=== PATIENT | male | born 1945 | race Caucasian/White ===

== ENCOUNTER 2020-11-28 10:06 | Inpatient (IN) | payer MEDICARE, SELFPAY ==
[2020-11-28] VITALS (10 sets, daily range): BP systolic 115–156; BP diastolic 43–73; PULSE 60–74; RESP 18–27; TEMP 37.1; O2SAT 92–97; BMI 46.5
--- NOTE | ~2020-11-28 | US_ITS ---
EXAMINATION: US ABDOMEN LIMITED CLINICAL INFORMATION: CT scan of the abdomen and pelvis dated 03/20/2016, abdominal ultrasound dated 09/27/2019. COMPARISON: None TECHNIQUE: Real-time imaging of the right upper quadrant abdominal viscera. FINDINGS: PANCREAS: Visualized portions unremarkable. The majority of the pancreas is obscured by bowel gas shadowing. LIVER: Diffuse heterogeneous echotexture and mild surface nodularity without overt focal abnormality in the visualized portions. GALLBLADDER: Several small gallstones without significant mural thickening or pericholecystic fluid. COMMON BILE DUCT: Normal in caliber measuring 0.4 cm in diameter. RIGHT KIDNEY: 10.8 cm. Unremarkable. FREE FLUID: None. US/US abdomen limited IMPRESSION: 1. Hepatic findings suggest cirrhosis. No focal abnormality in the visualized portions. 2. Cholelithiasis without evidence for acute cholecystitis.
--- NOTE | ~2020-11-28 | US_ITS ---
EXAMINATION: US VENOUS ULTRASOUND WITH DOPPLER LOWER EXTREMITY, BILATERAL CLINICAL INFORMATION: Pain and swelling COMPARISON: None TECHNIQUE: Ultrasound of the deep veins is performed from the hip to the calf with compression sonography and color and pulse Doppler assessment. Spectral analysis with color-flow imaging is performed. FINDINGS: RIGHT: There is normal venous compression and respiratory variation and augmented flow. The visualized common femoral vein, superficial femoral vein, profunda femoral vein, popliteal vein, and the trifurcation region shows no evidence of deep venous thrombosis. There is no significant popliteal fossa cyst. LEFT: There is normal venous compression and respiratory variation and augmented flow. The visualized common femoral vein, superficial femoral vein, profunda femoral vein, popliteal vein, and the trifurcation region shows no evidence of deep venous thrombosis. There is no significant popliteal fossa cyst. US/US venous duplex LE BI IMPRESSION: No DVT demonstrated in the bilateral lower extremity.
--- NOTE | ~2020-11-28 | XR_ITS ---
EXAMINATION: XR CHEST CLINICAL INFORMATION: Dyspnea COMPARISON: Previous chest x-ray March 2019 TECHNIQUE: Frontal view of the chest was obtained. FINDINGS: The cardiac and mediastinal contours are stable. The lung volumes are low. There is slight elevation of the right hemidiaphragm. There is atelectasis or small infiltrate at the right lung base. There is no pleural effusion or pneumothorax. There are degenerative changes of the spine. XR/XR chest 1V IMPRESSION: Low lung volumes and elevated right hemidiaphragm. Atelectasis or small infiltrate at the right lung base.
--- NOTE | ~2020-11-28 | NM_ITS ---
EXAMINATION: NM LUNG IMAGE PERFUSION CLINICAL INFORMATION: Hypoxia. Changes on ECHO consistent with right-sided failure. COMPARISON: Chest x-ray 11/28/2020 TECHNIQUE: 2 mCi technetium 99m MAA was given intravenously for evaluation of perfusion. Multiple images obtained. No ventilation images performed. Comparison made with chest x-ray. FINDINGS: There is homogeneous perfusion of the right and left lungs. No evidence of pulmonary embolism. NM/IL pul perfusion IMPRESSION: Normal perfusion study. No evidence of pulmonary embolism.
--- NOTE | 2020-11-28 10:16 | ED_ITS ---
HPI - SOB/Dyspnea General Chief Complaint: Dyspnea Stated Complaint: diff breathing Time Seen by Provider: 11/28/20 10:16 Source: patient, EMS and old records reviewed Mode of arrival: EMS Limitations: other (poor historian) History of Present Illness HPI Narrative: 75 yo male with cirrhosis, COPD, HTN, DM, hepatic encephalopathy comes in with 1 week of dyspnea, LE edema - sleeping in a recliner, poor historian EMS found him to be mid 80s on RA MD elicited complaint: shortness of breath Pertinent past history: COPD Onset (ago): week(s) (1) Timing: constant Severity: moderate Exacerbating factors: lying flat and exertion Relieving factors: upright position Known history of: COPD Associated symptoms: orthopnea and lower extremity pain Treatment prior to arrival: oxygen Related Data Home Medications Medication Instructions Recorded Confirmed omeprazole 20 mg capsule,delayed 20 mg PO DAILY@0630 05/23/20 11/28/20 release rifaximin 550 mg tablet 550 mg PO TID 05/23/20 11/28/20 aspirin 81 mg PO DAILY 11/28/20 11/28/20 atorvastatin 40 mg PO DAILY 11/28/20 11/28/20 furosemide 40 mg PO DAILY 11/28/20 11/28/20 insulin aspart U-100 [Novolog 22 unit SUBCUT DAILY@0730 11/28/20 11/28/20 Flexpen U-100 Insulin] insulin aspart U-100 [Novolog 24 unit SUBCUT QPM 11/28/20 11/28/20 Flexpen U-100 Insulin] insulin glargine [Lantus Solostar 62 unit SUBCUT BEDTIME 11/28/20 11/28/20 U-100 Insulin] propranolol 10 mg PO BID 11/28/20 11/28/20 spironolactone 50 mg PO DAILY 11/28/20 11/28/20 umeclidinium [Incruse Ellipta] 1 inh INHALATION DAILY 11/28/20 11/28/20 Previous Rx's Medication Instructions Recorded gabapentin 300 mg capsule 300 mg PO BEDTIME 30 Days #30 cap 09/29/20 Allergies Allergy/AdvReac Type Severity Reaction Status Date / Time No Known Allergies Allergy Verified 11/28/20 10:42 Review of Systems Review of Systems: Constitutional : No Fever, No Chills ENT/Mouth : No sore throat, No Rhinorrhea, No Swallowing Difficulty Eyes: No Eye Pain, No Swelling, No Redness Cardiovascular : No Chest Pain, positive SOB, pos Orthopnea, positive Edema Respiratory : No Cough, No Sputum, pos Wheezing, positive dyspnea Gastrointestinal : No Nausea, No Vomiting, No Diarrhea, No abdominal Pain, No Hematochezia, No Melena Genitourinary : No Dysuria, No Urinary Frequency, No Hematuria Musculoskeletal : No joint pain, No Myalgias Skin : No Skin Lesions, No rash Neuro : No Weakness, No Numbness, No Dizziness, No Headache Psych : No Anxiety/Panic, No Depression Heme/Lymph: No Bruising, No Lymphadenopathy Endocrine : No Polyuria, No Polydipsia All other systems reviewed and are negative PMFSH Past Medical History Attestation statement: The following information was validated with the patient. Source: old records reviewed Medical History Alcoholic cirrhosis COPD (chronic obstructive pulmonary disease) Diabetes Encephalopathy HTN (hypertension) Hyperlipidemia Social History Social History (Updated 11/28/20 @ 10:25 by Eleanor De Los Santos DO) Alcohol intake: former Smoking Status: Current every day smoker Smoked in Last 30 Days: No Use of substances other than those prescribed or required for medical reasons: No Advance Directives: No Advance Directives Information Provided: No Physical Exam Vital Signs: Vital Signs: Last Vital Signs Pulse 62 11/28/20 12:31 Resp 22 H 11/28/20 12:31 BP 115/43 L 11/28/20 12:31 Pulse Ox 97 11/28/20 12:31 Oxygen Flow Rate 4 11/28/20 10:30 Body Mass Index 46.5 Appearance: Alert. Oriented X3. Mild acute distress. Eyes: Pupils equal, round and reactive to light. ENT: Pharynx normal. Neck: Normal inspection. Neck supple. CVS: Normal heart rate and rhythm. Pulses normal. Respiratory: Mild respiratory distress tachypnea and retractions. Breath sounds decreased throughout, end exp wheezes throughout Abdomen: Soft and nontender. Skin: Skin warm and dry. Normal skin color. Normal skin turgor. Extremities: 2 to 3+ pitting edema bilateral legs up to abdomen. No calf ttp Neuro: Oriented X 3. No motor deficit. No sensory deficit. Course Course Course Narrative: will admit for further workup and IV diuretics MDM - SOB/Dyspnea MDM Narrative Medical decision making narrative: 75 yo male with cirrhosis, COPD, HTN, DM, hepatic encephalopathy comes in with 1 week of dyspnea, LE edema - sleeping in a recliner, poor historian EMS found him to be mid 80s on RA patient does not know his medications at this time will obtain labs, CXR, COVID swab - IV lasix given his degree of edema, neb treatment, dispo per results and findings, likely admit Lab Data Result diagrams: 11/28/20 11:30 11/28/20 11:30 Labs: Lab Results 11/28/20 11/28/20 11/28/20 Range/Units 11:24 11:30 11:30 WBC 12.8 H (4.8-10.8) X10*3/uL RBC 4.00 L (4.60-5.80) X10*6/uL Hgb 13.3 L (14.0-18.0) g/dl Hct 40.2 L (42-52) % MCV 100.5 H (80-98) fL MCH 33.3 H (27.0-33.0) pg MCHC 33.1 (31.0-36.0) g/dl RDW 19.6 H (11.0-16.0) % Plt Count 121 L (160-400) X10*3/uL MPV 13.0 H (9.4-12.4) fL Immature Gran % (Auto) 0.5 H (0.0-0.4) % Neut % (Auto) 70.9 (45-73) % Lymph % (Auto) 9.2 L (20-40) % Boundary % (Auto) 18.2 H (2-11) % Eos % (Auto) 0.7 (0-4) % Baso % (Auto) 0.5 (0-2) % Lymph # (Auto) 1.2 (1.2-4.9) X10*3/uL Bound[place] # (Auto) 2.3 H (0.1-1.2) X10*3/uL Eos # (Auto) 0.1 (0.0-0.4) X10*3/uL Baso # (Auto) 0.1 (0.0-0.2) X10*3/uL Abs Immat Gran (auto) 0.06 H (0.00-0.03) X10*3/uL Absolute Neuts (auto) 9.1 H (2.0-8.3) X10*3/uL Absolute Nucleated RBC 0.000 (0.0-0.012) X10*3/uL Nucleated RBC % (auto) 0.0 (0.0-0.2) /100WBC Smear Tech's Comments VERIFIED PT (10.8-13.0) SEC INR (0.9-1.1) APTT (24.1-38.0) SEC Sodium 140 (135-145) mmol/L Potassium 4.3 (3.3-5.1) mmol/L Chloride 105 (96-108) mmol/L Carbon Dioxide 27 (22-29) mmol/L Anion Gap 12 (12-20) BUN 23 H (9-16) mg/dL Creatinine 1.94 H (0.5-1.4) mg/dL Estim Creat Clear Calc 45.6 Estimated GFR 34 Random Glucose 127 H (60-115) mg/dL Calcium 7.9 L (8.4-10.2) mg/dL Magnesium 2.3 (1.6-2.6) mg/dL Total Bilirubin 6.3 H (0.0-1.0) mg/dL Direct Bilirubin 2.1 H (0.0-0.5) mg/dL AST 41 H (5-37) U/L ALT 16 (0-40) U/L Alkaline Phosphatase 201 H (39-117) U/L Ammonia (13-55) umol/L Troponin I High Sens (<3.5-35.0) ng/L B-Natriuretic Peptide (<100) pg/mL Total Protein 7.3 (6.5-8.0) g/dL Albumin 2.5 L (3.5-5.0) g/dL Lipase 40 (8-78) U/L TSH (0.32-4.0) uIU/mL COVID-19 ([facility]ION) Negative (Negative) COVID-19 Clin Com See Note 11/28/20 11/28/20 11/28/20 Range/Units 11:30 11:30 11:30 WBC (4.8-10.8) X10*3/uL RBC (4.60-5.80) X10*6/uL Hgb (14.0-18.0) g/dl Hct (42-52) % MCV (80-98) fL MCH (27.0-33.0) pg MCHC (31.0-36.0) g/dl RDW (11.0-16.0) % Plt Count (160-400) X10*3/uL MPV (9.4-12.4) fL Immature Gran % (Auto) (0.0-0.4) % Neut % (Auto) (45-73) % Lymph % (Auto) (20-40) % Boundary % (Auto) (2-11) % Eos % (Auto) (0-4) % Baso % (Auto) (0-2) % Lymph # (Auto) (1.2-4.9) X10*3/uL Boundary # (Auto) (0.1-1.2) X10*3/uL Eos # (Auto) (0.0-0.4) X10*3/uL Baso # (Auto) (0.0-0.2) X10*3/uL Abs Immat Gran (auto) (0.00-0.03) X10*3/uL Absolute Neuts (auto) (2.0-8.3) X10*3/uL Absolute Nucleated RBC (0.0-0.012) X10*3/uL Nucleated RBC % (auto) (0.0-0.2) /100WBC Smear Tech's Comments PT 18.2 H (10.8-13.0) SEC INR 1.5 H (0.9-1.1) APTT 41.5 H (24.1-38.0) SEC Sodium (135-145) mmol/L Potassium (3.3-5.1) mmol/L Chloride (96-108) mmol/L Carbon Dioxide (22-29) mmol/L Anion Gap (12-20) BUN (9-16) mg/dL Creatinine (0.5-1.4) mg/dL Estim Creat Clear Calc Estimated GFR Random Glucose (60-115) mg/dL Calcium (8.4-10.2) mg/dL Magnesium (1.6-2.6) mg/dL Total Bilirubin (0.0-1.0) mg/dL Direct Bilirubin (0.0-0.5) mg/dL AST (5-37) U/L ALT (0-40) U/L Alkaline Phosphatase (39-117) U/L Ammonia 60 H (13-55) umol/L Troponin I High Sens (<3.5-35.0) ng/L B-Natriuretic Peptide 736 H (<100) pg/mL Total Protein (6.5-8.0) g/dL Albumin (3.5-5.0) g/dL Lipase (8-78) U/L TSH (0.32-4.0) uIU/mL COVID-19 ([facility]) (Negative) COVID-19 Clin Com 11/28/20 11/28/20 Range/Units 11:30 11:30 WBC (4.8-10.8) X10*3/uL RBC (4.60-5.80) X10*6/uL Hgb (14.0-18.0) g/dl Hct (42-52) % MCV (80-98) fL MCH (27.0-33.0) pg MCHC (31.0-36.0) g/dl RDW (11.0-16.0) % Plt Count (160-400) X10*3/uL MPV (9.4-12.4) fL Immature Gran % (Auto) (0.0-0.4) % Neut % (Auto) (45-73) % Lymph % (Auto) (20-40) % Boundary % (Auto) (2-11) % Eos % (Auto) (0-4) % Baso % (Auto) (0-2) % Lymph # (Auto) (1.2-4.9) X10*3/uL Boundary # (Auto) (0.1-1.2) X10*3/uL Eos # (Auto) (0.0-0.4) X10*3/uL Baso # (Auto) (0.0-0.2) X10*3/uL Abs Immat Gran (auto) (0.00-0.03) X10*3/uL Absolute Neuts (auto) (2.0-8.3) X10*3/uL Absolute Nucleated RBC (0.0-0.012) X10*3/uL Nucleated RBC % (auto) (0.0-0.2) /100WBC Smear Tech's Comments PT (10.8-13.0) SEC INR (0.9-1.1) APTT (24.1-38.0) SEC Sodium (135-145) mmol/L Potassium (3.3-5.1) mmol/L Chloride (96-108) mmol/L Carbon Dioxide (22-29) mmol/L Anion Gap (12-20) BUN (9-16) mg/dL Creatinine (0.5-1.4) mg/dL Estim Creat Clear Calc Estimated GFR Random Glucose (60-115) mg/dL Calcium (8.4-10.2) mg/dL Magnesium (1.6-2.6) mg/dL Total Bilirubin (0.0-1.0) mg/dL Direct Bilirubin (0.0-0.5) mg/dL AST (5-37) U/L ALT (0-40) U/L Alkaline Phosphatase (39-117) U/L Ammonia (13-55) umol/L Troponin I High Sens 72.5 H (<3.5-35.0) ng/L B-Natriuretic Peptide (<100) pg/mL Total Protein (6.5-8.0) g/dL Albumin (3.5-5.0) g/dL Lipase (8-78) U/L TSH 0.80 (0.32-4.0) uIU/mL COVID-19 ([facility]) (Negative) COVID-19 Clin Com ECG Data Attestation: I personally reviewed and interpreted this ECG as follows: ECG interpretation date: 11/28/20 ECG interpretation time: 10:56 Interpretation: Rate: 61 Rhythm: NSR [place]: normal Normal P waves. Normal VELMA. Normal QRS complex. ST T wave : normal, no LEODAN qTC: normal prior studies: no acute ischemia The study has been interpreted contemporaneously by me. . Discharge Plan Discharge Clinical Impression: Shortness of breath, Anasarca, Cirrhosis Patient Disposition: Admitted As Inpatient Prescriptions: No Action gabapentin 300 mg capsule 300 mg PO BEDTIME 30 Days Qty: 30 RF: 2 Lantus Solostar U-100 Insulin 100 unit/mL (3 mL) Insulin Pen 62 unit SUBCUT BEDTIME RF: 0 furosemide 40 mg Tablet 40 mg PO DAILY RF: 0 Incruse Ellipta 62.5 mcg/actuation Blister With Device 1 inh INHALATION DAILY RF: 0 atorvastatin 40 mg Tablet 40 mg PO DAILY RF: 0 propranolol 10 mg Tablet 10 mg PO BID RF: 0 spironolactone 50 mg Tablet 50 mg PO DAILY RF: 0 aspirin 81 mg Tablet,Delayed Release (Dr/Ec) 81 mg PO DAILY RF: 0 insulin aspart U-100 [Novolog Flexpen U-100 Insulin] 100 unit/mL (3 mL) Insulin Pen 22 unit SUBCUT DAILY@0730 RF: 0 insulin aspart U-100 [Novolog Flexpen U-100 Insulin] 100 unit/mL (3 mL) Insulin Pen 24 unit SUBCUT QPM RF: 0 omeprazole 20 mg capsule,delayed release(DR/EC) 20 mg PO DAILY@0630 RF: 0 Xifaxan 550 mg tablet 550 mg PO TID RF: 0
--- NOTE | 2020-11-28 10:22 | ECG_ITS ---
Test Reason : DYSPNEA Blood Pressure : / mmHG Vent. Rate : 061 BPM Atrial Rate : 061 BPM P-R Int : 160 ms QRS Dur : 092 ms QT Int : 450 ms P-R-T Axes : 032 009 052 degrees QTc Int : 453 ms Normal sinus rhythm Normal ECG When compared with ECG of 12-MAR-2019 10:06, No significant change was found Referred By: Eleanor De Los Santos Electronically Signed By:LUBNA FARRIS MD
[2020-11-28] MEDS: Furosemide 40 MG/4 ML VIAL IVPUSH ×2 (10:50→19:05)
--- NOTE | 2020-11-28 11:01 | PC.NURSE ---
Pt alert and oriented, skin pink, warm, dry. LS wheezing Right Upper Lobe. SOB with exertion. C/O LLL pain on inspiration. O2 sat on arrival 94% on 4L NC. Pt currently satting 95-96% on 4L NC. +3 pitting edema noted to BLE. Edema noted up to groin. 40mg Lasix given. Pt in bed awaiting chest x-ray. Daughter at bed.
[2020-11-28 11:48] LABS: Basophils Absolute Auto 0.1 X10*3/uL (0.0-0.2); Basophils Percent Auto 0.5 % (0-2); Eosinophils Absolute Auto 0.1 X10*3/uL (0.0-0.4); Eosinophils Percent Auto 0.7 % (0-4); Hematocrit 40.2 % (42-52); Hemoglobin 13.3 g/dl (14.0-18.0); INTERNATIONAL NORM RATIO 1.5 (0.9-1.1); Imm Gran Abs Auto 0.06 X10*3/uL (0.00-0.03); Imm Gran Pct Auto 0.5 % (0.0-0.4); Lymphocytes Absolute Auto 1.2 X10*3/uL (1.2-4.9); Lymphocytes Percent Auto 9.2 % (20-40); MANUAL DIFF FLAG SCAN; Mean Corpuscular HGB Conc 33.1 g/dl (31.0-36.0); Mean Corpuscular Hemoglobin 33.3 pg (27.0-33.0); Mean Corpuscular Volume 100.5 fL (80-98); Monocytes Absolute Auto 2.3 X10*3/uL (0.1-1.2); Monocytes Percent Auto 18.2 % (2-11); Neutrophils Absolute Auto 9.1 X10*3/uL (2.0-8.3); Neutrophils Percent Auto 70.9 % (45-73); Platelet Count 121 X10*3/uL (160-400); Prothrombin Time 18.2 SEC (10.8-13.0); Red Cell Distribution Width 19.6 % (11.0-16.0); SCAN SMEAR FLAG 1; White Blood Count 12.8 X10*3/uL (4.8-10.8)
--- NOTE | 2020-11-28 11:50 | PC.NURSE ---
called resp for neb tx
[2020-11-28 11:52] LABS: Partial Thromboplastin Time 41.5 SEC (24.1-38.0)
[2020-11-28] MEDS: Albuterol Sulfate (0.083%) 2.5 MG/3 ML VIAL.NEB INHALE (12:00)
[2020-11-28 12:02] LABS: COVID-19 Test Negative (Negative)
[2020-11-28 12:06] LABS: Alanine Aminotransferase 16 U/L (0-40); Albumin Level 2.5 g/dL (3.5-5.0); Alkaline Phosphatase 201 U/L (39-117); Anion Gap 12 (12-20); Aspartate Amino Transferase 41 U/L (5-37); Bilirubin Direct 2.1 mg/dL (0.0-0.5); Bilirubin Total 6.3 mg/dL (0.0-1.0); Blood Urea Nitrogen 23 mg/dL (9-16); Calcium 7.9 mg/dL (8.4-10.2); Carbon Dioxide 27 mmol/L (22-29); Chloride 105 mmol/L (96-108); Creatinine Clr Calc Pharmacy 45.6; Estimated Glomerular Filt Rate 34; Glucose Random 127 mg/dL (60-115); Lipase 40 U/L (8-78); Magnesium 2.3 mg/dL (1.6-2.6); Potassium 4.3 mmol/L (3.3-5.1); Sodium 140 mmol/L (135-145); Total Protein 7.3 g/dL (6.5-8.0)
[2020-11-28 12:08] LABS: B Type Natriuretic Peptide 736 pg/mL (<100)
[2020-11-28 12:09] LABS: Ammonia 60 umol/L (13-55)
[2020-11-28 12:12] LABS: Troponin-I High Sensitivity 72.5 ng/L (<3.5-35.0)
[2020-11-28 12:17] LABS: SLIDE REVIEW VERIFIED
--- NOTE | 2020-11-28 14:43 | PC.NURSE ---
PT COMFORTABLE THOUGH REMAINS DYSPNEIC AT REST AT THIS TIME. NO C/O PAIN. SPO2 HAS REMAINED WNL ON 4L O2. PLAN FOR ADMISSION, PT AWARE OF PLAN FOR CARE.
--- NOTE | 2020-11-28 15:28 | CA_ITS ---
Transthoracic Echocardiogram Patient (Last, First, Middle): Cory Vu M Gender: Male Date of : 1945 Age: 75 Procedure Date: 11/28/2020 Procedure Type: Transthoracic Echocardiogram Location: ER Height: 172.72 cm Weight: 138.8 kg BSA: 2.45 m2 Heart Rate: bpm BP: 111 / 43 mmHg Fleet Assistant: VANNA Referring MD: Rosie SHOEMAKER Acid Maker: Pato Bunn MD Symptoms: fluid overload Study Quality: Fair ECG Rhythm: Sinus with extra beats Conclusions: - 1. Severely elevated right ventricular systolic function with RV systolic pressure calculated at 100 mm of mercury with possible RV enlargement and dysfunction 2. Normal LV systolic function with impaired relaxation filling pattern 3. No significant valvular abnormality 4. No gross pericardial effusion Findings Procedure Information Contrast agent, definity, is being given per protocol without apparent complications. Left Ventricle Normal left ventricular size, thickness, and systolic function. The visually estimated ejection fraction is between 60-65%. Spectral Doppler is indicative of an impaired relaxation filling pattern. Right Ventricle RV is not well visualized and on some views appears to be enlarged with systolic dysfunction. However accurate estimation of size and systolic function is not possible on this study Atria The left atrium is mildly dilated. Interatrial shunt cannot be excluded. The right atrium was not well visualized. Aortic Valve The aortic valve structure and function is likely normal. There is no aortic valve stenosis. There is no aortic valve regurgitation. Mitral Valve Likely normal mitral valve structure and function. There is trace mitral valve regurgitation. There is no mitral valve stenosis. Pulmonic Valve The pulmonic valve was not well visualized. Tricuspid Valve The tricuspid valve was not well visualized. There is mild tricuspid valve regurgitation. The right ventricular systolic pressure is 100 mmHg. Significantly elevated right atrial pressure. Severe pulmonary hypertension is present. Great Vessels The aorta was not well visualized. The pulmonary artery was not well visualized. Venous The inferior vena cava is moderately dilated and does not collapse with inspiration. Pericardium/Pleural There is no evidence of pericardial effusion. Prior Study Comparison No previous study in the last 5 years for comparison Measurements 2D Linear Measurements IVSd: 0.98 0.6-0.9/0.6-1.0 cm LVIDd: 5.88 3.9-5.3/4.2-5.9 cm LVIDd Index: 2.40 2.4-3.2/2.2-3.1 cm/m2 LVIDs: 3.11 2.0-3.6 cm LVPWd: 1.03 0.7-1.1 cm Ao Root: 3.70 2.1-3.5 cm LA Diam: 4.20 2.7-3.8/3.0-4.0 cm LAIDs Index: 1.71 1.5-2.3 cm/m2 LV Mass: 299.78 67-162/88-224 g LV Mass Index: 122.36 43-95/49-115 g/m2 LVOT Diam: 2.20 3.0+(-)1.3 cm Mitral Valve MV Pk E: 0.98 MV PK A: 0.78 MV Decel Time: 237.00 E/A: 1.30 E'Lateral: 11.50 E'Medial: 6.48 E/E' Med: 15.10 E/E' Lat: 8.50 PHT: 70.00 MVA PHT: 3.14 Decel [place]: 4.13 Aortic Valve AoV Pk Ezio: 1.80 AoV Mn Ezio: 1.05 AoV VTI: 0.39 AoV Pk Grad: 13.00 Aov Mn Grad: 6.00 JOSE LUIS Cont.VTI: 2.89 LVOT LVOT Pk Ezio: 1.33 LVOT Mn Ezio: 0.90 LVOT VTI: 0.30 LVOT Pk Grad: 7.00 LVOT Mn Grad: 4.00 LVOT Diam: 2.20 LVOT Area: 3.80 Diastolic Function MV Pk E: 0.98 MV Pk A: 0.78 E/A: 1.30 E'Medial: 6.48 E/E' Med: 15.10 E' Laterial: 11.50 E/E' Lat: 8.50 Tricuspid Valve TR Pk Ezio: 4.62 TR Pk Grad: 85.00 RA Press: 15.00 RVSP: 100.00 Great Vessels Aorta Ao Root-2D: 3.70 2.0-3.7 cm Ao Asc: 3.30 2.1-3.4 cm Pulmonary Valve PV Pk Ezio: 1.07 Peak PV Grad: 5.00 Updated in Other Vendor System with Status of Final Pato Bunn MD electronically signed on 11/29/2020 10:10:49 AM with status of Final
--- NOTE | 2020-11-28 15:54 | PM.IMHP ---
History of Present Illness Date of Service: 11/28/20 Chief Complaint: shortness of breath, leg edema This is a 75-year-old Micronesian-speaking female who presented to the emergency department today due to difficulty breathing as well as leg edema. Patient states that he has been feeling short of breath since yesterday. He is awake and alert but somewhat vague in his history. Lab work was significant for white count of 12.8, platelet of 121, INR 1.5, and creatinine of 1.94. Bilirubin was elevated at 6.3, AST 41, ALT 16, alk phosphatase 201. Chest x-ray revealed atelectasis or small infiltrate at the right lung base. Patient denied cough. His presentation was more consistent with fluid overload and he was given a dose of IV Lasix as well as a breathing treatment. Review of Systems Review of Systems: Yes all other systems are reviewed and are negative Constitutional: Constitutional: Denies chills and Denies fever(s) Cardiovascular: Cardiovascular: Denies chest pain Respiratory: Respiratory: Denies cough Gastrointestinal: Gastrointestinal: Denies abdominal pain [facility] Medical History Alcoholic cirrhosis COPD (chronic obstructive pulmonary disease) Diabetes Encephalopathy HTN (hypertension) Hyperlipidemia Functional capacity: uses cane/walker Family history: reviewed and not pertinent Social History Alcohol intake: former Smoking Status: Current every day smoker Smoked in Last 30 Days: No Use of substances other than those prescribed or required for medical reasons: No Advance Directives: No Advance Directives Information Provided: No Meds Allergies Allergy/AdvReac Type Severity Reaction Status Date / Time No Known Allergies Allergy Verified 11/28/20 10:42 Active Medications: Current Medications Generic Name Dose Route Start Last Admin Trade Name Freq PRN Reason Stop Dose Admin Furosemide 40 mg 11/28/20 18:00 Furosemide 40 Mg/4 Ml Vial IVPUSH BID@0900,1800 [facility] Protocol Lactulose 30 gm 11/28/20 21:00 Lactulose 20 Gm/30 Ml Solution PO BID [facility] Pharmacy Consult 1 each 11/28/20 10:21 Consult Rx Perform Med Rec MISCELLANE ONCE PRN Consult order Home Medications Medication Instructions Recorded Confirmed Last Taken Type omeprazole 20 mg capsule,delayed 20 mg PO DAILY@0630 05/23/20 11/28/20 11/27/20 History release rifaximin 550 mg tablet 550 mg PO TID 05/23/20 11/28/20 11/27/20 History aspirin 81 mg PO DAILY 11/28/20 11/28/20 11/27/20 History atorvastatin 40 mg PO DAILY 11/28/20 11/28/20 11/27/20 History furosemide 40 mg PO DAILY 11/28/20 11/28/20 11/27/20 History insulin aspart U-100 [Novolog 22 unit SUBCUT DAILY@0730 11/28/20 11/28/20 Unknown History Flexpen U-100 Insulin] insulin aspart U-100 [Novolog 24 unit SUBCUT QPM 11/28/20 11/28/20 Unknown History Flexpen U-100 Insulin] insulin glargine [Lantus Solostar 62 unit SUBCUT BEDTIME 11/28/20 11/28/20 11/27/20 History U-100 Insulin] propranolol 10 mg PO BID 11/28/20 11/28/20 11/27/20 History spironolactone 50 mg PO DAILY 11/28/20 11/28/20 11/27/20 History umeclidinium [Incruse Ellipta] 1 inh INHALATION DAILY 11/28/20 11/28/20 11/27/20 History Physical Exam Vital Signs and Narrative: Vital Signs: Last Vital Signs Pulse 62 11/28/20 12:31 Resp 22 H 11/28/20 12:31 BP 115/43 L 11/28/20 12:31 Pulse Ox 97 11/28/20 12:31 Oxygen Flow Rate 4 11/28/20 10:30 Body Mass Index 46.5 Const: Nutritional Appearance: well nourished HENMT: Head: Yes normocephalic and Yes atraumatic Eyes: Sclerae: sclerae normal Chest: Chest palpation & inspection: normal inspection of the chest Cardio: Rate: regular rate Rhythm: regular rhythm GI: Palpation (GI): Soft to palpation and nontender Neuro: Cranial nerves: Yes CN's II-XII intact bilaterally and Yes Bilaterally intact EOM present Extrem: General: Yes normal to inspection Results Labs CBC and Chem 7: 11/28/20 11:30 11/28/20 11:30 Labs: Laboratory Results - last 24 hr 11/28/20 11/28/20 11/28/20 11:24 11:30 11:30 MCV 100.5 H MCH 33.3 H MCHC 33.1 RDW 19.6 H Plt Count 121 L MPV 13.0 H Immature Gran % (Auto) 0.5 H Neut % (Auto) 70.9 Lymph % (Auto) 9.2 L [place] % (Auto) 18.2 H Eos % (Auto) 0.7 Baso % (Auto) 0.5 Lymph # (Auto) 1.2 [place] # (Auto) 2.3 H Eos # (Auto) 0.1 Baso # (Auto) 0.1 Abs Immat Gran (auto) 0.06 H Absolute Neuts (auto) 9.1 H Absolute Nucleated RBC 0.000 Nucleated RBC % (auto) 0.0 Smear Tech's Comments VERIFIED PT INR APTT Anion Gap 12 Estim Creat Clear Calc 45.6 Estimated GFR 34 Random Glucose 127 H Calcium 7.9 L Magnesium 2.3 Total Bilirubin 6.3 H Direct Bilirubin 2.1 H AST 41 H ALT 16 Alkaline Phosphatase 201 H Ammonia Troponin I High Sens B-Natriuretic Peptide Total Protein 7.3 Albumin 2.5 L Lipase 40 TSH COVID-19 ([facility]ARRION) Negative COVIDTVDeck See Note 11/28/20 11/28/20 11/28/20 11:30 11:30 11:30 MCV MCH MCHC RDW Plt Count MPV Immature Gran % (Auto) Neut % (Auto) Lymph % (Auto) [place] % (Auto) Eos % (Auto) Baso % (Auto) Lymph # (Auto) [place] # (Auto) Eos # (Auto) Baso # (Auto) Abs Immat Gran (auto) Absolute Neuts (auto) Absolute Nucleated RBC Nucleated RBC % (auto) Smear Tech's Comments PT 18.2 H INR 1.5 H APTT 41.5 H Anion Gap Estim Creat Clear Calc Estimated GFR Random Glucose Calcium Magnesium Total Bilirubin Direct Bilirubin AST ALT Alkaline Phosphatase Ammonia 60 H Troponin I High Sens B-Natriuretic Peptide 736 H Total Protein Albumin Lipase TSH COVID-19 ([facility]ARRION) COVID-Carbonated Content Clin Com 11/28/20 11/28/20 11:30 11:30 MCV MCH MCHC RDW Plt Count MPV Immature Gran % (Auto) Neut % (Auto) Lymph % (Auto) [place] % (Auto) Eos % (Auto) Baso % (Auto) Lymph # (Auto) [place] # (Auto) Eos # (Auto) Baso # (Auto) Abs Immat Gran (auto) Absolute Neuts (auto) Absolute Nucleated RBC Nucleated RBC % (auto) Smear Tech's Comments PT INR APTT Anion Gap Estim Creat Clear Calc Estimated GFR Random Glucose Calcium Magnesium Total Bilirubin Direct Bilirubin AST ALT Alkaline Phosphatase Ammonia Troponin I High Sens 72.5 H B-Natriuretic Peptide Total Protein Albumin Lipase TSH 0.80 COVID-19 (DARRION) COVID-19 Clin Com Imaging Radiologist's Impressions: Impressions Chest X-Ray 11/28/20 10:23 IMPRESSION: Low lung volumes and elevated right hemidiaphragm. Atelectasis or small infiltrate at the right lung base. Venous Duplex 11/28/20 12:17 IMPRESSION: No DVT demonstrated in the bilateral lower extremity. Assessment and Plan (1) Cirrhosis: Qualifiers: Ascites presence: unspecified Hepatic cirrhosis type: unspecified hepatic cirrhosis Qualified Code(s): K74.60 - Unspecified cirrhosis of liver Status: Acute (2) Acute respiratory failure with hypoxia: Status: Acute This is a 75-year-old Micronesian-speaking male with a history of diabetes, thrombocytopenia, CKD arrived to the emergency department hypoxic with an oxygen saturation in the mid 80s found to have fluid overload Acute respiratory failure with hypoxia Appears fluid overloaded History of underlying liver disease, denies CHF ?of small infiltrate on cxr, but clinical picture more c/w fluid overload -echocardiogram -IV Lasix ULYSSES on CKD requires diuresis due to fluid overload -consider nephrology consult Elevated bilirubin h/o etoh abuse ?cirrhosis -abdominal US pending -continue lasix Hepatic encephalopathy Ammonia 60 -start lactulose -continue rifaximin elevated trop no chest pain -repeat trop pending Thrombocytopenia Chronic, related to underlying liver disease -follow CBC Diabetes -continue Lantus -SSI, POC GERD -continue PPI dvt ppx -lovenox code status - full code Attending Dr. Phillips
[2020-11-28 17:04] LABS: Troponin-I High Sensitivity 65.8 ng/L (<3.5-35.0)
--- NOTE | 2020-11-28 18:32 | PC.NURSE ---
Patient alert and oriented. Appears dyspenic in bed however denies this. cashier wrapper used to communicate. Pt aware of transfer to floor. Denies pain or discomfort. Vitals stable.
[2020-11-28] MEDS: Enoxaparin Sodium 40 MG/0.4 ML SYRINGE SUBCUT (19:05)
--- NOTE | 2020-11-28 20:12 | PC.NURSE ---
Timbo from [facility] called and will be here in 15 min approx 2029. to perform the lung scan.
[2020-11-28] MEDS: Lactulose 20 GM/30 ML SOLUTION 30 GM PO (21:57)
--- NOTE | 2020-11-28 22:02 | PC.NURSE ---
pt urine output 1000cc in urinal clear yellow.
[2020-11-28 22:26] LABS: Glucose, Whole Blood 109 mg/dL (60-115)
[2020-11-28] MEDS: 0.9 % Sodium Chloride Flush 3 ML SYRINGE IVFLUSH (22:30)
[2020-11-28] MEDS: Propranolol HCL 10 MG TABLET PO (22:30)
[2020-11-28] MEDS: rifAXIMin 550 MG TABLET PO (22:31)
[2020-11-29] VITALS (9 sets, daily range): BP systolic 108–143; BP diastolic 44–61; PULSE 52–62; RESP 16–20; TEMP 35.9–36.6; O2SAT 96–99; BMI 45.6
[2020-11-29] MEDS: 0.9 % Sodium Chloride Flush 3 ML SYRINGE IVFLUSH ×2 (00:31→08:19)
[2020-11-29] MEDS: Omeprazole 20 MG CAPSULE.DR PO (05:39)
[2020-11-29 06:15] LABS: Hematocrit 37.4 % (42-52); Hemoglobin 12.2 g/dl (14.0-18.0); Mean Corpuscular HGB Conc 32.6 g/dl (31.0-36.0); Mean Corpuscular Hemoglobin 33.3 pg (27.0-33.0); Mean Corpuscular Volume 102.2 fL (80-98); Platelet Count 122 X10*3/uL (160-400); Red Blood Count 3.66 X10*6/uL (4.60-5.80); Red Cell Distribution Width 19.7 % (11.0-16.0); White Blood Count 10.2 X10*3/uL (4.8-10.8)
[2020-11-29 06:20] LABS: INTERNATIONAL NORM RATIO 1.6 (0.9-1.1); Prothrombin Time 19.2 SEC (10.8-13.0)
[2020-11-29 06:27] LABS: Ammonia 43 umol/L (13-55)
[2020-11-29 06:37] LABS: Alanine Aminotransferase 15 U/L (0-40); Albumin Level 2.2 g/dL (3.5-5.0); Alkaline Phosphatase 160 U/L (39-117); Anion Gap 15 (12-20); Aspartate Amino Transferase 42 U/L (5-37); Bilirubin Direct 1.9 mg/dL (0.0-0.5); Bilirubin Total 5.7 mg/dL (0.0-1.0); Blood Urea Nitrogen 24 mg/dL (9-16); Calcium 7.7 mg/dL (8.4-10.2); Carbon Dioxide 26 mmol/L (22-29); Chloride 107 mmol/L (96-108); Creatinine Clr Calc Pharmacy 46.1; Estimated Glomerular Filt Rate 35; Glucose Random 138 mg/dL (60-115); Potassium 4.6 mmol/L (3.3-5.1); Sodium 143 mmol/L (135-145); Total Protein 6.7 g/dL (6.5-8.0)
[2020-11-29 07:11] LABS: Glucose, Whole Blood 119 mg/dL (60-115)
[2020-11-29] MEDS: Lactulose 20 GM/30 ML SOLUTION 30 GM PO ×2 (08:20→20:30)
[2020-11-29] MEDS: Furosemide 40 MG/4 ML VIAL IVPUSH (08:20)
[2020-11-29] MEDS: Propranolol HCL 10 MG TABLET PO (08:20)
[2020-11-29] MEDS: rifAXIMin 550 MG TABLET PO ×3 (08:20→20:30)
[2020-11-29 11:09] LABS: Glucose, Whole Blood 126 mg/dL (60-115)
--- NOTE | 2020-11-29 11:19 | MHC.CM.PN ---
CM met with Patient at bedside with the assist of a [facility] Bulb Filler. Per Patient's request, IMM will be mailed certified letter to his Daughter/INSIDE SALES REPRESENTATIVE/HCP/Rubi and a copy has been placed on the chart.Patient lives alone in his apartment and Rubi is his INSIDE SALES REPRESENTATIVE and visits daily.Patient does not use O2 @ home. PCP is from [facility]. Home/resume services is the goal for dc and CM has initiated and will follow for dc planning.
--- NOTE | 2020-11-29 12:32 | HO.PM.IMPN ---
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 ROS General no headache, no dizziness, no fever chills. CVS no chest pain, no palpitation. Respiratory no cough ,sob Gastrointestinal no nausea, no vomiting, increased abdominal girth Physical Exam Vital Signs: Vital Signs: Last Vital Signs Temp 97 F 11/29/20 12:00 Pulse 54 11/29/20 12:00 Resp 18 11/29/20 12:00 BP 128/44 L 11/29/20 12:00 Pulse Ox 98 11/29/20 12:00 Oxygen Flow Rate 4 11/28/20 10:30 Body Mass Index 45.6 General sitting comfortably, no acute distress. Neck no JVD. CVS regular rate rhythm, Respiratory lungs clear to auscultation, no respiratory distress, no rales, no rhonchi. Gastrointestinal abdomen distended, soft, nontender, bowel sounds audible, no guarding , no rigidity. Extremities bilateral pitting edema. Neuro nonfocal awake, alert Skin no rash Objective Data Current Medications Generic Name Dose Route Start Last Admin Trade Name Freq PRN Reason Stop Dose Admin Docusate Sodium 100 mg 11/28/20 22:14 Docusate Sodium 100 Mg Capsule PO DAILY PRN Constipation Enoxaparin Sodium 40 mg 11/28/20 17:00 11/28/20 19:05 Enoxaparin Sodium 40 Mg/0.4 Ml Syringe SUBCUT 40 mg Q24H KIMMIE Administration Furosemide 40 mg 11/28/20 18:00 11/29/20 08:20 Furosemide 40 Mg/4 Ml Vial IVPUSH 40 mg BID@0900,1800 [facility] Administration Protocol Insulin Glargine 50 unit 11/28/20 23:00 11/28/20 22:23 Insulin Glargine,Hum.Rec.Anlog 100 Unit/Ml 10 Ml Vial SUBCUT Not Given BEDTIME [facility] Insulin Human Lispro 0 unit 11/28/20 23:00 11/29/20 11:10 Insulin Lispro 100 Unit/Ml 3 Ml Vial SUBCUT Not Given QIDACHS [facility] Protocol Lactulose 30 gm 11/28/20 21:00 11/29/20 08:20 Lactulose 20 Gm/30 Ml Solution PO 30 gm BID KIMMIE Administration Omeprazole 20 mg 11/29/20 06:30 11/29/20 05:39 Omeprazole 20 Mg Capsule.Dr PO 20 mg DAILY@0630 KIMMIE Administration Ondansetron HCl 4 mg 11/28/20 22:14 Ondansetron Hcl 4 Mg/2 Ml Vial IVPUSH Q8H PRN Nausea and Vomiting Pharmacy Consult 1 each 11/28/20 10:21 Consult Rx Perform Med Rec MISCELLANE ONCE PRN Consult order Propranolol HCl 10 mg 11/28/20 23:00 11/29/20 08:20 Propranolol Hcl 10 Mg Tablet PO 10 mg BID KIMMIE Administration Protocol Rifaximin 550 mg 11/28/20 23:00 11/29/20 08:20 Rifaximin 550 Mg Tablet PO 550 mg TID KIMMIE Administration Sodium Chloride 3 ml 11/28/20 22:14 11/29/20 08:19 0.9 % Sodium Chloride Flush 3 Ml Syringe IVFLUSH 3 ml QSHIFT KIMMIE Administration Labs CBC & Chem 7: 11/29/20 05:55 11/29/20 05:55 Assessment and Plan (1) Acute respiratory failure with hypoxia: Status: Acute (2) Acute right-sided heart failure: Status: Acute (3) Anasarca: Status: Acute (4) Cirrhosis: Status: Acute (5) Thrombocytopenia: Status: Acute (6) Elevated troponin: Status: Acute Assessment and Plan: 75-year-old Venezuelan-speaking male with a history of diabetes, thrombocytopenia, CKD arrived to the emergency department hypoxic with an oxygen saturation in the mid 80s found to have fluid overload Acute respiratory failure with hypoxia likely due to diastolic dysfunction, right-sided heart failure , severe pulmonary hypertension Patient feeling better with less shortness of breath but persistent bilateral lower extremity edema,neg. fluid balance 680 in 24 hrs, echocardiogram showed right ventricular systolic pressure of 100, elevated right atrial pressure, severe pulmonary hypertension, normal systolic function Follow BMP and BNP while being diuresed, follow daily weight,i/o. Will DC IV Lasix b.i.d. and place patient on IV Lasix drip No evidence of PE on V/Q scan, lower extremity Doppler study showed no DVT ULYSSES on CKD stage III Likely due to renal congestion, will treat with IV Lasix and follow renal function closely avoid nephrotoxins Elevated bilirubin/mild transaminitis due to cirrhosis of liver related to alcohol abuse. Abdominal ultrasound showed findings suggestive of cirrhosis no focal abnormality, cholelithiasis without evidence of acute cholecystitis. Hepatic encephalopathy resolved ammonia improved from 60 to 43 Continue lactulose and rifaximin elevated trop, patient denies chest pain repeat troponin remains flat likely due to ULYSSES, echo shows normal systolic function. Thrombocytopenia chronic and stable no active bleeding noted Diabetes blood sugars stable, continue Lantus,SSI, POC GERD continue PPI dvt ppx compression boots code status - full code
[2020-11-29] MEDS: Furosemide 200 MG in 0.9 % Sodium Chloride 80 ML IVCONT (15:48)
[2020-11-29 16:33] LABS: Glucose, Whole Blood 117 mg/dL (60-115)
[2020-11-29 20:26] LABS: Glucose, Whole Blood 167 mg/dL (60-115)
[2020-11-29] MEDS: Insulin Lispro 100 UNIT/ML 3 ML VIAL SUBCUT (20:31)
[2020-11-30] VITALS (8 sets, daily range): BP systolic 114–159; BP diastolic 53–71; PULSE 57–74; RESP 17–20; TEMP 36.4–36.7; O2SAT 92–97; BMI 44.2
[2020-11-30] MEDS: Omeprazole 20 MG CAPSULE.DR PO (05:38)
[2020-11-30 06:28] LABS: Anion Gap 11 (12-20); Blood Urea Nitrogen 24 mg/dL (9-16); Calcium 7.9 mg/dL (8.4-10.2); Carbon Dioxide 33 mmol/L (22-29); Chloride 103 mmol/L (96-108); Creatinine Clr Calc Pharmacy 52.4; Estimated Glomerular Filt Rate 41; Glucose Random 112 mg/dL (60-115); Potassium 3.7 mmol/L (3.3-5.1); Sodium 143 mmol/L (135-145)
[2020-11-30 06:44] LABS: B Type Natriuretic Peptide 197 pg/mL (<100)
[2020-11-30 07:48] LABS: Glucose, Whole Blood 101 mg/dL (60-115)
[2020-11-30] MEDS: rifAXIMin 550 MG TABLET PO ×3 (10:12→20:49)
[2020-11-30] MEDS: Propranolol HCL 10 MG TABLET PO ×2 (10:12→20:49)
--- NOTE | 2020-11-30 11:04 | P.CONCA_ITS ---
History of Present Illness History of Present Illness Date of Service: 11/30/20 Requesting physician: Socorro Varela Consult reason: congestive heart failure Chief complaint: Respiratory failure Narrative: We were asked to see Cory harvey in cardiology consultation for congestive heart failure. Echocardiogram shows markedly elevated right ventricular systolic pressure at 100 mm of mercury with elevated right atrial pressures and dilated right ventricle and systolic dysfunction. History was obtained with help of wax pattern coater. Patient says up until 8 months ago last summer he was able to walk certain distance with help of walker in go to his daughter's house. Her last several months he has been getting progressive shortness of breath over the last 2 weeks has card significantly increased shortness of breath with minimal activity including shortness of breath when he would lay down. He has also noticed significant bilateral lower extremity swelling and also reports weight gain however this is unclear from history taking. He has not had any chest pain or palpitations. When he came to the hospital he was noted to be markedly fluid overloaded and in congestive heart failure with elevated BNP. Echocardiogram as above. He was put on Lasix drip and has diuresed, cumulative negative balance in the chart at 2 L. patient says his shortness of breath is improved. His leg edema is also improving. His BNP is improved significantly. He is noted to have cirrhosis, in the past he has had use of alcohol but currently not using alcohol. He denies any prior history of sleep apnea. He had V/Q scan performed which shows normal perfusion no evidence of pulmonary embolism ruling out chronic thromboembolic pulmonary disease as cause of his significant pulmonary hypertension. Abdominal ultrasound consistent with cirrhosis of the liver. He denies any prior pulmonary issues or cardiac issues. Review of Systems Constitutional: Constitutional: Reports no additional constitutional complaints Cardiovascular: Cardiovascular: Denies chest pain, Denies rapid heart rate, Reports leg edema, Denies Loss of Consciousness, Denies palpitations, Reports dyspnea on exertion and Reports orthopnea Respiratory: Respiratory: Reports no additional respiratory complaints and Reports dyspnea on exertion Gastrointestinal: Gastrointestinal: Reports no additional gastrointestinal complaints Musculoskeletal: Musculoskeletal: Reports no additional musculoskeletal complaints Neurologic: Reports system reviewed and no additional complaints, except as documented Psychiatric: Psychiatric: Reports no additional psychiatric complaints Endocrine: Endocrine: Reports no additional endocrine complaints and Denies palpitations PMFSH Past Medical History Medical History (Updated 11/30/20 @ 11:12 by Pato Bunn MD) Alcoholic cirrhosis COPD (chronic obstructive pulmonary disease) Diabetes Encephalopathy HTN (hypertension) Hyperlipidemia Pulmonary hypertension Functional capacity: uses cane/walker Family History Family history: reviewed and not pertinent Social History Social History Household Members: Children Housing: House Do you presently have visiting nurse or other home services: No Alcohol intake: former Smoking Status: Former smoker Smoked in Last 30 Days: No Smoking Quit Date: 2004 Use of substances other than those prescribed or required for medical reasons: No Currently Displaying Signs/Symptoms of Drug Intoxication Withdrawal: No Have you been hit, kicked, punched, or otherwise hurt by someone within the past year? If so, by whom?: No Do you feel safe in your current relationship?: No Current Relationship Is there a partner from a previous relationship who is making you feel unsafe now?: No Are you made to feel afraid or neglected: No Advance Directives: No Advance Directives Information Provided: No Do you have thoughts of harming others: None Do you have a plan to hurt others: No Plan Recently lost weight without trying: No service: No Current occupational status: retired [employer] Allergies Allergy/AdvReac Type Severity Reaction Status Date / Time No Known Allergies Allergy Verified 11/28/20 10:42 Active Medications: Current Medications Generic Name Dose Route Start Last Admin Trade Name Freq PRN Reason Stop Dose Admin Docusate Sodium 100 mg 11/28/20 22:14 Docusate Sodium 100 Mg Capsule PO DAILY PRN Constipation Furosemide 200 mg/ Sodium 100 mls @ 2.5 mls/hr 11/29/20 13:00 11/29/20 15:48 Chloride IVCONT 5 mg/hr .Q24H KIMMIE 2.5 mls/hr Administration 5 MG/HR Insulin Glargine 50 unit 11/28/20 23:00 11/29/20 20:26 Insulin Glargine,Hum.Rec.Anlog 100 Unit/Ml 10 Ml Vial SUBCUT Not Given BEDTIME KIMMIE Insulin Human Lispro 0 unit 11/28/20 23:00 11/30/20 08:32 Insulin Lispro 100 Unit/Ml 3 Ml Vial SUBCUT Not Given QIDACHS [facility] Protocol Lactulose 30 gm 11/28/20 21:00 11/30/20 10:00 Lactulose 20 Gm/30 Ml Solution PO Not Given BID KIMMIE Omeprazole 20 mg 11/29/20 06:30 11/30/20 05:38 Omeprazole 20 Mg Capsule. PO 20 mg DAILY@0630 [facility] Administration Ondansetron HCl 4 mg 11/28/20 22:14 Ondansetron Hcl 4 Mg/2 Ml Vial IVPUSH Q8H PRN Nausea and Vomiting Pharmacy Consult 1 each 11/28/20 10:21 Consult Rx Perform Med Rec MISCELLANE ONCE PRN Consult order Propranolol HCl 10 mg 11/28/20 23:00 11/30/20 10:12 Propranolol Hcl 10 Mg Tablet PO 10 mg BID [facility] Administration Protocol Rifaximin 550 mg 11/28/20 23:00 11/30/20 10:12 Rifaximin 550 Mg Tablet PO 550 mg TID [facility] Administration Sodium Chloride 3 ml 11/28/20 22:14 11/30/20 00:15 0.9 % Sodium Chloride Flush 3 Ml Syringe IVFLUSH Not Given QSHIFT [facility] Home Medications Medication Instructions Recorded Confirmed Last Taken Type omeprazole 20 mg capsule,delayed 20 mg PO DAILY@0630 05/23/20 11/28/20 11/27/20 History release rifaximin 550 mg tablet 550 mg PO TID 05/23/20 11/28/20 11/27/20 History aspirin 81 mg PO DAILY 11/28/20 11/28/20 11/27/20 History atorvastatin 40 mg PO DAILY 11/28/20 11/28/20 11/27/20 History furosemide 40 mg PO DAILY 11/28/20 11/28/20 11/27/20 History insulin aspart U-100 [Novolog 22 unit SUBCUT DAILY@0730 11/28/20 11/28/20 Unknown History Flexpen U-100 Insulin] insulin aspart U-100 [Novolog 24 unit SUBCUT QPM 11/28/20 11/28/20 Unknown History Flexpen U-100 Insulin] insulin glargine [Lantus Solostar 62 unit SUBCUT BEDTIME 11/28/20 11/28/20 11/27/20 History U-100 Insulin] propranolol 10 mg PO BID 11/28/20 11/28/20 11/27/20 History spironolactone 50 mg PO DAILY 11/28/20 11/28/20 11/27/20 History umeclidinium [Incruse Ellipta] 1 inh INHALATION DAILY 11/28/20 11/28/20 11/27/20 History Physical Exam Vital Signs: Vital Signs: Last Vital Signs Temp 97.6 F 11/30/20 07:48 Pulse 73 11/30/20 10:12 Resp 18 11/30/20 07:48 BP 125/62 11/30/20 10:12 Pulse Ox 96 11/30/20 07:48 Oxygen Flow Rate 4 11/28/20 10:30 Body Mass Index 44.2 Const: General: cooperative, comfortable, no acute distress, alert and awake Nutritional Appearance: obese morbidly obese Orientation/consciousness: patient oriented x3 Limitations: ambulation with walker HENMT: Head: Yes normocephalic and Yes atraumatic Neck: Neck: Yes trachea midline, Yes supple and Yes other (Difficult to evaluate JVD due to thick neck) Resp: Effort & Inspection: normal respiratory effort Auscultation: no rales, no wheezes and diminished lung sounds Cardio: Rate: regular rate Rhythm: regular rhythm Heart sounds: S1 normal heart sound present and S2 normal heart sound present GI: Inspection: Yes Abdominal panniculus present and Yes obesity Auscultation: normal bowel sounds Skin: General skin exam: no rashes or lesions noted Neuro: General: patient oriented x3 and no focal motor deficits Extrem: General: No clubbing, No cyanosis and Yes edema Results Labs and Meds Result diagrams: 11/29/20 05:55 11/30/20 05:42 Lab results: Laboratory Results - last 24 hr 11/29/20 11/29/20 11/29/20 11:00 16:27 20:23 Sodium Potassium Chloride Carbon Dioxide Anion Gap BUN Creatinine Estim Creat Clear Calc Estimated GFR POC Glucose 126 H 117 H 167 H Random Glucose Calcium B-Natriuretic Peptide 11/30/20 11/30/20 11/30/20 05:42 05:42 07:45 Sodium 143 Potassium 3.7 Chloride 103 Carbon Dioxide 33 H Anion Gap 11 L BUN 24 H Creatinine 1.64 H Estim Creat Clear Calc 52.4 Estimated GFR 41 POC Glucose 101 Random Glucose 112 Calcium 7.9 L B-Natriuretic Peptide 197 H EKG shows normal sinus rhythm with normal EKG Assessment and Plan (1) Acute right-sided heart failure: Status: Acute Patient presents with decompensated congestive heart failure with predominant right heart failure syndrome. Diuresed well. However still appears to be generally fluid overloaded. IV diuresis. Creatinine is down trending. BNP is improved significantly. Add Aldactone 12.5 mg to his regimen. Heart failure related to significant pulmonary hypertension, see below. Findings were discussed with patient with help of the wax pattern coater. CHF education should be provided. Eventually probably will switch to Bumex as oral regimen. Continue to follow with you. (2) Pulmonary hypertension: Status: Acute Severe pulmonary hypertension with markedly elevated right ventricular systolic pressure. Etiology is unclear. There is no evidence of pulmonary thromboembolism. Likelihood in his case includes possibility of Pickwickian syndrome, obstructive sleep apnea and/or pulmonary hypertension related to portal hypertension related to cirrhosis. Pulmonary consultation should be requested. Blood gas should be performed. Consider high-resolution noncontrast CT to rule out interstitial lung disease. Eventually require further workup for further treatment guidance as outcome and treatment could be very different based on the underlying cause of his pulmonary hypertension and use of pulmonary vasodilators. Will follow with you. Thank you for allowing us to partake in his care
[2020-11-30 11:54] LABS: Glucose, Whole Blood 159 mg/dL (60-115)
--- NOTE | 2020-11-30 12:21 | P.PNIM_ITS ---
Subjective Subjective Date of Service: 11/30/20 Interval History: Patient is sitting comfortably, complaining of diarrhea had multiple loose stools with foul odor, denies abdominal pain no shortness of breath no other acute issues overnight ROS General no headache, no dizziness, no fever chills. CVS no chest pain, no palpitation. Respiratory no cough ,sob Gastrointestinal no nausea, no vomiting, diarrhea Physical Exam Vital Signs: Vital Signs: Last Vital Signs Temp 97.8 F 11/30/20 11:55 Pulse 74 11/30/20 11:55 Resp 20 11/30/20 11:55 BP 128/60 11/30/20 11:55 Pulse Ox 92 11/30/20 11:55 Oxygen Flow Rate 4 11/28/20 10:30 Body Mass Index 44.2 General sitting comfortably, no acute distress. Neck no JVD. CVS regular rate rhythm, Respiratory lungs clear to auscultation, no respiratory distress, no rales, no rhonchi. Gastrointestinal abdomen distended, soft, nontender, bowel sounds audible, no guarding , no rigidity. Extremities persistent bilateral pitting edema, Left leg padilla with a blister and peeling of skin Neuro nonfocal awake, alert Skin no rash Objective Data Current Medications Generic Name Dose Route Start Last Admin Trade Name Freq PRN Reason Stop Dose Admin Docusate Sodium 100 mg 11/28/20 22:14 Docusate Sodium 100 Mg Capsule PO DAILY PRN Constipation Furosemide 200 mg/ Sodium 100 mls @ 2.5 mls/hr 11/29/20 13:00 11/29/20 15:48 Chloride IVCONT 5 mg/hr .Q24H KIMMIE 2.5 mls/hr Administration 5 MG/HR Insulin Glargine 50 unit 11/28/20 23:00 11/29/20 20:26 Insulin Glargine,Hum.Rec.Anlog 100 Unit/Ml 10 Ml Vial SUBCUT Not Given BEDTIME [facility] Insulin Human Lispro 0 unit 11/28/20 23:00 11/30/20 11:52 Insulin Lispro 100 Unit/Ml 3 Ml Vial SUBCUT Not Given QIDACHS [facility] Protocol Lactulose 30 gm 11/28/20 21:00 11/30/20 10:00 Lactulose 20 Gm/30 Ml Solution PO Not Given BID [facility] Omeprazole 20 mg 11/29/20 06:30 11/30/20 05:38 Omeprazole 20 Mg Capsule. PO 20 mg DAILY@0630 [facility] Administration Ondansetron HCl 4 mg 11/28/20 22:14 Ondansetron Hcl 4 Mg/2 Ml Vial IVPUSH Q8H PRN Nausea and Vomiting Pharmacy Consult 1 each 11/28/20 10:21 Consult Rx Perform Med Rec MISCELLANE ONCE PRN Consult order Propranolol HCl 10 mg 11/28/20 23:00 11/30/20 10:12 Propranolol Hcl 10 Mg Tablet PO 10 mg BID KIMMIE Administration Protocol Rifaximin 550 mg 11/28/20 23:00 11/30/20 10:12 Rifaximin 550 Mg Tablet PO 550 mg TID [facility] Administration Sodium Chloride 3 ml 11/28/20 22:14 11/30/20 11:51 0.9 % Sodium Chloride Flush 3 Ml Syringe IVFLUSH Not Given QSHIFT [facility] Labs CBC & Chem 7: 11/29/20 05:55 11/30/20 05:42 Assessment and Plan (1) Acute right-sided heart failure: Status: Acute (2) Pulmonary hypertension: Status: Acute (3) Elevated troponin: Status: Acute (4) Thrombocytopenia: Status: Acute (5) Cirrhosis: Status: Acute (6) Anasarca: Status: Acute (7) Acute respiratory failure with hypoxia: Status: Acute Assessment and Plan: 75-year-old Yi-speaking male with a history of diabetes, thrombocytopenia, CKD arrived to the emergency department hypoxic with an oxygen saturation in the mid 80s found to have fluid overload Acute respiratory failure with hypoxia likely due to diastolic dysfunction, right-sided heart failure , severe pulmonary hypertension Patient feeling better with less shortness of breath and improving bilateral lower extremity edema,neg. fluid balance echocardiogram showed right ventricular systolic pressure of 100, elevated right atrial pressure, severe pulmonary hypertension, normal systolic function Creatinine trending down from 1.9 to 1.6, BNP improved, continue to follow daily weight,i/o. Continue IV Lasix drip day 2 follow clinical course No evidence of PE on V/Q scan, lower extremity Doppler study showed no DVT Case discussed with Dr. Vaughan he recommend pulmonology consult for further workup for pulmonary hypertension including sleep study, ABG and high-resolution CT. Will obtain pulmonology consult order further workup after diuresis and discussing with pulmonology. ULYSSES on CKD stage III Likely due to renal congestion, creatinine improving with diuretics,follow renal function closely avoid nephrotoxins Diarrhea will hold lactulose and check C diff. Elevated bilirubin/mild transaminitis due to cirrhosis of liver related to alcohol abuse. Abdominal ultrasound showed findings suggestive of cirrhosis no focal abnormality, cholelithiasis without evidence of acute cholecystitis. Hepatic encephalopathy resolved ammonia improved from 60 to 43 DC lactulose due to diarrhea and continue rifaximin elevated trop, patient denies chest pain repeat troponin remains flat likely due to ULYSSES, echo shows normal systolic function. Thrombocytopenia chronic and stable no active bleeding noted Diabetes blood sugars stable, continue Lantus,SSI, POC GERD continue PPI dvt ppx compression boots code status - full code
[2020-11-30] MEDS: Furosemide 200 MG in 0.9 % Sodium Chloride 80 ML IVCONT (14:40)
[2020-11-30 16:08] LABS: Glucose, Whole Blood 132 mg/dL (60-115)
[2020-11-30 19:21] LABS: CDIFF Ag Negative (Negative); CDIFF Internal ctrl Dots and bkg OK (V); CDiff Toxin Negative (Negative)
[2020-11-30 20:38] LABS: Glucose, Whole Blood 214 mg/dL (60-115)
[2020-11-30] MEDS: Insulin Lispro 100 UNIT/ML 3 ML VIAL SUBCUT (20:51)
[2020-11-30] MEDS: Insulin Glargine,Hum.rec.anlog 100 UNIT/ML 10 ML VIAL 50 UNIT SUBCUT (20:51)
[2020-11-30] MEDS: 0.9 % Sodium Chloride Flush 3 ML SYRINGE IVFLUSH (20:51)
--- NOTE | 2020-12-01 03:31 | PC.NURSE ---
patient setting off bed alarm and upon arrival to room he was found sitting on the side of the bed having removed his oxygen and branch associate- this RN reconnected the oxygen and branch associate and reeducated the patient on the need to utilize the call fernandez for help. patient stated that he needed to use the urinal this RN assisted the patient with the urinal successfully. prior attempt to place [place] catheter was unsuccessful as patient removed it minutes later due to discomfort patient helped back into bed, call fernandez at his side and bed alarm on no more telesitters are available at this time
[2020-12-01 03:47] VITALS: BP 154/77; PULSE 55; RESP 18; TEMP 36.9; O2SAT 94
--- NOTE | 2020-12-01 04:38 | PC.NURSE ---
patient continuously trying to get out of bed and in the process dislodging his oxygen and surveillance monitor- patient requiring frequent redirection and assistance back into bed and is very unsteady on his feet. Dr. Quevedo alerted of the patients condition and the fact that he his on a lasix gtt and a baca cath order was asked to be placed. Order placed, patient made aware of the reasoning behind the placement of the baca and how he is at increased risk for falls given his medical status and the frequency of urination. Patient agreeable, alert and oriented and with help of aid- baca placed.
[2020-12-01 05:30] VITALS: BMI 44.4
[2020-12-01 05:30] LABS: Anion Gap 12 (12-20); Blood Urea Nitrogen 23 mg/dL (9-16); Calcium 7.8 mg/dL (8.4-10.2); Carbon Dioxide 33 mmol/L (22-29); Chloride 103 mmol/L (96-108); Creatinine Clr Calc Pharmacy 55.9; Estimated Glomerular Filt Rate 44; Glucose Random 79 mg/dL (60-115); Potassium 3.1 mmol/L (3.3-5.1); Sodium 145 mmol/L (135-145)
[2020-12-01] MEDS: Omeprazole 20 MG CAPSULE.DR PO (05:37)
[2020-12-01 07:43] LABS: Glucose, Whole Blood 80 mg/dL (60-115)
[2020-12-01 08:00] VITALS: BP 141/63; PULSE 68; RESP 20; TEMP 37.1; O2SAT 92
[2020-12-01] MEDS: Spironolactone 25 MG TABLET 12.5 MG PO (09:02)
[2020-12-01] MEDS: rifAXIMin 550 MG TABLET PO ×3 (09:02→21:23)
[2020-12-01] MEDS: Propranolol HCL 10 MG TABLET PO ×2 (09:02→21:24)
[2020-12-01] MEDS: Potassium Chloride Packet 20 MEQ PACKET 40 MEQ PO ×2 (09:03→12:48)
[2020-12-01] MEDS: 0.9 % Sodium Chloride Flush 3 ML SYRINGE IVFLUSH ×3 (09:03→21:27)
[2020-12-01 09:51] LABS: Alanine Aminotransferase 17 U/L (0-40); Albumin Level 2.2 g/dL (3.5-5.0); Alkaline Phosphatase 145 U/L (39-117); Aspartate Amino Transferase 38 U/L (5-37); Bilirubin Total 4.6 mg/dL (0.0-1.0); Total Protein 6.3 g/dL (6.5-8.0)
--- NOTE | 2020-12-01 10:04 | P.PNCA_ITS ---
Subjective Subjective Date of Service: 12/01/20 Interval history: He still seems volume overloaded but he feels that he is better than on admission. Review of Systems Review of Systems Yes all other systems are reviewed and are negative Cardiovascular: Reports as per HPI, Reports no additional cardiovascular complaints, Denies acrocyanosis, Denies cool extremities, Denies painful fingertips, Denies chest pain, Denies chest pain at rest, Denies diaphoresis, Denies syncope, Reports pedal edema, Denies irregular heart rhythm, Denies claudication, Reports leg edema, Denies lightheadedness, Denies palpitations and Reports dyspnea Respiratory: Reports dyspnea Denies syncope Endocrine: Denies palpitations Physical Exam Vital Signs: Last Vital Signs Temp 98.7 F 12/01/20 08:00 Pulse 68 12/01/20 08:00 Resp 20 12/01/20 08:00 BP 141/63 H 12/01/20 08:00 Pulse Ox 92 12/01/20 08:00 Oxygen Flow Rate 4 11/28/20 10:30 Body Mass Index 44.4 Const General: cooperative, comfortable and no acute distress Orientation/consciousness: patient oriented x3 HENMT Other: Unremarkable Neck Neck: Yes normal visual inspection Chest Chest palpation & inspection: normal inspection of the chest Resp Auscultation: clear to auscultation bilaterally, crackles bilateral at the base and no wheezes Cardio Jugular venous distension: no JVD Palpation: normal PMI Heart sounds: S1 normal heart sound present, S2 normal heart sound present, no gallops, no murmurs and no rubs GI Palpation (GI): Soft to palpation Back/Spine/Pelvis Other: unremarkable Skin General skin exam: no rashes or lesions noted Neuro General: patient oriented x3 Extrem General: Yes edema (3+) Psych Mental Status: mental status grossly normal Results Labs and Meds Result diagrams: 11/29/20 05:55 12/01/20 04:14 Lab results: Laboratory Results - last 24 hr 11/30/20 11/30/20 11/30/20 11:50 16:03 18:27 Sodium Potassium Chloride Carbon Dioxide Anion Gap BUN Creatinine Estim Creat Clear Calc Estimated GFR POC Glucose 159 H 132 H Random Glucose Calcium Total Bilirubin Direct Bilirubin AST ALT Alkaline Phosphatase Total Protein Albumin C. difficile Toxin A&B Negative C. difficile Antigen Negative C. difficile Interpret SEE NOTE 0512/01/20 12/01/20 20:26 04:14 07:34 Sodium 145 Potassium 3.1 L Chloride 103 Carbon Dioxide 33 H Anion Gap 12 BUN 23 H Creatinine 1.54 H Estim Creat Clear Calc 55.9 Estimated GFR 44 POC Glucose 214 H 80 Random Glucose 79 Calcium 7.8 L Total Bilirubin 4.6 H Direct Bilirubin 2.0 H AST 38 H ALT 17 Alkaline Phosphatase 145 H Total Protein 6.3 L Albumin 2.2 L C. difficile Toxin A&B C. difficile Antigen C. difficile Interpret Progress Note: A&P Assessment and plan (1) Acute right-sided heart failure: Status: Acute (2) Pulmonary hypertension: Status: Acute Assessment and Plan: Clinically, he still volume overloaded. He is on Lasix drip. We can add metolazone to this and keep his lytes corrected. Obtain inpatient Pulmonary consultation. Will follow-up. Fall Risk Details Current Medications: Current Medications Generic Name Dose Route Start Last Admin Trade Name Freq PRN Reason Stop Dose Admin Docusate Sodium 100 mg 11/28/20 22:14 Docusate Sodium 100 Mg Capsule PO DAILY PRN Constipation Furosemide 200 mg/ Sodium 100 mls @ 2.5 mls/hr 11/29/20 13:00 11/30/20 14:40 Chloride IVCONT 5 mg/hr .Q24H KIMMIE 2.5 mls/hr Administration 5 MG/HR Insulin Glargine 50 unit 11/28/20 23:00 11/30/20 20:51 Insulin Glargine,Hum.Rec.Anlog 100 Unit/Ml 10 Ml Vial SUBCUT 50 unit BEDTIME KIMMIE Administration Insulin Human Lispro 0 unit 11/28/20 23:00 12/01/20 08:42 Insulin Lispro 100 Unit/Ml 3 Ml Vial SUBCUT Not Given QIDACHS [facility] Protocol Omeprazole 20 mg 11/29/20 06:30 12/01/20 05:37 Omeprazole 20 Mg Capsule.Dr PO 20 mg DAILY@0630 KIMMIE Administration Ondansetron HCl 4 mg 11/28/20 22:14 Ondansetron Hcl 4 Mg/2 Ml Vial IVPUSH Q8H PRN Nausea and Vomiting Pharmacy Consult 1 each 11/28/20 10:21 Consult Rx Perform Med Rec MISCELLANE ONCE PRN Consult order Potassium Chloride 40 meq 12/01/20 08:45 12/01/20 09:03 Potassium Chloride Packet 20 Meq Packet PO 12/01/20 12:46 40 meq Q4H KIMMIE Administration Propranolol HCl 10 mg 11/28/20 23:00 12/01/20 09:02 Propranolol Hcl 10 Mg Tablet PO 10 mg BID KIMMIE Administration Protocol Rifaximin 550 mg 11/28/20 23:00 12/01/20 09:02 Rifaximin 550 Mg Tablet PO 550 mg TID KIMMIE Administration Sodium Chloride 3 ml 11/28/20 22:14 12/01/20 09:03 0.9 % Sodium Chloride Flush 3 Ml Syringe IVFLUSH 3 ml QSHIFT KIMMIE Administration Spironolactone 12.5 mg 12/01/20 09:00 12/01/20 09:02 Spironolactone 25 Mg Tablet PO 12.5 mg DAILY KIMMIE Administration Protocol Time Spent With Patient Time: Total time spent is greater than 50% in coordination of care (as documented) at patient's floor/unit and/or counseling patient: Time with patient: less than 15 minutes
[2020-12-01 11:45] VITALS: BP 139/56; PULSE 70; RESP 20; O2SAT 93
[2020-12-01 11:45] LABS: Glucose, Whole Blood 126 mg/dL (60-115)
[2020-12-01] MEDS: Furosemide 200 MG in 0.9 % Sodium Chloride 80 ML IVCONT (12:51)
--- NOTE | 2020-12-01 13:23 | MHC.CM.PN ---
DP Male 75 DX Respiratory failure. DP resumption of [employer] services. Family will provide transportation. Pt is confused. CM will follow.
[2020-12-01 15:26] VITALS: BP 130/70; PULSE 68; RESP 20; TEMP 36.4; O2SAT 98
[2020-12-01] MEDS: Insulin Lispro 100 UNIT/ML 3 ML VIAL SUBCUT (16:07)
--- NOTE | 2020-12-01 16:11 | P.PNIM_ITS ---
Subjective Subjective Date of Service: 12/01/20 Interval History: seen and examined feels the same, unchanged ROS General - no fevers or chills Cardiovascular - no chest pain Respiratory - CORTES Abdominal- no abdominal pain, nausea, vomiting, diarrhea Physical Exam Vital Signs: Vital Signs: Last Vital Signs Temp 97.6 F 12/01/20 15:26 Pulse 68 12/01/20 15:26 Resp 20 12/01/20 15:26 BP 130/70 12/01/20 15:26 Pulse Ox 98 12/01/20 15:26 Oxygen Flow Rate 4 11/28/20 10:30 Body Mass Index 44.4 Const: Other: General sitting comfortably, no acute distress. Neck no JVD. CVS regular rate rhythm, Respiratory lungs clear to auscultation, no respiratory distress, no rales, no rhonchi. Gastrointestinal abdomen distended, soft, nontender, bowel sounds audible, no guarding , no rigidity. Extremities persistent bilateral pitting edema, Left leg padilla with a blister and peeling of skin Neuro nonfocal awake, alert Skin no rash Objective Data Current Medications Generic Name Dose Route Start Last Admin Trade Name Freq PRN Reason Stop Dose Admin Docusate Sodium 100 mg 11/28/20 22:14 Docusate Sodium 100 Mg Capsule PO DAILY PRN Constipation Furosemide 200 mg/ Sodium 100 mls @ 2.5 mls/hr 11/29/20 13:00 12/01/20 12:51 Chloride IVCONT 5 mg/hr .Q24H KIMMIE 2.5 mls/hr Administration 5 MG/HR Insulin Glargine 50 unit 11/28/20 23:00 11/30/20 20:51 Insulin Glargine,Hum.Rec.Anlog 100 Unit/Ml 10 Ml Vial SUBCUT 50 unit BEDTIME KIMMIE Administration Insulin Human Lispro 0 unit 11/28/20 23:00 12/01/20 16:07 Insulin Lispro 100 Unit/Ml 3 Ml Vial SUBCUT 2 unit QIDACHS KIMMIE Administration Protocol Omeprazole 20 mg 11/29/20 06:30 12/01/20 05:37 Omeprazole 20 Mg Capsule. PO 20 mg DAILY@0630 KIMMIE Administration Ondansetron HCl 4 mg 11/28/20 22:14 Ondansetron Hcl 4 Mg/2 Ml Vial IVPUSH Q8H PRN Nausea and Vomiting Pharmacy Consult 1 each 11/28/20 10:21 Consult Rx Perform Med Rec MISCELLANE ONCE PRN Consult order Propranolol HCl 10 mg 11/28/20 23:00 12/01/20 09:02 Propranolol Hcl 10 Mg Tablet PO 10 mg BID KIMMIE Administration Protocol Rifaximin 550 mg 11/28/20 23:00 12/01/20 14:05 Rifaximin 550 Mg Tablet PO 550 mg TID KIMMIE Administration Sodium Chloride 3 ml 11/28/20 22:14 12/01/20 15:59 0.9 % Sodium Chloride Flush 3 Ml Syringe IVFLUSH 3 ml QSHIFT KIMMIE Administration Spironolactone 12.5 mg 12/01/20 09:00 12/01/20 09:02 Spironolactone 25 Mg Tablet PO 12.5 mg DAILY KIMMIE Administration Protocol Labs CBC & Chem 7: 11/29/20 05:55 12/01/20 04:14 Assessment and Plan (1) Acute right-sided heart failure: Status: Acute (2) Pulmonary hypertension: Status: Acute (3) Elevated troponin: Status: Acute (4) Thrombocytopenia: Status: Acute (5) Cirrhosis: Status: Acute (6) Anasarca: Status: Acute (7) Acute respiratory failure with hypoxia: Status: Acute Assessment and Plan: 75-year-old Faroese-speaking male with a history of diabetes, thromb ocytopenia, CKD arrived to the emergency department hypoxic with an oxygen saturation in the mid 80s found to have fluid overload 1. Acute respiratory failure with hypoxia likely due to diastolic dysfunction, right-sided heart failure , severe pulmonary hypertension still remains clinically significantly volume overloaded continue iv lasix, add metolozone cardiology on board echo showing pulm htn (see formal report) - pulm consult placed 2. ULYSSES on CKD stage III SCr improving with diuresis maik cardiol renal 3. Elevated LTFTs suspected secondary to baseline liver issues + congestion from RHF slowly improving 4. Diarrhea secondary to lactulose c. diff negative 5. Hepatic encephalopathy resolved ammonia improved from 60 to 43 DC lactulose due to diarrhea and continue rifaximin 6. elevated trop, patient denies chest pain repeat troponin remains flat likely due to ULYSSES, echo shows normal systolic function. 7. Thrombocytopenia chronic and stable no active bleeding noted 8. Diabetes blood sugars stable, continue Lantus,SSI, POC 9. GERD continue PPI Full Code DVT pptx, high risk -- will start lovenox
[2020-12-01 16:14] LABS: Glucose, Whole Blood 158 mg/dL (60-115)
[2020-12-01] MEDS: Enoxaparin Sodium 40 MG/0.4 ML SYRINGE SUBCUT (16:47)
[2020-12-01] MEDS: metOLazone 5 MG TABLET PO (17:24)
--- NOTE | 2020-12-01 18:10 | PC.NURSE ---
pt transferred from rm [id number] to [id number]. Cooperative with room transfer. reeducated to use call light when needing to get up.
[2020-12-01 19:22] VITALS: BP 119/56; PULSE 67; RESP 20; TEMP 36.2; O2SAT 96
[2020-12-01 21:12] LABS: Glucose, Whole Blood 144 mg/dL (60-115)
[2020-12-01] MEDS: Insulin Glargine,Hum.rec.anlog 100 UNIT/ML 10 ML VIAL 50 UNIT SUBCUT (21:23)
[2020-12-01 21:24] VITALS: BP 119/56; PULSE 67
[2020-12-02] VITALS: BP 143/66; PULSE 64; RESP 19; TEMP 36.7; O2SAT 94
[2020-12-02 03:45] VITALS: BP 144/63; PULSE 63; RESP 18; TEMP 37.1; O2SAT 94
[2020-12-02 05:51] LABS: Hemoglobin 12.8 g/dl (14.0-18.0); PLT CLUMP 1
[2020-12-02 05:53] LABS: Hematocrit 37.7 % (42-52); Mean Corpuscular Hemoglobin 33.5 pg (27.0-33.0); Mean Corpuscular Volume 98.7 fL (80-98); Mean Platelet Volume 11.5 fL (9.4-12.4); Platelet Count 127 X10*3/uL (160-400); Red Blood Count 3.82 X10*6/uL (4.60-5.80); Red Cell Distribution Width 19.3 % (11.0-16.0); White Blood Count 9.6 X10*3/uL (4.8-10.8)
[2020-12-02 06:00] VITALS: BMI 43.9
[2020-12-02] MEDS: Omeprazole 20 MG CAPSULE.DR PO (06:23)
[2020-12-02 06:40] LABS: Anion Gap 11 (12-20); Blood Urea Nitrogen 22 mg/dL (9-16); Calcium 8.5 mg/dL (8.4-10.2); Carbon Dioxide 38 mmol/L (22-29); Chloride 98 mmol/L (96-108); Creatinine Clr Calc Pharmacy 57.5; Estimated Glomerular Filt Rate 46; Glucose Random 91 mg/dL (60-115); Sodium 144 mmol/L (135-145)
[2020-12-02 07:22] LABS: Glucose, Whole Blood 72 mg/dL (60-115)
[2020-12-02 07:48] VITALS: BP 129/60; PULSE 71; RESP 18; TEMP 36.2; O2SAT 93
[2020-12-02] MEDS: Propranolol HCL 10 MG TABLET PO ×2 (08:48→21:35)
[2020-12-02] MEDS: Spironolactone 25 MG TABLET 12.5 MG PO (08:48)
[2020-12-02] MEDS: metOLazone 5 MG TABLET PO (08:48)
[2020-12-02] MEDS: rifAXIMin 550 MG TABLET PO ×3 (08:48→21:35)
[2020-12-02] MEDS: Potassium Chloride Packet 20 MEQ PACKET 60 MEQ PO ×2 (08:51→21:34)
--- NOTE | 2020-12-02 09:54 | P.PNPL_ITS ---
Subjective Subjective Date of Service: 12/02/20 Interval history: This is a pulmonary consultation. The patient is a 75-year-old gentleman with known cirrhosis diabetes hypertension to apparently has been complaining of worsening lower extremity edema and shortness of breath. Did come to the ER was found to be hypoxic. Chest x-ray with some atelectasis at the right base. Otherwise no evidence of any heart failure. He was aggressively diuresed. His echocardiogram demonstrated severe pulmonary hypertension which is concerned. The patient currently is on oxygen. He has never had a sleep study that he can remember. The patient fortunately is a poor historian. He does have liver cirrhosis. Objective Data Labs CBC & Chem 7: 12/02/20 05:10 12/02/20 05:10 Labs: Laboratory Results - last 24 hr 12/01/20 12/01/20 12/01/20 11:41 16:04 21:01 WBC RBC Hgb Hct MCV MCH MCHC RDW Plt Count MPV Absolute Nucleated RBC Nucleated RBC % (auto) Sodium Potassium Chloride Carbon Dioxide Anion Gap BUN Creatinine Estim Creat Clear Calc Estimated GFR POC Glucose 126 H 158 H 144 H Random Glucose Calcium Magnesium 12/02/20 12/02/20 12/02/20 05:10 05:10 07:05 WBC 9.6 RBC 3.82 L Hgb 12.8 L Hct 37.7 L MCV 98.7 H MCH 33.5 H MCHC 34.0 RDW 19.3 H Plt Count 127 L MPV 11.5 Absolute Nucleated RBC 0.000 Nucleated RBC % (auto) 0.0 Sodium 144 Potassium 3.0 L Chloride 98 Carbon Dioxide 38 H Anion Gap 11 L BUN 22 H Creatinine 1.49 H Estim Creat Clear Calc 57.5 Estimated GFR 46 POC Glucose 72 Random Glucose 91 Calcium 8.5 D Magnesium 2.0 Review of Systems Constitutional: Denies night sweats Denies change in voice, Denies lip swelling, Denies mouth pain, Reports nasal congestion, Reports nasal discharge and Denies tongue swelling Cardiovascular: Denies chest pain, Reports edema, Reports dyspnea and Reports dyspnea on exertion Respiratory: Reports cough, Reports dyspnea and Reports dyspnea on exertion Gastrointestinal: Denies abdominal pain Musculoskeletal: Denies no additional musculoskeletal complaints Denies Neuro-related abnormal movements Psychiatric: Denies no additional psychiatric complaints Hematologic/Lymphatic: Denies easy bleeding and Denies lymphadenopathy Allergic/Immunologic: Denies lip swelling and Denies tongue swelling Physical Exam Vital Signs: Vital Signs: Last Vital Signs Temp 97.1 F 12/02/20 07:48 Pulse 71 12/02/20 07:48 Resp 18 12/02/20 07:48 BP 129/60 12/02/20 07:48 Pulse Ox 93 12/02/20 07:48 Oxygen Flow Rate 4 11/28/20 10:30 Body Mass Index 43.9 Const: General: alert Eyes: Pupils: Equal, round and reactive pupils present Neck: Neck: Yes normal visual inspection, Yes full ROM and Yes no l ymphadenopathy Chest: Chest palpation & inspection: normal inspection of the chest Resp: Auscultation: diminished lung sounds Cardio: Rate: regular rate Rhythm: regular rhythm Heart sounds: S1 normal heart sound present and S2 normal heart sound present GI: Palpation (GI): Soft to palpation and nontender Auscultation: normal bowel sounds Skin: General skin exam: rashes and/or lesions noted Neuro: Cranial nerves: Yes Equal, round and reactive pupils present Extrem: General: Yes edema and Yes venous stasis dermatitis Assessment and Plan Assessment and plan (1) Pulmonary hypertension: Status: Acute (2) Acute right-sided heart failure: Status: Acute (3) Acute respiratory failure with hypoxia: Status: Acute (4) Cirrhosis: Status: Acute (5) COPD (chronic obstructive pulmonary disease): Status: Inactive Assessment and Plan: The patient is presenting with right-sided heart failure with severe pulmonary hypertension. It is likely that the pulmonary hypertension is multifactorial likely has component of Pickwickian syndrome. In addition to that the patient has cirrhosis and need to consider portal pulmonary hypertension. Recommendations: Continue diuresis as tolerated Continue nasal cannula oxygen the patient will benefit from oxygen at home. Once the patient is discharged to need an in-lab sleep study Start respiratory therapy and will plan to have pulmonary function studies as an outpatient The patient may benefit from a cardiac catheterization in the future to assess accurately his degree of pulmonary hypertension in order to consider vasodilator therapy in view of the possibility of portal pulmonary hypertension Time Spent With Patient Time: Total time spent is greater than 50% in coordination of care (as documented) at patient's floor/unit and/or counseling patient: Time with patient: Greater than 35 minutes
[2020-12-02 11:13] LABS: Glucose, Whole Blood 166 mg/dL (60-115)
[2020-12-02 11:23] VITALS: BP 113/57; PULSE 66; RESP 20; TEMP 36.6; O2SAT 96
[2020-12-02] MEDS: Insulin Lispro 100 UNIT/ML 3 ML VIAL SUBCUT ×2 (11:28→16:38)
--- NOTE | 2020-12-02 11:41 | P.PNIM_ITS ---
Subjective Subjective Date of Service: 12/02/20 Interval History: seen and examined no new complaints ROS General - no fevers or chills Cardiovascular - no chest pain Respiratory - CORTES Abdominal- no abdominal pain, nausea, vomiting, diarrhea Physical Exam Vital Signs: Vital Signs: Last Vital Signs Temp 97.8 F 12/02/20 11:23 Pulse 66 12/02/20 11:23 Resp 20 12/02/20 11:23 BP 113/57 L 12/02/20 11:23 Pulse Ox 96 12/02/20 11:23 Oxygen Flow Rate 4 11/28/20 10:30 Body Mass Index 43.9 Const: Other: General sitting comfortably, no acute distress. Neck no JVD. CVS regular rate rhythm, Respiratory lungs clear to auscultation, no respiratory distress, no rales, no rhonchi. Gastrointestinal abdomen distended, soft, nontender, bowel sounds audible, no guarding , no rigidity. Extremities persistent bilateral pitting edema Neuro nonfocal awake, alert Skin no rash, diffuse anasaraca Objective Data Current Medications Generic Name Dose Route Start Last Admin Trade Name Freq PRN Reason Stop Dose Admin Docusate Sodium 100 mg 11/28/20 22:14 Docusate Sodium 100 Mg Capsule PO DAILY PRN Constipation Enoxaparin Sodium 40 mg 12/01/20 17:00 12/01/20 16:47 Enoxaparin Sodium 40 Mg/0.4 Ml Syringe SUBCUT 40 mg Q24H KIMMIE Administration Furosemide 200 mg/ Sodium 100 mls @ 2.5 mls/hr 11/29/20 13:00 12/01/20 12:51 Chloride IVCONT 5 mg/hr .Q24H KIMMIE 2.5 mls/hr Administration 5 MG/HR Insulin Glargine 50 unit 11/28/20 23:00 12/01/20 21:23 Insulin Glargine,Hum.Rec.Anlog 100 Unit/Ml 10 Ml Vial SUBCUT 50 unit BEDTIME KIMMIE Administration Insulin Human Lispro 0 unit 11/28/20 23:00 12/02/20 11:28 Insulin Lispro 100 Unit/Ml 3 Ml Vial SUBCUT 2 unit QIDACHS KIMMIE Administration Protocol Metolazone 5 mg 12/01/20 16:15 12/02/20 08:48 Metolazone 5 Mg Tablet PO 5 mg DAILY KIMMIE Administration Omeprazole 20 mg 11/29/20 06:30 12/02/20 06:23 Omeprazole 20 Mg Capsule. PO 20 mg DAILY@0630 KIMMIE Administration Ondansetron HCl 4 mg 11/28/20 22:14 Ondansetron Hcl 4 Mg/2 Ml Vial IVPUSH Q8H PRN Nausea and Vomiting Pharmacy Consult 1 each 11/28/20 10:21 Consult Rx Perform Med Rec MISCELLANE ONCE PRN Consult order Potassium Chloride 60 meq 12/02/20 09:00 12/02/20 08:51 Potassium Chloride Packet 20 Meq Packet PO 12/02/20 21:01 60 meq BID KIMMIE Administration Propranolol HCl 10 mg 11/28/20 23:00 12/02/20 08:48 Propranolol Hcl 10 Mg Tablet PO 10 mg BID KIMMIE Administration Protocol Rifaximin 550 mg 11/28/20 23:00 12/02/20 08:48 Rifaximin 550 Mg Tablet PO 550 mg TID KIMMIE Administration Sodium Chloride 3 ml 11/28/20 22:14 12/02/20 08:49 0.9 % Sodium Chloride Flush 3 Ml Syringe IVFLUSH Not Given QSHIFT KIMMIE Spironolactone 12.5 mg 12/01/20 09:00 12/02/20 08:48 Spironolactone 25 Mg Tablet PO 12.5 mg DAILY KIMMIE Administration Protocol Labs CBC & Chem 7: 12/02/20 05:10 12/02/20 05:10 Assessment and Plan (1) Acute right-sided heart failure: Status: Acute (2) Pulmonary hypertension: Status: Acute (3) Elevated troponin: Status: Acute (4) Thrombocytopenia: Status: Acute (5) Cirrhosis: Status: Acute (6) Anasarca: Status: Acute (7) Acute respiratory failure with hypoxia: Status: Acute Assessment and Plan: 75-year-old Icelandic-speaking male with a history of diabetes, thrombocytopenia, CKD arrived to the emergency department hypoxic with an oxygen saturation in the mid 80s found to have fluid overload 1. Acute respiratory failure with hypoxia likely due to diastolic dysfunction, right-sided heart failure , severe pulmonary hypertension still remains clinically significantly volume overloaded - is responding well to the metolozone (5L output yesterday continue iv lasix, dose metolozone daily pending output, cardiology on board echo showing pulm htn (see formal report) pulm consulted -- see notes (will need OP sleep study, PFT), will need to test for home O2 upon d/c 2. ULYSSES on CKD stage III SCr improving with diuresis likely cardiorenal 3. Elevated LTFTs suspected secondary to baseline liver issues + congestion from RHF slowly improving 4. Diarrhea secondary to lactulose c. diff negative 5. Hepatic encephalopathy resolved ammonia improved from 60 to 43 DC lactulose due to diarrhea and continue rifaximin 6. elevated trop, patient denies chest pain repeat troponin remains flat likely due to ULYSSES, echo shows normal systolic function. 7. Thrombocytopenia chronic and stable no active bleeding noted 8. Diabetes blood sugars stable, continue Lantus,SSI, POC 9. GERD continue PPI Full Code DVT pptx, Lovenox
--- NOTE | 2020-12-02 11:45 | PM.PNCARD ---
Subjective Subjective Date of Service: 12/02/20 Interval history: He states that he feels better. Review of Systems Review of Systems Yes all other systems are reviewed and are negative Cardiovascular: Reports as per HPI, Reports no additional cardiovascular complaints, Denies acrocyanosis, Denies cool extremities, Denies painful fingertips, Denies chest pain, Denies chest pain at rest, Denies diaphoresis, Denies syncope, Reports pedal edema, Denies irregular heart rhythm, Denies claudication, Reports leg edema, Denies lightheadedness, Denies palpitations and Reports dyspnea Respiratory: Reports dyspnea Denies syncope Endocrine: Denies palpitations Physical Exam Vital Signs: Last Vital Signs Temp 97.8 F 12/02/20 11:23 Pulse 66 12/02/20 11:23 Resp 20 12/02/20 11:23 BP 113/57 L 12/02/20 11:23 Pulse Ox 96 12/02/20 11:23 Oxygen Flow Rate 4 11/28/20 10:30 Body Mass Index 43.9 Const General: cooperative, comfortable and no acute distress Orientation/consciousness: patient oriented x3 HENMT Other: Unremarkable Neck Neck: Yes normal visual inspection Chest Chest palpation & inspection: normal inspection of the chest Resp Auscultation: clear to auscultation bilaterally, crackles bilateral at the base and no wheezes Cardio Jugular venous distension: no JVD Palpation: normal PMI Heart sounds: S1 normal heart sound present, S2 normal heart sound present, no gallops, no murmurs and no rubs GI Palpation (GI): Soft to palpation Back/Spine/Pelvis Other: unremarkable Skin General skin exam: no rashes or lesions noted Neuro General: patient oriented x3 Extrem General: Yes edema (3+) Psych Mental Status: mental status grossly normal Results Labs and Meds Result diagrams: 12/02/20 05:10 12/02/20 05:10 Lab results: Laboratory Results - last 24 hr 12/01/20 12/01/20 12/01/20 11:41 16:04 21:01 WBC RBC Hgb Hct MCV MCH MCHC RDW Plt Count MPV Absolute Nucleated RBC Nucleated RBC % (auto) Sodium Potassium Chloride Carbon Dioxide Anion Gap BUN Creatinine Estim Creat Clear Calc Estimated GFR POC Glucose 126 H 158 H 144 H Random Glucose Calcium Magnesium 05/04/21 05/04/21 05/04/21 05:10 05:10 07:05 WBC 9.6 RBC 3.82 L Hgb 12.8 L Hct 37.7 L MCV 98.7 H MCH 33.5 H MCHC 34.0 RDW 19.3 H Plt Count 127 L MPV 11.5 Absolute Nucleated RBC 0.000 Nucleated RBC % (auto) 0.0 Sodium 144 Potassium 3.0 L Chloride 98 Carbon Dioxide 38 H Anion Gap 11 L BUN 22 H Creatinine 1.49 H Estim Creat Clear Calc 57.5 Estimated GFR 46 POC Glucose 72 Random Glucose 91 Calcium 8.5 D Magnesium 2.0 12/02/20 11:03 WBC RBC Hgb Hct MCV MCH MCHC RDW Plt Count MPV Absolute Nucleated RBC Nucleated RBC % (auto) Sodium Potassium Chloride Carbon Dioxide Anion Gap BUN Creatinine Estim Creat Clear Calc Estimated GFR POC Glucose 166 H Random Glucose Calcium Magnesium Progress Note: A&P Assessment and plan (1) Acute right-sided heart failure: Status: Acute (2) Pulmonary hypertension: Status: Acute Assessment and Plan: Based on the input output data, he is negative 8400 cc since admission. Clinically, he still volume overloaded. Continue diuretics including Lasix and metolazone. Correct electrolytes. Pulmonary consultation reviewed. Will follow up with you. Fall Risk Details Current Medications: Current Medications Generic Name Dose Route Start Last Admin Trade Name Freq PRN Reason Stop Dose Admin Docusate Sodium 100 mg 11/28/20 22:14 Docusate Sodium 100 Mg Capsule PO DAILY PRN Constipation Enoxaparin Sodium 40 mg 12/01/20 17:00 12/01/20 16:47 Enoxaparin Sodium 40 Mg/0.4 Ml Syringe SUBCUT 40 mg Q24H KIMMIE Administration Furosemide 200 mg/ Sodium 100 mls @ 2.5 mls/hr 11/29/20 13:00 12/01/20 12:51 Chloride IVCONT 5 mg/hr .Q24H KIMMIE 2.5 mls/hr Administration 5 MG/HR Insulin Glargine 50 unit 11/28/20 23:00 12/01/20 21:23 Insulin Glargine,Hum.Rec.Anlog 100 Unit/Ml 10 Ml Vial SUBCUT 50 unit BEDTIME KIMMIE Administration Insulin Human Lispro 0 unit 11/28/20 23:00 12/02/20 11:28 Insulin Lispro 100 Unit/Ml 3 Ml Vial SUBCUT 2 unit QIDACHS KIMMIE Administration Protocol Metolazone 5 mg 12/01/20 16:15 12/02/20 08:48 Metolazone 5 Mg Tablet PO 5 mg DAILY KIMMIE Administration Omeprazole 20 mg 11/29/20 06:30 12/02/20 06:23 Omeprazole 20 Mg Capsule.Dr PO 20 mg DAILY@0630 KIMMIE Administration Ondansetron HCl 4 mg 11/28/20 22:14 Ondansetron Hcl 4 Mg/2 Ml Vial IVPUSH Q8H PRN Nausea and Vomiting Pharmacy Consult 1 each 11/28/20 10:21 Consult Rx Perform Med Rec MISCELLANE ONCE PRN Consult order Potassium Chloride 60 meq 12/02/20 09:00 12/02/20 08:51 Potassium Chloride Packet 20 Meq Packet PO 12/02/20 21:01 60 meq BID KIMMIE Administration Propranolol HCl 10 mg 11/28/20 23:00 12/02/20 08:48 Propranolol Hcl 10 Mg Tablet PO 10 mg BID KIMMIE Administration Protocol Rifaximin 550 mg 11/28/20 23:00 12/02/20 08:48 Rifaximin 550 Mg Tablet PO 550 mg TID KIMMIE Administration Sodium Chloride 3 ml 11/28/20 22:14 12/02/20 08:49 0.9 % Sodium Chloride Flush 3 Ml Syringe IVFLUSH Not Given QSHIFT [facility] Spironolactone 12.5 mg 12/01/20 09:00 12/02/20 08:48 Spironolactone 25 Mg Tablet PO 12.5 mg DAILY KIMMIE Administration Protocol Time Spent With Patient Time: Total time spent is greater than 50% in coordination of care (as documented) at patient's floor/unit and/or counseling patient: Time with patient: less than 15 minutes
[2020-12-02] MEDS: acetaZOLAMIDE sodium 500 MG VIAL 250 MG IVPUSH (13:30)
[2020-12-02] MEDS: acetaZOLAMIDE 250 MG TABLET 500 MG PO ×2 (13:31→21:34)
[2020-12-02 14:31] LABS: Potassium 3.2 mmol/L (3.3-5.1)
[2020-12-02 15:48] VITALS: BP 134/58; PULSE 69; RESP 18; TEMP 36.2; O2SAT 94
[2020-12-02 16:14] LABS: Glucose, Whole Blood 161 mg/dL (60-115)
[2020-12-02] MEDS: Acetaminophen 325 MG TABLET 650 MG PO (16:36)
[2020-12-02] MEDS: Enoxaparin Sodium 40 MG/0.4 ML SYRINGE SUBCUT (16:37)
[2020-12-02] MEDS: Furosemide 100 MG/10 ML VIAL 60 MG IVPUSH (16:38)
[2020-12-02] MEDS: 0.9 % Sodium Chloride Flush 3 ML SYRINGE IVFLUSH (16:39)
[2020-12-02 19:52] VITALS: BP 115/58; PULSE 75; RESP 18; TEMP 36.4; O2SAT 94
[2020-12-02 20:56] LABS: Glucose, Whole Blood 157 mg/dL (60-115)
[2020-12-03] VITALS (10 sets, daily range): BP systolic 100–147; BP diastolic 53–76; PULSE 60–75; RESP 19–24; TEMP 36.2–37.1; O2SAT 92–95; BMI 41.3
[2020-12-03] MEDS: 0.9 % Sodium Chloride Flush 3 ML SYRINGE IVFLUSH ×4 (00:50→23:05)
[2020-12-03 04:10] LABS: Ammonia 104 umol/L (13-55)
[2020-12-03 04:30] LABS: Anion Gap 15 (12-20); Blood Urea Nitrogen 24 mg/dL (9-16); Calcium 8.6 mg/dL (8.4-10.2); Carbon Dioxide 34 mmol/L (22-29); Chloride 95 mmol/L (96-108); Creatinine Clr Calc Pharmacy 44.1; Estimated Glomerular Filt Rate 34; Glucose Random 104 mg/dL (60-115); Magnesium 2.1 mg/dL (1.6-2.6); Potassium 3.4 mmol/L (3.3-5.1); Sodium 141 mmol/L (135-145)
[2020-12-03] MEDS: Omeprazole 20 MG CAPSULE.DR PO (05:58)
[2020-12-03 07:22] LABS: Glucose, Whole Blood 100 mg/dL (60-115)
[2020-12-03] MEDS: Furosemide 100 MG/10 ML VIAL 60 MG IVPUSH (08:40)
[2020-12-03] MEDS: rifAXIMin 550 MG TABLET PO ×3 (08:41→21:53)
[2020-12-03] MEDS: acetaZOLAMIDE 250 MG TABLET 500 MG PO (08:41)
[2020-12-03] MEDS: Propranolol HCL 10 MG TABLET PO ×2 (08:45→21:53)
--- NOTE | 2020-12-03 11:11 | P.PNCA_ITS ---
Subjective Subjective Date of Service: 12/03/20 Interval history: He states that he is feeling okay. Shortness of breath is improved. He still has a lot of leg swelling. Review of Systems Review of Systems Yes all other systems are reviewed and are negative Cardiovascular: Reports as per HPI, Reports no additional cardiovascular complaints, Denies acrocyanosis, Denies cool extremities, Denies painful fingertips, Denies chest pain, Denies chest pain at rest, Denies diaphoresis, Denies syncope, Reports pedal edema, Denies irregular heart rhythm, Denies claudication, Reports leg edema, Denies lightheadedness, Denies palpitations and Reports dyspnea Respiratory: Reports dyspnea Denies syncope Endocrine: Denies palpitations Physical Exam Vital Signs: Last Vital Signs Temp 97.1 F 12/03/20 07:52 Pulse 65 12/03/20 08:49 Resp 24 H 12/03/20 07:52 BP 147/66 H 12/03/20 08:49 Pulse Ox 93 12/03/20 07:52 Oxygen Flow Rate 4 11/28/20 10:30 Body Mass Index 41.3 Const General: cooperative, comfortable and no acute distress Orientation/consciousness: patient oriented x3 [facility] Other: Unremarkable Neck Neck: Yes normal visual inspection Chest Chest palpation & inspection: normal inspection of the chest Resp Auscultation: clear to auscultation bilaterally, crackles bilateral at the base and no wheezes Cardio Jugular venous distension: no JVD Palpation: normal PMI Heart sounds: S1 normal heart sound present, S2 normal heart sound present, no gallops, no murmurs and no rubs GI Palpation (GI): Soft to palpation Back/Spine/Pelvis Other: unremarkable Skin General skin exam: no rashes or lesions noted Neuro General: patient oriented x3 Extrem General: Yes edema (3+) Psych Mental Status: mental status grossly normal Results Labs and Meds Result diagrams: 12/02/20 05:10 12/03/20 03:50 Lab results: Laboratory Results - last 24 hr 12/02/20 12/02/20 12/02/20 11:03 14:00 16:10 Sodium Potassium 3.2 L Chloride Carbon Dioxide Anion Gap BUN Creatinine Estim Creat Clear Calc Estimated GFR POC Glucose 166 H 161 H Random Glucose Calcium Magnesium Ammonia 12/02/20 12/03/20 12/03/20 20:52 03:50 03:50 Sodium 141 Potassium 3.4 Chloride 95 L Carbon Dioxide 34 H Anion Gap 15 BUN 24 H Creatinine 1.94 H Estim Creat Clear Calc 44.1 Estimated GFR 34 POC Glucose 157 H Random Glucose 104 Calcium 8.6 Magnesium 2.1 Ammonia 104 H 12/03/20 07:14 Sodium Potassium Chloride Carbon Dioxide Anion Gap BUN Creatinine Estim Creat Clear Calc Estimated GFR POC Glucose 100 Random Glucose Calcium Magnesium Ammonia Progress Note: A&P Assessment and plan (1) Acute right-sided heart failure: Status: Acute (2) Pulmonary hypertension: Status: Acute Assessment and Plan: On reviewing the input/output data, he is -4 L in the last 24 hours. For the course of this admission, he is negative almost 12 L. however, he continues to be significantly volume overloaded and hence may remain on IV diuretics along with metolazone. Electrolytes will need to be corrected appropriately. Disc ussed with Pulmonary as well. I am not entirely clear as to how much the patient understands about all of this as he continues to talk only about discharge. Fall Risk Details Current Medications: Current Medications Generic Name Dose Route Start Last Admin Trade Name Freq PRN Reason Stop Dose Admin Acetazolamide 500 mg 12/02/20 12:00 12/03/20 08:41 Acetazolamide 250 Mg Tablet PO 500 mg BID KIMMIE Administration Docusate Sodium 100 mg 11/28/20 22:14 Docusate Sodium 100 Mg Capsule PO DAILY PRN Constipation Enoxaparin Sodium 40 mg 12/01/20 17:00 12/02/20 16:37 Enoxaparin Sodium 40 Mg/0.4 Ml Syringe SUBCUT 40 mg Q24H KIMMIE Administration Furosemide 60 mg 12/02/20 18:00 12/03/20 08:40 Furosemide 100 Mg/10 Ml Vial IVPUSH 60 mg BID@0900,1800 [facility] Administration Protocol Insulin Glargine 50 unit 11/28/20 23:00 12/02/20 21:30 Insulin Glargine,Hum.Rec.Anlog 100 Unit/Ml 10 Ml Vial SUBCUT Not Given BEDTIME [facility] Insulin Human Lispro 0 unit 11/28/20 23:00 12/03/20 07:42 Insulin Lispro 100 Unit/Ml 3 Ml Vial SUBCUT Not Given QIDACHS [facility] Protocol Metolazone 5 mg 12/01/20 16:15 12/02/20 08:48 Metolazone 5 Mg Tablet PO 5 mg DAILY KIMMIE Administration Omeprazole 20 mg 11/29/20 06:30 12/03/20 05:58 Omeprazole 20 Mg Capsule. PO 20 mg DAILY@0630 KIMMIE Administration Ondansetron HCl 4 mg 11/28/20 22:14 Ondansetron Hcl 4 Mg/2 Ml Vial IVPUSH Q8H PRN Nausea and Vomiting Pharmacy Consult 1 each 11/28/20 10:21 Consult Rx Perform Med Rec MISCELLANE ONCE PRN Consult order Propranolol HCl 10 mg 11/28/20 23:00 12/03/20 08:45 Propranolol Hcl 10 Mg Tablet PO 10 mg BID KIMMIE Administration Protocol Rifaximin 550 mg 11/28/20 23:00 12/03/20 08:41 Rifaximin 550 Mg Tablet PO 550 mg TID KIMMIE Administration Sodium Chloride 3 ml 11/28/20 22:14 12/03/20 08:40 0.9 % Sodium Chloride Flush 3 Ml Syringe IVFLUSH 3 ml QSHIFT KIMMIE Administration Spironolactone 12.5 mg 12/01/20 09:00 12/03/20 08:49 Spironolactone 25 Mg Tablet PO Not Given DAILY KIMMIE Protocol Time Spent With Patient Time: Total time spent is greater than 50% in coordination of care (as documented) at patient's floor/unit and/or counseling patient: Time with patient: less than 15 minutes
[2020-12-03 11:14] LABS: Glucose, Whole Blood 172 mg/dL (60-115)
[2020-12-03] MEDS: Insulin Lispro 100 UNIT/ML 3 ML VIAL SUBCUT ×2 (11:36→21:52)
--- NOTE | 2020-12-03 15:26 | HO.PM.IMPN ---
Subjective Subjective Date of Service: 12/03/20 Interval History: seen and examined this AM he only talks about removal of his baca catheter which is bothering him reports feeling fine other esparza ROS General - no fevers or chills Cardiovascular - no chest pain Respiratory - CORTES Abdominal- no abdominal pain, nausea, vomiting, diarrhea Physical Exam Vital Signs: Vital Signs: Last Vital Signs Temp 97.1 F 12/03/20 11:40 Pulse 71 12/03/20 11:40 Resp 20 12/03/20 11:40 BP 126/58 L 12/03/20 11:40 Pulse Ox 95 12/03/20 11:40 Oxygen Flow Rate 4 11/28/20 10:30 Body Mass Index 41.3 Const: Other: General sitting comfortably, no acute distress. Neck no JVD. CVS regular rate rhythm, Respiratory lungs clear to auscultation, no respiratory distress, no rales, no rhonchi. Gastrointestinal abdomen distended, soft, nontender, bowel sounds audible, no guarding , no rigidity. Extremities persistent bilateral pitting edema, no improved significantly Neuro nonfocal awake, alert Skin no rash, diffuse anasaraca - baca with punch colored urine Objective Data Current Medications Generic Name Dose Route Start Last Admin Trade Name Freq PRN Reason Stop Dose Admin Acetazolamide 500 mg 12/02/20 12:00 12/03/20 08:41 Acetazolamide 250 Mg Tablet PO 500 mg BID KIMMIE Administration Docusate Sodium 100 mg 11/28/20 22:14 Docusate Sodium 100 Mg Capsule PO DAILY PRN Constipation Enoxaparin Sodium 40 mg 12/01/20 17:00 12/02/20 16:37 Enoxaparin Sodium 40 Mg/0.4 Ml Syringe SUBCUT 40 mg Q24H KIMMIE Administration Furosemide 60 mg 12/02/20 18:00 12/03/20 08:40 Furosemide 100 Mg/10 Ml Vial IVPUSH 60 mg BID@0900,1800 [facility] Administration Protocol Insulin Glargine 50 unit 11/28/20 23:00 12/02/20 21:30 Insulin Glargine,Hum.Rec.Anlog 100 Unit/Ml 10 Ml Vial SUBCUT Not Given BEDTIME [facility] Insulin Human Lispro 0 unit 11/28/20 23:00 12/03/20 11:36 Insulin Lispro 100 Unit/Ml 3 Ml Vial SUBCUT 2 unit QIDACHS KIMMIE Administration Protocol Metolazone 5 mg 12/01/20 16:15 12/02/20 08:48 Metolazone 5 Mg Tablet PO 5 mg DAILY KIMMIE Administration Omeprazole 20 mg 11/29/20 06:30 12/03/20 05:58 Omeprazole 20 Mg Capsule. PO 20 mg DAILY@0630 KIMMIE Administration Ondansetron HCl 4 mg 11/28/20 22:14 Ondansetron Hcl 4 Mg/2 Ml Vial IVPUSH Q8H PRN Nausea and Vomiting Pharmacy Consult 1 each 11/28/20 10:21 Consult Rx Perform Med Rec MISCELLANE ONCE PRN Consult order Propranolol HCl 10 mg 11/28/20 23:00 12/03/20 08:45 Propranolol Hcl 10 Mg Tablet PO 10 mg BID [facility] Administration Protocol Rifaximin 550 mg 11/28/20 23:00 12/03/20 08:41 Rifaximin 550 Mg Tablet PO 550 mg TID KIMMIE Administration Sodium Chloride 3 ml 11/28/20 22:14 12/03/20 08:40 0.9 % Sodium Chloride Flush 3 Ml Syringe IVFLUSH 3 ml QSHIFT KIMMIE Administration Spironolactone 12.5 mg 12/01/20 09:00 12/03/20 08:49 Spironolactone 25 Mg Tablet PO Not Given DAILY [facility] Protocol Labs CBC & Chem 7: 12/02/20 05:10 12/03/20 03:50 Assessment and Plan (1) Acute right-sided heart failure: Status: Acute (2) Pulmonary hypertension: Status: Acute (3) Elevated troponin: Status: Acute (4) Thrombocytopenia: Status: Acute (5) Cirrhosis: Status: Acute (6) Anasarca: Status: Acute (7) Acute respiratory failure with hypoxia: Status: Acute Assessment and Plan: 75-year-old Irish-speaking male with a history of diabetes, thrombocytopenia, CKD arrived to the emergency department hypoxic with an oxygen saturation in the mid 80s found to have fluid overload 1. Acute respiratory failure with hypoxia likely due to diastolic dysfunction, right-sided heart failure , severe pulmonary hypertension >12.7 neg balance since admit, but still have significant volume overload and required diuretics, however his renal function bumped this AM. Will give diuretic holiday today and reassess tomorrow cardilogy on board pulm on board -- will need outpatient w/u 2. ULYSSES on CKD stage III SCr bumped today, hold diuretics and re-eval 3. Elevated LTFTs suspected secondary to baseline liver issues + congestion from RHF slowly improving - check tomorow 4. Diarrhea secondary to lactulose c. diff negative 5. Hepatic encephalopathy resolved ammonia improved from 60 to 43 Ammonia increased - restart lacutlose 20 bid continue rifaximin 6. elevated trop, patient denies chest pain repeat troponin remains flat likely due to ULYSSES, echo shows normal systolic function. 7. Thrombocytopenia chronic and stable 8. Diabetes blood sugars stable, continue Lantus,SSI, POC 9. GERD continue PPI 10. hematuria mild likely from traumatic baca monitor Full Code DVT pptx, Lovenox -- hold today in light of hematuria
--- NOTE | 2020-12-03 15:36 | MHC.CM.PN ---
Addendum entered by Prabha Pichardo 12/03/20 15:38: Discharge plan pending PT eval. CM will continue to follow patient for discharge needs. Original Note: Patient is on 2 liters O2 and IV Lasix. Echo shows severe pulm HTN.
[2020-12-03] MEDS: Potassium Chloride Packet 20 MEQ PACKET 60 MEQ PO (16:39)
[2020-12-03 16:44] LABS: Glucose, Whole Blood 136 mg/dL (60-115)
[2020-12-03 20:53] LABS: Glucose, Whole Blood 159 mg/dL (60-115)
[2020-12-03] MEDS: Lactulose 20 GM/30 ML SOLUTION PO (21:53)
[2020-12-03] MEDS: Acetaminophen 325 MG TABLET 650 MG PO (23:03)
[2020-12-04] VITALS (7 sets, daily range): BP systolic 105–142; BP diastolic 56–62; PULSE 64–71; RESP 16–20; TEMP 36.3–36.7; O2SAT 93–97; BMI 41.1
[2020-12-04] MEDS: Omeprazole 20 MG CAPSULE.DR PO (05:53)
[2020-12-04 06:45] LABS: Hematocrit 37.5 % (42-52); Hemoglobin 12.7 g/dl (14.0-18.0); Mean Corpuscular HGB Conc 33.9 g/dl (31.0-36.0); Mean Corpuscular Hemoglobin 33.6 pg (27.0-33.0); Mean Corpuscular Volume 99.2 fL (80-98); Mean Platelet Volume 11.8 fL (9.4-12.4); Platelet Count 143 X10*3/uL (160-400); Red Blood Count 3.78 X10*6/uL (4.60-5.80); Red Cell Distribution Width 18.7 % (11.0-16.0); White Blood Count 8.7 X10*3/uL (4.8-10.8)
[2020-12-04 07:03] LABS: Alanine Aminotransferase 18 U/L (0-40); Albumin Level 2.2 g/dL (3.5-5.0); Alkaline Phosphatase 152 U/L (39-117); Aspartate Amino Transferase 37 U/L (5-37); Bilirubin Direct 2.1 mg/dL (0.0-0.5); Bilirubin Total 4.4 mg/dL (0.0-1.0); Blood Urea Nitrogen 31 mg/dL (9-16); Calcium 8.2 mg/dL (8.4-10.2); Carbon Dioxide 35 mmol/L (22-29); Chloride 96 mmol/L (96-108); Creatinine Clr Calc Pharmacy 42.5; Estimated Glomerular Filt Rate 34; Glucose Random 138 mg/dL (60-115); Magnesium 2.4 mg/dL (1.6-2.6); Sodium 140 mmol/L (135-145); Total Protein 6.6 g/dL (6.5-8.0)
[2020-12-04 07:09] LABS: Anion Gap 12 (12-20); Potassium 2.8 mmol/L (3.3-5.1)
[2020-12-04 07:23] LABS: Glucose, Whole Blood 139 mg/dL (60-115)
[2020-12-04] MEDS: Potassium Chloride Packet 20 MEQ PACKET 40 MEQ PO ×3 (09:46→15:52)
[2020-12-04] MEDS: Lactulose 20 GM/30 ML SOLUTION PO (09:46)
[2020-12-04] MEDS: rifAXIMin 550 MG TABLET PO ×3 (09:47→21:50)
[2020-12-04] MEDS: Propranolol HCL 10 MG TABLET PO ×2 (09:48→21:50)
[2020-12-04] MEDS: 0.9 % Sodium Chloride Flush 3 ML SYRINGE IVFLUSH ×3 (09:48→21:50)
[2020-12-04 11:06] LABS: Glucose, Whole Blood 171 mg/dL (60-115)
[2020-12-04] MEDS: Insulin Lispro 100 UNIT/ML 3 ML VIAL SUBCUT (11:47)
--- NOTE | 2020-12-04 11:51 | P.PNCA_ITS ---
Subjective Subjective Date of Service: 12/04/20 Interval history: He states that his breathing is better. Leg swelling also seems better. Review of Systems Review of Systems Yes all other systems are reviewed and are negative Cardiovascular: Reports as per HPI, Reports no additional cardiovascular complaints, Denies acrocyanosis, Denies cool extremities, Denies painful fingertips, Denies chest pain, Denies chest pain at rest, Denies diaphoresis, Denies syncope, Reports pedal edema, Denies irregular heart rhythm, Denies claudication, Reports leg edema, Denies lightheadedness, Denies palpitations and Reports dyspnea Respiratory: Reports dyspnea Denies syncope Endocrine: Denies palpitations Physical Exam Vital Signs: Last Vital Signs Temp 97.9 F 12/04/20 10:59 Pulse 66 12/04/20 10:59 Resp 18 12/04/20 10:59 BP 115/57 L 12/04/20 10:59 Pulse Ox 97 12/04/20 10:59 Oxygen Flow Rate 4 11/28/20 10:30 Body Mass Index 41.1 Const General: cooperative, comfortable and no acute distress Orientation/consciousness: patient oriented x3 HENMT Other: Unremarkable Neck Neck: Yes normal visual inspection Chest Chest palpation & inspection: normal inspection of the chest Resp Auscultation: clear to auscultation bilaterally, crackles bilateral at the base and no wheezes Cardio Jugular venous distension: no JVD Palpation: normal PMI Heart sounds: S1 normal heart sound present, S2 normal heart sound present, no g allops, no murmurs and no rubs GI Palpation (GI): Soft to palpation Back/Spine/Pelvis Other: unremarkable Skin General skin exam: no rashes or lesions noted Neuro General: patient oriented x3 Extrem General: Yes edema (3+) Psych Mental Status: mental status grossly normal Results Labs and Meds Result diagrams: 12/04/20 05:26 12/04/20 05:26 Lab results: Laboratory Results - last 24 hr 12/03/20 12/03/20 12/04/20 16:37 20:49 05:26 WBC 8.7 RBC 3.78 L Hgb 12.7 L Hct 37.5 L MCV 99.2 H MCH 33.6 H MCHC 33.9 RDW 18.7 H Plt Count 143 L MPV 11.8 Absolute Nucleated RBC 0.000 Nucleated RBC % (auto) 0.0 Sodium Potassium Chloride Carbon Dioxide Anion Gap BUN Creatinine Estim Creat Clear Calc Estimated GFR POC Glucose 136 H 159 H Random Glucose Calcium Magnesium Total Bilirubin Direct Bilirubin AST ALT Alkaline Phosphatase Total Protein Albumin 12/04/20 12/04/20 12/04/20 05:26 07:17 10:57 WBC RBC Hgb Hct MCV MCH MCHC RDW Plt Count MPV Absolute Nucleated RBC Nucleated RBC % (auto) Sodium 140 Potassium 2.8 L Chloride 96 Carbon Dioxide 35 H Anion Gap 12 BUN 31 H Creatinine 1.95 H Estim Creat Clear Calc 42.5 Estimated GFR 34 POC Glucose 139 H 171 H Random Glucose 138 H Calcium 8.2 L Magnesium 2.4 Total Bilirubin 4.4 H Direct Bilirubin 2.1 H AST 37 ALT 18 Alkaline Phosphatase 152 H Total Protein 6.6 Albumin 2.2 L Progress Note: A&P Assessment and plan (1) Acute right-sided heart failure: Status: Acute (2) Pulmonary hypertension: Status: Acute Assessment and Plan: On reviewing the input/output data, he is -1.6L in the last 24 hours. For the course of this admission, he is negative almost 13.3 L. We may consider changing the diuretics to oral Lasix plus metolazone 2 to 3 times a week. Otherwise correct lytes as needed. Etiology for the pulmonary hypertension could be from obesity/hypoventilation versus undiagnosed sleep apnea versus cirrhosis versus multifactorial. He will need further workup as an outpatient. However not clear as to how much she comprehends any of this. Fall Risk Details Current Medications: Current Medications Generic Name Dose Route Start Last Admin Trade Name Freq PRN Reason Stop Dose Admin Acetaminophen 650 mg 12/03/20 22:55 12/03/20 23:03 Acetaminophen 325 Mg Tablet PO 650 mg Q6H PRN Administration Pain, Mild (Pain Scale 1-3) Acetazolamide 500 mg 12/02/20 12:00 12/03/20 08:41 Acetazolamide 250 Mg Tablet PO 500 mg BID KIMMIE Administration Docusate Sodium 100 mg 11/28/20 22:14 Docusate Sodium 100 Mg Capsule PO DAILY PRN Constipation Enoxaparin Sodium 40 mg 12/01/20 17:00 12/02/20 16:37 Enoxaparin Sodium 40 Mg/0.4 Ml Syringe SUBCUT 40 mg Q24H KIMMIE Administration Furosemide 60 mg 12/02/20 18:00 12/03/20 08:40 Furosemide 100 Mg/10 Ml Vial IVPUSH 60 mg BID@0900,1800 [facility] Administration Protocol Insulin Glargine 50 unit 11/28/20 23:00 12/03/20 21:59 Insulin Glargine,Hum.Rec.Anlog 100 Unit/Ml 10 Ml Vial SUBCUT Not Given BEDTIME [facility] Insulin Human Lispro 0 unit 11/28/20 23:00 12/04/20 11:47 Insulin Lispro 100 Unit/Ml 3 Ml Vial SUBCUT 2 unit QIDACHS [facility] Administration Protocol Lactulose 20 gm 12/03/20 21:00 12/04/20 09:46 Lactulose 20 Gm/30 Ml Solution PO 20 gm BID KIMMIE Administration Metolazone 5 mg 12/01/20 16:15 12/02/20 08:48 Metolazone 5 Mg Tablet PO 5 mg DAILY KIMMIE Administration Omeprazole 20 mg 11/29/20 06:30 12/04/20 05:53 Omeprazole 20 Mg Capsule.Dr PO 20 mg DAILY@0630 [facility] Administration Ondansetron HCl 4 mg 11/28/20 22:14 Ondansetron Hcl 4 Mg/2 Ml Vial IVPUSH Q8H PRN Nausea and Vomiting Pharmacy Consult 1 each 11/28/20 10:21 Consult Rx Perform Med Rec MISCELLANE ONCE PRN Consult order Potassium Chloride 40 meq 12/04/20 08:45 12/04/20 11:48 Potassium Chloride Packet 20 Meq Packet PO 12/04/20 16:46 40 meq Q4H KIMMIE Administration Propranolol HCl 10 mg 11/28/20 23:00 12/04/20 09:48 Propranolol Hcl 10 Mg Tablet PO 10 mg BID KIMMIE Administration Protocol Rifaximin 550 mg 11/28/20 23:00 12/04/20 09:47 Rifaximin 550 Mg Tablet PO 550 mg TID KIMMIE Administration Sodium Chloride 3 ml 11/28/20 22:14 12/04/20 09:48 0.9 % Sodium Chloride Flush 3 Ml Syringe IVFLUSH 3 ml QSHIFT KIMMIE Administration Spironolactone 12.5 mg 12/01/20 09:00 12/03/20 08:49 Spironolactone 25 Mg Tablet PO Not Given DAILY [facility] Protocol Time Spent With Patient Time: Total time spent is greater than 50% in coordination of care (as documented) at patient's floor/unit and/or counseling patient: Time with patient: less than 15 minutes
--- NOTE | 2020-12-04 12:09 | PC.NURSE ---
Dr Phillips made aware of tremors noted BUE with purposeful movement, increasing jaundice to sclera and face, increased confusion today.
[2020-12-04 15:48] LABS: Glucose, Whole Blood 135 mg/dL (60-115)
--- NOTE | 2020-12-04 16:04 | P.PNIM_ITS ---
Subjective Subjective Date of Service: 12/04/20 Interval History: seen and examined this AM reports feeling better ROS General - no fevers or chills Cardiovascular - no chest pain Respiratory - CORTES Abdominal- no abdominal pain, nausea, vomiting, diarrhea Physical Exam Vital Signs: Vital Signs: Last Vital Signs Temp 97.9 F 12/04/20 15:16 Pulse 65 12/04/20 15:16 Resp 20 12/04/20 15:16 BP 105/59 L 12/04/20 15:16 Pulse Ox 93 12/04/20 15:16 Oxygen Flow Rate 4 11/28/20 10:30 Body Mass Index 41.1 Const: Other: General sitting comfortably, no acute distress. Neck no JVD. CVS regular rate rhythm, Respiratory lungs clear to auscultation, no respiratory distress, no rales, no rhonchi. Gastrointestinal abdomen distended, soft, nontender, bowel sounds audible, no guarding , no rigidity. Extremities b/l edema improving slowly Neuro non-focal awake, alert, asterixis Skin no rash, diffuse anasaraca Objective Data Current Medications Generic Name Dose Route Start Last Admin Trade Name Freq PRN Reason Stop Dose Admin Acetaminophen 650 mg 12/03/20 22:55 12/03/20 23:03 Acetaminophen 325 Mg Tablet PO 650 mg Q6H PRN Administration Pain, Mild (Pain Scale 1-3) Acetazolamide 500 mg 12/02/20 12:00 12/03/20 08:41 Acetazolamide 250 Mg Tablet PO 500 mg BID KIMMIE Administration Docusate Sodium 100 mg 11/28/20 22:14 Docusate Sodium 100 Mg Capsule PO DAILY PRN Constipation Enoxaparin Sodium 40 mg 12/01/20 17:00 12/02/20 16:37 Enoxaparin Sodium 40 Mg/0.4 Ml Syringe SUBCUT 40 mg Q24H KIMMIE Administration Furosemide 60 mg 12/02/20 18:00 12/03/20 08:40 Furosemide 100 Mg/10 Ml Vial IVPUSH 60 mg BID@0900,1800 [facility] Administration Protocol Insulin Glargine 50 unit 11/28/20 23:00 12/03/20 21:59 Insulin Glargine,Hum.Rec.Anlog 100 Unit/Ml 10 Ml Vial SUBCUT Not Given BEDTIME [facility] Insulin Human Lispro 0 unit 11/28/20 23:00 12/04/20 15:53 Insulin Lispro 100 Unit/Ml 3 Ml Vial SUBCUT Not Given QIDACHS [facility] Protocol Lactulose 20 gm 12/03/20 21:00 12/04/20 09:46 Lactulose 20 Gm/30 Ml Solution PO 20 gm BID KIMMIE Administration Metolazone 5 mg 12/01/20 16:15 12/02/20 08:48 Metolazone 5 Mg Tablet PO 5 mg DAILY KIMMIE Administration Omeprazole 20 mg 11/29/20 06:30 12/04/20 05:53 Omeprazole 20 Mg Capsule. PO 20 mg DAILY@629 KIMMIE Administration Ondansetron HCl 4 mg 11/28/20 22:14 Ondansetron Hcl 4 Mg/2 Ml Vial IVPUSH Q8H PRN Nausea and Vomiting Pharmacy Consult 1 each 11/28/20 10:21 Consult Rx Perform Med Rec MISCELLANE ONCE PRN Consult order Potassium Chloride 40 meq 12/04/20 08:45 12/04/20 15:52 Potassium Chloride Packet 20 Meq Packet PO 12/04/20 16:46 40 meq Q4H KIMMIE Administration Propranolol HCl 10 mg 11/28/20 23:00 12/04/20 09:48 Propranolol Hcl 10 Mg Tablet PO 10 mg BID KIMMIE Administration Protocol Rifaximin 550 mg 11/28/20 23:00 12/04/20 15:53 Rifaximin 550 Mg Tablet PO 550 mg TID KIMMIE Administration Sodium Chloride 3 ml 11/28/20 22:14 12/04/20 15:53 0.9 % Sodium Chloride Flush 3 Ml Syringe IVFLUSH 3 ml QSHIFT KIMMIE Administration Spironolactone 12.5 mg 12/01/20 09:00 12/03/20 08:49 Spironolactone 25 Mg Tablet PO Not Given DAILY [facility] Protocol Labs CBC & Chem 7: 12/04/20 05:26 12/04/20 05:26 Assessment and Plan (1) Acute right-sided heart failure: Status: Acute (2) Pulmonary hypertension: Status: Acute (3) Elevated troponin: Status: Acute (4) Thrombocytopenia: Status: Acute (5) Cirrhosis: Status: Acute (6) Anasarca: Status: Acute (7) Acute respiratory failure with hypoxia: Status: Acute Assessment and Plan: 75-year-old Portuguese-speaking male with a history of diabetes, thrombocytopenia, CKD arrived to the emergency department hypoxic with an oxygen saturation in the mid 80s found to have fluid overload 1. Acute respiratory failure with hypoxia likely due to diastolic dysfunction, right-sided heart failure , severe pulmonary hypertension neg balance > 13L diuretics restarted, change to oral lasix, metolozone mwf 2. ULYSSES on CKD stage III 2a. HypoK SCr stable last 2 days, monitor replete K aggressively 3. Elevated LTFTs suspected secondary to baseline liver issues + congestion from RHF slowly improving 4. Diarrhea secondary to lactulose c. diff negative 5. Hepatic encephalopathy resolved ammonia improved from 60 to 43 Ammonia increased - restart lactulose continue rifaximin 6. elevated trop, patient denies chest pain repeat troponin remains flat likely due to ULYSSES, echo shows normal systolic function. 7. Thrombocytopenia chronic and stable 8. Diabetes blood sugars stable, continue Lantus,SSI, POC 9. GERD continue PPI resolved Full Code DVT pptx, mechanical
[2020-12-04 20:29] LABS: Glucose, Whole Blood 150 mg/dL (60-115)
[2020-12-04] MEDS: Lactulose 20 GM/30 ML SOLUTION 30 GM PO (21:50)
[2020-12-05] VITALS (8 sets, daily range): BP systolic 109–159; BP diastolic 56–74; PULSE 60–71; RESP 14–20; TEMP 35.8–37.1; O2SAT 90–96; BMI 41.3
[2020-12-05] MEDS: Omeprazole 20 MG CAPSULE.DR PO (05:46)
[2020-12-05] MEDS: Acetaminophen 325 MG TABLET 650 MG PO (05:46)
[2020-12-05 06:24] LABS: Ammonia 105 umol/L (13-55)
[2020-12-05 06:29] LABS: Anion Gap 14 (12-20); Blood Urea Nitrogen 28 mg/dL (9-16); Calcium 8.3 mg/dL (8.4-10.2); Carbon Dioxide 28 mmol/L (22-29); Chloride 102 mmol/L (96-108); Creatinine Clr Calc Pharmacy 48.4; Estimated Glomerular Filt Rate 39; Glucose Random 128 mg/dL (60-115); Magnesium 2.6 mg/dL (1.6-2.6); Potassium 3.2 mmol/L (3.3-5.1); Sodium 141 mmol/L (135-145)
[2020-12-05 07:27] LABS: Glucose, Whole Blood 126 mg/dL (60-115)
[2020-12-05] MEDS: 0.9 % Sodium Chloride Flush 3 ML SYRINGE IVFLUSH ×3 (10:31→20:39)
[2020-12-05] MEDS: Lactulose 20 GM/30 ML SOLUTION 30 GM PO ×4 (10:32→20:52)
[2020-12-05] MEDS: rifAXIMin 550 MG TABLET PO ×3 (10:32→20:53)
[2020-12-05] MEDS: Spironolactone 25 MG TABLET 12.5 MG PO (10:32)
[2020-12-05] MEDS: Propranolol HCL 10 MG TABLET PO ×2 (10:32→20:52)
[2020-12-05] MEDS: Furosemide 40 MG TABLET PO ×2 (10:54→17:09)
--- NOTE | 2020-12-05 11:17 | P.PNIM_ITS ---
Subjective Subjective Date of Service: 12/05/20 Interval History: seen and examined this AM appears slightly more sleepy confused and sleepy today ROS unreliable Physical Exam Vital Signs: Vital Signs: Last Vital Signs Temp 98.2 F 12/05/20 08:00 Pulse 64 12/05/20 08:00 Resp 18 12/05/20 08:00 BP 118/61 12/05/20 08:00 Pulse Ox 96 12/05/20 08:00 Oxygen Flow Rate 4 11/28/20 10:30 Body Mass Index 41.3 Const: Other: General sitting comfortably, no acute distress. Neck no JVD. CVS regular rate rhythm, Respiratory lungs clear to auscultation, no respiratory distress, no rales, no rhonchi. Gastrointestinal abdomen distended, soft, nontender, bowel sounds audible, no guarding , no rigidity. Extremities b/l edema improving slowly Neuro non-focal awake, alert, asterixis - more prominent today Skin no rash, edema Objective Data Current Medications Generic Name Dose Route Start Last Admin Trade Name Rowan PRN Reason Stop Dose Admin Acetaminophen 650 mg 12/03/20 22:55 12/05/20 05:46 Acetaminophen 325 Mg Tablet PO 650 mg Q6H PRN Administration Pain, Mild (Pain Scale 1-3) Docusate Sodium 100 mg 11/28/20 22:14 Docusate Sodium 100 Mg Capsule PO DAILY PRN Constipation Furosemide 40 mg 12/05/20 09:00 12/05/20 10:54 Furosemide 40 Mg Tablet PO 40 mg BID@0900,1800 [facility] Administration Protocol Insulin Glargine 50 unit 11/28/20 23:00 12/04/20 21:51 Insulin Glargine,Hum.Rec.Anlog 100 Unit/Ml 10 Ml Vial SUBCUT Not Given BEDTIME [facility] Insulin Human Lispro 0 unit 11/28/20 23:00 12/05/20 08:23 Insulin Lispro 100 Unit/Ml 3 Ml Vial SUBCUT Not Given QIDACHS [facility] Protocol Lactulose 30 gm 12/04/20 21:00 12/05/20 10:32 Lactulose 20 Gm/30 Ml Solution PO 30 gm TID KIMMIE Administration Metolazone 5 mg 12/05/20 16:20 Metolazone 5 Mg Tablet PO MOWEFR [facility] Omeprazole 20 mg 11/29/20 06:30 12/05/20 05:46 Omeprazole 20 Mg Capsule. PO 20 mg DAILY@0630 KIMMIE Administration Ondansetron HCl 4 mg 11/28/20 22:14 Ondansetron Hcl 4 Mg/2 Ml Vial IVPUSH Q8H PRN Nausea and Vomiting Pharmacy Consult 1 each 11/28/20 10:21 Consult Rx Perform Med Rec MISCELLANE ONCE PRN Consult order Propranolol HCl 10 mg 11/28/20 23:00 12/05/20 10:32 Propranolol Hcl 10 Mg Tablet PO 10 mg BID KIMMIE Administration Protocol Rifaximin 550 mg 11/28/20 23:00 12/05/20 10:32 Rifaximin 550 Mg Tablet PO 550 mg TID KIMMIE Administration Sodium Chloride 3 ml 11/28/20 22:14 12/05/20 10:31 0.9 % Sodium Chloride Flush 3 Ml Syringe IVFLUSH 3 ml QSHIFT KIMMIE Administration Spironolactone 12.5 mg 12/01/20 09:00 12/05/20 10:32 Spironolactone 25 Mg Tablet PO 12.5 mg DAILY [facility] Administration Protocol Labs CBC & Chem 7: 12/04/20 05:26 12/05/20 05:27 Assessment and Plan (1) Acute right-sided heart failure: Status: Acute (2) Pulmonary hypertension: Status: Acute (3) Elevated troponin: Status: Acute (4) Thrombocytopenia: Status: Acute (5) Cirrhosis: Status: Acute (6) Anasarca: Status: Acute (7) Acute respiratory failure with hypoxia: Status: Acute Assessment and Plan: 75-year-old Kinyarwanda-speaking male with a history of diabetes, thrombocytopenia, CKD arrived to the emergency department hypoxic with an oxygen saturation in the mid 80s found to have fluid overload 1. Acute respiratory failure with hypoxia likely due to diastolic dysfunction, right-sided heart failure , severe pulmonary hypertension titrated off iv lasix drip to oral lasix metolozone mwf aldactone 12.5mg 2. ULYSSES on CKD stage III 2a. HypoK SCr improved monitor 3. Elevated LTFTs / cirrhosis suspected secondary to baseline liver issues + congestion from RHF slowly improving 4. Diarrhea secondary to lactulose c. diff negative 5. Hepatic encephalopathy worsened last 2 days, increase lactulose to 30gm QID continue rifaxmin suspected due to holding lactulose for a few days for diarrhea unclear how many BMs hes having daily 6. elevated trop, patient denies chest pain repeat troponin remains flat likely due to ULYSSES, echo shows normal systolic function. 7. Thrombocytopenia improving 8. Diabetes continue Lantus,SSI, POC 9. GERD continue PPI 10. weakness PT eval Full Code DVT pptx, mechanical
[2020-12-05 11:18] LABS: Glucose, Whole Blood 203 mg/dL (60-115)
[2020-12-05] MEDS: Insulin Lispro 100 UNIT/ML 3 ML VIAL SUBCUT (11:32)
--- NOTE | 2020-12-05 12:20 | P.PNCA_ITS ---
Subjective Subjective Date of Service: 12/05/20 Interval history: Patient states that he is doing well. No specific complaints at this time. Review of Systems Review of Systems Yes all other systems are reviewed and are negative Cardiovascular: Reports as per HPI, Reports no additional cardiovascular complaints, Denies acrocyanosis, Denies cool extremities, Denies painful fingertips, Denies chest pain, Denies chest pain at rest, Denies diaphoresis, Denies syncope, Reports pedal edema, Denies irregular heart rhythm, Denies claudication, Reports leg edema, Denies lightheadedness, Denies palpitations and Reports dyspnea Respiratory: Reports dyspnea Denies syncope Endocrine: Denies palpitations Physical Exam Vital Signs: Last Vital Signs Temp 98.7 F 12/05/20 11:47 Pulse 60 12/05/20 11:47 Resp 18 12/05/20 11:47 BP 131/60 12/05/20 11:47 Pulse Ox 92 12/05/20 11:47 Oxygen Flow Rate 4 11/28/20 10:30 Body Mass Index 41.3 Const General: cooperative, comfortable and no acute distress Orientation/consciousness: patient oriented x3 HENMT Other: Unremarkable Neck Neck: Yes normal visual inspection Chest Chest palpation & inspection: normal inspection of the chest Resp Auscultation: clear to auscultation bilaterally, crackles bilateral at the base and no wheezes Cardio Jugular venous distension: no JVD Palpation: normal PMI Heart sounds: S1 normal heart sound present, S2 normal heart sound present, no gallops, no murmurs and no rubs GI Palpation (GI): Soft to palpation Back/Spine/Pelvis Other: unremarkable Skin General skin exam: no rashes or lesions noted Neuro General: patient oriented x3 Extrem General: Yes edema (1-2+) Psych Mental Status: mental status grossly normal Results Labs and Meds Result diagrams: 12/04/20 05:26 12/05/20 05:27 Lab results: Laboratory Results - last 24 hr 12/04/20 12/04/20 12/05/20 15:38 20:16 05:27 Sodium 141 Potassium 3.2 L Chloride 102 Carbon Dioxide 28 Anion Gap 14 BUN 28 H Creatinine 1.71 H Estim Creat Clear Calc 48.4 Estimated GFR 39 POC Glucose 135 H 150 H Random Glucose 128 H Calcium 8.3 L Magnesium 2.6 Ammonia 12/05/20 12/05/2021 05:27 07:21 11:13 Sodium Potassium Chloride Carbon Dioxide Anion Gap BUN Creatinine Estim Creat Clear Calc Estimated GFR POC Glucose 126 H 203 H Random Glucose Calcium Magnesium Ammonia 105 H Progress Note: A&P Assessment and plan (1) Acute right-sided heart failure: Status: Acute (2) Pulmonary hypertension: Status: Acute Assessment and Plan: On reviewing the input/output data, he is net even in the last 24 hours. For the course of this admission, he is negative almost 13.3 L. Oral Lasix daily plus metolazone 2 to 3 times a week. Otherwise correct lytes as needed. Etiology for the pulmonary hypertension could be from obesity/hypoventilation versus undiagnosed sleep apnea versus cirrhosis versus multifactorial. He will need further workup as an outpatient. However not clear as to how much she comprehends any of this. Will arrange FU in office. Fall Risk Details Current Medications: Current Medications Generic Name Dose Route Start Last Admin Trade Name Freq PRN Reason Stop Dose Admin Acetaminophen 650 mg 12/03/20 22:55 12/05/20 05:46 Acetaminophen 325 Mg Tablet PO 650 mg Q6H PRN Administration Pain, Mild (Pain Scale 1-3) Docusate Sodium 100 mg 11/28/20 22:14 Docusate Sodium 100 Mg Capsule PO DAILY PRN Constipation Furosemide 40 mg 12/05/20 09:00 12/05/20 10:54 Furosemide 40 Mg Tablet PO 40 mg BID@0900,1800 [facility] Administration Protocol Insulin Glargine 50 unit 11/28/20 23:00 12/04/20 21:51 Insulin Glargine,Hum.Rec.Anlog 100 Unit/Ml 10 Ml Vial SUBCUT Not Given BEDTIME [facility] Insulin Human Lispro 0 unit 11/28/20 23:00 12/05/20 11:32 Insulin Lispro 100 Unit/Ml 3 Ml Vial SUBCUT 4 unit QIDACHS [facility] Administration Protocol Lactulose 30 gm 12/05/20 13:00 Lactulose 20 Gm/30 Ml Solution PO QID [facility] Metolazone 5 mg 12/05/20 16:20 Metolazone 5 Mg Tablet PO MOWEFR [facility] Omeprazole 20 mg 11/29/20 06:30 12/05/20 05:46 Omeprazole 20 Mg Capsule. PO 20 mg DAILY@0630 [facility] Administration Ondansetron HCl 4 mg 11/28/20 22:14 Ondansetron Hcl 4 Mg/2 Ml Vial IVPUSH Q8H PRN Nausea and Vomiting Pharmacy Consult 1 each 11/28/20 10:21 Consult Rx Perform Med Rec MISCELLANE ONCE PRN Consult order Potassium Chloride 40 meq 12/05/20 11:45 Potassium Chloride Packet 20 Meq Packet PO BID KIMMIE Propranolol HCl 10 mg 11/28/20 23:00 12/05/20 10:32 Propranolol Hcl 10 Mg Tablet PO 10 mg BID KIMMIE Administration Protocol Rifaximin 550 mg 11/28/20 23:00 12/05/20 10:32 Rifaximin 550 Mg Tablet PO 550 mg TID KIMMIE Administration Sodium Chloride 3 ml 11/28/20 22:14 12/05/20 10:31 0.9 % Sodium Chloride Flush 3 Ml Syringe IVFLUSH 3 ml QSHIFT KIMMIE Administration Spironolactone 12.5 mg 12/01/20 09:00 12/05/20 10:32 Spironolactone 25 Mg Tablet PO 12.5 mg DAILY KIMMIE Administration Protocol Time Spent With Patient Time: Total time spent is greater than 50% in coordination of care (as do cumented) at patient's floor/unit and/or counseling patient: Time with patient: less than 15 minutes
[2020-12-05] MEDS: Potassium Chloride Packet 20 MEQ PACKET 40 MEQ PO ×2 (12:30→20:53)
[2020-12-05] MEDS: metOLazone 5 MG TABLET PO (16:08)
--- NOTE | 2020-12-05 16:29 | MHC.CM.PN ---
DP Male 75 DX Respiratory failure PER PT STR. Referrals have been sent out. CM will follow.
[2020-12-05 16:30] LABS: Glucose, Whole Blood 126 mg/dL (60-115)
[2020-12-05 20:19] LABS: Glucose, Whole Blood 150 mg/dL (60-115)
[2020-12-06] VITALS (7 sets, daily range): BP systolic 126–165; BP diastolic 59–72; PULSE 60–76; RESP 18–22; TEMP 35.2–36.9; O2SAT 92–99; BMI 39.6
[2020-12-06] MEDS: Omeprazole 20 MG CAPSULE.DR PO (05:30)
[2020-12-06] MEDS: 0.9 % Sodium Chloride Flush 3 ML SYRINGE IVFLUSH ×3 (07:04→20:35)
[2020-12-06 07:58] LABS: Glucose, Whole Blood 127 mg/dL (60-115)
[2020-12-06 08:00] LABS: Glucose, Whole Blood 129 mg/dL (60-115)
[2020-12-06] MEDS: Furosemide 40 MG TABLET PO ×2 (09:36→17:22)
[2020-12-06] MEDS: Propranolol HCL 10 MG TABLET PO ×2 (09:36→20:34)
[2020-12-06] MEDS: Lactulose 20 GM/30 ML SOLUTION 30 GM PO ×4 (09:36→20:34)
[2020-12-06] MEDS: Potassium Chloride Packet 20 MEQ PACKET 40 MEQ PO ×2 (09:36→20:34)
[2020-12-06] MEDS: Spironolactone 25 MG TABLET 12.5 MG PO (09:48)
[2020-12-06 11:25] LABS: Glucose, Whole Blood 168 mg/dL (60-115)
[2020-12-06] MEDS: Insulin Lispro 100 UNIT/ML 3 ML VIAL SUBCUT ×2 (11:39→16:23)
--- NOTE | 2020-12-06 12:42 | HO.PM.IMPN ---
Subjective Subjective Date of Service: 12/06/20 <SAHARA Harris - Last Filed: 12/06/20 13:39> 12/06/20 <Maxwell Chacon MD - Last Filed: 12/06/20 21:01> Interval History: seen in follow up for fluid overload/heart failure seen and examined this am reports feeling fine this am. alert & oriented <SAHARA Harris - Last Filed: 12/06/20 13:39> Review of Systems Review of Systems: Yes all other systems are reviewed and are negative <SAHARA Harris - Last Filed: 12/06/20 13:39> Constitutional Constitutional: Denies chills and Denies fever(s) <SAHARA Harris - Last Filed: 12/06/20 13:39> Cardiovascular Cardiovascular: Denies chest pain <SAHARA Harris - Last Filed: 12/06/20 13:39> Respiratory Respiratory: Denies cough <SAHARA Harris - Last Filed: 12/06/20 13:39> Gastrointestinal Gastrointestinal: Denies abdominal pain <SAHARA Harris - Last Filed: 12/06/20 13:39> Physical Exam Vital Signs: Vital Signs: Last Vital Signs Temp 95.4 F L 12/06/20 11:31 Pulse 76 12/06/20 11:31 Resp 20 12/06/20 11:31 BP 132/62 12/06/20 11:31 Pulse Ox 96 12/06/20 11:31 Oxygen Flow Rate 4 11/28/20 10:30 Body Mass Index 39.6 <SAHARA Harris - Last Filed: 12/06/20 13:39> Const: General: alert and awake <SAHARA Harris - Last Filed: 12/06/20 13:39> Nutritional Appearance: overweight <SAHARA Harris - Last Filed: 12/06/20 13:39> HENMT: Head: Yes normocephalic and Yes atraumatic <SAHARA Harris - Last Filed: 12/06/20 13:39> Eyes: Sclerae: sclerae normal <SAHARA Harris - Last Filed: 12/06/20 13:39> Chest: Chest palpation & inspection: normal inspection of the chest <SAHARA Harris Last Filed: 12/06/20 13:39> Resp: Effort & Inspection: normal respiratory effort and no respiratory distress <SAHARA Harrsi Last Filed: 12/06/20 13:39> Cardio: Rate: regular rate <SAHARA Harris Last Filed: 12/06/20 13:39> Rhythm: regular rhythm <SAHARA Harris - Last Filed: 12/06/20 13:39> GI: Palpation (GI): Soft to palpation and nontender <SAHARA Harris Last Filed: 12/06/20 13:39> Neuro: Cranial nerves: Yes CN's II-XII intact bilaterally and Yes Bilaterally intact EOM present <SAHARA Harris Last Filed: 12/06/20 13:39> Extrem: Other: b/l edema <SAHARA Harris Last Filed: 12/06/20 13:39> Objective Data Current Medications Generic Name Dose Route Start Last Admin Trade Name Freq PRN Reason Stop Dose Admin Acetaminophen 650 mg 12/03/20 22:55 12/05/20 05:46 Acetaminophen 325 Mg Tablet PO 650 mg Q6H PRN Administration Pain, Mild (Pain Scale 1-3) Docusate Sodium 100 mg 11/28/20 22:14 Docusate Sodium 100 Mg Capsule PO DAILY PRN Constipation Furosemide 40 mg 12/05/20 09:00 12/06/20 09:36 Furosemide 40 Mg Tablet PO 40 mg BID@0900,1800 [facility] Administration Protocol Insulin Glargine 50 unit 11/28/20 23:00 12/05/20 20:39 Insulin Glargine,Hum.Rec.Anlog 100 Unit/Ml 10 Ml Vial SUBCUT Not Given BEDTIME [facility] Insulin Human Lispro 0 unit 11/28/20 23:00 12/06/20 11:39 Insulin Lispro 100 Unit/Ml 3 Ml Vial SUBCUT 2 unit QIDACHS [facility] Administration Protocol Lactulose 30 gm 12/05/20 13:00 12/06/20 09:36 Lactulose 20 Gm/30 Ml Solution PO 30 gm QID [facility] Administration Metolazone 5 mg 12/05/20 16:20 12/05/20 16:08 Metolazone 5 Mg Tablet PO 5 mg MOWEFR [facility] Administration Omeprazole 20 mg 11/29/20 06:30 12/06/20 05:30 Omeprazole 20 Mg Capsule.Dr PO 20 mg DAILY@0630 KIMMIE Administration Ondansetron HCl 4 mg 11/28/20 22:14 Ondansetron Hcl 4 Mg/2 Ml Vial IVPUSH Q8H PRN Nausea and Vomiting Pharmacy Consult 1 each 11/28/20 10:21 Consult Rx Perform Med Rec MISCELLANE ONCE PRN Consult order Potassium Chloride 40 meq 12/05/20 11:45 12/06/20 09:36 Potassium Chloride Packet 20 Meq Packet PO 40 meq BID KIMMIE Administration Propranolol HCl 10 mg 11/28/20 23:00 12/06/20 09:36 Propranolol Hcl 10 Mg Tablet PO 10 mg BID KIMMIE Administration Protocol Sodium Chloride 3 ml 11/28/20 22:14 12/06/20 07:04 0.9 % Sodium Chloride Flush 3 Ml Syringe IVFLUSH 3 ml QSHIFT KIMMIE Administration Spironolactone 12.5 mg 12/01/20 09:00 12/06/20 09:48 Spironolactone 25 Mg Tablet PO 12.5 mg DAILY KIMMIE Administration Protocol <SAHARA Harris - Last Filed: 12/06/20 13:39> Labs CBC & Chem 7: : 12/04/20 05:26 12/05/20 05:27 <SAHARA Harris - Last Filed: 12/06/20 13:39> Assessment and Plan (1) Pulmonary hypertension: Status: Acute <SAHARA Harris - Last Filed: 12/06/20 13:39> (2) Acute right-sided heart failure: Status: Acute <SAHARA Harris - Last Filed: 12/06/20 13:39> Assessment and Plan: This is a 75-year-old Lao-speaking male with a history of diabetes, thrombocytopenia, CKD arrived to the emergency department hypoxic with an oxygen saturation in the mid 80s found to have fluid overload 1. Acute respiratory failure with hypoxia likely due to diastolic dysfunction, right-sided heart failure , severe pulmonary hypertension titrated off iv lasix drip to oral lasix -metolozone mwf -aldactone 12.5mg -etiology of pulm htn - likely multifactorial, will need outpatient sleep study, PFTs, cardiology follow up 2. ULYSSES on CKD stage III 2a. HypoK SCr improved monitor 3. Elevated LFTs / cirrhosis suspected secondary to baseline liver issues + congestion from RHF slowly improving 4. Diarrhea secondary to lactulose c. diff negative 5. Hepatic encephalopathy awake and alert this am -continue lactulose to 30gm QID -continiue rifaxmin 6. elevated trop, patient denies chest pain repeat troponin remains flat likely due to ULYSSES, echo shows normal systolic function. 7. Thrombocytopenia improving 8. Diabetes continue Lantus,SSI, POC 9. GERD continue PPI 10. weakness PT eval - rec STR Full Code DVT pptx, mechanical disposition - STR Attending: Dr. Chacon <SAHARA Harris - Last Filed: 12/06/20 13:39>
[2020-12-06] MEDS: rifAXIMin 550 MG TABLET PO ×2 (15:00→20:35)
[2020-12-06 16:04] LABS: Glucose, Whole Blood 185 mg/dL (60-115)
[2020-12-06 20:23] LABS: Glucose, Whole Blood 154 mg/dL (60-115)
[2020-12-07] VITALS (9 sets, daily range): BP systolic 127–146; BP diastolic 59–66; PULSE 62–74; RESP 14–19; TEMP 35.8–36.7; O2SAT 92–100
[2020-12-07 05:37] LABS: Ammonia 81 umol/L (13-55)
[2020-12-07 05:49] LABS: Anion Gap 13 (12-20); Blood Urea Nitrogen 30 mg/dL (9-16); Calcium 8.9 mg/dL (8.4-10.2); Carbon Dioxide 29 mmol/L (22-29); Chloride 101 mmol/L (96-108); Creatinine Clr Calc Pharmacy 40.7; Estimated Glomerular Filt Rate 33; Glucose Random 137 mg/dL (60-115); Potassium 3.3 mmol/L (3.3-5.1); Sodium 140 mmol/L (135-145)
[2020-12-07] MEDS: Omeprazole 20 MG CAPSULE.DR PO (05:52)
[2020-12-07 07:16] LABS: Glucose, Whole Blood 133 mg/dL (60-115)
[2020-12-07] MEDS: Lactulose 20 GM/30 ML SOLUTION 30 GM PO ×2 (08:37→21:16)
[2020-12-07] MEDS: 0.9 % Sodium Chloride Flush 3 ML SYRINGE IVFLUSH ×3 (08:38→23:35)
[2020-12-07] MEDS: Potassium Chloride Packet 20 MEQ PACKET 40 MEQ PO ×2 (08:38→21:17)
[2020-12-07] MEDS: Propranolol HCL 10 MG TABLET PO ×2 (08:38→21:16)
[2020-12-07] MEDS: rifAXIMin 550 MG TABLET PO ×3 (08:38→21:17)
[2020-12-07] MEDS: Spironolactone 25 MG TABLET 12.5 MG PO (08:40)
[2020-12-07] MEDS: Furosemide 40 MG TABLET PO ×2 (10:05→17:24)
[2020-12-07 11:05] LABS: Glucose, Whole Blood 163 mg/dL (60-115)
[2020-12-07] MEDS: Insulin Lispro 100 UNIT/ML 3 ML VIAL SUBCUT ×2 (11:06→21:18)
--- NOTE | 2020-12-07 13:21 | HO.PM.IMPN ---
Subjective Subjective Date of Service: 12/07/20 <SAHARA Harris - Last Filed: 12/07/20 13:28> 12/07/20 <Maxwell Chacon MD - Last Filed: 12/07/20 15:06> Review of Systems Review of Systems: Yes all other systems are reviewed and are negative <SAHARA Harris - Last Filed: 12/07/20 13:28> Constitutional Constitutional: Denies chills and Denies fever(s) <SAHARA Harris - Last Filed: 12/07/20 13:28> Cardiovascular Cardiovascular: Denies chest pain <SAHARA Harris Last Filed: 12/07/20 13:28> Respiratory Respiratory: Denies cough <SAHARA Harris Last Filed: 12/07/20 13:28> Gastrointestinal Gastrointestinal: Denies abdominal pain <SAHARA Harris Last Filed: 12/07/20 13:28> Physical Exam Vital Signs: Vital Signs: Last Vital Signs Temp 97.5 F 12/07/20 11:28 Pulse 63 12/07/20 11:28 Resp 18 12/07/20 11:28 BP 136/62 12/07/20 11:28 Pulse Ox 100 12/07/20 11:28 Oxygen Flow Rate 4 11/28/20 10:30 Body Mass Index 39.6 <SAHARA Harris Last Filed: 12/07/20 13:28> Const: General: alert and awake <SAHARA Harris Last Filed: 12/07/20 13:28> Nutritional Appearance: overweight <SAHARA Harris Last Filed: 12/07/20 13:28> HENMT: Head: Yes normocephalic and Yes atraumatic <SAHARA Harris Last Filed: 12/07/20 13:28> Eyes: Sclerae: sclerae normal <SAHARA Harris Last Filed: 12/07/20 13:28> Chest: Chest palpation & inspection: normal inspection of the chest <SAHARA Harris Last Filed: 12/07/20 13:28> Resp: Effort & Inspection: normal respiratory effort and no respiratory distress <SAHARA Harris - Last Filed: 12/07/20 13:28> Cardio: Rate: regular rate <SAHARA Harris Last Filed: 12/07/20 13:28> Rhythm: regular rhythm <SAHARA Harris Last Filed: 12/07/20 13:28> GI: Palpation (GI): Soft to palpation and nontender <SAHARA Harris - Last Filed: 12/07/20 13:28> Neuro: Cranial nerves: Yes CN's II-XII intact bilaterally and Yes Bilaterally intact EOM present <SAHARA Harris Last Filed: 12/07/20 13:28> Extrem: Other: b/l edema improving <SAHARA Harris Last Filed: 12/07/20 13:28> General: Yes normal to inspection <SAHARA Harris Last Filed: 12/07/20 13:28> Objective Data Current Medications Generic Name Dose Route Start Last Admin Trade Name Freq PRN Reason Stop Dose Admin Acetaminophen 650 mg 12/03/20 22:55 12/05/20 05:46 Acetaminophen 325 Mg Tablet PO 650 mg Q6H PRN Administration Pain, Mild (Pain Scale 1-3) Docusate Sodium 100 mg 11/28/20 22:14 Docusate Sodium 100 Mg Capsule PO DAILY PRN Constipation Furosemide 40 mg 12/05/20 09:00 12/07/20 10:05 Furosemide 40 Mg Tablet PO 40 mg BID@0900,1800 [facility] Administration Protocol Insulin Glargine 50 unit 11/28/20 23:00 12/06/20 20:35 Insulin Glargine,Hum.Rec.Anlog 100 Unit/Ml 10 Ml Vial SUBCUT Not Given BEDTIME [facility] Insulin Human Lispro 0 unit 11/28/20 23:00 12/07/20 11:06 Insulin Lispro 100 Unit/Ml 3 Ml Vial SUBCUT 2 unit QIDACHS [facility] Administration Protocol Lactulose 30 gm 12/07/20 21:00 Lactulose 20 Gm/30 Ml Solution PO BID [facility] Metolazone 5 mg 12/05/20 16:20 12/05/20 16:08 Metolazone 5 Mg Tablet PO 5 mg MOWEFR KIMMIE Administration Omeprazole 20 mg 11/29/20 06:30 12/07/20 05:52 Omeprazole 20 Mg Capsule.Dr PO 20 mg DAILY@0630 KIMMIE Administration Ondansetron HCl 4 mg 11/28/20 22:14 Ondansetron Hcl 4 Mg/2 Ml Vial IVPUSH Q8H PRN Nausea and Vomiting Pharmacy Consult 1 each 11/28/20 10:21 Consult Rx Perform Med Rec MISCELLANE ONCE PRN Consult order Potassium Chloride 40 meq 12/05/20 11:45 12/07/20 08:38 Potassium Chloride Packet 20 Meq Packet PO 40 meq BID KIMMIE Administration Propranolol HCl 10 mg 11/28/20 23:00 12/07/20 08:38 Propranolol Hcl 10 Mg Tablet PO 10 mg BID KIMMIE Administration Protocol Rifaximin 550 mg 12/06/20 15:00 12/07/20 08:38 Rifaximin 550 Mg Tablet PO 550 mg TID KIMMIE Administration Sodium Chloride 3 ml 11/28/20 22:14 12/07/20 08:38 0.9 % Sodium Chloride Flush 3 Ml Syringe IVFLUSH 3 ml QSHIFT KIMMIE Administration Spironolactone 12.5 mg 12/01/20 09:00 12/07/20 08:40 Spironolactone 25 Mg Tablet PO 12.5 mg DAILY KIMMIE Administration Protocol <SAHARA Harris - Last Filed: 12/07/20 13:28> Labs CBC & Chem 7: : 12/04/20 05:26 12/07/20 05:03 <SAHARA Harris - Last Filed: 12/07/20 13:28> Assessment and Plan (1) Pulmonary hypertension: Status: Acute <SAHARA Harris - Last Filed: 12/07/20 13:28> (2) Acute right-sided heart failure: Status: Acute <SAHARA Harris Last Filed: 12/07/20 13:28> Assessment and Plan: This is a 75-year-old South African-speaking male with a history of diabetes, thrombocytopenia, CKD arrived to the emergency department hypoxic with an oxygen saturation in the mid 80s found to have fluid overload 1. Acute respiratory failure with hypoxia likely due to diastolic dysfunction, right-sided heart failure , severe pulmonary hypertension titrated off iv lasix drip to oral lasix -metolozone mwf -aldactone 12.5mg -etiology of pulm htn - likely multifactorial, will need outpatient sleep study, PFTs, cardiology follow up ?may benefit from home o2 per pulmonary 2. ULYSSES on CKD stage III 2a. HypoK SCr stable 3. Elevated LFTs / cirrhosis suspected secondary to baseline liver issues + congestion from RHF improving 4. Diarrhea secondary to lactulose c. diff negative 5. Hepatic encephalopathy. improving -having multiple BM, will decrease dose of lactulose -continiue rifaxmin 6. elevated trop, patient denies chest pain repeat troponin remains flat likely due to ULYSSES, echo shows normal systolic function. 7. Thrombocytopenia. stable 8. Diabetes continue Lantus,SSI, POC 9. GERD continue PPI 10. weakness PT eval - rec STR Full Code DVT pptx, mechanical disposition - STR, possibly tomorrow Attending: Dr. Chacon <SAHARA Harris - Last Filed: 12/07/20 13:28>
[2020-12-07 15:59] LABS: Glucose, Whole Blood 150 mg/dL (60-115)
[2020-12-07 19:51] LABS: Glucose, Whole Blood 223 mg/dL (60-115)
[2020-12-07] MEDS: Insulin Glargine,Hum.rec.anlog 100 UNIT/ML 10 ML VIAL 50 UNIT SUBCUT (21:17)
[2020-12-08 04:00] VITALS: BP 138/64; PULSE 64; RESP 14; TEMP 36.4; O2SAT 93
[2020-12-08] MEDS: Omeprazole 20 MG CAPSULE.DR PO (05:46)
[2020-12-08 06:00] VITALS: BMI 38.6
[2020-12-08 07:27] LABS: Glucose, Whole Blood 113 mg/dL (60-115)
[2020-12-08 07:28] VITALS: BP 142/63; PULSE 65; RESP 18; TEMP 36.4; O2SAT 91
[2020-12-08] MEDS: 0.9 % Sodium Chloride Flush 3 ML SYRINGE IVFLUSH ×2 (07:34→16:26)
[2020-12-08 07:35] VITALS: BP 142/63; PULSE 65
[2020-12-08] MEDS: Spironolactone 25 MG TABLET 12.5 MG PO (07:35)
[2020-12-08] MEDS: Furosemide 40 MG TABLET PO ×2 (07:35→17:07)
[2020-12-08] MEDS: rifAXIMin 550 MG TABLET PO ×2 (07:35→16:26)
[2020-12-08] MEDS: Propranolol HCL 10 MG TABLET PO (07:35)
[2020-12-08] MEDS: Potassium Chloride Packet 20 MEQ PACKET 40 MEQ PO (07:37)
[2020-12-08] MEDS: Lactulose 20 GM/30 ML SOLUTION 30 GM PO (07:38)
[2020-12-08 11:20] LABS: Glucose, Whole Blood 199 mg/dL (60-115)
[2020-12-08 11:59] VITALS: BP 131/60; PULSE 76; RESP 20; TEMP 36.8; O2SAT 91
[2020-12-08] MEDS: Insulin Lispro 100 UNIT/ML 3 ML VIAL SUBCUT ×2 (11:59→17:07)
--- NOTE | 2020-12-08 12:48 | MHC.CM.PN ---
Addendum entered by Prabha Pichardo 12/08/20 13:56: CM spoke with patient's dtr Rubi who is adamant that patient goes to rehab. 1st choice is [facility]. Asked STR to start auth with [facility]. Spoke with Jade at [facility] who will approve rehab. CM spoke with patient via spanish interpreter/translator, explained patient will need to go to [facility] at [facility] prior to dischargign home. Original Note: Patient is ready for discharge and wants to go home with [employer] services. PT is recommending STR, 2 attempts to call dtr/HCP Rubi to discuss discharge plan. LM to return call. CM will continue to follow patient for discharge needs.
--- NOTE | 2020-12-08 13:42 | P.DS_ITS ---
DS: Providers Provider Date of Service: 12/08/20 <Diamond Camacho NP - Last Filed: 12/08/20 14:22> 12/08/20 <Danilo Phillips MD - Last Filed: 12/08/20 14:32> Date of admission: 11/28/20 15:28 <Diamond Camacho NP - Last Filed: 12/08/20 14:22> Primary care physician: Unknown Physician <Diamodn Camacho NP - Last Filed: 12/08/20 14:22> Consults: 11/29/20 12:34 Consult to Cardiology Routine Consulting Provider: Pato Bunn Reason for consultation: rt systolic dysfunction Has provider been notified: No 12/01/20 10:31 Consult to Pulmonology Routine Consulting Provider: Avinash Camacho Reason for consultation: respiratory failure, right heart failure, pulm htn <Diamond Camacho NP - Last Filed: 12/08/20 14:22> DS: Diagnosis Discharge Diagnosis (1) Pulmonary hypertension: Status: Acute <Diamond Camacho NP - Last Filed: 12/08/20 14:22> (2) Acute right-sided heart failure: Status: Acute <Diamond Camacho NP - Last Filed: 12/08/20 14:22> (3) Cirrhosis: Status: Acute <Diamond Camacho NP - Last Filed: 12/08/20 14:22> (4) Encephalopathy: Status: Acute <Diamond Camacho NP - Last Filed: 12/08/20 14:22> DS: Medications Discharge Medications Home Medications: Home Medications Medication Instructions Recorded Confirmed omeprazole 20 mg capsule,delayed 20 mg PO DAILY@0630 05/23/20 11/28/20 release rifaximin 550 mg tablet 550 mg PO TID 05/23/20 11/28/20 aspirin 81 mg PO DAILY 11/28/20 11/28/20 atorvastatin 40 mg PO DAILY 11/28/20 11/28/20 furosemide 40 mg PO DAILY 11/28/20 11/28/20 insulin aspart U-100 [Novolog 22 unit SUBCUT DAILY@0730 11/28/20 11/28/20 Flexpen U-100 Insulin] insulin aspart U-100 [Novolog 24 unit SUBCUT QPM 11/28/20 11/28/20 Flexpen U-100 Insulin] insulin glargine [Lantus Solostar 62 unit SUBCUT BEDTIME 11/28/20 11/28/20 U-100 Insulin] propranolol 10 mg PO BID 11/28/20 11/28/20 spironolactone 50 mg PO DAILY 11/28/20 11/28/20 umeclidinium [Incruse Ellipta] 1 inh INHALATION DAILY 11/28/20 11/28/20 Previous Rx's Medication Instructions Recorded gabapentin 300 mg capsule 300 mg PO BEDTIME 30 Days #30 cap 09/29/20 <Diamond Camacho NP - Last Filed: 12/08/20 14:22> DS: Summary Hospital Course Hospital Course: HP as per admitting provider This is a 75-year-old Lithuanian-speaking female who presented to the emergency department today due to difficulty breathing as well as leg edema. Patient states that he has been feeling short of breath since yesterday. He is awake and alert but somewhat vague in his history. Lab work was significant for white count of 12.8, platelet of 121, INR 1.5, and creatinine of 1.94. Bilirubin was elevated at 6.3, AST 41, ALT 16, alk phosphatase 201. Chest x-ray revealed atelectasis or small infiltrate at the right lung base. Patient denied cough. His presentation was more consistent with fluid overload and he was given a dose of IV Lasix as well as a breathing treatment . Acute respiratory failure with hypoxia secondary to diastolic dysfunction right- sided heart failure and severe pulmonary hypertension. Patient was initially treated on an IV Lasix drip which was titrated and transition to oral Lasix. He was started on metolazone Tuesday, Tuesday and Tuesday, Aldactone 12.5 mg. there was a question of undiagnosed sleep apnea causing the pulmonary hypertension. Will need outpatient sleep study, PFTs and cardiology outpatient follow-up. Will benefit from oxygen. ULYSSES on CKD. Likely secondary to hypokalemia And also congestion from heart failure. Creatinine improved. Hepatic encephalopathy . Secondary to liver cirrhosis. Treated with lactulose initially however this caused increased diarrhea therefore lactulose was decreased however rifaximin was continued. Symptoms did improve. Attending Attestation: Patient seen and examined independently and I was present during boyle portion of E/M service. Agree with Kari Camacho NP's history, physical, assessment, and plan. Seen and examined on day of d/c. Stable for d/c. Will need outpatient f/u with cardiology (for Right heart cath) and Pulmonary (for sleep study). Can f/u with GI as he normally does. <Diamond Camacho NP - Last Filed: 12/08/20 14:22> Time Spent with Patient Time attestation: Total time spent providing and/or coordinating discharge services: <Diamond Camacho NP - Last Filed: 12/08/20 14:22> Discharge coordination time: Greater than 30 minutes <Diamond Camacho NP - Last Filed: 12/08/20 14:22> Physical Exam Vital Signs: Vital Signs: Last Vital Signs Temp 98.2 F 12/08/20 11:59 Pulse 76 12/08/20 11:59 Resp 20 12/08/20 11:59 BP 131/60 12/08/20 11:59 Pulse Ox 91 L 12/08/20 11:59 Oxygen Flow Rate 4 11/28/20 10:30 Body Mass Index 38.6 <Diamond Camacho NP - Last Filed: 12/08/20 14:22> Appearing in no acute distress head is normocephalic atraumatic eyes pupils are PERRLA sclera is anicteric mouth throat mucous membranes are intact and moist neck is supple no lymphadenopathy, no JVD noted lung sounds are clear to auscultation heart regular rate rhythm, clear S1, S2 positive bowel sounds, abdomen is soft, nontender neuro patient is alerttp person and place, some mild confusion, no focal deficits <Diamond Camacho NP - Last Filed: 12/08/20 14:22> DS: Data Data Completed and Pending Labs on day of discharge: Laboratory Results - last 24 hr 12/07/20 12/07/20 12/08/20 15:51 19:47 07:23 POC Glucose 150 H 223 H 113 12/08/20 11:08 POC Glucose 199 H <Diamond Camacho NP - Last Filed: 12/08/20 14:22> Discharge Plan Discharge Anticipated Discharge Date/Time: 12/08/20 13:37 <Diamond Camacho NP - Last Filed: 12/08/20 14:22> Patient Disposition: Xfer SNF <Diamond Camacho NP - Last Filed: 12/08/20 14:22> Discharge Diagnosis: Congestive heart failure secondary to diastolic dysfunction Severe pulmonary hypertension ULYSSES on CKD Cirrhosis Hepatic encephalopathy <Diamond Camacho NP - Last Filed: 12/08/20 14:22> Congestive heart failure secondary to diastolic dysfunction Severe pulmonary hypertension ULYSSES on CKD Cirrhosis Hepatic encephalopathy <Danilo Phillips MD - Last Filed: 12/08/20 14:32> Referrals: Physician,Unknown [Primary Care Provider] - 1 Week <Diamond Camacho NP - Last Filed: 12/08/20 14:22> Discharge Medications: New metolazone 5 mg Tablet 5 mg PO MOWEFR 30 Days Qty: 13 RF: 0 lactulose 20 gram/30 mL Solution 30 g PO BID 30 Days Qty: 2700 RF: 0 furosemide 40 mg Tablet 40 mg PO BID@0900,1800 30 Days Qty: 60 RF: 0 Continued gabapentin 300 mg capsule 300 mg PO BEDTIME 30 Days Qty: 30 RF: 2 Lantus Solostar U-100 Insulin 100 unit/mL (3 mL) Insulin Pen 62 unit SUBCUT BEDTIME RF: 0 furosemide 40 mg Tablet 40 mg PO DAILY RF: 0 Incruse Ellipta 62.5 mcg/actuation Blister With Device 1 inh INHALATION DAILY RF: 0 atorvastatin 40 mg Tablet 40 mg PO DAILY RF: 0 propranolol 10 mg Tablet 10 mg PO BID RF: 0 spironolactone 50 mg Tablet 50 mg PO DAILY RF: 0 aspirin 81 mg Tablet,Delayed Release (Dr/Ec) 81 mg PO DAILY RF: 0 insulin aspart U-100 [Novolog Flexpen U-100 Insulin] 100 unit/mL (3 mL) Insulin Pen 22 unit SUBCUT DAILY@0730 RF: 0 insulin aspart U-100 [Novolog Flexpen U-100 Insulin] 100 unit/mL (3 mL) Insulin Pen 24 unit SUBCUT QPM RF: 0 omeprazole 20 mg capsule,delayed release(DR/EC) 20 mg PO DAILY@0630 RF: 0 Xifaxan 550 mg tablet 550 mg PO TID RF: 0 <Diamond Camacho NP - Last Filed: 12/08/20 14:22> Discharge Orders: Discharge Order (Routine); Ordered 12/08/20 Ordered By: Diamond Camacho <Diamond Camacho NP - Last Filed: 12/08/20 14:22> Diet: advance to usual diet <Diamond Camacho NP - Last Filed: 12/08/20 14:22> advance to usual diet <Danilo Phillips MD - Last Filed: 12/08/20 14:32> Activity on Discharge: As tolerated <Diamond Camacho NP - Last Filed: 12/08/20 14:22> As tolerated <Danilo Phillips MD - Last Filed: 12/08/20 14:32> Stand Alone Forms: Patient Portal Discharge page <Diamond Camacho NP - Last Filed: 12/08/20 14:22> Care Plan Goals: Resolution of respiratory symptoms Complete resolution of heart failure symptoms <Diamond Camacho NP - Last Filed: 12/08/20 14:22> Health Concerns: Congestive heart failure Secondary to diastolic dysfunction Severe pulmonary hypertension ULYSSES on CKD Hepatic encephalopathy Cirrhosis <Diamond Camacho NP - Last Filed: 12/08/20 14:22> Plan of Treatment: Follow-up with cardiology for further workup Oxygen <Diamond Camacho NP - Last Filed: 12/08/20 14:22> Assessment: See discharge summary <Diamond Camacho NP - Last Filed: 12/08/20 14:22>
[2020-12-08 15:25] LABS: COVID-19 Test Negative (Negative); IDNOW Serial# 9DD0AD1C
[2020-12-08 15:31] VITALS: BP 128/60; PULSE 67; RESP 20; TEMP 37.1; O2SAT 95
[2020-12-08] MEDS: metOLazone 5 MG TABLET PO (16:26)
[2020-12-08 16:37] LABS: Glucose, Whole Blood 203 mg/dL (60-115)
== END 2020-12-08 18:10 | disposition skilled nursing facility (03) | DRG 292 ==
LOC: HO.ED 12:51 → HO.EDOVER 15:56 → HO.IMC 18:01
PROVIDERS: Family Medicine; Hospitalist; Internal Medicine; Admitting Provider Physician Assistant Medical; Emergency Provider Emergency Medicine; Visit Provider Nurse Practitioner Acute Care
DX: I13.0 Hypertensive heart and chronic kidney disease with heart failure and stage 1 through stage 4 chronic kidney disease, or unspecified chronic kidney disease (principal); N17.9 Acute kidney failure, unspecified; T83.83XA Hemorrhage due to genitourinary prosthetic devices, implants and grafts, initial encounter; N18.30 Chronic kidney disease, stage 3 unspecified; D69.6 Thrombocytopenia, unspecified; K21.9 Gastro-esophageal reflux disease without esophagitis; I27.29 Other secondary pulmonary hypertension; E87.6 Hypokalemia; I50.811 Acute right heart failure; R19.7 Diarrhea, unspecified; R31.9 Hematuria, unspecified; K72.90 Hepatic failure, unspecified without coma; E11.22 Type 2 diabetes mellitus with diabetic chronic kidney disease; Z20.822 Contact with and (suspected) exposure to COVID-19; Z87.891 Personal history of nicotine dependence; Z79.4 Long term (current) use of insulin; Z79.82 Long term (current) use of aspirin; Z79.899 Other long term (current) drug therapy
CPT/HCPCS: 36415; 71045; 76705; 78580; 80048; 80076; 82140; 82947; 83690; 83735; 83880; 84132; 84443; 84484; 85025; 85027; 85610; 85730; 87324; 87449; 87635; 93005; 93306; 93970; 94640; 96374; 97162; 99285; A9540; C1758; J1650; J1940; Q9957

== ENCOUNTER 2020-12-12 04:06 | Emergency (ER) | payer MEDICARE, SELFPAY ==
--- NOTE | ~2020-12-12 | XR_ITS ---
EXAMINATION: XR CHEST CLINICAL INFORMATION: Altered mental status COMPARISON: 11/28/2020 TECHNIQUE: Frontal view of the chest was obtained. FINDINGS: Cardiac leads overlie the chest. The lungs are well expanded. Persistent small right pleural effusion associated basilar opacity. No pneumothorax. No edema. The cardiomediastinal silhouette is unchanged. XR/XR chest 1V IMPRESSION: Persistent small right pleural effusion with basilar opacity which may represent atelectasis, although pneumonia not excluded.
--- NOTE | 2020-12-12 04:17 | ED_ITS ---
HPI - Altered Mental Status General Chief Complaint: General Medical Stated Complaint: hypoglycemia Time Seen by Provider: 12/12/20 04:17 Source: patient and EMS Mode of arrival: EMS Limitations: language barrier History of Present Illness HPI narrative: Patient is 75 years old with history of diabetes hypertension alcoholic cirrhosis portal hypertension and pulmonary hypertension with possible sleep apnea syndrome get discharged on 12/08 after right-sided heart failure patient was given 62 units of Lantus insulin and 4 units of Humalog for blood sugar of 324 according to sliding scale at 03:00 when [facility] [employer] went to check on him found in the bed on the side way naked with water on the floor and semi responsive blood sugar checked was 52 was given OJ and blood sugar dropped to 37 by the time EMS came and gave glucagon and blood sugar improved to 100 patient is alert awake at his baseline denies any pain no shortness of breath no seizures no fall. According to nurse staff patient had his dinner and sandwich in the evening and he was behaving normal. No fever no cough Related Data Home Medications Medication Instructions Recorded Confirmed omeprazole 20 mg capsule,delayed 20 mg PO DAILY@0630 05/23/20 11/28/20 release rifaximin 550 mg tablet 550 mg PO TID 05/23/20 11/28/20 Incruse Ellipta 1 inh INHALATION DAILY 11/28/20 11/28/20 Lantus Solostar U-100 Insulin 62 unit SUBCUT BEDTIME 11/28/20 11/28/20 aspirin 81 mg PO DAILY 11/28/20 11/28/20 atorvastatin 40 mg PO DAILY 11/28/20 11/28/20 furosemide 40 mg PO DAILY 11/28/20 11/28/20 insulin aspart U-100 [Novolog 22 unit SUBCUT DAILY@0730 11/28/20 11/28/20 Flexpen U-100 Insulin] insulin aspart U-100 [Novolog 24 unit SUBCUT QPM 11/28/20 11/28/20 Flexpen U-100 Insulin] propranolol 10 mg PO BID 11/28/20 11/28/20 spironolactone 50 mg PO DAILY 11/28/20 11/28/20 Previous Rx's Medication Instructions Recorded gabapentin 300 mg capsule 300 mg PO BEDTIME 30 Days #30 cap 09/29/20 furosemide 40 mg PO BID@0900,1800 30 Days #60 12/08/20 tab lactulose 30 g PO BID 30 Days #2700 ml 12/08/20 metolazone 5 mg PO MOWEFR 30 Days #13 tab 12/08/20 Allergies Allergy/AdvReac Type Severity Reaction Status Date / Time No Known Allergies Allergy Verified 11/28/20 10:42 Review of Systems Review of Systems: Constitutional : No Weight loss, No Fever, No Chills ENT/Mouth : No sore throat, No Rhinorrhea Eyes: No Eye Pain, No Swelling Cardiovascular : No Chest Pain, no palpitations Respiratory : No Cough, No Sputum, no shortness of breath Gastrointestinal : no Nausea, No Vomiting, No Diarrhea, No abdominal Pain, no black stools Genitourinary : No Dysuria, No Urinary Frequency Musculoskeletal : No joint pain, No Myalgias, No Joint Swelling Skin : No Skin Lesions, No rash Neuro : ++ Weakness, No Numbness, No Dizziness, No Headache Psych : No Anxiety/Panic, No Depression Heme/Lymph: No Bruising, No Lymphadenopathy Endocrine : No Polyuria, No Polydipsia All other systems reviewed and are negative FOR[facility]LY [facility] Past Medical History Medical History Alcoholic cirrhosis COPD (chronic obstructive pulmonary disease) Diabetes Encephalopathy HTN (hypertension) Hyperlipidemia Pulmonary hypertension Social History Social History Household Members: Children Housing: House Alcohol intake: former Smoking Status: Former smoker Advance Directives: No Advance Directives Information Provided: No service: No Current occupational status: retired Physical Exam Vital Signs: Vital Signs: Last Vital Signs Temp 98.0 F 12/12/20 04:21 Pulse 45 L 12/12/20 04:59 Resp 15 12/12/20 04:59 BP 124/78 12/12/20 04:59 Pulse Ox 95 12/12/20 04:59 Body Mass Index 59.9 Appearance: Alert. Oriented X3 No acute distress. Eyes: PERRLA, No Nystagmus ENT: Pharynx normal. Oral Mucosa moist Neck: Normal inspection. Neck supple. CVS: Normal heart rate and rhythm. Pulses normal. Respiratory: No respiratory distress. Equal air entry bilateral, no wheezing/rales/rhonchi Abdomen: Soft and nontender. Bowel sounds are present, no mass palpable, no CVA tenderness Skin: Skin warm and dry. Normal skin color. Normal skin turgor. Extremities: 2+ lower extremity edema. No calf tenderness Neuro: Oriented X 3. No motor deficit. No sensory deficit.No cerebellar signs , cranial nerves II-XII intact MDM - Altered Mental Status MDM Narrative Medical decision making narrative: Patient hypo glycemia episode etiology not very clear clinically not septic normal lactic acid level ammonia level slightly elevated will continue lactulose in [facility] patient not in encephalopathy at this time Medical Records Attestation: I reviewed the patient's medical records. Lab Data Attestation: I reviewed the patient's lab results. Result diagrams: 12/12/20 05:02 12/12/20 05:02 Labs: Lab Results 12/12/20 12/12/20 12/12/20 Range/Units 05:02 05:02 05:02 WBC 7.0 (4.8-10.8) X10*3/uL RBC 4.22 L (4.60-5.80) X10*6/uL Hgb 14.3 (14.0-18.0) g/dl Hct 41.2 L (42-52) % MCV 97.6 (80-98) fL MCH 33.9 H (27.0-33.0) pg MCHC 34.7 (31.0-36.0) g/dl RDW 18.7 H (11.0-16.0) % Plt Count 165 (160-400) X10*3/uL MPV 12.4 (9.4-12.4) fL Immature Gran % (Auto) 0.9 H (0.0-0.4) % Neut % (Auto) 59.3 (45-73) % Lymph % (Auto) 19.2 L (20-40) % [place] % (Auto) 15.3 H (2-11) % Eos % (Auto) 4.4 H (0-4) % Baso % (Auto) 0.9 (0-2) % Lymph # (Auto) 1.3 (1.2-4.9) X10*3/uL [place] # (Auto) 1.1 (0.1-1.2) X10*3/uL Eos # (Auto) 0.3 (0.0-0.4) X10*3/uL Baso # (Auto) 0.1 (0.0-0.2) X10*3/uL Abs Immat Gran (auto) 0.06 H (0.00-0.03) X10*3/uL Absolute Neuts (auto) 4.1 (2.0-8.3) X10*3/uL Absolute Nucleated RBC 0.000 (0.0-0.012) X10*3/uL Nucleated RBC % (auto) 0.0 (0.0-0.2) /100WBC PT (10.8-13.0) SEC INR (0.9-1.1) Sodium 133 L (135-145) mmol/L Potassium 2.8 L (3.3-5.1) mmol/L Chloride 93 L (96-108) mmol/L Carbon Dioxide 27 (22-29) mmol/L Anion Gap 16 (12-20) BUN 41 H (9-16) mg/dL Creatinine 2.11 H (0.5-1.4) mg/dL Estim Creat Clear Calc 48.9 Estimated GFR 31 Random Glucose 97 (60-115) mg/dL Lactic Acid (0.5-2.0) mmol/L Calcium 8.5 (8.4-10.2) mg/dL Total Bilirubin 4.1 H (0.0-1.0) mg/dL Direct Bilirubin 1.7 H (0.0-0.5) mg/dL AST 54 H (5-37) U/L ALT 28 (0-40) U/L Alkaline Phosphatase 171 H (39-117) U/L Ammonia 102 H (13-55) umol/L Troponin I High Sens (<3.5-35.0) ng/L Total Protein 7.7 (6.5-8.0) g/dL Albumin 2.3 L (3.5-5.0) g/dL Lipase (8-78) U/L Urine Color Urine Appearance Urine pH (5.0-8.0) Ur Specific [place] (1.005-1.025) Urine Protein (NEG-TRACE) MG/DL Urine Glucose (UA) (NEG) MG/DL Urine Ketones (NEG) MG/DL Urine Blood (NEG) Urine Nitrite (NEG) Ur Leukocyte Esterase (NEG) 12/12/20 12/12/20 12/12/20 Range/Units 05:02 05:02 05:02 WBC (4.8-10.8) X10*3/uL RBC (4.60-5.80) X10*6/uL Hgb (14.0-18.0) g/dl Hct (42-52) % MCV (80-98) fL MCH (27.0-33.0) pg MCHC (31.0-36.0) g/dl RDW (11.0-16.0) % Plt Count (160-400) X10*3/uL MPV (9.4-12.4) fL Immature Gran % (Auto) (0.0-0.4) % Neut % (Auto) (45-73) % Lymph % (Auto) (20-40) % [place] % (Auto) (2-11) % Eos % (Auto) (0-4) % Baso % (Auto) (0-2) % Lymph # (Auto) (1.2-4.9) X10*3/uL [place] # (Auto) (0.1-1.2) X10*3/uL Eos # (Auto) (0.0-0.4) X10*3/uL Baso # (Auto) (0.0-0.2) X10*3/uL Abs Immat Gran (auto) (0.00-0.03) X10*3/uL Absolute Neuts (auto) (2.0-8.3) X10*3/uL Absolute Nucleated RBC (0.0-0.012) X10*3/uL Nucleated RBC % (auto) (0.0-0.2) /100WBC PT 18.1 H (10.8-13.0) SEC INR 1.5 H (0.9-1.1) Sodium (135-145) mmol/L Potassium (3.3-5.1) mmol/L Chloride (96-108) mmol/L Carbon Dioxide (22-29) mmol/L Anion Gap (12-20) BUN (9-16) mg/dL Creatinine (0.5-1.4) mg/dL Estim Creat Clear Calc Estimated GFR Random Glucose (60-115) mg/dL Lactic Acid 1.7 (0.5-2.0) mmol/L Calcium (8.4-10.2) mg/dL Total Bilirubin (0.0-1.0) mg/dL Direct Bilirubin (0.0-0.5) mg/dL AST (5-37) U/L ALT (0-40) U/L Alkaline Phosphatase (39-117) U/L Ammonia (13-55) umol/L Troponin I High Sens (<3.5-35.0) ng/L Total Protein (6.5-8.0) g/dL Albumin (3.5-5.0) g/dL Lipase 69 (8-78) U/L Urine Color Urine Appearance Urine pH (5.0-8.0) Ur Specific [place] (1.005-1.025) Urine Protein (NEG-TRACE) MG/DL Urine Glucose (UA) (NEG) MG/DL Urine Ketones (NEG) MG/DL Urine Blood (NEG) Urine Nitrite (NEG) Ur Leukocyte Esterase (NEG) 12/12/20 12/12/20 Range/Units 05:02 05:42 WBC (4.8-10.8) X10*3/uL RBC (4.60-5.80) X10*6/uL Hgb (14.0-18.0) g/dl Hct (42-52) % MCV (80-98) fL MCH (27.0-33.0) pg MCHC (31.0-36.0) g/dl RDW (11.0-16.0) % Plt Count (160-400) X10*3/uL MPV (9.4-12.4) fL Immature Gran % (Auto) (0.0-0.4) % Neut % (Auto) (45-73) % Lymph % (Auto) (20-40) % [place] % (Auto) (2-11) % Eos % (Auto) (0-4) % Baso % (Auto) (0-2) % Lymph # (Auto) (1.2-4.9) X10*3/uL [place] # (Auto) (0.1-1.2) X10*3/uL Eos # (Auto) (0.0-0.4) X10*3/uL Baso # (Auto) (0.0-0.2) X10*3/uL Abs Immat Gran (auto) (0.00-0.03) X10*3/uL Absolute Neuts (auto) (2.0-8.3) X10*3/uL Absolute Nucleated RBC (0.0-0.012) X10*3/uL Nucleated RBC % (auto) (0.0-0.2) /100WBC PT (10.8-13.0) SEC INR (0.9-1.1) Sodium (135-145) mmol/L Potassium (3.3-5.1) mmol/L Chloride (96-108) mmol/L Carbon Dioxide (22-29) mmol/L Anion Gap (12-20) BUN (9-16) mg/dL Creatinine (0.5-1.4) mg/dL Estim Creat Clear Calc Estimated GFR Random Glucose (60-115) mg/dL Lactic Acid (0.5-2.0) mmol/L Calcium (8.4-10.2) mg/dL Total Bilirubin (0.0-1.0) mg/dL Direct Bilirubin (0.0-0.5) mg/dL AST (5-37) U/L ALT (0-40) U/L Alkaline Phosphatase (39-117) U/L Ammonia (13-55) umol/L Troponin I High Sens 12.6 D (<3.5-35.0) ng/L Total Protein (6.5-8.0) g/dL Albumin (3.5-5.0) g/dL Lipase (8-78) U/L Urine Color YELLOW Urine Appearance CLEAR Urine pH 7.0 (5.0-8.0) Ur Specific [place] 1.015 (1.005-1.025) Urine Protein NEG (NEG-TRACE) MG/DL Urine Glucose (UA) NEG (NEG) MG/DL Urine Ketones NEG (NEG) MG/DL Urine Blood NEG (NEG) Urine Nitrite NEG (NEG) Ur Leukocyte Esterase NEG (NEG) ECG Data ECG #1: Attestation: I personally reviewed and interpreted this ECG as follows: Interpretation: Sinus bradycardia with heart rate of 47 beats per minute incomplete left bundle branch block nonspecific T-wave inversion no acute ischemia Discharge Plan Discharge Clinical Impression: Hypoglycemia associated with type 2 diabetes mellitus, Acute hypokalemia Patient Disposition: [facility] Instructions: Hypokalemia (ED), Hypoglycemia in a Person with Diabetes (ED) Additional Instructions: Continue Lantus insulin as prescribed and insulin according to sliding scale Recheck potassium in 2 days Continue lactulose Eat well and have snack going to bed Prescriptions: No Action gabapentin 300 mg capsule 300 mg PO BEDTIME 30 Days Qty: 30 RF: 2 Lantus Solostar U-100 Insulin 100 unit/mL (3 mL) Insulin Pen 62 unit SUBCUT BEDTIME RF: 0 furosemide 40 mg Tablet 40 mg PO DAILY RF: 0 Incruse Ellipta 62.5 mcg/actuation Blister With Device 1 inh INHALATION DAILY RF: 0 atorvastatin 40 mg Tablet 40 mg PO DAILY RF: 0 propranolol 10 mg Tablet 10 mg PO BID RF: 0 spironolactone 50 mg Tablet 50 mg PO DAILY RF: 0 aspirin 81 mg Tablet,Delayed Release (Dr/Ec) 81 mg PO DAILY RF: 0 insulin aspart U-100 [Novolog Flexpen U-100 Insulin] 100 unit/mL (3 mL) Insuli n Pen 22 unit SUBCUT DAILY@0730 RF: 0 insulin aspart U-100 [Novolog Flexpen U-100 Insulin] 100 unit/mL (3 mL) Insulin Pen 24 unit SUBCUT QPM RF: 0 metolazone 5 mg Tablet 5 mg PO MOWEFR 30 Days Qty: 13 RF: 0 lactulose 20 gram/30 mL Solution 30 g PO BID 30 Days Qty: 2700 RF: 0 furosemide 40 mg Tablet 40 mg PO BID@0900,1800 30 Days Qty: 60 RF: 0 omeprazole 20 mg capsule,delayed release(DR/EC) 20 mg PO DAILY@0630 RF: 0 Xifaxan 550 mg tablet 550 mg PO TID RF: 0
--- NOTE | 2020-12-12 04:20 | ECG_ITS ---
Test Reason : HYPOGLYCEMIA Blood Pressure : / mmHG Vent. Rate : 047 BPM Atrial Rate : 047 BPM P-R Int : 192 ms QRS Dur : 120 ms QT Int : 538 ms P-R-T Axes : 037 -04 -05 degrees QTc Int : 476 ms Sinus bradycardia Incomplete left bundle branch block T wave abnormality, consider anterior ischemia Abnormal ECG When compared with ECG of 28-NOV-2020 10:48, Incomplete left bundle branch block is now Present Referred By: Santiago Abdi Electronically Signed By:LUBNA FARRIS MD
[2020-12-12 04:21] VITALS: BP 129/78; PULSE 50; RESP 17; TEMP 36.7; O2SAT 94; BMI 59.9
[2020-12-12] MEDS: Dextrose 5 % 1,000 ML 100 ML IVCONT (04:25)
[2020-12-12 04:59] VITALS: BP 124/78; PULSE 45; RESP 15; O2SAT 95
[2020-12-12 05:13] LABS: MANUAL DIFF FLAG NO
[2020-12-12 05:15] LABS: Basophils Absolute Auto 0.1 X10*3/uL (0.0-0.2); Basophils Percent Auto 0.9 % (0-2); Eosinophils Absolute Auto 0.3 X10*3/uL (0.0-0.4); Eosinophils Percent Auto 4.4 % (0-4); Hematocrit 41.2 % (42-52); Hemoglobin 14.3 g/dl (14.0-18.0); Imm Gran Abs Auto 0.06 X10*3/uL (0.00-0.03); Imm Gran Pct Auto 0.9 % (0.0-0.4); Lymphocytes Absolute Auto 1.3 X10*3/uL (1.2-4.9); Lymphocytes Percent Auto 19.2 % (20-40); Mean Corpuscular HGB Conc 34.7 g/dl (31.0-36.0); Mean Corpuscular Hemoglobin 33.9 pg (27.0-33.0); Mean Corpuscular Volume 97.6 fL (80-98); Mean Platelet Volume 12.4 fL (9.4-12.4); Monocytes Absolute Auto 1.1 X10*3/uL (0.1-1.2); Monocytes Percent Auto 15.3 % (2-11); Neutrophils Absolute Auto 4.1 X10*3/uL (2.0-8.3); Neutrophils Percent Auto 59.3 % (45-73); Platelet Count 165 X10*3/uL (160-400); Red Blood Count 4.22 X10*6/uL (4.60-5.80); Red Cell Distribution Width 18.7 % (11.0-16.0)
[2020-12-12 05:25] LABS: INTERNATIONAL NORM RATIO 1.5 (0.9-1.1); Prothrombin Time 18.1 SEC (10.8-13.0)
[2020-12-12 05:30] LABS: Ammonia 102 umol/L (13-55)
[2020-12-12 05:34] LABS: Lactic Acid 1.7 mmol/L (0.5-2.0)
[2020-12-12 05:38] LABS: Lipase 69 U/L (8-78)
[2020-12-12 05:40] LABS: Alanine Aminotransferase 28 U/L (0-40); Albumin Level 2.3 g/dL (3.5-5.0); Alkaline Phosphatase 171 U/L (39-117); Anion Gap 16 (12-20); Aspartate Amino Transferase 54 U/L (5-37); Bilirubin Direct 1.7 mg/dL (0.0-0.5); Bilirubin Total 4.1 mg/dL (0.0-1.0); Blood Urea Nitrogen 41 mg/dL (9-16); Calcium 8.5 mg/dL (8.4-10.2); Carbon Dioxide 27 mmol/L (22-29); Chloride 93 mmol/L (96-108); Creatinine Clr Calc Pharmacy 48.9; Estimated Glomerular Filt Rate 31; Glucose Random 97 mg/dL (60-115); Potassium 2.8 mmol/L (3.3-5.1); Sodium 133 mmol/L (135-145); Total Protein 7.7 g/dL (6.5-8.0)
[2020-12-12 05:45] LABS: Troponin-I High Sensitivity 12.6 ng/L (<3.5-35.0)
[2020-12-12 05:47] LABS: Glucose Urine UA NEG (NEG); Leukocyte Esterase Urine NEG (NEG); Nitrite Urine NEG (NEG); Specific Gravity - Urine 1.015 (1.005-1.025); Urine Blood NEG (NEG); Urine Ketones NEG (NEG); Urine Protein NEG (NEG-TRACE)
[2020-12-12 05:49] LABS: Appearance Urine CLEAR; Color Urine YELLOW
[2020-12-12] MEDS: Potassium Bicarbonate/Cit AC 25 MEQ TABLET.EFF 50 MEQ PO (06:45)
[2020-12-12] MEDS: Lactulose 20 GM/30 ML SOLUTION 30 GM PO (06:54)
--- NOTE | 2020-12-12 06:59 | PC.NURSE ---
REPORT TAKEN FROM NIDA RN. PATIENT AWAKE AND ALERT. DAUGHTER AT BEDSIDE. MORNING LACTULOSE GIVEN TO PATIENT. PER DR ROTHMAN PLAN IS TO CHECK POC AFTER BREAKFAST AND IF 100 OR OVER OK FOR DC BACK TO [facility]. IV FLUIDS WERE SHUT OFF BY PREVIOUS RN.
[2020-12-12 07:01] LABS: Glucose, Whole Blood 90 mg/dL (60-115)
[2020-12-12 07:01] LABS: Glucose, Whole Blood 82 mg/dL (60-115)
[2020-12-12 07:32] LABS: Glucose, Whole Blood 201 mg/dL (60-115)
== END 2020-12-12 08:26 ==
PROVIDERS: Emergency Provider Internal Medicine
DX: E11.649 Type 2 diabetes mellitus with hypoglycemia without coma (principal); E23.2 Diabetes insipidus; I27.20 Pulmonary hypertension, unspecified; Z87.891 Personal history of nicotine dependence; Z79.899 Other long term (current) drug therapy; Z79.4 Long term (current) use of insulin
CPT/HCPCS: 36415; 71045; 80048; 80076; 81003; 82140; 82947; 83605; 83690; 84484; 85025; 85610; 93005; 96360; 96365; 99284

== ENCOUNTER 2020-12-24 17:11 | Inpatient (IN) | payer MEDICARE, SELFPAY ==
--- NOTE | ~2020-12-24 | XR_ITS ---
EXAMINATION: XR CHEST CLINICAL INFORMATION: Central line placement. COMPARISON: Chest radiographs 12/24/2020, 12/12/2020, 11/28/2020; CT chest noncontrast 12/25/2020 TECHNIQUE: Portable upright AP view of the chest is performed at 1125 hours. FINDINGS: There is right internal jugular central venous line with tip at distal superior vena cava. There are bibasilar airspace opacities greater on right with small right effusion consistent with CT 12/25/2020. The vascularity is normal. There is no pneumothorax or pneumomediastinum. Visualized cardiopericardial silhouette is normal in caliber. XR/XR chest 1V IMPRESSION: 1. Right internal jugular central venous line with tip at distal superior vena cava. No pneumothorax. 2. Bibasilar airspace opacities, greater on right, with small right effusion consistent with recent CT exam.
--- NOTE | ~2020-12-24 | CT_ITS ---
EXAMINATION: CT HEAD WITHOUT CONTRAST CLINICAL INFORMATION: ? Hypopit COMPARISON: 11/11/2013 TECHNIQUE: Contiguous axial imaging was performed from the skull base to vertex without intravenous contrast. This CT examination was performed using dose optimization techniques as appropriate, variously including the following: * Automated exposure control * Adjustment of mA and/or kV according to patient size (this includes techniques or standardized protocols for targeted exams where dose is matched to indication/reason for exam; i.e. extremities or head) Use of iterative reconstruction technique DLP: 1614 mGy-cm. FINDINGS: There is no evidence of acute intracranial hemorrhage or territorial infarction. No abnormal mass effect or midline shift is seen. Arechiga to white matter differentiation is well preserved. No extra-axial fluid collections are identified. No hydrocephalus. Proportional prominence of the ventricles and sulcal spaces is consistent with mild volume loss. Patchy periventricular and deep white matter hypoattenuation is consistent with mild small vessel ischemic changes. The osseous structures and soft tissues are normal. The mastoid air cells and visualized portions of the paranasal sinuses are well aerated. CT/CT head/brain wo con IMPRESSION: No acute intracranial pathology.
--- NOTE | ~2020-12-24 | CT_ITS ---
EXAMINATION: CT ELBOW WITHOUT CONTRAST, RIGHT CLINICAL INFORMATION: Injury, pain. COMPARISON: None TECHNIQUE: Imaging of the right elbow. Axial imaging. Sagittal and coronal reconstructions. FINDINGS: The elbow is markedly flexed in positioning, with rotated positioning of the forearm. The atypical positioning markedly limits evaluation of the structures. In addition, image quality is quite degraded by the elbow positioned adjacent to the body. There is osseous prominence, ossific densities associated with the olecranon process of the ulna and along the posterior aspect of the joint. This may reflect bony spurring. A fracture in this region, loose bodies cannot be excluded. No obvious displaced fracture is identified of the humeral trochlea, capitellum, radial head. Evaluation is limited. No humeral, radial or ulnar fracture is otherwise identified. Evaluation of joint fluid is limited on the provided sequences. CT/CT elbow RT wo con IMPRESSION: 1. Very limited study due to above limitations. Limited incomplete evaluation of the structures. 2. Ossifications about the posterior aspect of the joint and the olecranon process, could be related to bony spurring. Loose bodies, fracture in this region cannot be excluded. 3. No obvious displaced acute fracture is otherwise identified. Evaluation is for subtle/undisplaced fracture is limited. Recommend elbow radiographs for evaluation. Followup/repeat CT or MRI can be obtained as clinically warranted.
--- NOTE | ~2020-12-24 | XR_ITS ---
EXAMINATION: XR CHEST CLINICAL INFORMATION: Check placement of orogastric tube COMPARISON: Previous chest x-ray from earlier the same day TECHNIQUE: Frontal view of the chest was obtained. FINDINGS: The cardiac and mediastinal contours are stable. There is an endotracheal tube with tip 3.8 cm above the alvaro. There is a nasogastric tube projects over the stomach. Tip is not seen. There is a right jugular line with tip projecting over the SVC. There is bilateral lower lobe atelectasis/consolidation. There is an increasing left perihilar opacity probably representing infiltrate. There are probable bilateral pleural effusions. There is no pneumothorax. There are degenerative changes of the spine. XR/XR chest 1V IMPRESSION: Nasogastric tube projects over the stomach, tip not seen. Satisfactory position of endotracheal tube and right jugular line. No change in bibasilar atelectasis/consolidation and probable small pleural effusions. Increasing left perihilar opacity probably representing an infiltrate.
--- NOTE | ~2020-12-24 | CT_ITS ---
EXAMINATION: CT ABDOMEN AND PELVIS WITHOUT CONTRAST CLINICAL INFORMATION: Pancreatitis. Acute kidney disease. COMPARISON: 01/19/2016 TECHNIQUE: Multidetector volumetric imaging was performed from the superior aspect of the liver through the pubic symphysis. Sagittal and coronal reformatted images were obtained on the technologist's workstation. This CT examination was performed using dose optimization techniques as appropriate, variously including the following: *Automated exposure control *Adjustment of mA and/or kV according to patient size (this includes techniques or standardized protocols for targeted exams where dose is matched to indication/reason for exam; i.e. extremities or head) *Use of iterative reconstruction technique DLP: 1713 mGy-cm FINDINGS: LUNG BASES: Bilateral lower lobe opacities are noted. Enlarged heart. Coronary artery calcifications. Elevated right hemidiaphragm. LIVER, GALLBLADDER, AND BILIARY TREE: Small liver with nodular Contour. No focal hepatic lesion. No ductal dilatation. Cholelithiasis. No gallbladder wall thickening or pericholecystic fluid. PANCREAS: Motion limits the evaluation of the pancreas. The pancreatic parenchyma appears somewhat atrophic. Suspect mild stranding of the fat along the pancreas, although evaluation is significantly limited. No fluid collection identified. SPLEEN: Unremarkable. ADRENAL GLANDS: Unremarkable. KIDNEYS AND URETERS: The kidneys are normal in size, shape, and attenuation. No hydronephrosis, hydroureter, or calculi seen. Mild symmetric perinephric stranding. BLADDER: Unremarkable. GASTROINTESTINAL TRACT: The stomach is unremarkable. Normal caliber small bowel. There is no obstruction. Normal appendix. No colonic wall thickening or inflammatory change. Scattered diverticulosis without diverticulitis. ABDOMINAL WALL: Left inguinal hernia containing varices. Anasarca. LYMPH NODES: Normal. VASCULAR: Moderate atherosclerotic calcifications. PELVIC VISCERA: The prostate and seminal vesicles are unremarkable. OSSEOUS STRUCTURES: No acute abnormality. Degenerative changes throughout the spine with diffuse osseous bridging. CT/CT abdomen pelvis wo con IMPRESSION: Study limited by motion. Limited evaluation of the pancreas especially. There may be stranding along the pancreatic parenchyma. No fluid collection or focal abnormality. Cirrhotic appearance of the liver. Bilateral lung lower lobe opacities are nonspecific. Consider atelectasis or pneumonia. Aspiration possible.
--- NOTE | ~2020-12-24 | XR_ITS ---
EXAMINATION: XR CHEST CLINICAL INFORMATION: Altered mental status COMPARISON: 12/13/2019 TECHNIQUE: Frontal view of the chest was obtained. FINDINGS: Again seen is heart size upper limits of normal. The lungs are hypoinflated. The right hemidiaphragm is elevated and there is a right pleural effusion, unchanged. In addition, patchy density is seen at the left lung base with obscuration of the hemidiaphragm, also unchanged. There may be some mild upper zone redistribution but no gross CHF. XR/XR chest 1V IMPRESSION: Hypoinflated lungs with elevated hemidiaphragm. Bibasilar atelectasis/infiltrates. Possible small effusions. Appearance is unchanged.
--- NOTE | ~2020-12-24 | XR_ITS ---
EXAMINATION: XR CHEST CLINICAL INFORMATION: Descending COMPARISON: Chest 12/25/2020 TECHNIQUE: Frontal view of the chest was obtained. FINDINGS: There is moderate opacity right lower lobe likely from pleural effusion and underlying atelectasis. There is minimal haziness in left lung base likely from atelectasis. The upper lungs are clear. There is a right jugular central catheter its tip in the mid SVC. Heart size is enlarged. Pulmonary vascularity is within normal limits. XR/XR chest 1V IMPRESSION: [id number] right pleural effusion with underlying atelectasis. There is moderate mild atelectatic changes in left lung base as well. No change in right jugular central catheter and mild cardiomegaly.
--- NOTE | ~2020-12-24 | XR_ITS ---
EXAMINATION: XR CHEST CLINICAL INFORMATION: ET tube placement COMPARISON: Chest radiograph earlier this evening at 8:38 PM TECHNIQUE: Frontal view of the chest was obtained. FINDINGS: Since the prior study an ET tube has been placed with its tip about 2.7 cm above the alvaro. Right IJ line remains in place with its tip in the proximal SVC. An NG tube has been placed with its tip somewhere below the diaphragm. Heart size within normal limits. Bilateral pleural effusions and bibasilar atelectasis. XR/XR chest 1V IMPRESSION: Newly placed ET tube and NG tube as described above.
--- NOTE | ~2020-12-24 | CT_ITS ---
EXAMINATION CT CHEST, ABDOMEN AND PELVIS WITH CONTRAST CLINICAL INFORMATION: Question of new infiltrate. Tense abdomen. COMPARISON: CT chest dated 12/25/2020 CT abdomen/pelvis dated 12/24/2020 TECHNIQUE: Multidetector volumetric CT imaging of the chest, abdomen and pelvis was obtained without the use of intravenous contrast. Coronal and sagittal reformats were reviewed. This CT examination was performed using dose optimization techniques as appropriate, variously including the following: *Automated exposure control *Adjustment of mA and/or kV according to patient size (this includes techniques or standardized protocols for targeted exams where dose is matched to indication/reason for exam; i.e. extremities or head) *Use of iterative reconstruction technique DLP: 1608 mGy-cm. FINDINGS: CHEST LUNGS/PLEURA: There are mild patchy groundglass opacities, peripherally predominant, similar in appearance to the prior examination. Small right and trace left pleural effusions. Near-complete atelectasis of the right lower lobe, with minimal aeration present anteriorly. Previously, the entire right lower lobe is atelectatic. Atelectasis within the left lower lobe is slightly worse than on the prior exam. No pneumothorax. MEDIASTINUM/AUSTIN: Endotracheal tube terminates within the mid thoracic trachea. Normal heart size. No pericardial effusion. No mediastinal or hilar adenopathy. CHEST WALL/AXILLA: Unremarkable. ABDOMEN/PELVIS HEPATOBILIARY: Morphologically cirrhotic liver. No focal liver lesions evident on this unenhanced exam. No intra or extra hepatic biliary dilatation. Cholelithiasis. No pericholecystic fluid or edema. PANCREAS: Unremarkable. SPLEEN: Unremarkable. ADRENAL GLANDS: Unremarkable. KIDNEYS, URETERS AND BLADDER: Kidneys normal in size, axis and morphology demonstrating symmetric enhancement. No hydronephrosis or urinary calculi. Ureters normal in course and caliber. Bladder grossly unremarkable.. GASTROINTESTINAL TRACT: There is pneumatosis involving the cecum and ascending colon. Mild fat stranding present along the ascending colon, similar to prior. Trace gas present within the veins along the transverse colon and portal splenic confluence. Stomach and small bowel unremarkable. PELVIC VISCERA: Unremarkable. LYMPH NODES: No lymphadenopathy. PERITONEUM/BODY WALL: Unremarkable. VASCULAR STRUCTURES: Aorta is atherosclerotic. OSSEOUS STRUCTURES No acute or suspicious osseous abnormalities. CT/CT abdomen pelvis wo con IMPRESSION: CHEST: Mild bilateral peripherally predominant groundglass opacities similar to prior, nonspecific. Small right and trace left pleural effusions with accompanying atelectasis. Slightly improved aeration within the right lower lobe. ABDOMEN/PELVIS: New pneumatosis within the cecum and ascending colon with trace portal venous gas. No evidence of margarita perforation. Morphologically cirrhotic liver. This critical result was discussed with SAHARA Nielson at 12/27/2020 10:01 PM and it was ascertained that the content and urgency of the report was understood at the time of direct communication.
--- NOTE | ~2020-12-24 | CT_ITS ---
EXAMINATION: CT CHEST WITHOUT CONTRAST CLINICAL INFORMATION: Hypoxia COMPARISON: Chest x-ray of December 24, 2020 TECHNIQUE: Multidetector volumetric CT imaging of the chest was done. Axial MIP volume rendering provided. Sagittal and coronal reformatted images were obtained. This CT examination was performed using dose optimization techniques as appropriate, variously including the following: *Automated exposure control *Adjustment of mA and/or kV according to patient size (this includes techniques or standardized protocols for targeted exams where dose is matched to indication/reason for exam; i.e. extremities or head) *Use of iterative reconstruction technique DLP: 327 mGy-cm FINDINGS: LUNGS: Central airways are patent. There is bronchial wall thickening present bilaterally without evidence of bronchiectasis. There is peripheral groundglass opacity seen bilaterally which is nonspecific but can be seen in atypical or viral pneumonitis. There is more confluent airspace disease seen in the lung bases bilaterally right greater than left which may be related to pneumonia or atelectasis. Air bronchograms are present. MEDIASTINUM: Heart normal size. Coronary artery calcification present. No pericardial effusion. No thoracic aortic aneurysm. Nonocclusive calcified plaque is seen within the aortic arch. No mediastinal lymphadenopathy is seen. No definite hilar lymphadenopathy. PLEURA: There is a minimal right pleural effusion. No pleural mass or thickening. There is elevation of the right hemidiaphragm. AXILLA: No lymphadenopathy. UPPER ABDOMEN: Cholelithiasis is present. No definite evidence of acute cholecystitis. A small amount of ascites is present. The liver appears small OSSEOUS STRUCTURES: No destructive bony lesions are identified. There is multilevel degenerative disc disease seen. There is calcification of the anterior longitudinal ligament of the thoracic spine. CT/CT chest wo con IMPRESSION: Bibasilar airspace disease consistent with atelectasis or pneumonitis right greater than left. Bronchial wall thickening bilaterally and diffusely with peripheral groundglass opacity seen bilaterally and not a central pattern. This is most likely not related to pulmonary edema and rather inflammatory infectious process. Atypical or viral pneumonitis can have this appearance. Small amount of ascites with liver having the appearance of hepatic cirrhosis. Cholelithiasis.
[2020-12-24 17:19] VITALS: BMI 37.0
[2020-12-24 17:23] VITALS: BP 96/33; PULSE 52; RESP 16; O2SAT 97
[2020-12-24 17:40] VITALS: TEMP 33.5
--- NOTE | 2020-12-24 17:43 | ED.GENADULT ---
HPI - General Adult General Chief complaint: General Medical Stated complaint: HYPOTENSION,INCREASED WEIGHT GAIN Time Seen by Provider: 12/24/20 17:43 Source: patient and EMS History of Present Illness HPI narrative: Patient with history of right ventricular dysfunction with high pressures and pulmonary hypertension with heart failure of alcoholic cirrhosis and CKD was admitted here on 11/30 for CHF. sent from [facility] for blood pressure in 70s patient complaining of weakness no fever no chills no abdominal pain no vomiting no diarrhea patient on Lasix 40 mg twice daily has chronic leg edema patient is obese with weighing 124 kg on arrival patient was hypothermic with pulse rate of 52 respiratory rate 17 blood pressure 96/33 saturating 97% on room air no history of fall no headache no rash patient was complaining of sore throat earlier Related Data Home Medications Medication Instructions Recorded Confirmed omeprazole 20 mg capsule,delayed 20 mg PO DAILY@0630 05/23/20 11/28/20 release rifaximin 550 mg tablet 550 mg PO TID 05/23/20 11/28/20 Incruse Ellipta 1 inh INHALATION DAILY 11/28/20 11/28/20 Lantus Solostar U-100 Insulin 62 unit SUBCUT BEDTIME 11/28/20 11/28/20 aspirin 81 mg PO DAILY 11/28/20 11/28/20 atorvastatin 40 mg PO DAILY 11/28/20 11/28/20 furosemide 40 mg PO DAILY 11/28/20 11/28/20 insulin aspart U-100 [Novolog 22 unit SUBCUT DAILY@0730 11/28/20 11/28/20 Flexpen U-100 Insulin] insulin aspart U-100 [Novolog 24 unit SUBCUT QPM 11/28/20 11/28/20 Flexpen U-100 Insulin] propranolol 10 mg PO BID 11/28/20 11/28/20 spironolactone 50 mg PO DAILY 11/28/20 11/28/20 Previous Rx's Medication Instructions Recorded gabapentin 300 mg capsule 300 mg PO BEDTIME 30 Days #30 cap 09/29/20 furosemide 40 mg PO BID@0900,1800 30 Days #60 12/08/20 tab lactulose 30 g PO BID 30 Days #2700 ml 12/08/20 metolazone 5 mg PO MOWEFR 30 Days #13 tab 12/08/20 Allergies Allergy/AdvReac Type Severity Reaction Status Date / Time No Known Allergies Allergy Verified 11/28/20 10:42 Review of Systems Review of Systems: Constitutional : +Weight loss, No Fever, No Chills ENT/Mouth : + sore throat, No Rhinorrhea Eyes: No Eye Pain, No Swelling Cardiovascular : No Chest Pain, no palpitations Respiratory : No Cough, No Sputum, no shortness of breath Gastrointestinal : no Nausea, No Vomiting, No Diarrhea, No abdominal Pain, no black stools Genitourinary : No Dysuria, No Urinary Frequency Musculoskeletal : No joint pain, No Myalgias, No Joint Swelling Skin : No Skin Lesions, No rash Neuro : + Weakness, No Numbness, No Dizziness, No Headache Psych : No Anxiety/Panic, No Depression Heme/Lymph: No Bruising, No Lymphadenopathy Endocrine : No Polyuria, No Polydipsia All other systems reviewed and are negative [facility] Past Medical History Medical History Alcoholic cirrhosis COPD (chronic obstructive pulmonary disease) Diabetes Encephalopathy HTN (hypertension) Hyperlipidemia Pulmonary hypertension Social History Social History Household Members: Children Housing: House Do you presently have visiting nurse or other home services: No Alcohol intake: never Patient Tobacco Use Status: Never used Tobacco Use of substances other than those prescribed or required for medical reasons: No Advance Directives: Yes Advance Directives on File: Yes Advance Directives Date on File: 12/09/20 service: No Current occupational status: retired Physical Exam Vital Signs: Vital Signs: Last Vital Signs Temp 96.4 F L 12/25/20 00:23 Pulse 76 12/25/20 00:23 Resp 19 12/25/20 00:23 BP 142/60 H 12/25/20 00:23 Pulse Ox 96 12/25/20 00:23 Body Mass Index 37.0 Appearance: Alert. Oriented X2-3. Looks lethargic sleepy , obese cool to touch rectal temperature 92.3 degrees Eyes: PERRLA, No Nystagmus ENT: Pharynx normal. Oral Mucosa moist Neck: Normal inspection. Neck supple. CVS: Sinus bradycardia low volume pulse Pulses normal. Respiratory: No respiratory distress. Equal air entry bilateral, no wheezing/rales/rhonchi Abdomen: Soft and nontender. Bowel sounds are present, no mass palpable, no CVA tenderness Skin: Skin warm and dry. Normal skin color. Normal skin turgor. Extremities: 2+ lower extremity edema. No calf tenderness Neuro: Oriented X 3. No motor deficit. No sensory deficit.No cerebellar signs , cranial nerves II-XII intact Medical Decision Making MDM Narrative Medical decision making narrative: Patient has significant hypothermia with hypertension etiology not very clear no source of infection noticed workup showed elevated LFTs elevated BUN creatinine and lipase CT scan of the abdomen showed slight haziness of pancreatic area but patient denied any significant abdominal pain no nausea no vomiting normal lactic acid level normal WBC count has ULYSSES. Prophylactic Zosyn was started although source of infection is not clear. Patient temperature improved after Emil Hugger and warm fluids now last temperature was 96.4 degrees patient hypertension improved after IV fluids but patient became hypoxic requiring 3 L oxygen to maintain oxygen more than 90%. Patient had small urine output looks congested will give dose of Lasix now Cause of hypothermia with hypotension is not very clear possible addisonian crisis/ hypothyroidism patient received Solu-Cortef 100 mg started on dopamine drip requiring 5 mcg/per kg per minute without dopamine blood pressure dropped to 80s. Case discussed with family practice md admit patient to ICU Lab Data Lab results reviewed: Yes I reviewed the patient's lab results. Result diagrams: 12/24/20 18:42 12/24/20 18:42 Labs: Lab Results 12/24/20 12/24/20 12/24/20 Range/Units 18:41 18:42 18:42 WBC 8.6 (4.8-10.8) X10*3/uL RBC 3.90 L (4.60-5.80) X10*6/uL Hgb 12.9 L (14.0-18.0) g/dl Hct 37.8 L (42-52) % MCV 96.9 (80-98) fL MCH 33.1 H (27.0-33.0) pg MCHC 34.1 (31.0-36.0) g/dl RDW 18.4 H (11.0-16.0) % Plt Count 128 L (160-400) X10*3/uL MPV 13.0 H (9.4-12.4) fL Immature Gran % (Auto) 0.6 H (0.0-0.4) % Neut % (Auto) 63.8 (45-73) % Lymph % (Auto) 16.7 L (20-40) % [place] % (Auto) 15.0 H (2-11) % Eos % (Auto) 3.7 (0-4) % Baso % (Auto) 0.2 (0-2) % Lymph # (Auto) 1.4 (1.2-4.9) X10*3/uL [place] # (Auto) 1.3 H (0.1-1.2) X10*3/uL Eos # (Auto) 0.3 (0.0-0.4) X10*3/uL Baso # (Auto) 0.0 (0.0-0.2) X10*3/uL Abs Immat Gran (auto) 0.05 H (0.00-0.03) X10*3/uL Absolute Neuts (auto) 5.5 (2.0-8.3) X10*3/uL Absolute Nucleated RBC 0.000 (0.0-0.012) X10*3/uL Nucleated RBC % (auto) 0.0 (0.0-0.2) /100WBC PT (10.8-13.0) SEC INR (0.9-1.1) Sodium 123 L (135-145) mmol/L Potassium 5.4 H D (3.3-5.1) mmol/L Chloride 95 L (96-108) mmol/L Carbon Dioxide 19 L (22-29) mmol/L Anion Gap 14 (12-20) BUN 60 H (9-16) mg/dL Creatinine 4.77 H* (0.5-1.4) mg/dL Estim Creat Clear Calc 18.4 Estimated GFR 12 Random Glucose 143 H D (60-115) mg/dL Lactic Acid (0.5-2.0) mmol/L Calcium 7.5 L D (8.4-10.2) mg/dL Magnesium 2.4 (1.6-2.6) mg/dL Total Bilirubin 2.2 H (0.0-1.0) mg/dL Direct Bilirubin 1.3 H (0.0-0.5) mg/dL AST 109 H (5-37) U/L ALT 53 H (0-40) U/L Alkaline Phosphatase 352 H D (39-117) U/L Ammonia (13-55) umol/L Troponin I High Sens (<3.5-35.0) ng/L Total Protein 6.4 L (6.5-8.0) g/dL Albumin 2.0 L (3.5-5.0) g/dL Lipase 131 H (8-78) U/L Urine Color Urine Appearance Urine pH (5.0-8.0) Ur Specific Campbell (1.005-1.025) Urine Protein (NEG-TRACE) MG/DL Urine Glucose (UA) (NEG) MG/DL Urine Ketones (NEG) MG/DL Urine Blood (NEG) Urine Nitrite (NEG) Ur Leukocyte Esterase (NEG) Urine RBC (0) /HPF Urine WBC (0-4) /HPF Ur Squamous Epith Cells /LPF Urine Bacteria /LPF Hyaline Casts /LPF Granular Casts /LPF Urine Mucus /LPF COVID-19 (DARRION) Negative (Negative) COVID-19 Clin Com See Note S. pyogenes GrpA KEYANNA (Negative) 12/24/20 12/24/20 12/24/20 Range/Units 18:42 18:42 18:42 WBC (4.8-10.8) X10*3/uL RBC (4.60-5.80) X10*6/uL Hgb (14.0-18.0) g/dl Hct (42-52) % MCV (80-98) fL MCH (27.0-33.0) pg MCHC (31.0-36.0) g/dl RDW (11.0-16.0) % Plt Count (160-400) X10*3/uL MPV (9.4-12.4) fL Immature Gran % (Auto) (0.0-0.4) % Neut % (Auto) (45-73) % Lymph % (Auto) (20-40) % [place] % (Auto) (2-11) % Eos % (Auto) (0-4) % Baso % (Auto) (0-2) % Lymph # (Auto) (1.2-4.9) X10*3/uL [place] # (Auto) (0.1-1.2) X10*3/uL Eos # (Auto) (0.0-0.4) X10*3/uL Baso # (Auto) (0.0-0.2) X10*3/uL Abs Immat Gran (auto) (0.00-0.03) X10*3/uL Absolute Neuts (auto) (2.0-8.3) X10*3/uL Absolute Nucleated RBC (0.0-0.012) X10*3/uL Nucleated RBC % (auto) (0.0-0.2) /100WBC PT 16.9 H (10.8-13.0) SEC INR 1.4 H (0.9-1.1) Sodium (135-145) mmol/L Potassium (3.3-5.1) mmol/L Chloride (96-108) mmol/L Carbon Dioxide (22-29) mmol/L Anion Gap (12-20) BUN (9-16) mg/dL Creatinine (0.5-1.4) mg/dL Estim Creat Clear Calc Estimated GFR Random Glucose (60-115) mg/dL Lactic Acid 1.2 (0.5-2.0) mmol/L Calcium (8.4-10.2) mg/dL Magnesium Cancelled (1.6-2.6) mg/dL Total Bilirubin (0.0-1.0) mg/dL Direct Bilirubin (0.0-0.5) mg/dL AST (5-37) U/L ALT (0-40) U/L Alkaline Phosphatase (39-117) U/L Ammonia (13-55) umol/L Troponin I High Sens (<3.5-35.0) ng/L Total Protein (6.5-8.0) g/dL Albumin (3.5-5.0) g/dL Lipase Cancelled (8-78) U/L Urine Color Urine Appearance Urine pH (5.0-8.0) Ur Specific Campbell (1.005-1.025) Urine Protein (NEG-TRACE) MG/DL Urine Glucose (UA) (NEG) MG/DL Urine Ketones (NEG) MG/DL Urine Blood (NEG) Urine Nitrite (NEG) Ur Leukocyte Esterase (NEG) Urine RBC (0) /HPF Urine WBC (0-4) /HPF Ur Squamous Epith Cells /LPF Urine Bacteria /LPF Hyaline Casts /LPF Granular Casts /LPF Urine Mucus /LPF COVID-19 (DARRION) (Negative) COVID-19 Clin Com S. pyogenes GrpA KEYANNA (Negative) 12/24/20 12/24/20 12/24/20 Range/Units 18:42 18:42 18:42 WBC (4.8-10.8) X10*3/uL RBC (4.60-5.80) X10*6/uL Hgb (14.0-18.0) g/dl Hct (42-52) % MCV (80-98) fL MCH (27.0-33.0) pg MCHC (31.0-36.0) g/dl RDW (11.0-16.0) % Plt Count (160-400) X10*3/uL MPV (9.4-12.4) fL Immature Gran % (Auto) (0.0-0.4) % Neut % (Auto) (45-73) % Lymph % (Auto) (20-40) % [place] % (Auto) (2-11) % Eos % (Auto) (0-4) % Baso % (Auto) (0-2) % Lymph # (Auto) (1.2-4.9) X10*3/uL [place] # (Auto) (0.1-1.2) X10*3/uL Eos # (Auto) (0.0-0.4) X10*3/uL Baso # (Auto) (0.0-0.2) X10*3/uL Abs Immat Gran (auto) (0.00-0.03) X10*3/uL Absolute Neuts (auto) (2.0-8.3) X10*3/uL Absolute Nucleated RBC (0.0-0.012) X10*3/uL Nucleated RBC % (auto) (0.0-0.2) /100WBC PT (10.8-13.0) SEC INR (0.9-1.1) Sodium (135-145) mmol/L Potassium (3.3-5.1) mmol/L Chloride (96-108) mmol/L Carbon Dioxide (22-29) mmol/L Anion Gap (12-20) BUN (9-16) mg/dL Creatinine (0.5-1.4) mg/dL Estim Creat Clear Calc Estimated GFR Random Glucose (60-115) mg/dL Lactic Acid (0.5-2.0) mmol/L Calcium (8.4-10.2) mg/dL Magnesium (1.6-2.6) mg/dL Total Bilirubin (0.0-1.0) mg/dL Direct Bilirubin (0.0-0.5) mg/dL AST (5-37) U/L ALT (0-40) U/L Alkaline Phosphatase (39-117) U/L Ammonia 63 H (13-55) umol/L Troponin I High Sens 5.2 (<3.5-35.0) ng/L Total Protein (6.5-8.0) g/dL Albumin (3.5-5.0) g/dL Lipase (8-78) U/L Urine Color Urine Appearance Urine pH (5.0-8.0) Ur Specific Campbell (1.005-1.025) Urine Protein (NEG-TRACE) MG/DL Urine Glucose (UA) (NEG) MG/DL Urine Ketones (NEG) MG/DL Urine Blood (NEG) Urine Nitrite (NEG) Ur Leukocyte Esterase (NEG) Urine RBC (0) /HPF Urine WBC (0-4) /HPF Ur Squamous Epith Cells /LPF Urine Bacteria /LPF Hyaline Casts /LPF Granular Casts /LPF Urine Mucus /LPF COVID-19 (DARRION) (Negative) COVID-19 Clin Com S. pyogenes GrpA KEYANNA Negative (Negative) 12/24/20 Range/Units 22:41 WBC (4.8-10.8) X10*3/uL RBC (4.60-5.80) X10*6/uL Hgb (14.0-18.0) g/dl Hct (42-52) % MCV (80-98) fL MCH (27.0-33.0) pg MCHC (31.0-36.0) g/dl RDW (11.0-16.0) % Plt Count (160-400) X10*3/uL MPV (9.4-12.4) fL Immature Gran % (Auto) (0.0-0.4) % Neut % (Auto) (45-73) % Lymph % (Auto) (20-40) % [place] % (Auto) (2-11) % Eos % (Auto) (0-4) % Baso % (Auto) (0-2) % Lymph # (Auto) (1.2-4.9) X10*3/uL [place] # (Auto) (0.1-1.2) X10*3/uL Eos # (Auto) (0.0-0.4) X10*3/uL Baso # (Auto) (0.0-0.2) X10*3/uL Abs Immat Gran (auto) (0.00-0.03) X10*3/uL Absolute Neuts (auto) (2.0-8.3) X10*3/uL Absolute Nucleated RBC (0.0-0.012) X10*3/uL Nucleated RBC % (auto) (0.0-0.2) /100WBC PT (10.8-13.0) SEC INR (0.9-1.1) Sodium (135-145) mmol/L Potassium (3.3-5.1) mmol/L Chloride (96-108) mmol/L Carbon Dioxide (22-29) mmol/L Anion Gap (12-20) BUN (9-16) mg/dL Creatinine (0.5-1.4) mg/dL Estim Creat Clear Calc Estimated GFR Random Glucose (60-115) mg/dL Lactic Acid (0.5-2.0) mmol/L Calcium (8.4-10.2) mg/dL Magnesium (1.6-2.6) mg/dL Total Bilirubin (0.0-1.0) mg/dL Direct Bilirubin (0.0-0.5) mg/dL AST (5-37) U/L ALT (0-40) U/L Alkaline Phosphatase (39-117) U/L Ammonia (13-55) umol/L Troponin I High Sens (<3.5-35.0) ng/L Total Protein (6.5-8.0) g/dL Albumin (3.5-5.0) g/dL Lipase (8-78) U/L Urine Color YELLOW Urine Appearance CLEAR Urine pH 5.5 (5.0-8.0) Ur Specific Campbell 1.015 (1.005-1.025) Urine Protein 1+ H (NEG-TRACE) MG/DL Urine Glucose (UA) NEG (NEG) MG/DL Urine Ketones NEG (NEG) MG/DL Urine Blood 1+ H (NEG) Urine Nitrite NEG (NEG) Ur Leukocyte Esterase NEG (NEG) Urine RBC 5-9 H (0) /HPF Urine WBC 1-4 (0-4) /HPF Ur Squamous Epith Cells 2+ /LPF Urine Bacteria TRACE /LPF Hyaline Casts 10-14 /LPF Granular Casts 5-9 /LPF Urine Mucus TRACE /LPF COVID-19 (DARRION) (Negative) COVID-19 Clin Com S. pyogenes GrpA KEYANNA (Negative) Imaging Data CT scan - abdomen: Attestation: I personally reviewed and interpreted this imaging study as follows: Radiologist's impression: Ordering Physician: Santiago Abdi MD Date of Service: 12/24/20 Procedure(s): CT abdomen pelvis wo con Accession Number(s): [id number] cc: Santiago Abdi MD~ EXAMINATION: CT ABDOMEN AND PELVIS WITHOUT CONTRAST CLINICAL INFORMATION: Pancreatitis. Acute kidney disease. COMPARISON: 01/19/2016 TECHNIQUE: Multidetector volumetric imaging was performed from the superior aspect of the liver through the pubic symphysis. Sagittal and coronal reformatted images were obtained on the technologist's workstation. This CT examination was performed using dose optimization techniques as appropriate, variously including the following: *Automated exposure control *Adjustment of mA and/or kV according to patient size (this includes techniques or standardized protocols for targeted exams where dose is matched to indication/reason for exam; i.e. extremities or head) *Use of iterative reconstruction technique DLP: 1713 mGy-cm FINDINGS: LUNG BASES: Bilateral lower lobe opacities are noted. Enlarged heart. Coronary artery calcifications. Elevated right hemidiaphragm. LIVER, GALLBLADDER, AND BILIARY TREE: Small liver with nodular Contour. No focal hepatic lesion. No ductal dilatation. Cholelithiasis. No gallbladder wall thickening or pericholecystic fluid. PANCREAS: Motion limits the evaluation of the pancreas. The pancreatic parenchyma appears somewhat atrophic. Suspect mild stranding of the fat along the pancreas, although evaluation is significantly limited. No fluid collection identified. SPLEEN: Unremarkable. ADRENAL GLANDS: Unremarkable. KIDNEYS AND URETERS: The kidneys are normal in size, shape, and attenuation. No hydronephrosis, hydroureter, or calculi seen. Mild symmetric perinephric stranding. BLADDER: Unremarkable. GASTROINTESTINAL TRACT: The stomach is unremarkable. Normal caliber small bowel. There is no obstruction. Normal appendix. No colonic wall thickening or inflammatory change. Scattered diverticulosis without diverticulitis. ABDOMINAL WALL: Left inguinal hernia containing varices. Anasarca. LYMPH NODES: Normal. VASCULAR: Moderate atherosclerotic calcifications. PELVIC VISCERA: The prostate and seminal vesicles are unremarkable. OSSEOUS STRUCTURES: No acute abnormality. Degenerative changes throughout the spine with diffuse osseous bridging. CT/CT abdomen pelvis wo con IMPRESSION: Study limited by motion. Limited evaluation of the pancreas especially. There may be stranding along the pancreatic parenchyma. No fluid collection or focal abnormality. Cirrhotic appearance of the liver. Bilateral lung lower lobe opacities are nonspecific. Consider atelectasis or pneumonia. Aspiration possible. ECG Data Attestation: I personally reviewed and interpreted this ECG as follows: Interpretation: Sinus bradycardia with Heart rate 54 beats per min normal intervals normal axis no acute ST wave changes no acute ischemia Critical Care Time Critical Care Time Critical Care Time: Yes Total Critical Care Time: 65 Attestation: I spent 65 minutes of critical care, with interventions, assessments, speaking to patient, consultants, and family. Discharge Plan Discharge Clinical Impression: Acute hypotension Acute renal failure Qualifiers: Acute renal failure type: unspecified Qualified Code(s): N17.9 - Acute kidney failure, unspecified Hypothermia Qualifiers: Encounter type: initial encounter Qualified Code(s): T68.XXXA - Hypothermia, initial encounter Acute pancreatitis Qualifiers: Pancreatitis type: other Acute pancreatitis complication: unspecified Qualified Code(s): K85.80 - Other acute pancreatitis without necrosis or infection Patient Disposition: Admitted As Inpatient
[2020-12-24 18:09] VITALS: BP 105/52; PULSE 52; RESP 17; TEMP 33.6; O2SAT 96
--- NOTE | 2020-12-24 18:10 | ECG_ITS ---
Test Reason : bradycardia Blood Pressure : / mmHG Vent. Rate : 054 BPM Atrial Rate : 054 BPM P-R Int : 202 ms QRS Dur : 108 ms QT Int : 490 ms P-R-T Axes : 056 011 060 degrees QTc Int : 464 ms Sinus bradycardia Otherwise normal ECG When compared with ECG of 12-DEC-2020 04:22, Nonspecific T wave abnormality no longer evident in Inferior leads T wave inversion no longer evident in Anterior leads Referred By: Santiago Abdi Electronically Signed By:KARINA PETERSEN
[2020-12-24 18:50] LABS: MANUAL DIFF FLAG NO
[2020-12-24 18:51] LABS: Basophils Percent Auto 0.2 % (0-2); Eosinophils Absolute Auto 0.3 X10*3/uL (0.0-0.4); Eosinophils Percent Auto 3.7 % (0-4); Hematocrit 37.8 % (42-52); Hemoglobin 12.9 g/dl (14.0-18.0); Imm Gran Abs Auto 0.05 X10*3/uL (0.00-0.03); Imm Gran Pct Auto 0.6 % (0.0-0.4); Lymphocytes Absolute Auto 1.4 X10*3/uL (1.2-4.9); Lymphocytes Percent Auto 16.7 % (20-40); Mean Corpuscular HGB Conc 34.1 g/dl (31.0-36.0); Mean Corpuscular Hemoglobin 33.1 pg (27.0-33.0); Mean Corpuscular Volume 96.9 fL (80-98); Monocytes Absolute Auto 1.3 X10*3/uL (0.1-1.2); Neutrophils Absolute Auto 5.5 X10*3/uL (2.0-8.3); Neutrophils Percent Auto 63.8 % (45-73); Platelet Count 128 X10*3/uL (160-400); Red Cell Distribution Width 18.4 % (11.0-16.0); White Blood Count 8.6 X10*3/uL (4.8-10.8)
[2020-12-24 18:56] LABS: INTERNATIONAL NORM RATIO 1.4 (0.9-1.1); Prothrombin Time 16.9 SEC (10.8-13.0)
[2020-12-24 19:05] LABS: Strep A Nucleic Acid Negative (Negative)
[2020-12-24 19:06] LABS: Ammonia 63 umol/L (13-55)
[2020-12-24 19:10] LABS: Lactic Acid 1.2 mmol/L (0.5-2.0)
[2020-12-24] MEDS: 0.9 % Sodium Chloride 500 ML 125 ML IVCONT (19:12)
[2020-12-24 19:14] LABS: COVID-19 Test Negative (Negative); IDNOW Serial# 9DD0AD1C
[2020-12-24 19:20] LABS: Troponin-I High Sensitivity 5.2 ng/L (<3.5-35.0)
[2020-12-24 19:41] LABS: Alanine Aminotransferase 53 U/L (0-40); Alkaline Phosphatase 352 U/L (39-117); Anion Gap 14 (12-20); Aspartate Amino Transferase 109 U/L (5-37); Bilirubin Direct 1.3 mg/dL (0.0-0.5); Bilirubin Total 2.2 mg/dL (0.0-1.0); Blood Urea Nitrogen 60 mg/dL (9-16); Calcium 7.5 mg/dL (8.4-10.2); Carbon Dioxide 19 mmol/L (22-29); Chloride 95 mmol/L (96-108); Creatinine Clr Calc Pharmacy 18.4; Estimated Glomerular Filt Rate 12; Glucose Random 143 mg/dL (60-115); Lipase 131 U/L (8-78); Magnesium 2.4 mg/dL (1.6-2.6); Potassium 5.4 mmol/L (3.3-5.1); Sodium 123 mmol/L (135-145); Total Protein 6.4 g/dL (6.5-8.0)
[2020-12-24] MEDS: Piperacillin Sodium/Tazobactam 3.375 GM in 0.9 % Sodium Chloride 50 ML IV (22:35)
[2020-12-24] MEDS: 0.9 % Sodium Chloride 1,000 ML 999 ML IVCONT (22:36)
[2020-12-24 22:37] VITALS: BP 72/38; PULSE 44; RESP 21; TEMP 35.5; O2SAT 94
[2020-12-24] MEDS: Calcium Gluconate/NaCl,Iso-Osm 2 GM/100 ML PLAST..BAG IV (22:43)
[2020-12-24 22:48] LABS: Glucose Urine UA NEG (NEG); Leukocyte Esterase Urine NEG (NEG); Nitrite Urine NEG (NEG); PH 5.5 (5.0-8.0); Specific Gravity - Urine 1.015 (1.005-1.025); Urine Blood 1+ (NEG); Urine Ketones NEG (NEG); Urine Protein 1+ MG/DL (NEG-TRACE)
[2020-12-24 22:49] LABS: Appearance Urine CLEAR; Color Urine YELLOW
[2020-12-24] MEDS: DOPamine HCL/D5W 400 MG/250 ML PLAST..BAG 23.25 MG IVCONT (22:50)
[2020-12-24 22:56] LABS: Bacteria Urine TRACE /LPF; Squamous Epithelial Cell Urine 2+ /LPF
[2020-12-24 22:57] LABS: Mucus Urine TRACE /LPF
[2020-12-24] MEDS: Midodrine HCl 10 MG TABLET PO (23:02)
[2020-12-24] MEDS: Albumin Human 25 % 100 ML IV (23:02)
[2020-12-25] VITALS (30 sets, daily range): BP systolic 83–154; BP diastolic 23–107; PULSE 74–98; RESP 16–31; TEMP 35.4–36.7; O2SAT 40–100; BMI 37.0
[2020-12-25] MEDS: Albumin Human 25 % 100 ML IV (00:18)
[2020-12-25] MEDS: Hydrocortisone Sod Succ/PF 100 MG VIAL IVPUSH ×2 (00:29→17:05)
[2020-12-25] MEDS: Furosemide 40 MG/4 ML VIAL 20 MG IVPUSH (00:59)
--- NOTE | 2020-12-25 01:00 | P.HPCC_ITS ---
History of Present Illness Date of Service: 12/25/20 Chief Complaint: Hypotension and hypothermia Patient is a 75-year-old Portuguese-speaking male with a past medical history of cirrhosis, COPD, CHF, HTN, DM2 on insulin, hepatic encephalopathy who presented to the ED from his senior care after he was found to be hypotensive and hypothermic. Upon arrival to the ED, his blood pressure was 96/33, HR 52, RR 17 O2 sat 97% on room air, temp 92.3F. Patient also had associated weight gain, denies nausea, vomiting, diarrhea or abdominal pain. Admission here in November 2020 for CHF, he is on 40 Lasix PO and 50 mg spir onolactone PO. Labs are significant for Na 123, K 5.4, bicarb 19, BUN 60, Cr 4.77 baseline seems to be 1.9, Calcium 7.5, total bili 2.2, direct bili 1.3, AST 109, ALT 53, alk-phos 350 to, ammonia 63, albumin 2.0 and lipase 131. Urinalysis was positive for protein blood, hyaline casts and granular casts. COVID negative. Patient has received midodrine, 1.5L NS, albumin, zosyn, calcium gluconate and is currently on a dopamine drip for BP support. Emil hugger is also applied for re-warming. My bedside exam revealed blood pressure 149/67, heart rate in the low 80s, respiratory rate 16, temp 97.2 and O2 sat is 95% on 3 L. Exam was significant for patient was snoring, rales in both lungs, 1+ pitting edema bilateral lower extremities. Thyroid dysfunction vs addisons crisis. Dr. Abdi spoke with Dr. Serra, Dr Serra requesting head ct to check for hypo pit, stat cortisol. Will give la six as well. TSH, Free T4 and cortisol levels are pending. Patient will be transferred to the ICU for blood pressure monitoring/treatment. This is not sepsis. Review of Systems Review of Systems: Yes all other systems are reviewed and are negative PMF Past Medical History Medical History Alcoholic cirrhosis COPD (chronic obstructive pulmonary disease) Diabetes HTN (hypertension) Hyperlipidemia Pulmonary hypertension Social History Social History Household Members: None Housing: Senior Living Do you presently have visiting nurse or other home services: No Unable to assess alcohol history related to: Unknown Alcohol intake: never Patient Tobacco Use Status: Never used Tobacco Use of substances other than those prescribed or required for medical reasons: Unknown Currently Displaying Signs/Symptoms of Drug Intoxication Withdrawal: No Advance Directives: Yes Advance Directives on File: Yes Advance Directives Date on File: 12/09/20 Do you have thoughts of harming others: None Do you have a plan to hurt others: No Plan Recently lost weight without trying: Unsure Nutrition Risks: No Nutritional Risk service: No Current occupational status: retired [employer] Allergies Allergy/AdvReac Type Severity Reaction Status Date / Time No Known Allergies Allergy Verified 11/28/20 10:42 Active Medications: Current Medications Generic Name Dose Route Start Last Admin Trade Name Freq PRN Reason Stop Dose Admin Dopamine HCl/Dextrose 400 mg in 250 mls @ 0 mls/hr 12/24/20 22:45 12/24/20 22:50 IVCONT 5 mcg/kg/min .Q0M KIMMIE 23.25 mls/hr Administration Protocol Per Protocol Home Medications Medication Instructions Recorded Confirmed Last Taken Type omeprazole 20 mg capsule,delayed 20 mg PO DAILY@0630 05/23/20 12/25/20 11/27/20 History release rifaximin 550 mg tablet 550 mg PO TID 05/23/20 12/25/20 11/27/20 History Incruse Ellipta 1 inh INHALATION DAILY 11/28/20 12/25/20 11/27/20 History Lantus Solostar U-100 Insulin 62 unit SUBCUT BEDTIME 11/28/20 12/25/20 11/27/20 History aspirin 81 mg PO DAILY 11/28/20 12/25/20 11/27/20 History atorvastatin 40 mg PO DAILY 11/28/20 12/25/20 11/27/20 History insulin aspart U-100 [Novolog 22 unit SUBCUT DAILY@0730 11/28/20 12/25/20 Unknown History Flexpen U-100 Insulin] insulin aspart U-100 [Novolog 24 unit SUBCUT QPM 11/28/20 12/25/20 Unknown History Flexpen U-100 Insulin] propranolol 10 mg PO BID 11/28/20 12/25/20 11/27/20 History spironolactone 50 mg PO DAILY 11/28/20 12/25/20 11/27/20 History potassium chloride 10 meq PO 12/25/20 Unknown History Physical Exam Vital Signs: Vital Signs: Last Vital Signs Temp 96.4 F L 12/25/20 00:23 Pulse 76 12/25/20 00:23 Resp 19 12/25/20 00:23 BP 142/60 H 12/25/20 00:23 Pulse Ox 96 12/25/20 00:23 Body Mass Index 37.0 Const: General: cooperative, healthy appearing, comfortable, no acute distress and well developed Orientation/consciousness: Other orientation findings (sleeping but arousable) Limitations: no limitations HENMT: Head: Yes normal to inspection Eyes: General: appearance normal, both eyes and all related structures Neck: Neck: Yes normal visual inspection and Yes full ROM Resp: Effort & Inspection: normal respiratory effort Auscultation: rales bilateral Cardio: Rate: regular rate Rhythm: regular rhythm Heart sounds: normal S1 and S2 GI: Inspection: Yes normal to inspection Palpation (GI): Soft to palpation and nontender Skin: General skin exam: no rashes or lesions noted Extrem: General: Yes edema (1+ pitting bilateral lower extremities) Results Labs CBC and Chem 7: 12/26/20 00:31 12/26/20 00:31 Labs: Laboratory Results - last 24 hr 12/24/20 12/24/20 12/24/20 18:41 18:42 18:42 MCV 96.9 MCH 33.1 H MCHC 34.1 RDW 18.4 H Plt Count 128 L MPV 13.0 H Immature Gran % (Auto) 0.6 H Neut % (Auto) 63.8 Lymph % (Auto) 16.7 L [place] % (Auto) 15.0 H Eos % (Auto) 3.7 Baso % (Auto) 0.2 Lymph # (Auto) 1.4 [place] # (Auto) 1.3 H Eos # (Auto) 0.3 Baso # (Auto) 0.0 Abs Immat Gran (auto) 0.05 H Absolute Neuts (auto) 5.5 Absolute Nucleated RBC 0.000 Nucleated RBC % (auto) 0.0 PT INR Anion Gap 14 Estim Creat Clear Calc 18.4 Estimated GFR 12 Random Glucose 143 H D Lactic Acid Calcium 7.5 L D Magnesium 2.4 Total Bilirubin 2.2 H Direct Bilirubin 1.3 H AST 109 H ALT 53 H Alkaline Phosphatase 352 H D Ammonia Troponin I High Sens Total Protein 6.4 L Albumin 2.0 L Lipase 131 H Urine Color Urine Appearance Urine pH Ur Specific [place] Urine Protein Urine Glucose (UA) Urine Ketones Urine Blood Urine Nitrite Ur Leukocyte Esterase Urine RBC Urine WBC Ur Squamous Epith Cells Urine Bacteria Hyaline Casts Granular Casts Urine Mucus COVID-19 (DARRION) Negative COVID-19 Clin Com See Note S. pyogenes GrpA KEYANNA 12/24/20 12/24/20 12/24/20 18:42 18:42 18:42 MCV MCH MCHC RDW Plt Count MPV Immature Gran % (Auto) Neut % (Auto) Lymph % (Auto) [place] % (Auto) Eos % (Auto) Baso % (Auto) Lymph # (Auto) [place] # (Auto) Eos # (Auto) Baso # (Auto) Abs Immat Gran (auto) Absolute Neuts (auto) Absolute Nucleated RBC Nucleated RBC % (auto) PT 16.9 H INR 1.4 H Anion Gap Estim Creat Clear Calc Estimated GFR Random Glucose Lactic Acid 1.2 Calcium Magnesium Cancelled Total Bilirubin Direct Bilirubin AST ALT Alkaline Phosphatase Ammonia Troponin I High Sens Total Protein Albumin Lipase Cancelled Urine Color Urine Appearance Urine pH Ur Specific [place] Urine Protein Urine Glucose (UA) Urine Ketones Urine Blood Urine Nitrite Ur Leukocyte Esterase Urine RBC Urine WBC Ur Squamous Epith Cells Urine Bacteria Hyaline Casts Granular Casts Urine Mucus COVID-19 (DARRION) COVID-19 Clin Com S. pyogenes GrpA KEYANNA 12/24/20 12/24/20 12/24/20 18:42 18:42 18:42 MCV MCH MCHC RDW Plt Count MPV Immature Gran % (Auto) Neut % (Auto) Lymph % (Auto) [place] % (Auto) Eos % (Auto) Baso % (Auto) Lymph # (Auto) [place] # (Auto) Eos # (Auto) Baso # (Auto) Abs Immat Gran (auto) Absolute Neuts (auto) Absolute Nucleated RBC Nucleated RBC % (auto) PT INR Anion Gap Estim Creat Clear Calc Estimated GFR Random Glucose Lactic Acid Calcium Magnesium Total Bilirubin Direct Bilirubin AST ALT Alkaline Phosphatase Ammonia 63 H Troponin I High Sens 5.2 Total Protein Albumin Lipase Urine Color Urine Appearance Urine pH Ur Specific [place] Urine Protein Urine Glucose (UA) Urine Ketones Urine Blood Urine Nitrite Ur Leukocyte Esterase Urine RBC Urine WBC Ur Squamous Epith Cells Urine Bacteria Hyaline Casts Granular Casts Urine Mucus COVID-19 (DARRION) COVID-19 Clin Com S. pyogenes GrpA KEYANNA Negative 12/24/20 22:41 MCV MCH MCHC RDW Plt Count MPV Immature Gran % (Auto) Neut % (Auto) Lymph % (Auto) [place] % (Auto) Eos % (Auto) Baso % (Auto) Lymph # (Auto) [place] # (Auto) Eos # (Auto) Baso # (Auto) Abs Immat Gran (auto) Absolute Neuts (auto) Absolute Nucleated RBC Nucleated RBC % (auto) PT INR Anion Gap Estim Creat Clear Calc Estimated GFR Random Glucose Lactic Acid Calcium Magnesium Total Bilirubin Direct Bilirubin AST ALT Alkaline Phosphatase Ammonia Troponin I High Sens Total Protein Albumin Lipase Urine Color YELLOW Urine Appearance CLEAR Urine pH 5.5 Ur Specific [place] 1.015 Urine Protein 1+ H Urine Glucose (UA) NEG Urine Ketones NEG Urine Blood 1+ H Urine Nitrite NEG Ur Leukocyte Esterase NEG Urine RBC 5-9 H Urine WBC 1-4 Ur Squamous Epith Cells 2+ Urine Bacteria TRACE Hyaline Casts 10-14 Granular Casts 5-9 Urine Mucus TRACE COVID-19 (DARRION) COVID-19 Clin Com S. pyogenes GrpA KEYANNA Imaging Radiologist's Impressions: Impressions Chest X-Ray 12/24/20 18:10 IMPRESSION: Hypoinflated lungs with elevated hemidiaphragm. Bibasilar atelectasis/infiltrates. Possible small effusions. Appearance is unchanged. Abdomen/Pelvis CT 12/24/20 22:21 IMPRESSION: Study limited by motion. Limited evaluation of the pancreas especially. There may be stranding along the pancreatic parenchyma. No fluid collection or focal abnormality. Cirrhotic appearance of the liver. Bilateral lung lower lobe opacities are nonspecific. Consider atelectasis or pneumonia. Aspiration possible. Assessment and Plan (1) Acute renal failure: Qualifiers: Acute renal failure type: unspecified Qualified Code(s): N17.9 - Acute kidney failure, unspecified Status: Acute Monitor renal indices (2) Hypothermia: Qualifiers: Encounter type: initial encounter Qualified Code(s): T68.XXXA - Hypothermia, initial encounter Status: Acute Patient currently on Emil Hugger, temp up to 97.2 F (3) Acute hypotension: Status: Acute Cortisol level pending, patient on dopamine and given 100 mg Solu-Cortef. (4) Acute pancreatitis: Qualifiers: Acute pancreatitis complication: unspecified Pancreatitis type: other Qualified Code(s): K85.80 - Other acute pancreatitis without necrosis or infection Status: Acute Patient NPO (5) Acute hyponatremia: Status: Acute Monitor, should resolve with steroids if addisonian crisis. (6) Acute hyperkalemia: Status: Acute Calcium gluconate given in ED, will give insulin&D5 and albuterol nebulizer and monitor. Critical Care Time Critical Care Time (minutes): 90
[2020-12-25 02:00] LABS: Hematocrit 36.3 % (42-52); Hemoglobin 12.8 g/dl (14.0-18.0); Mean Corpuscular HGB Conc 35.3 g/dl (31.0-36.0); Mean Corpuscular Volume 96.3 fL (80-98); Mean Platelet Volume 12.7 fL (9.4-12.4); Platelet Count 131 X10*3/uL (160-400); Red Blood Count 3.77 X10*6/uL (4.60-5.80); Red Cell Distribution Width 17.9 % (11.0-16.0)
[2020-12-25 02:10] LABS: WBC ABN SCTR FOR CBC 1; White Blood Count 7.4 X10*3/uL (4.8-10.8)
[2020-12-25 02:25] LABS: Band Neutrophils Percent 0 % (3-5); Basophils Abs Manual 0.1 X10*3/uL (0.0-0.3); Basophils Percent Manual 1 % (0-1); Eosinophils Absolute Manual 0.1 X10*3/UL (0.0-0.8); Eosinophils Percent Manual 2 % (0-4); Large Platelet PRESENT; Lymphocytes Percent Manual 13 % (20-40); Monocytes Absolute Manual 0.4 X10*3/uL (0.0-1.2); Monocytes Percent Manual 5 % (2-11); Neutrophils Absolute Manual 5.8 X10*3/uL (2.2-7.9); Neutrophils Percent Manual 79 % (45-73); Platelet Estimate SLIGHTLY DECREASED (NORMAL); Platelet Morphology Comment NORMAL; RBC Morphology NORMAL
[2020-12-25 02:38] LABS: Venous Blood Gas Refer to POC result
[2020-12-25 02:39] LABS: VBG Base Excess -6.8 mmol/L; VBG HCO3 19 mmol/L (22-26); VBG pCO2 40 mmHg; VBG pH 7.28 (7.32-7.43); VBG pO2 57 mmHg
[2020-12-25 02:51] LABS: Anion Gap 17 (12-20); Blood Urea Nitrogen 61 mg/dL (9-16); Carbon Dioxide 18 mmol/L (22-29); Chloride 98 mmol/L (96-108); Estimated Glomerular Filt Rate 12; Glucose Random 57 mg/dL (60-115); Magnesium 2.5 mg/dL (1.6-2.6); Phosphorus 5.9 mg/dL (2.7-4.5); Potassium 5.9 mmol/L (3.3-5.1); Sodium 127 mmol/L (135-145)
[2020-12-25 02:54] LABS: B Type Natriuretic Peptide 146 pg/mL (<100)
[2020-12-25 03:10] LABS: Free T4 (Free Thyroxine) 0.87 ng/dL (0.71-1.85)
[2020-12-25] MEDS: Sodium Bicarbonate 8.4% 50 MEQ/50 ML VIAL IVPUSH (03:21)
[2020-12-25] MEDS: Insulin Regular, Human 100 UNIT/ML 3 ML VIAL IVPUSH ×2 (03:22→05:57)
[2020-12-25] MEDS: Albuterol Sulfate (0.083%) 2.5 MG/3 ML VIAL.NEB 10 MG INHALE (04:42)
[2020-12-25 05:05] LABS: Anion Gap 17 (12-20); Blood Urea Nitrogen 61 mg/dL (9-16); Carbon Dioxide 20 mmol/L (22-29); Chloride 96 mmol/L (96-108); Creatinine Clr Calc Pharmacy 18.3; Estimated Glomerular Filt Rate 12; Glucose Random 165 mg/dL (60-115); Potassium 5.8 mmol/L (3.3-5.1); Sodium 127 mmol/L (135-145)
[2020-12-25] MEDS: Calcium Gluconate/NaCl,Iso-Osm 2 GM/100 ML PLAST..BAG IV (05:57)
--- NOTE | 2020-12-25 06:22 | PC.NURSE ---
Admitted to ICU at approx 0200. [employer] utilized for assessment. Pt A&Ox2, lethargic. Afebrile, temp > 96, taken off madison hugger upon arrival. NSR on tele, HR 70-80s. Dopamine gtt titrated to maintain MAP > 65, see drug titration. LS rhonchorous throughout, non-productive cough. NPO. Soto in place, UOP approx 150 mL/hr. PA aware of critical labs- s/p IVP bicarb, d50, insulin, calcium gluconate, see emar. Skin intact- venous stasis to BLE, L padilla dsg in place from SNF, C/D/I. On air loss mattress system, repositioned q2h.
--- NOTE | 2020-12-25 10:11 | MHC.CM.PN ---
Pt admitted to ICU from [facility] where he had been for STR following a recent illness. Pt with many chronic comorbid conditions: Pt states he was at STR but wasn't sure if he needed to return or could return to home. Call placed to Pts' [facility]Rub[facility]: message left. HCP on file: Pending callback from dtr, will re-refer back to [facility] as pt will require 24/7 medical care at least short term. BLS transport
[2020-12-25] MEDS: DOPamine HCL/D5W 400 MG/250 ML PLAST..BAG 18.6 MG IVCONT (10:21)
--- NOTE | 2020-12-25 12:26 | P.CONNP_ITS ---
History of Present Illness Reason for Consult Consult date: 12/25/20 Reason for consult: ULYSSES Chief Complaint Chief complaint: Hypotension History of Present Illness Narrative: Cory is a 75-year-old Amharic-speaking male with a past medical history of cirrhosis, COPD, CHF, HTN, DM2 on insulin, hepatic encephalopathy who [facility] after he was found to be hypotensive and hypothermic. Upon arrival to the ED, his blood pressure was 96/33, HR 52, RR 17 O2 sat 97% on room air, temp 92.3F. Patient also had associated weight gain, denies nausea, vomiting, diarrhea or abdominal pain. Blood work was significant for Na 123, K 5.4, bicarb 19, BUN 60, Cr 4.77 . COVID negative. Patient has received midodrine, 1.5L NS, albumin, zosyn, calcium gluconate and is currently on a dopamine drip for BP support. His serum creatinine has gone above 4.0 Nephrology has been consulted to assist in his clinical management . Review of Systems Review of Systems Yes all other systems are reviewed and are negative PMF Past Medical History Medical History Alcoholic cirrhosis COPD (chronic obstructive pulmonary disease) Diabetes HTN (hypertension) Hyperlipidemia Pulmonary hypertension Social History Social History Household Members: None Housing: [facility] Do you presently have visiting nurse or other home services: No Unable to assess alcohol history related to: Unknown Alcohol intake: never Patient Tobacco Use Status: Never used Tobacco Use of substances other than those prescribed or required for medical reasons: Unknown Advance Directives: Yes Advance Directives on File: Yes Advance Directives Date on File: 12/09/20 Do you have thoughts of harming others: None Do you have a plan to hurt others: No Plan Recently lost weight without trying: Unsure Nutrition Risks: No Nutritional Risk service: No Current occupational status: retired Meds Allergies Allergy/AdvReac Type Severity Reaction Status Date / Time No Known Allergies Allergy Verified 11/28/20 10:42 Active Medications: Current Medications Generic Name Dose Route Start Last Admin Trade Name Freq PRN Reason Stop Dose Admin Acetylcysteine 400 mg 12/25/20 12:00 Acetylcysteine 10 % 400 Mg/4 Ml Vial INHALE RQ4H WHILE AWAKE KIMMIE Albuterol/Ipratropium 3 ml 12/25/20 12:00 Albuterol/Iprat 2.5/0.5mg 3 Ml Ampul.Neb INHALE RQ4H WHILE AWAKE [facility] Dopamine HCl/Dextrose 400 mg in 250 mls @ 0 mls/hr 12/24/20 22:45 12/25/20 10:21 IVCONT 4 mcg/kg/min .Q0M KIMMIE 18.6 mls/hr Administration Protocol Per Protocol Levofloxacin 750 mg in 150 mls @ 100 mls/hr 12/25/20 11:28 Levaquin IV 12/25/20 12:57 ONCE ONE Piperacillin Sod/Tazobactam 50 mls @ 100 mls/hr 12/25/20 11:30 Sod 2.25 gm/ Sodium Chloride IV Q8H [facility] Sodium Bicarbonate 650 mg 12/25/20 13:00 Sodium Bicarbonate 650 Mg Tablet PO QID [facility] Home Medications Medication Instructions Recorded Confirmed Last Taken Type omeprazole 20 mg capsule,delayed 20 mg PO DAILY@0630 05/23/20 12/25/20 11/27/20 History release rifaximin 550 mg tablet 550 mg PO TID 05/23/20 12/25/20 11/27/20 History Incruse Ellipta 1 inh INHALATION DAILY 11/28/20 12/25/20 11/27/20 History Lantus Solostar U-100 Insulin 62 unit SUBCUT BEDTIME 11/28/20 12/25/20 11/27/20 History aspirin 81 mg PO DAILY 11/28/20 12/25/20 11/27/20 History atorvastatin 40 mg PO DAILY 11/28/20 12/25/20 11/27/20 History insulin aspart U-100 [Novolog 22 unit SUBCUT DAILY@0730 11/28/20 12/25/20 Unknown History Flexpen U-100 Insulin] insulin aspart U-100 [Novolog 24 unit SUBCUT QPM 11/28/20 12/25/20 Unknown History Flexpen U-100 Insulin] propranolol 10 mg PO BID 11/28/20 12/25/20 11/27/20 History spironolactone 50 mg PO DAILY 11/28/20 12/25/20 11/27/20 History potassium chloride 10 meq PO 12/25/20 Unknown History Physical Exam Vital Signs: Last Vital Signs Temp 96.3 F L 12/25/20 09:00 Pulse 79 12/25/20 09:00 Resp 20 12/25/20 09:00 BP 103/43 L 12/25/20 09:00 Pulse Ox 94 12/25/20 09:00 Body Mass Index 37.0 Const General: no acute distress Neck Neck: Yes supple Resp Auscultation: diminished lung sounds Cardio Rate: regular rate GI Palpation (GI): Soft to palpation Neuro Other: Alert Results Lab Results Result Diagrams: 12/25/20 01:52 12/25/20 04:04 Lab results: Chemistry 12/24/20 12/25/20 12/25/20 18:42 01:52 04:04 Sodium 123 L 127 L 127 L Potassium 5.4 H D 5.9 H 5.8 H Carbon Dioxide 19 L 18 L 20 L BUN 60 H 61 H 61 H Creatinine 4.77 H* 4.87 H* 4.81 H* Calcium 7.5 L D 8.0 L D 8.0 L Phosphorus 5.9 H Hematology 12/24/20 12/25/20 18:42 01:52 WBC 8.6 7.4 Hgb 12.9 L 12.8 L Plt Count 128 L 131 L Urinalysis 12/24/20 22:41 Urine Color YELLOW Urine Appearance CLEAR Urine pH 5.5 Ur Specific [place] 1.015 Urine Protein 1+ H Urine Glucose (UA) NEG Urine Ketones NEG Urine Blood 1+ H Urine Nitrite NEG Ur Leukocyte Esterase NEG Urine RBC 5-9 H Urine WBC 1-4 Ur Squamous Epith Cells 2+ Hyaline Casts 10-14 Assessment and Plan (1) Acute renal failure: Qualifiers: Acute renal failure type: unspecified Qualified Code(s): N17.9 - Acute kidney failure, unspecified Status: Acute Hyponatremia Hyperkalemia Acute Kidney Injury due to tubular injury Metabolic Acidosis Urine output good; Low K diet No reason to suspect GN/AIN Cortisol if not done yet Continue current supportive care No indication for any renal replacement Labs AM. Shall closely follow along Procedures Date of Service Date of Service: 12/25/20
--- NOTE | 2020-12-25 12:36 | P.CDIC_ITS ---
CDI Concurrent Query Service Date: 12/25/20 Documentation Clarification: Please clarify if you are treating a proba ble/suspected/likely or confirmed: Metabolic Encephalopathy Toxic Encephalopathy Hepatic Encephalopathy PLEASE DO NOT DELETE/MODIFY EXISTING CONTENT Additional information is needed in order to code to the highest accuracy and appropriate Severity of Illness (SOI). Please clarify the information noted below in your progress notes and discharge summary. Risk Factors/Clinical Indicators/Treatments 75 year old male admitted for ULYSSES, Acute Hypotension, Hypothermia, Acute Pancreatitis, Encephalopathy, Acute Hyponatremia UA negative Ammonia 63 Alert and oriented x 2 - 3, looks lethargic sleepy per H&P CDS: Arline Richmond RN Contact Number: [phone] Please Review the information above and exercise your independent professional judgment in responding to the query. If you concur, pleas document in the PROGRESS NOTES and DISCHARGE SUMMARY. If you do not agree with the query, please document in the query above. THIS QUERY IS PART OF THE PERMANENT MEDICAL RECORD
[2020-12-25] MEDS: Acetylcysteine 10 % 400 MG/4 ML VIAL INHALE ×3 (12:47→20:17)
[2020-12-25] MEDS: Albuterol/Iprat 2.5/0.5MG 3 ML AMPUL.NEB INHALE ×3 (12:47→20:17)
[2020-12-25] MEDS: Sodium Bicarbonate 650 MG TABLET PO ×3 (12:54→21:15)
[2020-12-25] MEDS: Piperacillin Sodium/Tazobactam 2.25 GM in 0.9 % Sodium Chloride 50 ML IV ×2 (12:54→18:00)
[2020-12-25 13:01] LABS: Ammonia 58 umol/L (13-55)
--- NOTE | 2020-12-25 13:56 | PM.CCPN ---
Subjective Subjective Date of Service: 12/25/20 Critical Care Time (minutes): 60 Comment: 75-year-old brought in for weakness and hypotension with significant metabolic issues including hyponatremia and hyperkalemia and in addition was also hypothermic Presents with acute on chronic renal failure stage 4 but with some hematuria and proteinuria as well so there may be some glomerular tubular disease that is involved here but his bradycardia resolved on the warming blanket as his temperature was restored thyroid functions come back normal serum cortisol is pending and he did receive 1 dose of Solu-Cortef but he clearly has metabolic acidosis with significant bicarb deficit he is apparently uremic and hyperkalemic and apparently with a recent admission here about 3 weeks earlier he was placed on a combination of furosemide and spironolactone and metolazone and it appears to be somewhat over diuresed and my bedside echo indicates normal left ventricular systolic reserve with no primary valve or pericardial disease right heart systolic function and dimension appears normal but previous echo did demonstrate severe levels almost systemic levels of pulmonary hypertension with PA systolic of 100 but this time his IVC appears to be of normal caliber so again I believe he is relatively hypovolemic and with this combination of issues including the acute renal failure there looks to be an infectious etiology and CT scan of his head was negative the CT scan of the chest shows that he does have bilateral nodular infiltrates but bibasilar areas of consolidation and there is a degree of hypoxia and since he has been here has required increasing levels of FiO2 Physical Exam Vital Signs: Vital Signs: Last Vital Signs Temp 97.0 F 12/25/20 13:00 Pulse 79 12/25/20 13:00 Resp 27 H 12/25/20 13:00 BP 152/50 H 12/25/20 13:01 Pulse Ox 87 L 12/25/20 13:00 Body Mass Index 37.0 Const: Other: Awake and alert and he is oriented and were using a autism motor specialist and he seems to understand all that is explained He has urine output which is adequate but becoming increasingly pink tinged and abdomen is benign nontender good bowel sounds no organomegaly but he clearly has a cirrhotic liver Chest with bibasilar rales but no ever other adventitious sounds Bilateral stasis dermatitis lower extremities Objective Data Labs CBC & Chem 7: 12/25/20 01:52 12/25/20 04:04 Labs: Laboratory Results - last 24 hr 12/24/20 12/24/2012/24/21 18:41 18:42 18:42 WBC 8.6 RBC 3.90 L Hgb 12.9 L Hct 37.8 L MCV 96.9 MCH 33.1 H MCHC 34.1 RDW 18.4 H Plt Count 128 L MPV 13.0 H Immature Gran % (Auto) 0.6 H Neut % (Auto) 63.8 Lymph % (Auto) 16.7 L [place] % (Auto) 15.0 H Eos % (Auto) 3.7 Baso % (Auto) 0.2 Lymph # (Auto) 1.4 [place] # (Auto) 1.3 H Eos # (Auto) 0.3 Baso # (Auto) 0.0 Abs Immat Gran (auto) 0.05 H Absolute Neuts (auto) 5.5 Absolute Nucleated RBC 0.000 Nucleated RBC % (auto) 0.0 Neutrophils % (Manual) Band Neutrophils % Lymphocytes % (Manual) Monocytes % (Manual) Eosinophils % (Manual) Basophils % (Manual) Abs Neuts (Manual) Lymphocytes # (Manual) Monocytes # (Manual) Eosinophils # (Manual) Basophils # (Manual) Platelet Estimate Large Platelets Plt Morphology Comment RBC Morphology PT INR VBG pH VBG pCO2 VBG pO2 VBG HCO3 VBG O2 Saturation VBG Base Excess Sodium 123 L Potassium 5.4 H D Chloride 95 L Carbon Dioxide 19 L Anion Gap 14 BUN 60 H Creatinine 4.77 H* Estim Creat Clear Calc 18.4 Estimated GFR 12 Random Glucose 143 H D Lactic Acid Calcium 7.5 L D Phosphorus Magnesium 2.4 Total Bilirubin 2.2 H Direct Bilirubin 1.3 H AST 109 H ALT 53 H Alkaline Phosphatase 352 H D Ammonia Total Creatine Kinase Troponin I High Sens B-Natriuretic Peptide Total Protein 6.4 L Albumin 2.0 L Lipase 131 H TSH 1.70 Free T4 0.87 Urine Color Urine Appearance Urine pH Ur Specific [place] Urine Protein Urine Glucose (UA) Urine Ketones Urine Blood Urine Nitrite Ur Leukocyte Esterase Urine RBC Urine WBC Ur Squamous Epith Cells Urine Bacteria Hyaline Casts Granular Casts Urine Mucus Ur Random Sodium COVID-19 (DARRION) Negative COVID-19 Clin Com See Note S. pyogenes GrpA KEYANNA 12/24/20 12/24/20 12/24/20 18:42 18:42 18:42 WBC RBC Hgb Hct MCV MCH MCHC RDW Plt Count MPV Immature Gran % (Auto) Neut % (Auto) Lymph % (Auto) [place] % (Auto) Eos % (Auto) Baso % (Auto) Lymph # (Auto) [place] # (Auto) Eos # (Auto) Baso # (Auto) Abs Immat Gran (auto) Absolute Neuts (auto) Absolute Nucleated RBC Nucleated RBC % (auto) Neutrophils % (Manual) Band Neutrophils % Lymphocytes % (Manual) Monocytes % (Manual) Eosinophils % (Manual) Basophils % (Manual) Abs Neuts (Manual) Lymphocytes # (Manual) Monocytes # (Manual) Eosinophils # (Manual) Basophils # (Manual) Platelet Estimate Large Platelets Plt Morphology Comment RBC Morphology PT 16.9 H INR 1.4 H VBG pH VBG pCO2 VBG pO2 VBG HCO3 VBG O2 Saturation VBG Base Excess Sodium Potassium Chloride Carbon Dioxide Anion Gap BUN Creatinine Estim Creat Clear Calc Estimated GFR Random Glucose Lactic Acid 1.2 Calcium Phosphorus Magnesium Cancelled Total Bilirubin Direct Bilirubin AST ALT Alkaline Phosphatase Ammonia Total Creatine Kinase Troponin I High Sens B-Natriuretic Peptide Total Protein Albumin Lipase Cancelled TSH Free T4 Urine Color Urine Appearance Urine pH Ur Specific [place] Urine Protein Urine Glucose (UA) Urine Ketones Urine Blood Urine Nitrite Ur Leukocyte Esterase Urine RBC Urine WBC Ur Squamous Epith Cells Urine Bacteria Hyaline Casts Granular Casts Urine Mucus Ur Random Sodium COVID-19 (DARRION) COVID-19 Clin Com S. pyogenes GrpA KEYANNA 12/24/20 12/24/20 12/24/20 18:42 18:42 18:42 WBC RBC Hgb Hct MCV MCH MCHC RDW Plt Count MPV Immature Gran % (Auto) Neut % (Auto) Lymph % (Auto) [place] % (Auto) Eos % (Auto) Baso % (Auto) Lymph # (Auto) [place] # (Auto) Eos # (Auto) Baso # (Auto) Abs Immat Gran (auto) Absolute Neuts (auto) Absolute Nucleated RBC Nucleated RBC % (auto) Neutrophils % (Manual) Band Neutrophils % Lymphocytes % (Manual) Monocytes % (Manual) Eosinophils % (Manual) Basophils % (Manual) Abs Neuts (Manual) Lymphocytes # (Manual) Monocytes # (Manual) Eosinophils # (Manual) Basophils # (Manual) Platelet Estimate Large Platelets Plt Morphology Comment RBC Morphology PT INR VBG pH VBG pCO2 VBG pO2 VBG HCO3 VBG O2 Saturation VBG Base Excess Sodium Potassium Chloride Carbon Dioxide Anion Gap BUN Creatinine Estim Creat Clear Calc Estimated GFR Random Glucose Lactic Acid Calcium Phosphorus Magnesium Total Bilirubin Direct Bilirubin AST ALT Alkaline Phosphatase Ammonia 63 H Total Creatine Kinase Troponin I High Sens 5.2 B-Natriuretic Peptide Total Protein Albumin Lipase TSH Free T4 Urine Color Urine Appearance Urine pH Ur Specific [place] Urine Protein Urine Glucose (UA) Urine Ketones Urine Blood Urine Nitrite Ur Leukocyte Esterase Urine RBC Urine WBC Ur Squamous Epith Cells Urine Bacteria Hyaline Casts Granular Casts Urine Mucus Ur Random Sodium COVID-19 (DARRION) COVID-19 Clin Com S. pyogenes GrpA KEYANNA Negative 12/24/20 12/25/20 12/25/20 22:41 01:52 01:52 WBC 7.4 RBC 3.77 L Hgb 12.8 L Hct 36.3 L MCV 96.3 MCH 34.0 H MCHC 35.3 RDW 17.9 H Plt Count 131 L MPV 12.7 H Immature Gran % (Auto) Cancelled Neut % (Auto) Cancelled Lymph % (Auto) Cancelled [place] % (Auto) Cancelled Eos % (Auto) Cancelled Baso % (Auto) Cancelled Lymph # (Auto) Cancelled [place] # (Auto) Cancelled Eos # (Auto) Cancelled Baso # (Auto) Cancelled Abs Immat Gran (auto) Cancelled Absolute Neuts (auto) Cancelled Absolute Nucleated RBC 0.000 Nucleated RBC % (auto) 0.0 Neutrophils % (Manual) 79 H Band Neutrophils % 0 L Lymphocytes % (Manual) 13 L Monocytes % (Manual) 5 Eosinophils % (Manual) 2 Basophils % (Manual) 1 Abs Neuts (Manual) 5.8 Lymphocytes # (Manual) 1.0 Monocytes # (Manual) 0.4 Eosinophils # (Manual) 0.1 Basophils # (Manual) 0.1 Platelet Estimate SLIGHTLY DECREASED Large Platelets PRESENT Plt Morphology Comment NORMAL RBC Morphology NORMAL PT INR VBG pH VBG pCO2 VBG pO2 VBG HCO3 VBG O2 Saturation VBG Base Excess Sodium Potassium Chloride Carbon Dioxide Anion Gap BUN Creatinine Estim Creat Clear Calc Estimated GFR Random Glucose Lactic Acid Calcium Phosphorus Magnesium Total Bilirubin Direct Bilirubin AST ALT Alkaline Phosphatase Ammonia Total Creatine Kinase Troponin I High Sens B-Natriuretic Peptide 146 H Total Protein Albumin Lipase TSH Free T4 Urine Color YELLOW Urine Appearance CLEAR Urine pH 5.5 Ur Specific [place] 1.015 Urine Protein 1+ H Urine Glucose (UA) NEG Urine Ketones NEG Urine Blood 1+ H Urine Nitrite NEG Ur Leukocyte Esterase NEG Urine RBC 5-9 H Urine WBC 1-4 Ur Squamous Epith Cells 2+ Urine Bacteria TRACE Hyaline Casts 10-14 Granular Casts 5-9 Urine Mucus TRACE Ur Random Sodium COVID-19 (DARRION) COVID-19 Clin Com S. pyogenes GrpA KEYANNA 12/25/20 12/25/20 12/25/20 01:52 01:52 04:04 WBC RBC Hgb Hct MCV MCH MCHC RDW Plt Count MPV Immature Gran % (Auto) Neut % (Auto) Lymph % (Auto) [place] % (Auto) Eos % (Auto) Baso % (Auto) Lymph # (Auto) [place] # (Auto) Eos # (Auto) Baso # (Auto) Abs Immat Gran (auto) Absolute Neuts (auto) Absolute Nucleated RBC Nucleated RBC % (auto) Neutrophils % (Manual) Band Neutrophils % Lymphocytes % (Manual) Monocytes % (Manual) Eosinophils % (Manual) Basophils % (Manual) Abs Neuts (Manual) Lymphocytes # (Manual) Monocytes # (Manual) Eosinophils # (Manual) Basophils # (Manual) Platelet Estimate Large Platelets Plt Morphology Comment RBC Morphology PT INR VBG pH 7.28 L VBG pCO2 40 VBG pO2 57 VBG HCO3 19 L VBG O2 Saturation 82.0 VBG Base Excess -6.8 Sodium 127 L 127 L Potassium 5.9 H 5.8 H Chloride 98 96 Carbon Dioxide 18 L 20 L Anion Gap 17 17 BUN 61 H 61 H Creatinine 4.87 H* 4.81 H* Estim Creat Clear Calc 18.0 18.3 Estimated GFR 12 12 Random Glucose 57 L* 165 H D Lactic Acid Calcium 8.0 L D 8.0 L Phosphorus 5.9 H Magnesium 2.5 Total Bilirubin Direct Bilirubin AST ALT Alkaline Phosphatase Ammonia Total Creatine Kinase Troponin I High Sens B-Natriuretic Peptide Total Protein Albumin Lipase TSH Free T4 Urine Color Urine Appearance Urine pH Ur Specific [place] Urine Protein Urine Glucose (UA) Urine Ketones Urine Blood Urine Nitrite Ur Leukocyte Esterase Urine RBC Urine WBC Ur Squamous Epith Cells Urine Bacteria Hyaline Casts Granular Casts Urine Mucus Ur Random Sodium COVID-19 (DARRION) COVID-19 Clin Com S. pyogenes GrpA KEYANNA 12/25/20 12/25/20 12/25/20 12:24 12:24 13:10 WBC RBC Hgb Hct MCV MCH MCHC RDW Plt Count MPV Immature Gran % (Auto) Neut % (Auto) Lymph % (Auto) [place] % (Auto) Eos % (Auto) Baso % (Auto) Lymph # (Auto) [place] # (Auto) Eos # (Auto) Baso # (Auto) Abs Immat Gran (auto) Absolute Neuts (auto) Absolute Nucleated RBC Nucleated RBC % (auto) Neutrophils % (Manual) Band Neutrophils % Lymphocytes % (Manual) Monocytes % (Manual) Eosinophils % (Manual) Basophils % (Manual) Abs Neuts (Manual) Lymphocytes # (Manual) Monocytes # (Manual) Eosinophils # (Manual) Basophils # (Manual) Platelet Estimate Large Platelets Plt Morphology Comment RBC Morphology PT INR VBG pH VBG pCO2 VBG pO2 VBG HCO3 VBG O2 Saturation VBG Base Excess Sodium Potassium Chloride Carbon Dioxide Anion Gap BUN Creatinine Estim Creat Clear Calc Estimated GFR Random Glucose Lactic Acid Calcium Phosphorus Magnesium Total Bilirubin Direct Bilirubin AST ALT Alkaline Phosphatase Ammonia 58 H Total Creatine Kinase 236 H Troponin I High Sens B-Natriuretic Peptide Total Protein Albumin Lipase TSH Free T4 Urine Color Urine Appearance Urine pH Ur Specific [place] Urine Protein Urine Glucose (UA) Urine Ketones Urine Blood Urine Nitrite Ur Leukocyte Esterase Urine RBC Urine WBC Ur Squamous Epith Cells Urine Bacteria Hyaline Casts Granular Casts Urine Mucus Ur Random Sodium 22.0 COVID-19 (DARRION) COVID-19 Clin Com S. pyogenes GrpA KEYANNA Progress Note: A&P Assessment and plan (1) Neuropathy: Status: Acute (2) Acute renal failure: Status: Acute (3) Hypothermia: Status: Acute (4) Acute hypotension: Status: Acute (5) Acute pancreatitis: Status: Acute (6) Acute hyponatremia: Status: Acute (7) Encephalopathy: Status: Acute (8) Acute hyperkalemia: Status: Acute (9) Acute respiratory failure with hypoxemia: Status: Acute (10) Healthcare-associated pneumonia: Status: Acute Assessment and Plan: With urine output present and central venous pressure noted at 3 indicating significant intravascular volume depletion I will hydrate with normal saline and follow central venous pressure urine output and electrolytes and creatinine and empirically treat with Levaquin and Zosyn for healthcare acquired pneumonia and autoimmune workup is out and pending given this indication of glomerular failure
[2020-12-25 14:09] LABS: Erythrocyte Sedimentation Rate 53 MM/HR (0-15)
[2020-12-25] MEDS: levoFLOXacin/D5W 750 MG/150 ML PIGGYBACK 100 MG IV (14:57)
[2020-12-25] MEDS: Dextrose 5 % and 0.9 % NaCl 1,000 ML 100 ML IVCONT ×2 (15:07→23:26)
[2020-12-25 15:17] LABS: Glucose, Whole Blood 264 mg/dL (60-115)
[2020-12-25 16:40] LABS: Glucose, Whole Blood 276 mg/dL (60-115)
[2020-12-25] MEDS: 0.9 % Sodium Chloride Flush 3 ML SYRINGE IVFLUSH (17:05)
[2020-12-25] MEDS: Insulin Lispro 100 UNIT/ML 3 ML VIAL SUBCUT ×2 (17:06→21:44)
[2020-12-25] MEDS: Pantoprazole Sodium 40 MG/10 ML VIAL 80 MG IVPUSH (18:00)
[2020-12-25] MEDS: Pantoprazole Sodium 80 MG in 0.9 % Sodium Chloride 80 ML 10 MG IV (18:54)
--- NOTE | 2020-12-25 20:13 | PC.NURSE ---
ASSUMED CARE AT 0700. ALERT AND ORIENTED PATIENT, UTILIZED INTERPRETTER AND COMMUNICATED IN [place] WITH PATIENT. PATIENT CALM, COOPERATIVE, DENIED PAIN INTERMITTENTLY BUT ALSO REPORTED 10/10 RIGHT ELBOW PAIN, MD AWARE. LOW CORE TEMPERATURE: 96.3-96.8 TODAY. PATIENT WAS TAKEN DOWN FOR A CHEST CT THIS MORNING, HAD REPORTED 10/10 RIGHT ELBOW PAIN, MD NOTIFIED, CT RIGHT ELBOW WAS DONE AND REVIEWED. PATIENT WAS ABLE TO MOVE ELBOW WITH WHAT APPEARED TO BE A FULL RANGE OF MOTION; PATIENT INDICATED THAT HE MAY HAVE FALLEN PRIOR TO THIS ADMISSION. NO PAIN MEDICATIONS AT THIS TIME. TLC WAS PLACED TODAY AT 10AM AND POSITION WAS CONFRIMED WITH CXR. URINE SENT FOR UA AND URINE CX, URINE SENT FOR URINE SODIUM; SPUTUM CX SENT. PATIENT HAD INSPIRATORY AND EXPIRATORY RHONCHI AND COARSE LUNG SOUNDS WITH A MOIST NONPRODUCTIVE COUGH ALL DAY. OXYGEN DEMAND WAS INCREASING ALL DAY, STARTED ON 2 LPM NASAL CANNULA, INCREASED GRADUALLY THROUGH 5 LPM, DISCUSSED WITH MD, AND WAS PLACED ON HIGH FLOW, 40% AND 40 LPM, THIS WAS INCREASED IN THE EVENING TO 50% ON 40 LPM BY RN; FOR EACH TITRATION, PATIENT HAD DROPPED SPO2 INTO 87-88% RANGE, AND WAS TITIRATED UP. SINUS RHYTHM ON MONITOR, PATIENT DENIED CHEST PAIN; PATIENT WAS ON DOPAMINE GTT ALL DAY, BP RAN SOMEWHAT LOW AT TIMES, DOPAMINE TITRATED PER EMAR. PATIENT DIET WAS ADVANCED TO CLEAR LIQUDS AND PATIENT ATE 90% OF A LIQUID LUNCH TRAY. WHICH AROUND 16:30 WAS NOTED TO HAVE A BLOOD-STAINED TONGUE. AROUND 17:00 PATIENT PROCEEDED TO HAVE LARGE AMOUNTS OF DARK BLOOD THEN BRIGHT RED BLOOD COMING FROM HIS MOUTH, WITH CLOTS. PATIENT ORAL SUCTIONING WAS DONE, PATIENT STATES WHEN ASKED IF HE IS VOMITING OR COUGHING UP BLOOD, HE SAYS HE HAS BEEN COUGHING AND IT MAKES HIM FEEL NAUSEOUS; MD NOTIFIED. NO ANTI-EMETICS AT THIS TIME; DIET CHANGED BACK TO NPO; MD AWARE AND GI CONSULT AND PULMONARY CONSULT ENTERED. PATIENT ALSO HAD PINK URINE BECOME PROGRESSIVELY BLOOD-TINGED TO A PUNCH-COLOR OVER THE COURSE OF THE DAY; ONE SMALL CLOT IN THE AFTERNOON NOTED IN URINE; MD AWARE, AND DID ORDER URINALYSIS AND URINE SODIUM, WHICH WERE SENT; DISCUSSED THE FACT THAT LAST INR WAS YESTERDAY AND WAS 1.4, NO NEW COAG STUDIES ORDERED. FINANCIAL DIRECTOR FOLLOWING UP.
[2020-12-25 20:26] LABS: VBG Base Excess -6.3 mmol/L; VBG HCO3 18 mmol/L (22-26); VBG pCO2 33 mmHg; VBG pH 7.34 (7.32-7.43); VBG pO2 44 mmHg
[2020-12-25 20:37] LABS: MANUAL DIFF FLAG NO
[2020-12-25 20:40] LABS: Venous Blood Gas Refer to POC result
[2020-12-25 20:49] LABS: Basophils Percent Auto 0.1 % (0-2); Eosinophils Percent Auto 0.1 % (0-4); Hematocrit 28.4 % (42-52); Imm Gran Abs Auto 0.04 X10*3/uL (0.00-0.03); Imm Gran Pct Auto 0.4 % (0.0-0.4); Lymphocytes Absolute Auto 0.9 X10*3/uL (1.2-4.9); Lymphocytes Percent Auto 8.2 % (20-40); Mean Corpuscular HGB Conc 35.2 g/dl (31.0-36.0); Mean Corpuscular Hemoglobin 33.6 pg (27.0-33.0); Mean Corpuscular Volume 95.3 fL (80-98); Mean Platelet Volume 12.6 fL (9.4-12.4); Monocytes Absolute Auto 1.1 X10*3/uL (0.1-1.2); Monocytes Percent Auto 10.6 % (2-11); NRBC Pct Auto 0.3 /100WBC (0.0-0.2); Neutrophils Absolute Auto 8.3 X10*3/uL (2.0-8.3); Neutrophils Percent Auto 80.6 % (45-73); Platelet Count 127 X10*3/uL (160-400); Red Blood Count 2.98 X10*6/uL (4.60-5.80); White Blood Count 10.4 X10*3/uL (4.8-10.8)
[2020-12-25 20:55] LABS: Ammonia 96 umol/L (13-55)
[2020-12-25 21:10] LABS: Alanine Aminotransferase 36 U/L (0-40); Aspartate Amino Transferase 62 U/L (5-37); Bilirubin Total 2.7 mg/dL (0.0-1.0); Blood Urea Nitrogen 65 mg/dL (9-16); Creatinine Clr Calc Pharmacy 20.4; Estimated Glomerular Filt Rate 14; Lipase 65 U/L (8-78); Total Protein 5.2 g/dL (6.5-8.0)
[2020-12-25] MEDS: HYDROmorphone HCl 0.5 MG/0.5 ML SYRINGE IVPUSH (21:14)
[2020-12-25] MEDS: Famotidine/PF 20 MG/2 ML VIAL IVPUSH (21:15)
[2020-12-25] MEDS: methylPREDNISolone Sod Succ 1,000 MG in 0.9 % Sodium Chloride 50 ML 66 MG IV (21:15)
[2020-12-25 21:20] LABS: Alkaline Phosphatase 220 U/L (39-117); Anion Gap 17 (12-20); Calcium 7.4 mg/dL (8.4-10.2); Carbon Dioxide 17 mmol/L (22-29); Chloride 100 mmol/L (96-108); Glucose Random 312 mg/dL (60-115); Potassium 5.9 mmol/L (3.3-5.1); Sodium 128 mmol/L (135-145)
[2020-12-25 21:27] LABS: Fibrinogen 282 MG/DL (259-690); Prothrombin Time 23.4 SEC (10.8-13.0)
[2020-12-25] MEDS: Furosemide 20 MG/2 ML VIAL IVPUSH (21:30)
[2020-12-25 21:32] LABS: Partial Thromboplastin Time 49.3 SEC (24.1-38.0)
[2020-12-25 21:32] LABS: Glucose, Whole Blood 294 mg/dL (60-115)
[2020-12-25 22:37] LABS: Band Neutrophils Percent 2 % (3-5); Lymphocytes Percent Manual 10 % (20-40); Monocytes Absolute Manual 0.6 X10*3/uL (0.0-1.2); Monocytes Percent Manual 6 % (2-11); Neutrophils Absolute Manual 8.7 X10*3/uL (2.2-7.9); Neutrophils Percent Manual 82 % (45-73); RBC Morphology NOTED; Schistocytes 1+ (0-2) /OIF
[2020-12-25 22:40] LABS: Large Platelet PRESENT; Platelet Estimate SLIGHTLY DECREASED (NORMAL); Platelet Morphology Comment NOTED
--- NOTE | 2020-12-25 23:43 | W.PM.CCHP ---
Procedures Date of Service Date of Service: 12/25/20 Intubation Intubation Comments: With Dr Sagrario Peace Consent for Procedure: Emergent-no informed consent obtained Time out performed: Yes Sedative: etomidate Mg given: 20 Paralytic: rocuronium Mg given: 100 Laryngoscope: fiber optic video scope ET tube size: 8 ET tube uncuffed: Yes Tube secured depth (cm): 24 Tube secured location: lips Tube placement confirmation: visualized tube passing through cords, equal breath sounds bilaterally and confirmation by capnometry Patient tolerated procedure: well and no complications Intubation complications: none
[2020-12-26] VITALS (46 sets, daily range): BP systolic 97–164; BP diastolic 43–78; PULSE 75–109; RESP 18–22; TEMP 35.6–36.7; O2SAT 40–100; BMI 36.4
[2020-12-26 00:07] LABS: VBG Base Excess -6.8 mmol/L; VBG HCO3 19 mmol/L (22-26); VBG pCO2 41 mmHg; VBG pH 7.27 (7.32-7.43); VBG pO2 59 mmHg
[2020-12-26] MEDS: Rocuronium Bromide 50 MG/5 ML VIAL 100 MG IVPUSH (00:26)
[2020-12-26] MEDS: Etomidate 20 MG/10 ML VIAL IVPUSH (00:27)
[2020-12-26] MEDS: 0.9 % Sodium Chloride Flush 3 ML SYRINGE IVFLUSH ×4 (00:29→23:34)
[2020-12-26 00:40] LABS: VBG Base Excess -6.7 mmol/L; VBG HCO3 19 mmol/L (22-26); VBG pCO2 38 mmHg; VBG pO2 48 mmHg
[2020-12-26 00:41] LABS: Venous Blood Gas Refer to POC result
[2020-12-26 00:42] LABS: Venous Blood Gas Refer to POC result
[2020-12-26 00:42] LABS: Hematocrit 28.9 % (42-52); Hemoglobin 10.1 g/dl (14.0-18.0); Imm Gran Abs Auto 0.07 X10*3/uL (0.00-0.03); Imm Gran Pct Auto 0.8 % (0.0-0.4); Lymphocytes Absolute Auto 0.6 X10*3/uL (1.2-4.9); Lymphocytes Percent Auto 6.9 % (20-40); MANUAL DIFF FLAG SCAN; Mean Corpuscular HGB Conc 34.9 g/dl (31.0-36.0); Mean Corpuscular Hemoglobin 33.8 pg (27.0-33.0); Mean Corpuscular Volume 96.7 fL (80-98); Mean Platelet Volume 12.6 fL (9.4-12.4); Monocytes Absolute Auto 0.5 X10*3/uL (0.1-1.2); Monocytes Percent Auto 5.1 % (2-11); NRBC Pct Auto 0.4 /100WBC (0.0-0.2); Neutrophils Percent Auto 87.2 % (45-73); Platelet Count 136 X10*3/uL (160-400); Red Blood Count 2.99 X10*6/uL (4.60-5.80); Red Cell Distribution Width 18.2 % (11.0-16.0); SCAN SMEAR FLAG 1; White Blood Count 9.2 X10*3/uL (4.8-10.8)
[2020-12-26 00:59] LABS: Fibrinogen 263 MG/DL (259-690); INTERNATIONAL NORM RATIO 2.2 (0.9-1.1); Prothrombin Time 25.9 SEC (10.8-13.0)
[2020-12-26 01:01] LABS: SLIDE REVIEW VERIFIED
[2020-12-26 01:03] LABS: Partial Thromboplastin Time 47.4 SEC (24.1-38.0)
[2020-12-26 01:15] LABS: Alanine Aminotransferase 35 U/L (0-40); Albumin Level 2.1 g/dL (3.5-5.0); Alkaline Phosphatase 211 U/L (39-117); Aspartate Amino Transferase 57 U/L (5-37); Bilirubin Direct 1.3 mg/dL (0.0-0.5); Bilirubin Total 2.7 mg/dL (0.0-1.0); Blood Urea Nitrogen 64 mg/dL (9-16); Calcium 7.1 mg/dL (8.4-10.2); Gamma Glutamyl Transpeptidase 77 U/L (11-51); Glucose Random 333 mg/dL (60-115); Total Protein 5.3 g/dL (6.5-8.0)
[2020-12-26 01:20] LABS: VBG Base Excess -5.7 mmol/L; VBG HCO3 19 mmol/L (22-26); VBG pCO2 35 mmHg; VBG pH 7.33 (7.32-7.43); VBG pO2 38 mmHg
[2020-12-26] MEDS: rifAXIMin 550 MG TABLET PO ×4 (01:22→21:40)
[2020-12-26] MEDS: Lactulose 20 GM/30 ML SOLUTION 30 GM PO ×4 (01:22→21:40)
[2020-12-26] MEDS: Chlorhexidine Gluc Oral Rinse 15 ML MOUTHWASH BUCCAL ×4 (01:22→23:33)
[2020-12-26 01:24] LABS: Anion Gap 15 (12-20); Carbon Dioxide 19 mmol/L (22-29); Chloride 101 mmol/L (96-108); Creatinine Clr Calc Pharmacy 20.7; Estimated Glomerular Filt Rate 14; Potassium 6.1 mmol/L (3.3-5.1); Sodium 129 mmol/L (135-145)
[2020-12-26] MEDS: Pantoprazole Sodium 80 MG in 0.9 % Sodium Chloride 80 ML 10 MG IV ×2 (01:35→13:34)
[2020-12-26] MEDS: DOPamine HCL/D5W 400 MG/250 ML PLAST..BAG 46.5 MG IVCONT (01:35)
--- NOTE | 2020-12-26 01:38 | PC.NURSE ---
At approx 2014, dopamine gtt held briefly for lab draws off CVC. Immediately after labs were drawn, HR 30s, SpO2 60 via HFNC 50L/100%. Pt with upward gaze, unresponsive. PA called to room. Pt bagged with BVM, dopamine gtt increased. Recovered after 5 minutes. Per PA, labs only to be drawn peripherally, unable to turn off dopamine gtt. Family aware.
--- NOTE | 2020-12-26 01:45 | PM.CCN ---
Critical Care Event Note Summary Date of Service: 12/25/20 Code activated: No Narrative: This case had a high probability of a clinically significant, sudden, or life threatening deterioration of this patient's condition which required my full and direct attention, intervention and personal management. Pt having margarita red blood loss from respiratory tract (200cc's), his urine and he had a bloody bowel movement. Spoke with Dr Serra, concern for increased intracranial pressure. We decided to intubate the patient with a goal of pCO2 of 30-35. Smear noted to have shistocytes and Barney cells. Ammonia level noted to be elevated at 95, coags also extremely elevated, will give 1U FFP and cryoprecipitate, lactulose and rifaximin, as well as 3% saline at 20 mL/hour x4 for a total of 80ml's. Will continue to monitor liver labs, coags and cbc labs closely. Assessment and plan agreed with Dr. Serra Critical Care Time (minutes): 120
[2020-12-26] MEDS: propofoL 1,000 MG/100 ML VIAL 14.88 MG IVCONT ×4 (02:00→20:29)
[2020-12-26 02:40] LABS: VBG Base Excess -5.1 mmol/L; VBG HCO3 18 mmol/L (22-26); VBG pCO2 29 mmHg; VBG pH 7.39 (7.32-7.43); VBG pO2 45 mmHg
[2020-12-26] MEDS: Piperacillin Sodium/Tazobactam 2.25 GM in 0.9 % Sodium Chloride 50 ML IV (03:53)
[2020-12-26 04:39] LABS: VBG Base Excess -6.9 mmol/L; VBG HCO3 17 mmol/L (22-26); VBG pCO2 31 mmHg; VBG pH 7.35 (7.32-7.43); VBG pO2 50 mmHg
[2020-12-26 04:46] LABS: NRBC Pct Auto 0.5 /100WBC (0.0-0.2); SCAN SMEAR FLAG 1
[2020-12-26 04:47] LABS: Hematocrit 24.4 % (42-52); Hemoglobin 8.6 g/dl (14.0-18.0); Imm Gran Abs Auto 0.07 X10*3/uL (0.00-0.03); Imm Gran Pct Auto 0.7 % (0.0-0.4); Lymphocytes Absolute Auto 1.1 X10*3/uL (1.2-4.9); Mean Corpuscular HGB Conc 35.2 g/dl (31.0-36.0); Mean Corpuscular Volume 96.4 fL (80-98); Mean Platelet Volume 12.5 fL (9.4-12.4); Monocytes Absolute Auto 0.4 X10*3/uL (0.1-1.2); Monocytes Percent Auto 3.7 % (2-11); Neutrophils Absolute Auto 9.2 X10*3/uL (2.0-8.3); Neutrophils Percent Auto 85.6 % (45-73); Platelet Count 123 X10*3/uL (160-400); Red Blood Count 2.53 X10*6/uL (4.60-5.80); White Blood Count 10.8 X10*3/uL (4.8-10.8)
[2020-12-26 04:52] LABS: PLT ABN DIST 1
[2020-12-26 04:53] LABS: MANUAL DIFF FLAG NO
[2020-12-26 05:00] LABS: Fibrinogen 273 MG/DL (259-690); INTERNATIONAL NORM RATIO 1.9 (0.9-1.1); Prothrombin Time 23.3 SEC (10.8-13.0)
[2020-12-26 05:06] LABS: Ammonia 73 umol/L (13-55)
[2020-12-26 05:06] LABS: Partial Thromboplastin Time 42.6 SEC (24.1-38.0)
[2020-12-26 05:14] LABS: Alanine Aminotransferase 32 U/L (0-40); Albumin Level 2.1 g/dL (3.5-5.0); Alkaline Phosphatase 177 U/L (39-117); Aspartate Amino Transferase 47 U/L (5-37); Bilirubin Direct 1.3 mg/dL (0.0-0.5); Bilirubin Total 2.7 mg/dL (0.0-1.0); Gamma Glutamyl Transpeptidase 66 U/L (11-51)
[2020-12-26 05:24] LABS: Anion Gap 19 (12-20); Blood Urea Nitrogen 63 mg/dL (9-16); Calcium 7.3 mg/dL (8.4-10.2); Carbon Dioxide 14 mmol/L (22-29); Chloride 103 mmol/L (96-108); Creatinine Clr Calc Pharmacy 21.3; Estimated Glomerular Filt Rate 14; Glucose Random 361 mg/dL (60-115); Phosphorus 5.5 mg/dL (2.7-4.5); Potassium 5.3 mmol/L (3.3-5.1); Sodium 131 mmol/L (135-145)
[2020-12-26 05:36] LABS: Adenovirus PCR Not Detected (Not Detect.); Bordetella parapertussis PCR Not Detected (Not Detect.); Bordetella pertussis PCR Not Detected (Not Detect.); Chlamydia pneumoniae PCR Not Detected (Not Detect.); Coronavirus 229E PCR Not Detected (Not Detect.); Coronavirus HKU1 PCR Not Detected (Not Detect.); Coronavirus NL63 PCR Not Detected (Not Detect.); Coronavirus OC43 PCR Not Detected (Not Detect.); Human metapneumovirus PCR Not Detected (Not Detect.); Influenza A PCR Not Detected (Not Detect.); Influenza B PCR Not Detected (Not Detect.); Mycoplasma pneumoniae PCR Not Detected (Not Detect.); Parainfluenza 1 PCR Not Detected (Not Detect.); Parainfluenza 2 PCR Not Detected (Not Detect.); Parainfluenza 3 PCR Not Detected (Not Detect.); Parainfluenza 4 PCR Not Detected (Not Detect.); RSV PCR Not Detected (Not Detect.); Rhino/Enterovirus PCR Not Detected (Not Detect.); SARS-CoV-2 PCR Not Detected (Not Detect.)
[2020-12-26] MEDS: Insulin Lispro 100 UNIT/ML 3 ML VIAL 8 UNIT SUBCUT (06:14)
--- NOTE | 2020-12-26 06:36 | PC.NURSE ---
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
[2020-12-26 06:42] LABS: Venous Blood Gas Refer to POC result
[2020-12-26 06:42] LABS: Venous Blood Gas Refer to POC result
[2020-12-26] MEDS: DOPamine HCL/D5W 400 MG/250 ML PLAST..BAG 37.2 MG IVCONT ×2 (07:07→13:42)
[2020-12-26 07:31] LABS: Glucose Urine UA NEG (NEG); Leukocyte Esterase Urine NEG (NEG); Nitrite Urine NEG (NEG); Urine Blood 3+ (NEG); Urine Ketones NEG (NEG); Urine Protein NEG (NEG-TRACE)
[2020-12-26 07:32] LABS: Appearance Urine CLOUDY; Color Urine YELLOW
[2020-12-26 07:38] LABS: RBC Urine 50-75 /HPF (0); Renal Epithelial Cells Urine TRACE /LPF; Squamous Epithelial Cell Urine TRACE /LPF; WBC Urine 0 /HPF (0-4)
[2020-12-26 08:18] LABS: Glucose, Whole Blood 317 mg/dL (60-115)
[2020-12-26 08:23] LABS: HBsAGNum1 0.27 S/CO (0.00-0.99); Hepatitis B Surface Antigen Negative (Negative)
[2020-12-26] MEDS: Insulin Lispro 100 UNIT/ML 3 ML VIAL SUBCUT ×4 (08:23→21:36)
[2020-12-26 08:25] LABS: ~HepC Num1 0.18 S/CO (0.00-0.79); ~Hepatitis C Antibody Nonreactive (Nonreactive)
[2020-12-26 08:47] LABS: HBS Num1 0.12 mIU/mL (0-7.99); HBc Num1 0.51 S/CO (0.00-0.79); Hepatitis A Antibody IgM 0.63 Index (0-0.79); Hepatitis B Core Antibody Nonreactive (Nonreactive); ~HepC Num1 0.14 S/CO (0.00-0.79); ~Hepatitis A Antibody IgM Nonreactive (Nonreactive); ~Hepatitis B Surface Antibody NONREACTIVE (Nonreactive); ~Hepatitis C Antibody Nonreactive (Nonreactive)
[2020-12-26] MEDS: Dextrose 5 % and 0.9 % NaCl 1,000 ML 100 ML IVCONT ×2 (09:03→20:28)
[2020-12-26 09:26] LABS: HBsAGNum1 12.79 S/CO (0.00-0.99)
[2020-12-26] MEDS: Famotidine/PF 20 MG/2 ML VIAL IVPUSH ×2 (09:56→21:40)
[2020-12-26] MEDS: Sodium Bicarbonate 650 MG TABLET PO ×3 (10:26→21:40)
--- NOTE | 2020-12-26 10:27 | P.CNGI_ITS ---
History of Present Illness Data of Consult Service Date: 12/26/20 Requesting physician: Coy Serra Primary Care Provider: [facility] HPI Reason for consult: GI Bleed 75-year-old Congolese-speaking male witH cirrhosis, COPD, CHF, HTN, DM2 on insulin, hepatic encephalopathy brought to [facility] from his long term after he was found to be hypotensive and hypothermic. Patient has received midodrine, 1.5L NS, albumin, zosyn, calcium gluconate and is currently on a dopamine drip for BP support. His serum creatinine has gone above 4.0seen at [facility] on 12/24/20 with hypothermia, hypotension and electrolyte imbalance HPI narrative: Patient with history of right ventricular dysfunction with high pressures and pulmonary hypertension with heart failure of alcoholic cirrhosis and CKD was admitted here on 11/30 for CHF. sent from long term for blood pressure in 70s patient complaining of weakness no fever no chills no abdominal pain no vomiting no diarrhea patient on Lasix 40 mg twice daily has chronic leg edema patient is obese with weighing 124 kg on arrival patient was hypothermic with pulse rate of 52 respiratory rate 17 blood pressure 96/33 saturating 97% on room air no history of fall no headache no rash patient was complaining of sore throat earlier Patient gave a hx of weight gain and denied nausea, vomiting, diarrhea or abdominal pain. Patient quitted drinking ETOH 6 years ago. Upon arrival to the ED, his blood pressure was 96/33, HR 52, RR 17 O2 sat 97% on room air, temp 92.3F. Lab evaluation showed anemia, Na 123, K 5.4, bicarb 19, BUN 60, Cr 4.77 with acute on chronic renal failure. COVID negative. Pt was admitted to ICU and started on midodrine, 1.5L NS, albumin, zosyn, calcium gluconate, 1 dose of Solu-Cortef and dopamine drip for BP support. Emil hugger was applied for re-warming. CT scan of the chest showed bilateral nodular infiltrates and bibasilar areas of consolidation. Pt was intubated this am due to worsening hypoxia with increasing levels of FiO2. He had an episode of hematemsis this am. OJ tube was passed and 200 cc of dark blood was aspirated. He is bleeding from multiple sites including nose and lungs (as noted on bronchoscopy earlier this am Unable to obtain any history from the patient since he is intubated and sedated. History was obtained from review of his medical records and from Dr Serra and pt's nurse. IMAGING STUDIES: 12/24/[address] SCAN SHOWED: Study limited by motion. Limited evaluation of the pancreas especially. There may be stranding along the pancreatic parenchyma. No fluid collection or focal abnormality. Cirrhotic appearance of the liver. Bilateral lung lower lobe opacities are nonspecific. Consider atelectasis or pneumonia. Aspiration possible. 11/28/20 ABDOMINAL ULTRASOUND SHOWED: 1. Hepatic findings suggest cirrhosis. No focal abnormality in the visualized portions. 2. Cholelithiasis without evidence for acute cholecystitis. ENDOSCOPIC STUDIES: 11/2015 UPPER ENDOSCOPY AND COLONOSCOPY TILL RT COLON WERE PERFORMED BY DR. BECK: EGD was normal - no varices of portal hypertensive gastropathy was noted. An 8 mm polyp was removed from 60 cm, diverticulosis was noted throughout the colon Moderate amount of liquid and semi-formed stool left in the colon December 2015 CT colonography did not show any large mass of persistent constricting lesion or polyp. There was some retained material. PAST GI HISTORY BY REVIEW OF MEDICAL RECORDS: Pt was seen by [facility] in 2012 for liver disease (elevated LFTs) due to GARVEY and past ETOH abuse. He was lost to FU and returned in 2018 with cirrhosis complicated portal htn, thrombocytopenia & hepatic encephalopathy. He has been followed intermittently by Hui Gonzalez NP since then Hepatic encephalopathy was treated with rifaximin since patient had trouble with diarrhea when he took lactulose Past workup showed: 03/17/20 labs showed albumin of 2.6, bilirubin 4.1, alkaline phosphatase 225, AST 42, ALT 21, ammonia 83, AFP 3.6 11/2018 ferritin 156, MADELINE & MADELINE negative, ASMA slightly elevated at 31 and 23 Hep A, B and C serologies were negative in 2008. 09/2019 ULTRASOUND OF THE ABDOMEN - LIVER: There is diffuse increased liver parenchymal echogenicity, consistent with hepatic steatosis. The liver is normal in size and scalloped contour. No biliary ductal dilatation. GALLBLADDER: The gallbladder is physiologically distended. Multiple mobile gallstones are present. No evidence of gallbladder wall thickening or pericholecystic fluid. COMMON BILE DUCT: Normal in caliber measuring 0.3 cm in diameter. IMPRESSION: 1. Hepatic steatosis with scattered liver border but no focal lesion or intrahepatic ductal dilatation seen. 2. Cholelithiasis without wall thickening. 04/2020 PATIENT WAS LAST SEEN BY HUI GONZALEZ, INDUSTRIAL ARTS TEACHER: Assessments 1. Alcoholic cirrhosis, unspecified whether ascites present - K70.30 (Primary) 2. Encephalopathy - G93.40 3. Serum ammonia increased - E72.20 4. Thrombocytopenia - D69.6 5. Shortness of breath - R06.02 6. Neuropathy - G62.9, diabetes vs liver Treatment 1. Alcoholic cirrhosis, unspecified whether ascites present Continue Xifaxan Tablet, 550 MG, 1 tablet, Orally, three times a day, 30 days, 90 Tablet, Refills 6 LAB: BRAIN NATRIURETIC PEPTIDE (BNP) IMAGING: US ABD Notes: His daughter him on speaker phone and produce jenny because she cares for him in usually helps with the history. She tells me that he has had absolutely nothing to drink in terms of alcohol since our last visit. She has make sure this because he staying with her and she is watched very carefully. I am very happy about this and I congratulate her and tell them both that this is the best thing to do for the health of his liver. He continues on his Xifaxan but he only has a couple of pills left because they thought was antibiotic they did not understand that it is a chronic therapy which I educated him to today he will be taking this lifelong. He did not tolerate lactulose well due to diarrhea. This gentleman with both liver disease and diabetes is complaining of a pins and needles pain in his feet. His daughter says I know that he is a diabetic and this causes it but he is really suffering. Apparently he is in between primary care providers right now because Dr. Green left [facility] and she is uncertain her new primary is. When she try to present this to complaint to the primary it seemed to fall on de fears. I think there may have been in communication problem. I will start him on a low dose of gabapentin at nighttime and I explained to them that this medication needs to be titrated slowly and it may not be effective right away. They really need to give it 46 weeks before the nursing department chairperson the affects because the onset is slow in the affect is subtle but it is generally well tolerated when treating diabetic neuropathy. There grateful for this. I may need to consider B12 testing is not responding well to therapy. . 2. Neuropathy Start Gabapentin Capsule, 300 MG, 1 capsule, qhs, Orally, Once a day, 30 day(s), 30 Capsule, Refills 3 Review of Systems Review of Systems: Yes Unobtainable due to mental condition [facility] Past Medical History Medical History (Updated 12/28/20 @ 14:01 by Coy Serra MD) Alcoholic cirrhosis Coagulopathy COPD (chronic obstructive pulmonary disease) Diabetes HTN (hypertension) Hyperlipidemia Pneumatosis intestinalis of large intestine Portal venous hypertension Pulmonary hypertension Pulmonary hypertension Social History Social History Household Members: None Housing: [facility] Do you presently have visiting nurse or other home services: No Unable to assess alcohol history related to: Unknown Alcohol intake: never Patient Tobacco Use Status: Never used Tobacco Advance Directives Date on File: 12/09/20 service: No Current occupational status: retired [employer] Allergies Allergy/AdvReac Type Severity Reaction Status Date / Time No Known Allergies Allergy Verified 11/28/20 10:42 Active Medications: Current Medications Generic Name Dose Route Start Last Admin Trade Name Rowan PRN Reason Stop Dose Admin Acetylcysteine 400 mg 12/25/20 12:00 12/26/20 07:50 Acetylcysteine 10 % 400 Mg/4 Ml Vial INHALE Not Given RQ4H WHILE AWAKE KIMMIE Albuterol/Ipratropium 3 ml 12/25/20 12:00 12/26/20 07:50 Albuterol/Iprat 2.5/0.5mg 3 Ml Ampul.Neb INHALE Not Given RQ4H WHILE AWAKE KIMMIE Chlorhexidine Gluconate 15 ml 12/25/20 23:45 12/26/20 09:56 Chlorhexidine Gluc Oral Rinse 15 Ml Mouthwash BUCCAL 15 ml TID KIMMIE Administration Famotidine 20 mg 12/25/20 21:00 12/26/20 09:56 Famotidine/Pf 20 Mg/2 Ml Vial IVPUSH 20 mg BID KIMMIE Administration Dopamine HCl/Dextrose 400 mg in 250 mls @ 0 mls/hr 12/24/20 22:45 12/26/20 07:07 IVCONT 8 mcg/kg/min .Q0M KIMMEI 37.2 mls/hr Administration Protocol Per Protocol Piperacillin Sod/Tazobactam 50 mls @ 100 mls/hr 12/25/20 11:30 12/26/20 04:38 Sod 2.25 gm/ Sodium Chloride IV Infused Q8H KIMMIE Infusion Dextrose/Sodium Chloride 1,000 mls @ 100 mls/hr 12/25/20 13:30 12/26/20 09:03 D5ns IVCONT 100 mls/hr .Q10H KIMMIE Administration Methylprednisolone Sodium 66 mls @ 66 mls/hr 12/25/20 20:00 12/25/20 22:10 Succinate 1,000 mg/ Sodium IV Infused Chloride Q24H KIMMIE Infusion Pantoprazole Sodium 80 mg/ 100 mls @ 10 mls/hr 12/25/20 18:00 12/26/20 01:35 Sodium Chloride IV 8 mg/hr .Q10H KIMMIE 10 mls/hr Administration 8 MG/HR Propofol 1,000 mg in 100 mls @ 0 mls/hr 12/26/20 01:30 12/26/20 09:56 Diprivan IVCONT 20 mcg/kg/min .Q0M KIMMIE 14.88 mls/hr Administration Protocol Per Protocol Insulin Human Lispro 0 unit 12/25/20 16:30 12/26/20 08:23 Insulin Lispro 100 Unit/Ml 3 Ml Vial SUBCUT 8 unit QIDACHS [facility] Administration Protocol Lactulose 30 gm 12/25/20 23:45 12/26/20 10:26 Lactulose 20 Gm/30 Ml Solution PO 30 gm TID KIMMIE Administration Rifaximin 550 mg 12/25/20 23:45 12/26/20 10:26 Rifaximin 550 Mg Tablet PO 550 mg TID KIMMIE Administration Sodium Bicarbonate 650 mg 12/25/20 13:00 12/26/20 10:26 Sodium Bicarbonate 650 Mg Tablet PO 650 mg QID KIMMIE Administration Sodium Chloride 3 ml 12/25/20 16:00 12/26/20 08:24 0.9 % Sodium Chloride Flush 3 Ml Syringe IVFLUSH 3 ml QSHIFT [facility] Administration Home Medications Medication Instructions Recorded Confirmed Last Taken Type omeprazole 20 mg capsule,delayed 20 mg PO DAILY@0630 05/23/20 12/25/20 11/27/20 History release rifaximin 550 mg tablet (Xifaxan) 550 mg PO TID 05/23/20 12/25/20 11/27/20 History aspirin 81 mg tablet,delayed 81 mg PO DAILY 11/28/20 12/25/20 11/27/20 History release atorvastatin 40 mg tablet 40 mg PO DAILY 11/28/20 12/25/20 11/27/20 History insulin aspart U-100 100 unit/mL 22 unit SUBCUT DAILY@0730 11/28/20 12/25/20 Unknown History (3 mL) subcutaneous pen (Novolog Flexpen U-100 Insulin aspart) insulin aspart U-100 100 unit/mL 24 unit SUBCUT QPM 11/28/20 12/25/20 Unknown History (3 mL) subcutaneous pen (Novolog Flexpen U-100 Insulin aspart) insulin glargine 100 unit/mL (3 62 unit SUBCUT BEDTIME 11/28/20 12/25/20 11/27/20 History mL) subcutaneous pen (Lantus Solostar U-100 Insulin) propranolol 10 mg tablet 10 mg PO BID 11/28/20 12/25/20 11/27/20 History spironolactone 50 mg tablet 50 mg PO DAILY 11/28/20 12/25/20 11/27/20 History umeclidinium 62.5 mcg/actuation 1 inh INHALATION DAILY 11/28/20 12/25/20 11/27/20 History blister powder for inhalation (Incruse Ellipta) potassium chloride 10 mEq 10 meq PO 12/25/20 Unknown History capsule,extended release Physical Exam Vital Signs: Vital Signs: Last Vital Signs Temp 97.3 F 12/26/20 10:00 Pulse 91 12/26/20 10:00 Resp 20 12/26/20 10:00 BP 107/46 L 12/26/20 10:00 Pulse Ox 98 12/26/20 10:00 Body Mass Index 36.4 Const: General: ill appearing and patient obtunded (sedated ) Nutritional Appearance: obese and Edematous Orientation/consciousness: patient obtunded (sedated ) HENMT: Head: Yes normal to inspection Ears: hearing grossly normal bilaterally Mouth: Normal oral and palatal mucosa present Eyes: Sclerae: sclerae normal Pupils: Equal, round and reactive pupils present Neck: Neck: Yes normal visual inspection Chest: Chest palpation & inspection: normal inspection of the chest Resp: Effort & Inspection: other (On mechanical ventilation) Auscultation: rales (bilateral) Cardio: Palpation: normal PMI Rate: regular rate Rhythm: regular rhythm Heart sounds: S1 normal heart sound present, S2 normal heart sound present and no murmurs GI: Palpation (GI): Soft to palpation, nontender and No hepatosplenomegaly present Auscultation: normal bowel sounds Rectal Exam - Male: Yes deferred Skin: General skin exam: no rashes or lesions noted Neuro: General: gait normal, moves all extremities and patient obtunded (sedated ) Cranial nerves: Yes Equal, round and reactive pupils present Extrem: General: Yes pedal edema Psych: Appearance: other (Intubated and sedated) Results Labs CBC & Chem 7: 12/28/20 05:13 12/28/20 05:13 Labs: Short CBC 12/25/20 12/26/20 12/26/20 Range/Units 20:18 00:31 04:30 WBC 10.4 9.2 10.8 (4.8-10.8) X10*3/uL Hgb 10.0 L D 10.1 L 8.6 L (14.0-18.0) g/dl Hct 28.4 L D 28.9 L 24.4 L (42-52) % Plt Count 127 L 136 L 123 L (160-400) X10*3/uL BMP 12/25/20 12/26/20 12/26/20 20:18 00:31 04:30 Sodium 128 L 129 L 131 L Potassium 5.9 H 6.1 H* 5.3 H Chloride 100 101 103 Carbon Dioxide 17 L 19 L 14 L BUN 65 H 64 H 63 H Creatinine 4.30 H* 4.25 H* 4.12 H* Calcium 7.4 L D 7.1 L 7.3 L Cardiac Enzymes 12/25/20 12/26/20 Range/Units 12:24 04:30 Total Creatine Kinase 236 H 108 D (38-174) U/L Liver Function 12/25/20 12/26/20 12/26/20 Range/Units 20:18 00:31 04:30 Total Bilirubin 2.7 H 2.7 H 2.7 H (0.0-1.0) mg/dL Direct Bilirubin 1.3 H 1.3 H (0.0-0.5) mg/dL GGT 77 H 66 H (11-51) U/L AST 62 H 57 H 47 H (5-37) U/L ALT 36 35 32 (0-40) U/L Alkaline Phosphatase 220 H D 211 H 177 H (39-117) U/L Albumin 2.0 L 2.1 L 2.1 L (3.5-5.0) g/dL Urine 12/26/20 Range/Units 07:17 Urine Color YELLOW Urine Appearance CLOUDY Urine pH 6.0 (5.0-8.0) Ur Specific [place] 1.010 (1.005-1.025) Urine Protein NEG (NEG-TRACE) MG/DL Urine Glucose (UA) NEG (NEG) MG/DL Microbiology Microbiology Results: Microbiology 12/25/20 10:30 Sputum - Suctioned Gram Stain - Final 12/25/20 10:30 Sputum - Suctioned Sputum Culture - Preliminary Normal so far. 12/25/20 10:30 Urine [place] Urine Culture - Final No growth. 12/24/20 18:55 Blood - Venous Blood Culture - Preliminary No growth after 24 hours. 12/24/20 18:41 Blood - Venous Blood Culture - Preliminary No growth after 24 hours. Assessment and Plan (1) Upper GI bleeding: Status: Acute (2) Cirrhosis of liver without ascites: Status: Acute (3) Acute pancreatitis: Qualifiers: Acute pancreatitis complication: unspecified Pancreatitis type: other Qualified Code(s): K85.80 - Other acute pancreatitis without necrosis or infection Status: Acute (4) Encephalopathy: Status: Acute 75-year-old Congolese-speaking male witH cirrhosis, COPD, CHF, HTN, DM2 on insulin, hepatic encephalopathy admitted to ICU with hypotension, hypothermia, electrolyte imbalance and acute on chronic renal failure and intubated due to worsening hypoxia. Hospital course has been complicated by upper GI bleed and bleeding from multiple sites including nasal bleeds, alveolar hemorrhage and hematuria. It is unclear if hematemesis was was from primary upper GI source versus s wallowed blood from epistaxis. Due to end-stage liver disease, patient is at risk for variceal bleeding. Of note no varices or portal gastropathy was noted on his last EGD in 2016. Since no ascites noted on imaging studies, HRS is unlikely. RECOMMENDATIONS: 1. Continue PPI infusion and monitor hemoglobin and hematocrit twice daily. 2. Continue Rifaximin 550 mg three times daily for hepatic encephalopathy. 3. Proceed with upper endoscopy for further evaluation. Procedure and potential complications including bleeding, perforation, drug reaction and aspiration were reviewed with the patient's daughter, Susannah Bowles Tel [phone], and informed verbal consent was obtained Procedures Date of Service Date of Service: 12/26/20
--- NOTE | 2020-12-26 10:37 | P.PNNP_ITS ---
Subjective Subjective Date of Service: 12/26/20 Interval history: Seen AM. Events noted. Going to get bronchoscopy. D/W ICU & Pulmonary Attending. Renal functions stable; Intubated Physical Exam Vital Signs: Vital Signs: Last Vital Signs Temp 97.3 F 12/26/20 10:00 Pulse 91 12/26/20 10:00 Resp 20 12/26/20 10:00 BP 107/46 L 12/26/20 10:00 Pulse Ox 98 12/26/20 10:00 Body Mass Index 36.4 Intubated, Ventilated Neck: Neck: Yes supple Resp: Auscultation: diminished lung sounds Cardio: Rate: regular rate GI: Palpation (GI): Soft to palpation Neuro: Other: Sedated Objective Data Labs CBC & Chem 7: 12/26/20 04:30 12/26/20 04:30 Labs: Laboratory Results - last 24 hr 12/25/20 12/25/20 12/25/20 12:24 12:24 12:24 WBC RBC Hgb Hct MCV MCH MCHC RDW Plt Count MPV Immature Gran % (Auto) Neut % (Auto) Lymph % (Auto) [place] % (Auto) Eos % (Auto) Baso % (Auto) Lymph # (Auto) [place] # (Auto) Eos # (Auto) Baso # (Auto) Abs Immat Gran (auto) Absolute Neuts (auto) Absolute Nucleated RBC Nucleated RBC % (auto) Neutrophils % (Manual) Band Neutrophils % Lymphocytes % (Manual) Monocytes % (Manual) Abs Neuts (Manual) Lymphocytes # (Manual) Monocytes # (Manual) Platelet Estimate Large Platelets Plt Morphology Comment RBC Morphology [place] Cells Schistocytes Smear Tech's Comments ESR 53 H PT INR APTT Fibrinogen VBG pH VBG pCO2 VBG pO2 VBG HCO3 VBG O2 Saturation VBG Base Excess Sodium Potassium Chloride Carbon Dioxide Anion Gap BUN Creatinine Estim Creat Clear Calc Estimated GFR POC Glucose Random Glucose Calcium Phosphorus Magnesium Total Bilirubin Direct Bilirubin GGT AST ALT Alkaline Phosphatase Ammon[place] Total Creatine Kinase Total Protein Albumin Lipase Urine Color Urine Appearance Urine pH Ur Specific [place] Urine Protein Urine Glucose (UA) Urine Ketones Urine Blood Urine Nitrite Ur Leukocyte Esterase Urine RBC Urine WBC Ur Squamous Epith Cells Ur Renal Epithelial Cell Urine Bacteria Ur Random Sodium Respiratory Panel [place] Adenovirus (Rapid PCR) B.pert (TEM-PCR) B.parapertussis DNA PCR C. pneumoniae DNA (PCR) Coronavirus OC43 (PCR) Coronavirus HKU1 (PCR) Coronavirus 229E (PCR) Coronavirus NL63 (PCR) Hepatitis A IgM Ab Hep Bs Antigen Negative Hep Bs Antibody Hep B Core Total Ab Hepatitis C Ab (EIA) Nonreactive Human Metapneumovir PCR Influenza A (RT-PCR) Influenza B (RT-PCR) M. pneumoniae (PCR) Parainfluenza 1 (PCR) Parainfluenza 2 (PCR) Parainfluenza 3 (PCR) Parainfluenza 4 (PCR) RSV (PCR) Entero/Rhino (PCR) SARS-CoV-2 RNA (RT-PCR) Blood Type Antibody Screen Crossmatch 12/25/20 12/25/20 12/25/20 12:24 12:24 13:10 WBC RBC Hgb Hct MCV MCH MCHC RDW Plt Count MPV Immature Gran % (Auto) Neut % (Auto) Lymph % (Auto) [place] % (Auto) Eos % (Auto) Baso % (Auto) Lymph # (Auto) [place] # (Auto) Eos # (Auto) Baso # (Auto) Abs Immat Gran (auto) Absolute Neuts (auto) Absolute Nucleated RBC Nucleated RBC % (auto) Neutrophils % (Manual) Band Neutrophils % Lymphocytes % (Manual) Monocytes % (Manual) Abs Neuts (Manual) Lymphocytes # (Manual) Monocytes # (Manual) Platelet Estimate Large Platelets Plt Morphology Comment RBC Morphology [place] Cells Schistocytes Smear Tech's Comments ESR PT INR APTT Fibrinogen VBG pH VBG pCO2 VBG pO2 VBG HCO3 VBG O2 Saturation VBG Base Excess Sodium Potassium Chloride Carbon Dioxide Anion Gap BUN Creatinine Estim Creat Clear Calc Estimated GFR POC Glucose Random Glucose Calcium Phosphorus Magnesium Total Bilirubin Direct Bilirubin GGT AST ALT Alkaline Phosphatase Ammonia 58 H Total Creatine Kinase 236 H Total Protein Albumin Lipase Urine Color Urine Appearance Urine pH Ur Specific [place] Urine Protein Urine Glucose (UA) Urine Ketones Urine Blood Urine Nitrite Ur Leukocyte Esterase Urine RBC Urine WBC Ur Squamous Epith Cells Ur Renal Epithelial Cell Urine Bacteria Ur Random Sodium 22.0 Respiratory Panel [place] Adenovirus (Rapid PCR) B.pert (TEM-PCR) B.parapertussis DNA PCR C. pneumoniae DNA (PCR) Coronavirus OC43 (PCR) Coronavirus HKU1 (PCR) Coronavirus 229E (PCR) Coronavirus NL63 (PCR) Hepatitis A IgM Ab Hep Bs Antigen Hep Bs Antibody Hep B Core Total Ab Hepatitis C Ab (EIA) Human Metapneumovir PCR Influenza A (RT-PCR) Influenza B (RT-PCR) M. pneumoniae (PCR) Parainfluenza 1 (PCR) Parainfluenza 2 (PCR) Parainfluenza 3 (PCR) Parainfluenza 4 (PCR) RSV (PCR) Entero/Rhino (PCR) SARS-CoV-2 RNA (RT-PCR) Blood Type Antibody Screen Crossmatch 12/25/20 12/25/20 12/25/20 15:14 16:37 20:18 WBC RBC Hgb Hct MCV MCH MCHC RDW Plt Count MPV Immature Gran % (Auto) Neut % (Auto) Lymph % (Auto) [place] % (Auto) Eos % (Auto) Baso % (Auto) Lymph # (Auto) [place] # (Auto) Eos # (Auto) Baso # (Auto) Abs Immat Gran (auto) Absolute Neuts (auto) Absolute Nucleated RBC Nucleated RBC % (auto) Neutrophils % (Manual) Band Neutrophils % Lymphocytes % (Manual) Monocytes % (Manual) Abs Neuts (Manual) Lymphocytes # (Manual) Monocytes # (Manual) Platelet Estimate Large Platelets Plt Morphology Comment RBC Morphology [place] Cells Schistocytes Smear Tech's Comments ESR PT INR APTT Fibrinogen VBG pH VBG pCO2 VBG pO2 VBG HCO3 VBG O2 Saturation VBG Base Excess Sodium Potassium Chloride Carbon Dioxide Anion Gap BUN Creatinine Estim Creat Clear Calc Estimated GFR POC Glucose 264 H 276 H Random Glucose Calcium Phosphorus Magnesium Total Bilirubin Direct Bilirubin GGT AST ALT Alkaline Phosphatase Ammonia 96 H Total Creatine Kinase Total Protein Albumin Lipase Urine Color Urine Appearance Urine pH Ur Specific [place] Urine Protein Urine Glucose (UA) Urine Ketones Urine Blood Urine Nitrite Ur Leukocyte Esterase Urine RBC Urine WBC Ur Squamous Epith Cells Ur Renal Epithelial Cell Urine Bacteria Ur Random Sodium Respiratory Panel [place] Adenovirus (Rapid PCR) B.pert (TEM-PCR) B.parapertussis DNA PCR C. pneumoniae DNA (PCR) Coronavirus OC43 (PCR) Coronavirus HKU1 (PCR) Coronavirus 229E (PCR) Coronavirus NL63 (PCR) Hepatitis A IgM Ab Hep Bs Antigen Hep Bs Antibody Hep B Core Total Ab Hepatitis C Ab (EIA) Human Metapneumovir PCR Influenza A (RT-PCR) Influenza B (RT-PCR) M. pneumoniae (PCR) Parainfluenza 1 (PCR) Parainfluenza 2 (PCR) Parainfluenza 3 (PCR) Parainfluenza 4 (PCR) RSV (PCR) Entero/Rhino (PCR) SARS-CoV-2 RNA (RT-PCR) Blood Type Antibody Screen Crossmatch 12/25/20 12/25/20 12/25/20 20:18 20:18 20:18 WBC 10.4 RBC 2.98 L D Hgb 10.0 L D Hct 28.4 L D MCV 95.3 MCH 33.6 H MCHC 35.2 RDW 18.0 H Plt Count 127 L MPV 12.6 H Immature Gran % (Auto) 0.4 Neut % (Auto) 80.6 H Lymph % (Auto) 8.2 L [place] % (Auto) 10.6 Eos % (Auto) 0.1 Baso % (Auto) 0.1 Lymph # (Auto) 0.9 L [place] # (Auto) 1.1 Eos # (Auto) 0.0 Baso # (Auto) 0.0 Abs Immat Gran (auto) 0.04 H Absolute Neuts (auto) 8.3 Absolute Nucleated RBC 0.030 H Nucleated RBC % (auto) 0.3 H Neutrophils % (Manual) 82 H Band Neutrophils % 2 L Lymphocytes % (Manual) 10 L Monocytes % (Manual) 6 Abs Neuts (Manual) 8.7 H Lymphocytes # (Manual) 1.0 Monocytes # (Manual) 0.6 Platelet Estimate SLIGHTLY DECREASED Large Platelets PRESENT Plt Morphology Comment NOTED RBC Morphology NOTED [place] Cells 1+ ( Schistocytes 1+ (0-2) Smear Tech's Comments ESR PT INR APTT Fibrinogen VBG pH 7.34 VBG pCO2 33 VBG pO2 44 VBG HCO3 18 L VBG O2 Saturation 68.0 VBG Base Excess -6.3 Sodium 128 L Potassium 5.9 H Chloride 100 Carbon Dioxide 17 L Anion Gap 17 BUN 65 H Creatinine 4.30 H* Estim Creat Clear Calc 20.4 Estimated GFR 14 POC Glucose Random Glucose 312 H D Calcium 7.4 L D Phosphorus Magnesium Total Bilirubin 2.7 H Direct Bilirubin GGT AST 62 H ALT 36 Alkaline Phosphatase 220 H D Ammonia Total Creatine Kinase Total Protein 5.2 L Albumin 2.0 L Lipase 65 Urine Color Urine Appearance Urine pH Ur Specific [place] Urine Protein Urine Glucose (UA) Urine Ketones Urine Blood Urine Nitrite Ur Leukocyte Esterase Urine RBC Urine WBC Ur Squamous Epith Cells Ur Renal Epithelial Cell Urine Bacteria Ur Random Sodium Respiratory Panel [place] Adenovirus (Rapid PCR) B.pert (TEM-PCR) B.parapertussis DNA PCR C. pneumoniae DNA (PCR) Coronavirus OC43 (PCR) Coronavirus HKU1 (PCR) Coronavirus 229E (PCR) Coronavirus NL63 (PCR) Hepatitis A IgM Ab Hep Bs Antigen Hep Bs Antibody Hep B Core Total Ab Hepatitis C Ab (EIA) Human Metapneumovir PCR Influenza A (RT-PCR) Influenza B (RT-PCR) M. pneumoniae (PCR) Parainfluenza 1 (PCR) Parainfluenza 2 (PCR) Parainfluenza 3 (PCR) Parainfluenza 4 (PCR) RSV (PCR) Entero/Rhino (PCR) SARS-CoV-2 RNA (RT-PCR) Blood Type Antibody Screen Crossmatch 12/25/20 12/25/20 12/25/20 21:12 21:29 22:37 WBC RBC Hgb Hct MCV MCH MCHC RDW Plt Count MPV Immature Gran % (Auto) Neut % (Auto) Lymph % (Auto) [place] % (Auto) Eos % (Auto) Baso % (Auto) Lymph # (Auto) [place] # (Auto) Eos # (Auto) Baso # (Auto) Abs Immat Gran (auto) Absolute Neuts (auto) Absolute Nucleated RBC Nucleated RBC % (auto) Neutrophils % (Manual) Band Neutrophils % Lymphocytes % (Manual) Monocytes % (Manual) Abs Neuts (Manual) Lymphocytes # (Manual) Monocytes # (Manual) Platelet Estimate Large Platelets Plt Morphology Comment RBC Morphology [place] Cells Schistocytes Smear Tech's Comments ESR PT 23.4 H D INR 2.0 H APTT 49.3 H Fibrinogen 282 VBG pH VBG pCO2 VBG pO2 VBG HCO3 VBG O2 Saturation VBG Base Excess Sodium Potassium Chloride Carbon Dioxide Anion Gap BUN Creatinine Estim Creat Clear Calc Estimated GFR POC Glucose 294 H Random Glucose Calcium Phosphorus Magnesium Total Bilirubin Direct Bilirubin GGT AST ALT Alkaline Phosphatase [place]mon[place] Total Creatine Kinase Total Protein Albumin Lipase Urine Color Urine Appearance Urine pH Ur Specific [place] Urine Protein Urine Glucose (UA) Urine Ketones Urine Blood Urine Nitrite Ur Leukocyte Esterase Urine RBC Urine WBC Ur Squamous Epith Cells Ur Renal Epithelial Cell Urine Bacteria Ur Random Sodium Respiratory Panel [place] Adenovirus (Rapid PCR) B.pert (TEM-PCR) B.parapertussis DNA PCR C. pneumoniae DNA (PCR) Coronavirus OC43 (PCR) Coronavirus HKU1 (PCR) Coronavirus 229E (PCR) Coronavirus NL63 (PCR) Hepatitis A IgM Ab Hep Bs Antigen Hep Bs Antibody Hep B Core Total Ab Hepatitis C Ab (EIA) Human Metapneumovir PCR Influenza A (RT-PCR) Influenza B (RT-PCR) M. pneumoniae (PCR) Parainfluenza 1 (PCR) Parainfluenza 2 (PCR) Parainfluenza 3 (PCR) Parainfluenza 4 (PCR) RSV (PCR) Entero/Rhino (PCR) SARS-CoV-2 RNA (RT-PCR) Blood Type O Positive Antibody Screen NEGATIVE Crossmatch See Detail 12/26/20 12/26/20 12/26/20 00:00 00:31 00:31 WBC 9.2 RBC 2.99 L Hgb 10.1 L Hct 28.9 L MCV 96.7 MCH 33.8 H MCHC 34.9 RDW 18.2 H Plt Count 136 L MPV 12.6 H Immature Gran % (Auto) 0.8 H Neut % (Auto) 87.2 H Lymph % (Auto) 6.9 L [place] % (Auto) 5.1 Eos % (Auto) 0.0 Baso % (Auto) 0.0 Lymph # (Auto) 0.6 L [place] # (Auto) 0.5 Eos # (Auto) 0.0 Baso # (Auto) 0.0 Abs Immat Gran (auto) 0.07 H Absolute Neuts (auto) 8.0 Absolute Nucleated RBC 0.040 H Nucleated RBC % (auto) 0.4 H Neutrophils % (Manual) Band Neutrophils % Lymphocytes % (Manual) Monocytes % (Manual) Abs Neuts (Manual) Lymphocytes # (Manual) Monocytes # (Manual) Platelet Estimate Large Platelets Plt Morphology Comment RBC Morphology [place] Cells Schistocytes Smear Tech's Comments VERIFIED ESR PT 25.9 H INR 2.2 H APTT 47.4 H Fibrinogen 263 VBG pH 7.27 L VBG pCO2 41 VBG pO2 59 VBG HCO3 19 L VBG O2 Saturation 81.0 VBG Base Excess -6.8 Sodium Potassium Chloride Carbon Dioxide Anion Gap BUN Creatinine Estim Creat Clear Calc Estimated GFR POC Glucose Random Glucose Calcium Phosphorus Magnesium Total Bilirubin Direct Bilirubin GGT AST ALT Alkaline Phosphatase [place]mon[place] Total Creatine Kinase Total Protein Albumin Lipase Urine Color Urine Appearance Urine pH Ur Specific [place] Urine Protein Urine Glucose (UA) Urine Ketones Urine Blood Urine Nitrite Ur Leukocyte Esterase Urine RBC Urine WBC Ur Squamous Epith Cells Ur Renal Epithelial Cell Urine Bacteria Ur Random Sodium Respiratory Panel [place] Adenovirus (Rapid PCR) B.pert (TEM-PCR) B.parapertussis DNA PCR C. pneumoniae DNA (PCR) Coronavirus OC43 (PCR) Coronavirus HKU1 (PCR) Coronavirus 229E (PCR) Coronavirus NL63 (PCR) Hepatitis A IgM Ab Hep Bs Antigen Hep Bs Antibody Hep B Core Total Ab Hepatitis C Ab (EIA) Human Metapneumovir PCR Influenza A (RT-PCR) Influenza B (RT-PCR) M. pneumoniae (PCR) Parainfluenza 1 (PCR) Parainfluenza 2 (PCR) Parainfluenza 3 (PCR) Parainfluenza 4 (PCR) RSV (PCR) Entero/Rhino (PCR) SARS-CoV-2 RNA (RT-PCR) Blood Type Antibody Screen Crossmatch 12/26/20 12/26/20 12/26/20 00:31 00:31 00:33 WBC RBC Hgb Hct MCV MCH MCHC RDW Plt Count MPV Immature Gran % (Auto) Neut % (Auto) Lymph % (Auto) [place] % (Auto) Eos % (Auto) Baso % (Auto) Lymph # (Auto) [place] # (Auto) Eos # (Auto) Baso # (Auto) Abs Immat Gran (auto) Absolute Neuts (auto) Absolute Nucleated RBC Nucleated RBC % (auto) Neutrophils % (Manual) Band Neutrophils % Lymphocytes % (Manual) Monocytes % (Manual) Abs Neuts (Manual) Lymphocytes # (Manual) Monocytes # (Manual) Platelet Estimate Large Platelets Plt Morphology Comment RBC Morphology [place] Cells Schistocytes Smear Tech's Comments ESR PT INR APTT Fibrinogen VBG pH 7.30 L VBG pCO2 38 VBG pO2 48 VBG HCO3 19 L VBG O2 Saturation 73.0 VBG Base Excess -6.7 Sodium 129 L Potassium 6.1 H* Chloride 101 Carbon Dioxide 19 L Anion Gap 15 BUN 64 H Creatinine 4.25 H* Estim Creat Clear Calc 20.7 Estimated GFR 14 POC Glucose Random Glucose 333 H Calcium 7.1 L Phosphorus Magnesium Total Bilirubin 2.7 H Direct Bilirubin 1.3 H GGT 77 H AST 57 H ALT 35 Alkaline Phosphatase 211 H Ammonia Total Creatine Kinase Total Protein 5.3 L Albumin 2.1 L Lipase Urine Color Urine Appearance Urine pH Ur Specific [place] Urine Protein Urine Glucose (UA) Urine Ketones Urine Blood Urine Nitrite Ur Leukocyte Esterase Urine RBC Urine WBC Ur Squamous Epith Cells Ur Renal Epithelial Cell Urine Bacteria Ur Random Sodium Respiratory Panel [place] Adenovirus (Rapid PCR) B.pert (TEM-PCR) B.parapertussis DNA PCR C. pneumoniae DNA (PCR) Coronavirus OC43 (PCR) Coronavirus HKU1 (PCR) Coronavirus 229E (PCR) Coronavirus NL63 (PCR) Hepatitis A IgM Ab Nonreactive Hep Bs Antigen Not Reportable Hep Bs Antibody NONREACTIVE Hep B Core Total Ab Nonreactive Hepatitis C Ab (EIA) Nonreactive Human Metapneumovir PCR Influenza A (RT-PCR) Influenza B (RT-PCR) M. pneumoniae (PCR) Parainfluenza 1 (PCR) Parainfluenza 2 (PCR) Parainfluenza 3 (PCR) Parainfluenza 4 (PCR) RSV (PCR) Entero/Rhino (PCR) SARS-CoV-2 RNA (RT-PCR) Blood Type Antibody Screen Crossmatch 12/26/20 12/26/20 12/26/20 01:14 02:34 04:26 WBC RBC Hgb Hct MCV MCH MCHC RDW Plt Count MPV Immature Gran % (Auto) Neut % (Auto) Lymph % (Auto) [place] % (Auto) Eos % (Auto) Baso % (Auto) Lymph # (Auto) [place] # (Auto) Eos # (Auto) Baso # (Auto) Abs Immat Gran (auto) Absolute Neuts (auto) Absolute Nucleated RBC Nucleated RBC % (auto) Neutrophils % (Manual) Band Neutrophils % Lymphocytes % (Manual) Monocytes % (Manual) Abs Neuts (Manual) Lymphocytes # (Manual) Monocytes # (Manual) Platelet Estimate Large Platelets Plt Morphology Comment RBC Morphology [place] Cells Schistocytes Smear Tech's Comments ESR PT INR APTT Fibrinogen VBG pH 7.33 7.39 VBG pCO2 35 29 VBG pO2 38 45 VBG HCO3 19 L 18 L VBG O2 Saturation 60.0 71.0 VBG Base Excess -5.7 -5.1 Sodium Potassium Chloride Carbon Dioxide Anion Gap BUN Creatinine Estim Creat Clear Calc Estimated GFR POC Glucose Random Glucose Calcium Phosphorus Magnesium Total Bilirubin Direct Bilirubin GGT AST ALT Alkaline Phosphatase Ammon[place] Total Creatine Kinase Total Protein Albumin Lipase Urine Color Urine Appearance Urine pH Ur Specific [place] Urine Protein Urine Glucose (UA) Urine Ketones Urine Blood Urine Nitrite Ur Leukocyte Esterase Urine RBC Urine WBC Ur Squamous Epith Cells Ur Renal Epithelial Cell Urine Bacteria Ur Random Sodium Respiratory Panel [place] See Note Adenovirus (Rapid PCR) Not Detected B.pert (TEM-PCR) Not Detected B.parapertussis DNA PCR Not Detected C. pneumoniae DNA (PCR) Not Detected Coronavirus OC43 (PCR) Not Detected Coronavirus HKU1 (PCR) Not Detected Coronavirus 229E (PCR) Not Detected Coronavirus NL63 (PCR) Not Detected Hepatitis A IgM Ab Hep Bs Antigen Hep Bs Antibody Hep B Core Total Ab Hepatitis C Ab (EIA) Human Metapneumovir PCR Not Detected Influenza A (RT-PCR) Not Detected Influenza B (RT-PCR) Not Detected M. pneumoniae (PCR) Not Detected Parainfluenza 1 (PCR) Not Detected Parainfluenza 2 (PCR) Not Detected Parainfluenza 3 (PCR) Not Detected Parainfluenza 4 (PCR) Not Detected RSV (PCR) Not Detected Entero/Rhino (PCR) Not Detected SARS-CoV-2 RNA (RT-PCR) Not Detected Blood Type Antibody Screen Crossmatch 12/26/20 12/26/20 12/26/20 04:29 04:30 04:30 WBC 10.8 RBC 2.53 L Hgb 8.6 L Hct 24.4 L MCV 96.4 MCH 34.0 H MCHC 35.2 RDW 18.0 H Plt Count 123 L MPV 12.5 H Immature Gran % (Auto) 0.7 H Neut % (Auto) 85.6 H Lymph % (Auto) 10.0 L [place] % (Auto) 3.7 Eos % (Auto) 0.0 Baso % (Auto) 0.0 Lymph # (Auto) 1.1 L [place] # (Auto) 0.4 Eos # (Auto) 0.0 Baso # (Auto) 0.0 Abs Immat Gran (auto) 0.07 H Absolute Neuts (auto) 9.2 H Absolute Nucleated RBC 0.050 H Nucleated RBC % (auto) 0.5 H Neutrophils % (Manual) Band Neutrophils % Lymphocytes % (Manual) Monocytes % (Manual) Abs Neuts (Manual) Lymphocytes # (Manual) Monocytes # (Manual) Platelet Estimate Large Platelets Plt Morphology Comment RBC Morphology [place] Cells Schistocytes Smear Tech's Comments ESR PT 23.3 H INR 1.9 H APTT 42.6 H Fibrinogen VBG pH VBG pCO2 VBG pO2 VBG HCO3 VBG O2 Saturation VBG Base Excess Sodium Potassium Chloride Carbon Dioxide Anion Gap BUN Creatinine Estim Creat Clear Calc Estimated GFR POC Glucose Random Glucose Calcium Phosphorus Magnesium Total Bilirubin Direct Bilirubin GGT AST ALT Alkaline Phosphatase Ammonia 73 H Total Creatine Kinase Total Protein Albumin Lipase Urine Color Urine Appearance Urine pH Ur Specific [place] Urine Protein Urine Glucose (UA) Urine Ketones Urine Blood Urine Nitrite Ur Leukocyte Esterase Urine RBC Urine WBC Ur Squamous Epith Cells Ur Renal Epithelial Cell Urine Bacteria Ur Random Sodium Respiratory Panel [place] Adenovirus (Rapid PCR) B.pert (TEM-PCR) B.parapertussis DNA PCR C. pneumoniae DNA (PCR) Coronavirus OC43 (PCR) Coronavirus HKU1 (PCR) Coronavirus 229E (PCR) Coronavirus NL63 (PCR) Hepatitis A IgM Ab Hep Bs Antigen Hep Bs Antibody Hep B Core Total Ab Hepatitis C Ab (EIA) Human Metapneumovir PCR Influenza A (RT-PCR) Influenza B (RT-PCR) M. pneumoniae (PCR) Parainfluenza 1 (PCR) Parainfluenza 2 (PCR) Parainfluenza 3 (PCR) Parainfluenza 4 (PCR) RSV (PCR) Entero/Rhino (PCR) SARS-CoV-2 RNA (RT-PCR) Blood Type Antibody Screen Crossmatch 12/26/20 12/26/20 12/26/20 04:30 04:30 04:30 WBC RBC Hgb Hct MCV MCH MCHC RDW Plt Count MPV Immature Gran % (Auto) Neut % (Auto) Lymph % (Auto) [place] % (Auto) Eos % (Auto) Baso % (Auto) Lymph # (Auto) [place] # (Auto) Eos # (Auto) Baso # (Auto) Abs Immat Gran (auto) Absolute Neuts (auto) Absolute Nucleated RBC Nucleated RBC % (auto) Neutrophils % (Manual) Band Neutrophils % Lymphocytes % (Manual) Monocytes % (Manual) Abs Neuts (Manual) Lymphocytes # (Manual) Monocytes # (Manual) Platelet Estimate Large Platelets Plt Morphology Comment RBC Morphology [place] Cells Schistocytes Smear Tech's Comments ESR PT INR APTT Fibrinogen 273 VBG pH VBG pCO2 VBG pO2 VBG HCO3 VBG O2 Saturation VBG Base Excess Sodium 131 L Potassium 5.3 H Chloride 103 Carbon Dioxide 14 L Anion Gap 19 BUN 63 H Creatinine 4.12 H* Estim Creat Clear Calc 21.3 Estimated GFR 14 POC Glucose Random Glucose 361 H* Calcium 7.3 L Phosphorus 5.5 H Magnesium 2.0 Total Bilirubin 2.7 H Direct Bilirubin 1.3 H GGT 66 H AST 47 H ALT 32 Alkaline Phosphatase 177 H Ammonia Total Creatine Kinase 108 D Total Protein 5.0 L Albumin 2.1 L Lipase Urine Color Urine Appearance Urine pH Ur Specific [place] Urine Protein Urine Glucose (UA) Urine Ketones Urine Blood Urine Nitrite Ur Leukocyte Esterase Urine RBC Urine WBC Ur Squamous Epith Cells Ur Renal Epithelial Cell Urine Bacteria Ur Random Sodium Respiratory Panel [place] Adenovirus (Rapid PCR) B.pert (TEM-PCR) B.parapertussis DNA PCR C. pneumoniae DNA (PCR) Coronavirus OC43 (PCR) Coronavirus HKU1 (PCR) Coronavirus 229E (PCR) Coronavirus NL63 (PCR) Hepatitis A IgM Ab Hep Bs Antigen Hep Bs Antibody Hep B Core Total Ab Hepatitis C Ab (EIA) Human Metapneumovir PCR Influenza A (RT-PCR) Influenza B (RT-PCR) M. pneumoniae (PCR) Parainfluenza 1 (PCR) Parainfluenza 2 (PCR) Parainfluenza 3 (PCR) Parainfluenza 4 (PCR) RSV (PCR) Entero/Rhino (PCR) SARS-CoV-2 RNA (RT-PCR) Blood Type Antibody Screen Crossmatch 12/26/20 12/26/20 12/26/20 04:33 07:17 08:14 WBC RBC Hgb Hct MCV MCH MCHC RDW Plt Count MPV Immature Gran % (Auto) Neut % (Auto) Lymph % (Auto) [place] % (Auto) Eos % (Auto) Baso % (Auto) Lymph # (Auto) [place] # (Auto) Eos # (Auto) Baso # (Auto) Abs Immat Gran (auto) Absolute Neuts (auto) Absolute Nucleated RBC Nucleated RBC % (auto) Neutrophils % (Manual) Band Neutrophils % Lymphocytes % (Manual) Monocytes % (Manual) Abs Neuts (Manual) Lymphocytes # (Manual) Monocytes # (Manual) Platelet Estimate Large Platelets Plt Morphology Comment RBC Morphology [place] Cells Schistocytes Smear Tech's Comments ESR PT INR APTT Fibrinogen VBG pH 7.35 VBG pCO2 31 VBG pO2 50 VBG HCO3 17 L VBG O2 Saturation 74.0 VBG Base Excess -6.9 Sodium Potassium Chloride Carbon Dioxide Anion Gap BUN Creatinine Estim Creat Clear Calc Estimated GFR POC Glucose 317 H Random Glucose Calcium Phosphorus Magnesium Total Bilirubin Direct Bilirubin GGT AST ALT Alkaline Phosphatase Ammonia Total Creatine Kinase Total Protein Albumin Lipase Urine Color YELLOW Urine Appearance CLOUDY Urine pH 6.0 Ur Specific [place] 1.010 Urine Protein NEG Urine Glucose (UA) NEG Urine Ketones NEG Urine Blood 3+ H Urine Nitrite NEG Ur Leukocyte Esterase NEG Urine RBC 50-75 H Urine WBC 0 Ur Squamous Epith Cells TRACE Ur Renal Epithelial Cell TRACE Urine Bacteria NONE Ur Random Sodium Respiratory Panel [place] Adenovirus (Rapid PCR) B.pert (TEM-PCR) B.parapertussis DNA PCR C. pneumoniae DNA (PCR) Coronavirus OC43 (PCR) Coronavirus HKU1 (PCR) Coronavirus 229E (PCR) Coronavirus NL63 (PCR) Hepatitis A IgM Ab Hep Bs Antigen Hep Bs Antibody Hep B Core Total Ab Hepatitis C Ab (EIA) Human Metapneumovir PCR Influenza A (RT-PCR) Influenza B (RT-PCR) M. pneumoniae (PCR) Parainfluenza 1 (PCR) Parainfluenza 2 (PCR) Parainfluenza 3 (PCR) Parainfluenza 4 (PCR) RSV (PCR) Entero/Rhino (PCR) SARS-CoV-2 RNA (RT-PCR) Blood Type Antibody Screen Crossmatch Microbiology Microbiology Results: Microbiology 12/25/20 10:30 Sputum - Suctioned Gram Stain - Final 12/25/20 10:30 Sputum - Suctioned Sputum Culture - Preliminary Normal so far. 12/25/20 10:30 Urine [place] Urine Culture - Final No growth. 12/24/20 18:55 Blood - Venous Blood Culture - Preliminary No growth after 24 hours. 12/24/20 18:41 Blood - Venous Blood Culture - Preliminary No growth after 24 hours. Assessment & Plan Assessment and plan (1) Acute renal failure: Status: Acute Assessment and Plan: yponatremia Hyperkalemia Acute Kidney Injury likely due to tubular injury Metabolic Acidosis Concern for pulmonary renal syndrome Urine output good; Low K diet Unlikely GN; Work up sent On Prednsione; WIll benefit from renal biopsy Cortisol pending Continue current supportive care No indication for any renal replacement Labs AM. Shall closely follow along Time Spent With Patient Time: Total time spent is greater than 50% in coordination of care (as documented) at patient's floor/unit and/or counseling patient: Procedures Date of Service Date of Service: 12/26/20
[2020-12-26 10:50] LABS: HBsAGNum2 Nonreactive; HBsAGNum3 Nonreactive; Hepatitis B Surface Antigen NEGATIVE (Negative)
[2020-12-26] MEDS: methylPREDNISolone Sod Succ 1,000 MG in 0.9 % Sodium Chloride 50 ML 66 MG IV (11:02)
[2020-12-26] MEDS: Desmopressin Acetate 30 MCG in 0.9 % Sodium Chloride 50 ML 100 MCG IV (11:34)
--- NOTE | 2020-12-26 11:47 | PC.NURSE ---
order to hang solumedrol early, hung per emar
--- NOTE | 2020-12-26 11:49 | PC.NURSE ---
order to give iv solumedrol early, hung per EMAR
[2020-12-26 12:07] LABS: Glucose, Whole Blood 342 mg/dL (60-115)
[2020-12-26] MEDS: Piperacillin Sodium/Tazobactam 3.375 GM in 0.9 % Sodium Chloride 50 ML IV ×2 (12:07→20:27)
--- NOTE | 2020-12-26 12:44 | PM.CNPUL ---
History of Present Illness History of Present Illness Consult date: 12/26/20 Chief complaint: Hypotension Narrative: The patient is a 75-year-old Green[place]ic-speaking male with a past medical history of cirrhosis, COPD, CHF, HTN, DM2 on insulin, hepatic encephalopathy who [facility] after he was found to be hypotensive and hypothermic. Upon arrival to the ED, his blood pressure was 96/33, HR 52, RR 17 O2 sat 97% on room air, temp 92.3F. Founf to have acute on chronic renal failure and hypotension. Admitted to the ICU. Started developing worsening hemoptysis and respiratory failure. The concern of pulmonary renal syndrome and started on pulse dose solumedrol. Awaiting ANCA/PRE/MPO lab results. ECHO done in 11/28/2020 with severe pulmonary hypertension and diastolic dysfuction. Review of Systems Review of Systems: Yes Unobtainable due to mental condition PMFSH Past Medical History Medical History (Updated 12/26/20 @ 12:52 by Avinash Camacho MD) Alcoholic cirrhosis COPD (chronic obstructive pulmonary disease) Diabetes HTN (hypertension) Hyperlipidemia Pulmonary hypertension Pulmonary hypertension Social History Social History Household Members: None Housing: Alf Do you presently have visiting nurse or other home services: No Unable to assess alcohol history related to: Unknown Alcohol intake: never Patient Tobacco Use Status: Never used Tobacco Use of substances other than those prescribed or required for medical reasons: Unknown Currently Displaying Signs/Symptoms of Drug Intoxication Withdrawal: No Advance Directives: Yes Advance Directives on File: Yes Advance Directives Date on File: 12/09/20 Do you have thoughts of harming others: None Do you have a plan to hurt others: No Plan Recently lost weight without trying: Unsure Nutrition Risks: No Nutritional Risk service: No Current occupational status: retired Meds Allergies Allergy/AdvReac Type Severity Reaction Status Date / Time No Known Allergies Allergy Verified 11/28/20 10:42 Active Medications: Current Medications Generic Name Dose Route Start Last Admin Trade Name Freq PRN Reason Stop Dose Admin Acetylcysteine 400 mg 12/25/20 12:00 12/26/20 07:50 Acetylcysteine 10 % 400 Mg/4 Ml Vial INHALE Not Given RQ4H WHILE AWAKE KIMMIE Albuterol/Ipratropium 3 ml 12/25/20 12:00 12/26/20 07:50 Albuterol/Iprat 2.5/0.5mg 3 Ml Ampul.Neb INHALE Not Given RQ4H WHILE AWAKE KIMMIE Chlorhexidine Gluconate 15 ml 12/25/20 23:45 12/26/20 09:56 Chlorhexidine Gluc Oral Rinse 15 Ml Mouthwash BUCCAL 15 ml TID KIMMIE Administration Famotidine 20 mg 12/25/20 21:00 12/26/20 09:56 Famotidine/Pf 20 Mg/2 Ml Vial IVPUSH 20 mg BID KIMMIE Administration Dopamine HCl/Dextrose 400 mg in 250 mls @ 0 mls/hr 12/24/20 22:45 12/26/20 07:07 IVCONT 8 mcg/kg/min .Q0M KIMMIE 37.2 mls/hr Administration Protocol Per Protocol Dextrose/Sodium Chloride 1,000 mls @ 100 mls/hr 12/25/20 13:30 12/26/20 09:03 D5ns IVCONT 100 mls/hr .Q10H KIMMIE Administration Pantoprazole Sodium 80 mg/ 100 mls @ 10 mls/hr 12/25/20 18:00 12/26/20 01:35 Sodium Chloride IV 8 mg/hr .Q10H KIMMIE 10 mls/hr Administration 8 MG/HR Propofol 1,000 mg in 100 mls @ 0 mls/hr 12/26/20 01:30 12/26/20 12:13 Diprivan IVCONT 30 mcg/kg/min .Q0M KIMMIE 22.32 mls/hr Titration Protocol Per Protocol Piperacillin Sod/Tazobactam 50 mls @ 100 mls/hr 12/26/20 11:00 12/26/20 12:37 Sod 3.375 gm/ Sodium Chloride IV Infused Q8H [facility] Infusion Methylprednisolone Sodium 66 mls @ 66 mls/hr 12/27/20 11:00 Succinate 1,000 mg/ Sodium IV Chloride Q24H [facility] Insulin Human Lispro 0 unit 12/25/20 16:30 12/26/20 12:08 Insulin Lispro 100 Unit/Ml 3 Ml Vial SUBCUT 8 unit QIDACHS KIMMIE Administration Protocol Lactulose 30 gm 12/25/20 23:45 12/26/20 10:26 Lactulose 20 Gm/30 Ml Solution PO 30 gm TID KIMMIE Administration Rifaximin 550 mg 12/25/20 23:45 12/26/20 10:26 Rifaximin 550 Mg Tablet PO 550 mg TID KIMMIE Administration Sodium Bicarbonate 650 mg 12/25/20 13:00 12/26/20 10:26 Sodium Bicarbonate 650 Mg Tablet PO 650 mg QID KIMMIE Administration Sodium Chloride 3 ml 12/25/20 16:00 12/26/20 08:24 0.9 % Sodium Chloride Flush 3 Ml Syringe IVFLUSH 3 ml QSHIFT KIMMIE Administration Home Medications Medication Instructions Recorded Confirmed Last Taken Type omeprazole 20 mg capsule,delayed 20 mg PO DAILY@0630 05/23/20 12/25/20 11/27/20 History release rifaximin 550 mg tablet 550 mg PO TID 05/23/20 12/25/20 11/27/20 History Incruse Ellipta 1 inh INHALATION DAILY 11/28/20 12/25/20 11/27/20 History Lantus Solostar U-100 Insulin 62 unit SUBCUT BEDTIME 11/28/20 12/25/20 11/27/20 History aspirin 81 mg PO DAILY 11/28/20 12/25/20 11/27/20 History atorvastatin 40 mg PO DAILY 11/28/20 12/25/20 11/27/20 History insulin aspart U-100 [Novolog 22 unit SUBCUT DAILY@0730 11/28/20 12/25/20 Unknown History Flexpen U-100 Insulin] insulin aspart U-100 [Novolog 24 unit SUBCUT QPM 11/28/20 12/25/20 Unknown History Flexpen U-100 Insulin] propranolol 10 mg PO BID 11/28/20 12/25/20 11/27/20 History spironolactone 50 mg PO DAILY 11/28/20 12/25/20 11/27/20 History potassium chloride 10 meq PO 12/25/20 Unknown History Physical Exam Vital Signs: Vital Signs: Last Vital Signs Temp 97.3 F 12/26/20 11:00 Pulse 93 12/26/20 11:00 Resp 20 12/26/20 11:00 BP 97/64 12/26/20 11:00 Pulse Ox 98 12/26/20 11:00 Body Mass Index 36.4 Const: General: ill appearing HENMT: General nose exam: Epistaxis present Neck: Neck: Yes normal visual inspection, Yes full ROM and Yes no lymphadenopathy Chest: Chest palpation & inspection: normal inspection of the chest Resp: Auscultation: diminished lung sounds Cardio: Rate: regular rate Rhythm: regular rhythm Heart sounds: S1 normal heart sound present and S2 normal heart sound present GI: Palpation (GI): Soft to palpation and nontender Auscultation: normal bowel sounds Skin: General skin exam: rashes and/or lesions noted Results Laboratory Findings CBC and BMP: 12/26/20 04:30 12/26/20 04:30 ABG, PT/INR, D-dimer: PT/INR, D-dimer PT 23.3 SEC (10.8-13.0) H 12/26/20 04:30 INR 1.9 (0.9-1.1) H 12/26/20 04:30 Abnormal lab findings: Abnormal Labs 12/24/20 12/24/20 12/24/20 18:42 18:42 18:42 RBC 3.90 L Hgb 12.9 L Hct 37.8 L MCH 33.1 H RDW 18.4 H Plt Count 128 L MPV 13.0 H Immature Gran % (Auto) 0.6 H Neut % (Auto) Lymph % (Auto) 16.7 L [place] % (Auto) 15.0 H Lymph # (Auto) [place] # (Auto) 1.3 H Abs Immat Gran (auto) 0.05 H Absolute Neuts (auto) Absolute Nucleated RBC Nucleated RBC % (auto) Neutrophils % (Manual) Band Neutrophils % Lymphocytes % (Manual) Abs Neuts (Manual) ESR PT 16.9 H INR 1.4 H APTT VBG pH VBG HCO3 Sodium 123 L Potassium 5.4 H D Chloride 95 L Carbon Dioxide 19 L BUN 60 H Creatinine 4.77 H* POC Glucose Random Glucose 143 H D Calcium 7.5 L D Phosphorus Total Bilirubin 2.2 H Direct Bilirubin 1.3 H GGT AST 109 H ALT 53 H Alkaline Phosphatase 352 H D Ammonia Total Creatine Kinase B-Natriuretic Peptide Total Protein 6.4 L Albumin 2.0 L Lipase 131 H Urine Protein Urine Blood Urine RBC Crossmatch 12/24/20 12/24/20 12/25/20 18:42 22:41 01:52 RBC Hgb Hct MCH RDW Plt Count MPV Immature Gran % (Auto) Neut % (Auto) Lymph % (Auto) [place] % (Auto) Lymph # (Auto) [place] # (Auto) Abs Immat Gran (auto) Absolute Neuts (auto) Absolute Nucleated RBC Nucleated RBC % (auto) Neutrophils % (Manual) Band Neutrophils % Lymphocytes % (Manual) Abs Neuts (Manual) ESR PT INR APTT VBG pH VBG HCO3 Sodium Potassium Chloride Carbon Dioxide BUN Creatinine POC Glucose Random Glucose Calcium Phosphorus Total Bilirubin Direct Bilirubin GGT AST ALT Alkaline Phosphatase Ammonia 63 H Total Creatine Kinase B-Natriuretic Peptide 146 H Total Protein Albumin Lipase Urine Protein 1+ H Urine Blood 1+ H Urine RBC 5-9 H Crossmatch 12/25/20 12/25/20 12/25/20 01:52 01:52 01:52 RBC 3.77 L Hgb 12.8 L Hct 36.3 L MCH 34.0 H RDW 17.9 H Plt Count 131 L MPV 12.7 H Immature Gran % (Auto) Neut % (Auto) Lymph % (Auto) [place] % (Auto) Lymph # (Auto) [place] # (Auto) Abs Immat Gran (auto) Absolute Neuts (auto) Absolute Nucleated RBC Nucleated RBC % (auto) Neutrophils % (Manual) 79 H Band Neutrophils % 0 L Lymphocytes % (Manual) 13 L Abs Neuts (Manual) ESR PT INR APTT VBG pH 7.28 L VBG HCO3 19 L Sodium 127 L Potassium 5.9 H Chloride Carbon Dioxide 18 L BUN 61 H Creatinine 4.87 H* POC Glucose Random Glucose 57 L* Calcium 8.0 L D Phosphorus 5.9 H Total Bilirubin Direct Bilirubin GGT AST ALT Alkaline Phosphatase Ammonia Total Creatine Kinase B-Natriuretic Peptide Total Protein Albumin Lipase Urine Protein Urine Blood Urine RBC Crossmatch 12/25/20 12/25/20 12/25/20 04:04 12:24 12:24 RBC Hgb Hct MCH RDW Plt Count MPV Immature Gran % (Auto) Neut % (Auto) Lymph % (Auto) [place] % (Auto) Lymph # (Auto) [place] # (Auto) Abs Immat Gran (auto) Absolute Neuts (auto) Absolute Nucleated RBC Nucleated RBC % (auto) Neutrophils % (Manual) Band Neutrophils % Lymphocytes % (Manual) Abs Neuts (Manual) ESR 53 H PT INR APTT VBG pH VBG HCO3 Sodium 127 L Potassium 5.8 H Chloride Carbon Dioxide 20 L BUN 61 H Creatinine 4.81 H* POC Glucose Random Glucose 165 H D Calcium 8.0 L Phosphorus Total Bilirubin Direct Bilirubin GGT AST ALT Alkaline Phosphatase Ammonia 58 H Total Creatine Kinase B-Natriuretic Peptide Total Protein Albumin Lipase Urine Protein Urine Blood Urine RBC Crossmatch 12/25/20 12/25/20 12/25/20 12:24 15:14 16:37 RBC Hgb Hct MCH RDW Plt Count MPV Immature Gran % (Auto) Neut % (Auto) Lymph % (Auto) [place] % (Auto) Lymph # (Auto) [place] # (Auto) Abs Immat Gran (auto) Absolute Neuts (auto) Absolute Nucleated RBC Nucleated RBC % (auto) Neutrophils % (Manual) Band Neutrophils % Lymphocytes % (Manual) Abs Neuts (Manual) ESR PT INR APTT VBG pH VBG HCO3 Sodium Potassium Chloride Carbon Dioxide BUN Creatinine POC Glucose 264 H 276 H Random Glucose Calcium Phosphorus Total Bilirubin Direct Bilirubin GGT AST ALT Alkaline Phosphatase Ammonia Total Creatine Kinase 236 H B-Natriuretic Peptide Total Protein Albumin Lipase Urine Protein Urine Blood Urine RBC Crossmatch 12/25/20 12/25/20 12/25/20 20:18 20:18 20:18 RBC 2.98 L D Hgb 10.0 L D Hct 28.4 L D MCH 33.6 H RDW 18.0 H Plt Count 127 L MPV 12.6 H Immature Gran % (Auto) Neut % (Auto) 80.6 H Lymph % (Auto) 8.2 L [place] % (Auto) Lymph # (Auto) 0.9 L [place] # (Auto) Abs Immat Gran (auto) 0.04 H Absolute Neuts (auto) Absolute Nucleated RBC 0.030 H Nucleated RBC % (auto) 0.3 H Neutrophils % (Manual) 82 H Band Neutrophils % 2 L Lymphocytes % (Manual) 10 L Abs Neuts (Manual) 8.7 H ESR PT INR APTT VBG pH VBG HCO3 Sodium 128 L Potassium 5.9 H Chloride Carbon Dioxide 17 L BUN 65 H Creatinine 4.30 H* POC Glucose Random Glucose 312 H D Calcium 7.4 L D Phosphorus Total Bilirubin 2.7 H Direct Bilirubin GGT AST 62 H ALT Alkaline Phosphatase 220 H D Ammonia 96 H Total Creatine Kinase B-Natriuretic Peptide Total Protein 5.2 L Albumin 2.0 L Lipase Urine Protein Urine Blood Urine RBC Crossmatch 12/25/20 12/25/20 12/25/20 20:18 21:12 21:29 RBC Hgb Hct MCH RDW Plt Count MPV Immature Gran % (Auto) Neut % (Auto) Lymph % (Auto) [place] % (Auto) Lymph # (Auto) [place] # (Auto) Abs Immat Gran (auto) Absolute Neuts (auto) Absolute Nucleated RBC Nucleated RBC % (auto) Neutrophils % (Manual) Band Neutrophils % Lymphocytes % (Manual) Abs Neuts (Manual) ESR PT 23.4 H D INR 2.0 H APTT 49.3 H VBG pH VBG HCO3 18 L Sodium Potassium Chloride Carbon Dioxide BUN Creatinine POC Glucose 294 H Random Glucose Calcium Phosphorus Total Bilirubin Direct Bilirubin GGT AST ALT Alkaline Phosphatase [place]monia Total Creatine Kinase B-Natriuretic Peptide Total Protein Albumin Lipase Urine Protein Urine Blood Urine RBC Crossmatch 12/25/20 12/26/20 12/26/20 22:37 00:00 00:31 RBC 2.99 L Hgb 10.1 L Hct 28.9 L MCH 33.8 H RDW 18.2 H Plt Count 136 L MPV 12.6 H Immature Gran % (Auto) 0.8 H Neut % (Auto) 87.2 H Lymph % (Auto) 6.9 L [place] % (Auto) Lymph # (Auto) 0.6 L [place] # (Auto) Abs Immat Gran (auto) 0.07 H Absolute Neuts (auto) Absolute Nucleated RBC 0.040 H Nucleated RBC % (auto) 0.4 H Neutrophils % (Manual) Band Neutrophils % Lymphocytes % (Manual) Abs Neuts (Manual) ESR PT INR APTT VBG pH 7.27 L VBG HCO3 19 L Sodium Potassium Chloride Carbon Dioxide BUN Creatinine POC Glucose Random Glucose Calcium Phosphorus Total Bilirubin Direct Bilirubin GGT AST ALT Alkaline Phosphatase [place]monia Total Creatine Kinase B-Natriuretic Peptide Total Protein Albumin Lipase Urine Protein Urine Blood Urine RBC Crossmatch See Detail 12/26/20 12/26/20 12/26/20 00:31 00:31 00:33 RBC Hgb Hct MCH RDW Plt Count MPV Immature Gran % (Auto) Neut % (Auto) Lymph % (Auto) [place] % (Auto) Lymph # (Auto) [place] # (Auto) Abs Immat Gran (auto) Absolute Neuts (auto) Absolute Nucleated RBC Nucleated RBC % (auto) Neutrophils % (Manual) Band Neutrophils % Lymphocytes % (Manual) Abs Neuts (Manual) ESR PT 25.9 H INR 2.2 H APTT 47.4 H VBG pH 7.30 L VBG HCO3 19 L Sodium 129 L Potassium 6.1 H* Chloride Carbon Dioxide 19 L BUN 64 H Creatinine 4.25 H* POC Glucose Random Glucose 333 H Calcium 7.1 L Phosphorus Total Bilirubin 2.7 H Direct Bilirubin 1.3 H GGT 77 H AST 57 H ALT Alkaline Phosphatase 211 H Ammonia Total Creatine Kinase B-Natriuretic Peptide Total Protein 5.3 L Albumin 2.1 L Lipase Urine Protein Urine Blood Urine RBC Crossmatch 12/26/20 12/26/20 12/26/20 01:14 02:34 04:29 RBC Hgb Hct MCH RDW Plt Count MPV Immature Gran % (Auto) Neut % (Auto) Lymph % (Auto) [place] % (Auto) Lymph # (Auto) [place] # (Auto) Abs Immat Gran (auto) Absolute Neuts (auto) Absolute Nucleated RBC Nucleated RBC % (auto) Neutrophils % (Manual) Band Neutrophils % Lymphocytes % (Manual) Abs Neuts (Manual) ESR PT INR APTT VBG pH VBG HCO3 19 L 18 L Sodium Potassium Chloride Carbon Dioxide BUN Creatinine POC Glucose Random Glucose Calcium Phosphorus Total Bilirubin Direct Bilirubin GGT AST ALT Alkaline Phosphatase Ammonia 73 H Total Creatine Kinase B-Natriuretic Peptide Total Protein Albumin Lipase Urine Protein Urine Blood Urine RBC Crossmatch 12/26/20 12/26/20 12/26/20 04:30 04:30 04:30 RBC 2.53 L Hgb 8.6 L Hct 24.4 L MCH 34.0 H RDW 18.0 H Plt Count 123 L MPV 12.5 H Immature Gran % (Auto) 0.7 H Neut % (Auto) 85.6 H Lymph % (Auto) 10.0 L [place] % (Auto) Lymph # (Auto) 1.1 L [place] # (Auto) Abs Immat Gran (auto) 0.07 H Absolute Neuts (auto) 9.2 H Absolute Nucleated RBC 0.050 H Nucleated RBC % (auto) 0.5 H Neutrophils % (Manual) Band Neutrophils % Lymphocytes % (Manual) Abs Neuts (Manual) ESR PT 23.3 H INR 1.9 H APTT 42.6 H VBG pH VBG HCO3 Sodium 131 L Potassium 5.3 H Chloride Carbon Dioxide 14 L BUN 63 H Creatinine 4.12 H* POC Glucose Random Glucose 361 H* Calcium 7.3 L Phosphorus 5.5 H Total Bilirubin Direct Bilirubin GGT AST ALT Alkaline Phosphatase [place] Total Creatine Kinase B-Natriuretic Peptide Total Protein Albumin Lipase Urine Protein Urine Blood Urine RBC Crossmatch 12/26/20 12/26/20 12/26/20 04:30 04:33 07:17 RBC Hgb Hct MCH RDW Plt Count MPV Immature Gran % (Auto) Neut % (Auto) Lymph % (Auto) [place] % (Auto) Lymph # (Auto) [place] # (Auto) Abs Immat Gran (auto) Absolute Neuts (auto) Absolute Nucleated RBC Nucleated RBC % (auto) Neutrophils % (Manual) Band Neutrophils % Lymphocytes % (Manual) Abs Neuts (Manual) ESR PT INR APTT VBG pH VBG HCO3 17 L Sodium Potassium Chloride Carbon Dioxide BUN Creatinine POC Glucose Random Glucose Calcium Phosphorus Total Bilirubin 2.7 H Direct Bilirubin 1.3 H GGT 66 H AST 47 H ALT Alkaline Phosphatase 177 H Ammonia Total Creatine Kinase B-Natriuretic Peptide Total Protein 5.0 L Albumin 2.1 L Lipase Urine Protein Urine Blood 3+ H Urine RBC 50-75 H Crossmatch 12/26/20 12/26/20 08:14 12:04 RBC Hgb Hct MCH RDW Plt Count MPV Immature Gran % (Auto) Neut % (Auto) Lymph % (Auto) [place] % (Auto) Lymph # (Auto) [place] # (Auto) Abs Immat Gran (auto) Absolute Neuts (auto) Absolute Nucleated RBC Nucleated RBC % (auto) Neutrophils % (Manual) Band Neutrophils % Lymphocytes % (Manual) Abs Neuts (Manual) ESR PT INR APTT VBG pH VBG HCO3 Sodium Potassium Chloride Carbon Dioxide BUN Creatinine POC Glucose 317 H 342 H Random Glucose Calcium Phosphorus Total Bilirubin Direct Bilirubin GGT AST ALT Alkaline Phosphatase [place] Total Creatine Kinase B-Natriuretic Peptide Total Protein Albumin Lipase Urine Protein Urine Blood Urine RBC Crossmatch Microbiology: Microbiology 12/25/20 10:30 Sputum - Suctioned Gram Stain - Final 12/25/20 10:30 Sputum - Suctioned Sputum Culture - Preliminary Normal so far. 12/25/20 10:30 Urine [place] Urine Culture - Final No growth. 12/24/20 18:55 Blood - Venous Blood Culture - Preliminary No growth after 24 hours. 12/24/20 18:41 Blood - Venous Blood Culture - Preliminary No growth after 24 hours. Assessment and Plan (1) Acute respiratory failure with hypoxemia: Status: Acute (2) Pulmonary hypertension: Status: Acute (3) Diffuse pulmonary alveolar hemorrhage: Status: Acute (4) Healthcare-associated pneumonia: Status: Acute The patient is s/p bronchosocpy with DAH. ?bland versus vasculitis related. Frothy blood in the setting of severe pulmonary hypertension and diastolic dysfuction. My suspicion is that is likely bland from the latter conditions. REC: DDAVP Diuresis as tolerated repeat ECHO Consider Right heart catherization Would be reasonable to try sildanefil to decrease PA resistance Continue Solumedrol 1gm daily x 3 days Awaiting bronch cultures Procedures Date of Service Date of Service: 12/26/20
--- NOTE | 2020-12-26 12:57 | P.BOP_ITS ---
Brief Operative Note Date of Service: 12/26/20 Pre-op diagnosis: Diffuse Alveolar Hemorrhage Post-op diagnosis: same Procedure: Bronchoscopy with washings Surgeon: Avinash Camacho MD Anesthesia: GETA Was an [employer] used for this Procedure?: No Estimated blood loss (mL): 30 Pathology: none sent Condition: critical Disposition: ICU
--- NOTE | 2020-12-26 13:21 | OP_ITS ---
SURGEON: Avinash Camacho MD PREOPERATIVE DIAGNOSIS: POSTOPERATIVE DIAGNOSIS: PROCEDURE PERFORMED: ESTIMATED BLOOD LOSS: COMPLICATIONS: ANESTHESIA: The patient is already intubated and under the ICU level of care, sedated. The consent was obtained from his daughter, proxy was witnessed by the nurse. ASSISTANTS: SPECIMENS: ASA CLASSIFICATION: 4. PREBRONCHOSCOPY DIAGNOSIS: Hemoptysis. POSTBRONCHOSCOPY DIAGNOSIS: Evidence of diffuse alveolar hemorrhage. DESCRIPTION OF PROCEDURE: After the patient was adequately sedated, the flexible digital bronchoscope disposable was inserted via the ET tube to the level of the main alvaro. There was significant frothy blood, which appeared to be red in color surrounding the ET tube. In main alvaro, there was also frothy bleeding noted. The bronchoscope was navigated to the entire tracheobronchial tree and there was blooded every segment of the airways. Bronchial washings were collected at all the segments and after clearing the residual blood, indeed additional blood return, serosanguineous return on bronchial washings suggesting the diagnosis of diffuse alveolar hemorrhage involving the left upper lobe, the left lower lobe, the right upper lobe, right middle lobe, and also right lower lobe. The bronchoscope was then removed. The total endoscopic time approximately 10 minutes. The patient tolerated the procedure well. Vital signs were stable and he was sedated. Bronchial washings bilaterally were collected and sent for microbiology. INTERPRETATION: Successful bronchoscopy consistent with diffuse alveolar hemorrhage. Bronchial washings sent for culture. MD AWA Kim/JOSE / [id number]
--- NOTE | 2020-12-26 13:25 | HO.WOUNDCONS ---
History of Present Illness Data of Consult Service Date: 12/26/20 Primary Care Provider: [facility], [place] Reason for consult: left padilla wound 75-year-old male from [facility] admitted with hypotension, hyperkalemia and acute pancreatitis. Low blood pressure. Sedated in the ICU intubated. Asked to see left lower extremity ulcer of the anterior tibial region. Tannish drainage reported. No redness of the left leg is reported. Vascular history is unknown. Review of Systems Review of Systems: Yes Unobtainable due to mental condition [facility] Medical History (Updated 12/26/20 @ 13:32 by SAHARA Toribio) Alcoholic cirrhosis COPD (chronic obstructive pulmonary disease) Diabetes HTN (hypertension) Hyperlipidemia Pulmonary hypertension Pulmonary hypertension Social History Household Members: None Housing: [facility] Do you presently have visiting nurse or other home services: No Unable to assess alcohol history related to: Unknown Alcohol intake: never Patient Tobacco Use Status: Never used Tobacco Use of substances other than those prescribed or required for medical reasons: Unknown Currently Displaying Signs/Symptoms of Drug Intoxication Withdrawal: No Advance Directives: Yes Advance Directives on File: Yes Advance Directives Date on File: 12/09/20 Do you have thoughts of harming others: None Do you have a plan to hurt others: No Plan Recently lost weight without trying: Unsure Nutrition Risks: No Nutritional Risk service: No Current occupational status: retired Meds Allergies Allergy/AdvReac Type Severity Reaction Status Date / Time No Known Allergies Allergy Verified 11/28/20 10:42 Active Medications: Current Medications Generic Name Dose Route Start Last Admin Trade Name Rowan PRN Reason Stop Dose Admin Acetylcysteine 400 mg 12/25/20 12:00 12/26/20 12:49 Acetylcysteine 10 % 400 Mg/4 Ml Vial INHALE Not Given RQ4H WHILE AWAKE KIMMIE Albuterol/Ipratropium 3 ml 12/25/20 12:00 12/26/20 12:49 Albuterol/Iprat 2.5/0.5mg 3 Ml Ampul.Neb INHALE Not Given RQ4H WHILE AWAKE KIMMIE Chlorhexidine Gluconate 15 ml 12/25/20 23:45 12/26/20 09:56 Chlorhexidine Gluc Oral Rinse 15 Ml Mouthwash BUCCAL 15 ml TID KIMMIE Administration Famotidine 20 mg 12/25/20 21:00 12/26/20 09:56 Famotidine/Pf 20 Mg/2 Ml Vial IVPUSH 20 mg BID KIMMIE Administration Dopamine HCl/Dextrose 400 mg in 250 mls @ 0 mls/hr 12/24/20 22:45 12/26/20 07:07 IVCONT 8 mcg/kg/min .Q0M KIMMIE 37.2 mls/hr Administration Protocol Per Protocol Dextrose/Sodium Chloride 1,000 mls @ 100 mls/hr 12/25/20 13:30 12/26/20 09:03 D5ns IVCONT 100 mls/hr .Q10H KIMMIE Administration Pantoprazole Sodium 80 mg/ 100 mls @ 10 mls/hr 12/25/20 18:00 12/26/20 01:35 Sodium Chloride IV 8 mg/hr .Q10H KIMMIE 10 mls/hr Administration 8 MG/HR Propofol 1,000 mg in 100 mls @ 0 mls/hr 12/26/20 01:30 12/26/20 12:13 Diprivan IVCONT 30 mcg/kg/min .Q0M KIMMIE 22.32 mls/hr Titration Protocol Per Protocol Piperacillin Sod/Tazobactam 50 mls @ 100 mls/hr 12/26/20 11:00 12/26/20 12:37 Sod 3.375 gm/ Sodium Chloride IV Infused Q8H [facility] Infusion Methylprednisolone Sodium 66 mls @ 66 mls/hr 12/27/20 11:00 Succinate 1,000 mg/ Sodium IV Chloride Q24H [facility] Insulin Human Lispro 0 unit 12/25/20 16:30 12/26/20 12:08 Insulin Lispro 100 Unit/Ml 3 Ml Vial SUBCUT 8 unit QIDACHS KIMMIE Administration Protocol Lactulose 30 gm 12/25/20 23:45 12/26/20 10:26 Lactulose 20 Gm/30 Ml Solution PO 30 gm TID KIMMIE Administration Rifaximin 550 mg 12/25/20 23:45 12/26/20 10:26 Rifaximin 550 Mg Tablet PO 550 mg TID KIMMIE Administration Sodium Bicarbonate 650 mg 12/25/20 13:00 12/26/20 10:26 Sodium Bicarbonate 650 Mg Tablet PO 650 mg QID KIMMIE Administration Sodium Chloride 3 ml 12/25/20 16:00 12/26/20 08:24 0.9 % Sodium Chloride Flush 3 Ml Syringe IVFLUSH 3 ml QSMAFT [facility] Administration Home Medications Medication Instructions Recorded Confirmed Last Taken Type omeprazole 20 mg capsule,delayed 20 mg PO DAILY@0630 05/23/20 12/25/20 11/27/20 History release rifaximin 550 mg tablet 550 mg PO TID 05/23/20 12/25/20 11/27/20 History Incruse Ellipta 1 inh INHALATION DAILY 11/28/20 12/25/20 11/27/20 History Lantus Solostar U-100 Insulin 62 unit SUBCUT BEDTIME 11/28/20 12/25/20 11/27/20 History aspirin 81 mg PO DAILY 11/28/20 12/25/20 11/27/20 History atorvastatin 40 mg PO DAILY 11/28/20 12/25/20 11/27/20 History insulin aspart U-100 [Novolog 22 unit SUBCUT DAILY@0730 11/28/20 12/25/20 Unknown History Flexpen U-100 Insulin] insulin aspart U-100 [Novolog 24 unit SUBCUT QPM 11/28/20 12/25/20 Unknown History Flexpen U-100 Insulin] propranolol 10 mg PO BID 11/28/20 12/25/20 11/27/20 History spironolactone 50 mg PO DAILY 11/28/20 12/25/20 11/27/20 History potassium chloride 10 meq PO 12/25/20 Unknown History Physical Exam Vital Signs and Narrative: Vital Signs: Last Vital Signs Temp 97.2 F 12/26/20 13:00 Pulse 93 12/26/20 13:00 Resp 20 12/26/20 13:00 BP 105/43 L 12/26/20 13:00 Pulse Ox 97 12/26/20 13:00 Body Mass Index 36.4 Brawny skin changes consistent with venous insufficiency looking chronic in nature bilaterally. Small < 0.5 cm opening left anterior padilla. With illumination, full epithelial coverage is seen with the exception of 2 small pinpoint area is < 0.1 mm. No edema of the leg. No streaking redness or warmth to suggest infection of the leg. Results Labs CBC and Chem 7: 12/26/20 04:30 12/26/20 04:30 Labs: Laboratory Results - last 24 hr 05/12/25/20 12/25/20 12:24 12:24 12:24 MCV MCH MCHC RDW Plt Count MPV Immature Gran % (Auto) Neut % (Auto) Lymph % (Auto) [place] % (Auto) Eos % (Auto) Baso % (Auto) Lymph # (Auto) [place] # (Auto) Eos # (Auto) Baso # (Auto) Abs Immat Gran (auto) Absolute Neuts (auto) Absolute Nucleated RBC Nucleated RBC % (auto) Neutrophils % (Manual) Band Neutrophils % Lymphocytes % (Manual) Monocytes % (Manual) Abs Neuts (Manual) Lymphocytes # (Manual) Monocytes # (Manual) Platelet Estimate Large Platelets Plt Morphology Comment RBC Morphology [place] Cells Schistocytes Smear Tech's Comments ESR 53 H PT INR APTT Fibrinogen VBG pH VBG pCO2 VBG pO2 VBG HCO3 VBG O2 Saturation VBG Base Excess Anion Gap Estim Creat Clear Calc Estimated GFR POC Glucose Random Glucose Calcium Phosphorus Magnesium Total Bilirubin Direct Bilirubin GGT AST ALT Alkaline Phosphatase Ammonia Total Creatine Kinase Total Protein Albumin Lipase Urine Color Urine Appearance Urine pH Ur Specific [place] Urine Protein Urine Glucose (UA) Urine Ketones Urine Blood Urine Nitrite Ur Leukocyte Esterase Urine RBC Urine WBC Ur Squamous Epith Cells Ur Renal Epithelial Cell Urine Bacteria Ur Random Sodium Respiratory Panel [place] Adenovirus (Rapid PCR) B.pert (TEM-PCR) B.parapertussis DNA PCR C. pneumoniae DNA (PCR) Coronavirus OC43 (PCR) Coronavirus HKU1 (PCR) Coronavirus 229E (PCR) Coronavirus NL63 (PCR) Hepatitis A IgM Ab Hep Bs Antigen Negative Hep Bs Antigen (2) Hep Bs Antibody Hep B Core Total Ab Hepatitis C Ab (EIA) Nonreactive Human Metapneumovir PCR Influenza A (RT-PCR) Influenza B (RT-PCR) M. pneumoniae (PCR) Parainfluenza 1 (PCR) Parainfluenza 2 (PCR) Parainfluenza 3 (PCR) Parainfluenza 4 (PCR) RSV (PCR) Entero/Rhino (PCR) SARS-CoV-2 RNA (RT-PCR) Blood Type Antibody Screen Crossmatch 12/25/20 12/25/20 12/25/20 13:10 15:14 16:37 MCV MCH MCHC RDW Plt Count MPV Immature Gran % (Auto) Neut % (Auto) Lymph % (Auto) [place] % (Auto) Eos % (Auto) Baso % (Auto) Lymph # (Auto) [place] # (Auto) Eos # (Auto) Baso # (Auto) Abs Immat Gran (auto) Absolute Neuts (auto) Absolute Nucleated RBC Nucleated RBC % (auto) Neutrophils % (Manual) Band Neutrophils % Lymphocytes % (Manual) Monocytes % (Manual) Abs Neuts (Manual) Lymphocytes # (Manual) Monocytes # (Manual) Platelet Estimate Large Platelets Plt Morphology Comment RBC Morphology [place] Cells Schistocytes Smear Tech's Comments ESR PT INR APTT Fibrinogen VBG pH VBG pCO2 VBG pO2 VBG HCO3 VBG O2 Saturation VBG Base Excess Anion Gap Estim Creat Clear Calc Estimated GFR POC Glucose 264 H 276 H Random Glucose Calcium Phosphorus Magnesium Total Bilirubin Direct Bilirubin GGT AST ALT Alkaline Phosphatase Ammonia Total Creatine Kinase Total Protein Albumin Lipase Urine Color Urine Appearance Urine pH Ur Specific [place] Urine Protein Urine Glucose (UA) Urine Ketones Urine Blood Urine Nitrite Ur Leukocyte Esterase Urine RBC Urine WBC Ur Squamous Epith Cells Ur Renal Epithelial Cell Urine Bacteria Ur Random Sodium 22.0 Respiratory Panel [place] Adenovirus (Rapid PCR) B.pert (TEM-PCR) B.parapertussis DNA PCR C. pneumoniae DNA (PCR) Coronavirus OC43 (PCR) Coronavirus HKU1 (PCR) Coronavirus 229E (PCR) Coronavirus NL63 (PCR) Hepatitis A IgM Ab Hep Bs Antigen Hep Bs Antigen (2) Hep Bs Antibody Hep B Core Total Ab Hepatitis C Ab (EIA) Human Metapneumovir PCR Influenza A (RT-PCR) Influenza B (RT-PCR) M. pneumoniae (PCR) Parainfluenza 1 (PCR) Parainfluenza 2 (PCR) Parainfluenza 3 (PCR) Parainfluenza 4 (PCR) RSV (PCR) Entero/Rhino (PCR) SARS-CoV-2 RNA (RT-PCR) Blood Type Antibody Screen Crossmatch 12/25/20 12/25/20 12/25/20 20:18 20:18 20:18 MCV 95.3 MCH 33.6 H MCHC 35.2 RDW 18.0 H Plt Count 127 L MPV 12.6 H Immature Gran % (Auto) 0.4 Neut % (Auto) 80.6 H Lymph % (Auto) 8.2 L [place] % (Auto) 10.6 Eos % (Auto) 0.1 Baso % (Auto) 0.1 Lymph # (Auto) 0.9 L [place] # (Auto) 1.1 Eos # (Auto) 0.0 Baso # (Auto) 0.0 Abs Immat Gran (auto) 0.04 H Absolute Neuts (auto) 8.3 Absolute Nucleated RBC 0.030 H Nucleated RBC % (auto) 0.3 H Neutrophils % (Manual) 82 H Band Neutrophils % 2 L Lymphocytes % (Manual) 10 L Monocytes % (Manual) 6 Abs Neuts (Manual) 8.7 H Lymphocytes # (Manual) 1.0 Monocytes # (Manual) 0.6 Platelet Estimate SLIGHTLY DECREASED Large Platelets PRESENT Plt Morphology Comment NOTED RBC Morphology NOTED [place]leen Cells 1+ ( Schistocytes 1+ (0-2) Smear Tech's Comments ESR PT INR APTT Fibrinogen VBG pH VBG pCO2 VBG pO2 VBG HCO3 VBG O2 Saturation VBG Base Excess Anion Gap 17 Estim Creat Clear Calc 20.4 Estimated GFR 14 POC Glucose Random Glucose 312 H D Calcium 7.4 L D Phosphorus Magnesium Total Bilirubin 2.7 H Direct Bilirubin GGT AST 62 H ALT 36 Alkaline Phosphatase 220 H D Ammonia 96 H Total Creatine Kinase Total Protein 5.2 L Albumin 2.0 L Lipase 65 Urine Color Urine Appearance Urine pH Ur Specific [place] Urine Protein Urine Glucose (UA) Urine Ketones Urine Blood Urine Nitrite Ur Leukocyte Esterase Urine RBC Urine WBC Ur Squamous Epith Cells Ur Renal Epithelial Cell Urine Bacteria Ur Random Sodium Respiratory Panel [place] Adenovirus (Rapid PCR) B.pert (TEM-PCR) B.parapertussis DNA PCR C. pneumoniae DNA (PCR) Coronavirus OC43 (PCR) Coronavirus HKU1 (PCR) Coronavirus 229E (PCR) Coronavirus NL63 (PCR) Hepatitis A IgM Ab Hep Bs Antigen Hep Bs Antigen (2) Hep Bs Antibody Hep B Core Total Ab Hepatitis C Ab (EIA) Human Metapneumovir PCR Influenza A (RT-PCR) Influenza B (RT-PCR) M. pneumoniae (PCR) Parainfluenza 1 (PCR) Parainfluenza 2 (PCR) Parainfluenza 3 (PCR) Parainfluenza 4 (PCR) RSV (PCR) Entero/Rhino (PCR) SARS-CoV-2 RNA (RT-PCR) Blood Type Antibody Screen Crossmatch 12/25/20 12/25/20 12/25/20 20:18 21:12 21:29 MCV MCH MCHC RDW Plt Count MPV Immature Gran % (Auto) Neut % (Auto) Lymph % (Auto) [place] % (Auto) Eos % (Auto) Baso % (Auto) Lymph # (Auto) [place] # (Auto) Eos # (Auto) Baso # (Auto) Abs Immat Gran (auto) Absolute Neuts (auto) Absolute Nucleated RBC Nucleated RBC % (auto) Neutrophils % (Manual) Band Neutrophils % Lymphocytes % (Manual) Monocytes % (Manual) Abs Neuts (Manual) Lymphocytes # (Manual) Monocytes # (Manual) Platelet Estimate Large Platelets Plt Morphology Comment RBC Morphology [place] Cells Schistocytes Smear Tech's Comments ESR PT 23.4 H D INR 2.0 H APTT 49.3 H Fibrinogen 282 VBG pH 7.34 VBG pCO2 33 VBG pO2 44 VBG HCO3 18 L VBG O2 Saturation 68.0 VBG Base Excess -6.3 Anion Gap Estim Creat Clear Calc Estimated GFR POC Glucose 294 H Random Glucose Calcium Phosphorus Magnesium Total Bilirubin Direct Bilirubin GGT AST ALT Alkaline Phosphatase Ammonia Total Creatine Kinase Total Protein Albumin Lipase Urine Color Urine Appearance Urine pH Ur Specific [place] Urine Protein Urine Glucose (UA) Urine Ketones Urine Blood Urine Nitrite Ur Leukocyte Esterase Urine RBC Urine WBC Ur Squamous Epith Cells Ur Renal Epithelial Cell Urine Bacteria Ur Random Sodium Respiratory Panel [place] Adenovirus (Rapid PCR) B.pert (TEM-PCR) B.parapertussis DNA PCR C. pneumoniae DNA (PCR) Coronavirus OC43 (PCR) Coronavirus HKU1 (PCR) Coronavirus 229E (PCR) Coronavirus NL63 (PCR) Hepatitis A IgM Ab Hep Bs Antigen Hep Bs Antigen (2) Hep Bs Antibody Hep B Core Total Ab Hepatitis C Ab (EIA) Human Metapneumovir PCR Influenza A (RT-PCR) Influenza B (RT-PCR) M. pneumoniae (PCR) Parainfluenza 1 (PCR) Parainfluenza 2 (PCR) Parainfluenza 3 (PCR) Parainfluenza 4 (PCR) RSV (PCR) Entero/Rhino (PCR) SARS-CoV-2 RNA (RT-PCR) Blood Type Antibody Screen Crossmatch 12/25/20 12/26/20 12/26/20 22:37 00:00 00:31 MCV 96.7 MCH 33.8 H MCHC 34.9 RDW 18.2 H Plt Count 136 L MPV 12.6 H Immature Gran % (Auto) 0.8 H Neut % (Auto) 87.2 H Lymph % (Auto) 6.9 L [place] % (Auto) 5.1 Eos % (Auto) 0.0 Baso % (Auto) 0.0 Lymph # (Auto) 0.6 L [place] # (Auto) 0.5 Eos # (Auto) 0.0 Baso # (Auto) 0.0 Abs Immat Gran (auto) 0.07 H Absolute Neuts (auto) 8.0 Absolute Nucleated RBC 0.040 H Nucleated RBC % (auto) 0.4 H Neutrophils % (Manual) Band Neutrophils % Lymphocytes % (Manual) Monocytes % (Manual) Abs Neuts (Manual) Lymphocytes # (Manual) Monocytes # (Manual) Platelet Estimate Large Platelets Plt Morphology Comment RBC Morphology [place] Cells Schistocytes Smear Tech's Comments VERIFIED ESR PT INR APTT Fibrinogen VBG pH 7.27 L VBG pCO2 41 VBG pO2 59 VBG HCO3 19 L VBG O2 Saturation 81.0 VBG Base Excess -6.8 Anion Gap Estim Creat Clear Calc Estimated GFR POC Glucose Random Glucose Calcium Phosphorus Magnesium Total Bilirubin Direct Bilirubin GGT AST ALT Alkaline Phosphatase Ammonia Total Creatine Kinase Total Protein Albumin Lipase Urine Color Urine Appearance Urine pH Ur Specific [place] Urine Protein Urine Glucose (UA) Urine Ketones Urine Blood Urine Nitrite Ur Leukocyte Esterase Urine RBC Urine WBC Ur Squamous Epith Cells Ur Renal Epithelial Cell Urine Bacteria Ur Random Sodium Respiratory Panel [place] Adenovirus (Rapid PCR) B.pert (TEM-PCR) B.parapertussis DNA PCR C. pneumoniae DNA (PCR) Coronavirus OC43 (PCR) Coronavirus HKU1 (PCR) Coronavirus 229E (PCR) Coronavirus NL63 (PCR) Hepatitis A IgM Ab Hep Bs Antigen Hep Bs Antigen (2) Hep Bs Antibody Hep B Core Total Ab Hepatitis C Ab (EIA) Human Metapneumovir PCR Influenza A (RT-PCR) Influenza B (RT-PCR) M. pneumoniae (PCR) Parainfluenza 1 (PCR) Parainfluenza 2 (PCR) Parainfluenza 3 (PCR) Parainfluenza 4 (PCR) RSV (PCR) Entero/Rhino (PCR) SARS-CoV-2 RNA (RT-PCR) Blood Type O Positive Antibody Screen NEGATIVE Crossmatch See Detail 12/26/20 12/26/20 12/26/20 00:31 00:31 00:31 MCV MCH MCHC RDW Plt Count MPV Immature Gran % (Auto) Neut % (Auto) Lymph % (Auto) [place] % (Auto) Eos % (Auto) Baso % (Auto) Lymph # (Auto) [place] # (Auto) Eos # (Auto) Baso # (Auto) Abs Immat Gran (auto) Absolute Neuts (auto) Absolute Nucleated RBC Nucleated RBC % (auto) Neutrophils % (Manual) Band Neutrophils % Lymphocytes % (Manual) Monocytes % (Manual) Abs Neuts (Manual) Lymphocytes # (Manual) Monocytes # (Manual) Platelet Estimate Large Platelets Plt Morphology Comment RBC Morphology [place] Cells Schistocytes Smear Tech's Comments ESR PT 25.9 H INR 2.2 H APTT 47.4 H Fibrinogen 263 VBG pH VBG pCO2 VBG pO2 VBG HCO3 VBG O2 Saturation VBG Base Excess Anion Gap 15 Estim Creat Clear Calc 20.7 Estimated GFR 14 POC Glucose Random Glucose 333 H Calcium 7.1 L Phosphorus Magnesium Total Bilirubin 2.7 H Direct Bilirubin 1.3 H GGT 77 H AST 57 H ALT 35 Alkaline Phosphatase 211 H Ammonia Total Creatine Kinase Total Protein 5.3 L Albumin 2.1 L Lipase Urine Color Urine Appearance Urine pH Ur Specific [place] Urine Protein Urine Glucose (UA) Urine Ketones Urine Blood Urine Nitrite Ur Leukocyte Esterase Urine RBC Urine WBC Ur Squamous Epith Cells Ur Renal Epithelial Cell Urine Bacteria Ur Random Sodium Respiratory Panel [place] Adenovirus (Rapid PCR) B.pert (TEM-PCR) B.parapertussis DNA PCR C. pneumoniae DNA (PCR) Coronavirus OC43 (PCR) Coronavirus HKU1 (PCR) Coronavirus 229E (PCR) Coronavirus NL63 (PCR) Hepatitis A IgM Ab Nonreactive Hep Bs Antigen Not Reportable Hep Bs Antigen (2) NEGATIVE Hep Bs Antibody NONREACTIVE Hep B Core Total Ab Nonreactive Hepatitis C Ab (EIA) Nonreactive Human Metapneumovir PCR Influenza A (RT-PCR) Influenza B (RT-PCR) M. pneumoniae (PCR) Parainfluenza 1 (PCR) Parainfluenza 2 (PCR) Parainfluenza 3 (PCR) Parainfluenza 4 (PCR) RSV (PCR) Entero/Rhino (PCR) SARS-CoV-2 RNA (RT-PCR) Blood Type Antibody Screen Crossmatch 12/26/20 12/26/20 12/26/20 00:33 01:14 02:34 MCV MCH MCHC RDW Plt Count MPV Immature Gran % (Auto) Neut % (Auto) Lymph % (Auto) [place] % (Auto) Eos % (Auto) Baso % (Auto) Lymph # (Auto) [place] # (Auto) Eos # (Auto) Baso # (Auto) Abs Immat Gran (auto) Absolute Neuts (auto) Absolute Nucleated RBC Nucleated RBC % (auto) Neutrophils % (Manual) Band Neutrophils % Lymphocytes % (Manual) Monocytes % (Manual) Abs Neuts (Manual) Lymphocytes # (Manual) Monocytes # (Manual) Platelet Estimate Large Platelets Plt Morphology Comment RBC Morphology [place] Cells Schistocytes Smear Tech's Comments ESR PT INR APTT Fibrinogen VBG pH 7.30 L 7.33 7.39 VBG pCO2 38 35 29 VBG pO2 48 38 45 VBG HCO3 19 L 19 L 18 L VBG O2 Saturation 73.0 60.0 71.0 VBG Base Excess -6.7 -5.7 -5.1 Anion Gap Estim Creat Clear Calc Estimated GFR POC Glucose Random Glucose Calcium Phosphorus Magnesium Total Bilirubin Direct Bilirubin GGT AST ALT Alkaline Phosphatase Ammonia Total Creatine Kinase Total Protein Albumin Lipase Urine Color Urine Appearance Urine pH Ur Specific [place] Urine Protein Urine Glucose (UA) Urine Ketones Urine Blood Urine Nitrite Ur Leukocyte Esterase Urine RBC Urine WBC Ur Squamous Epith Cells Ur Renal Epithelial Cell Urine Bacteria Ur Random Sodium Respiratory Panel [place] Adenovirus (Rapid PCR) B.pert (TEM-PCR) B.parapertussis DNA PCR C. pneumoniae DNA (PCR) Coronavirus OC43 (PCR) Coronavirus HKU1 (PCR) Coronavirus 229E (PCR) Coronavirus NL63 (PCR) Hepatitis A IgM Ab Hep Bs Antigen Hep Bs Antigen (2) Hep Bs Antibody Hep B Core Total Ab Hepatitis C Ab (EIA) Human Metapneumovir PCR Influenza A (RT-PCR) Influenza B (RT-PCR) M. pneumoniae (PCR) Parainfluenza 1 (PCR) Parainfluenza 2 (PCR) Parainfluenza 3 (PCR) Parainfluenza 4 (PCR) RSV (PCR) Entero/Rhino (PCR) SARS-CoV-2 RNA (RT-PCR) Blood Type Antibody Screen Crossmatch 12/26/20 12/26/20 12/26/20 04:26 04:29 04:30 MCV 96.4 MCH 34.0 H MCHC 35.2 RDW 18.0 H Plt Count 123 L MPV 12.5 H Immature Gran % (Auto) 0.7 H Neut % (Auto) 85.6 H Lymph % (Auto) 10.0 L [place] % (Auto) 3.7 Eos % (Auto) 0.0 Baso % (Auto) 0.0 Lymph # (Auto) 1.1 L [place] # (Auto) 0.4 Eos # (Auto) 0.0 Baso # (Auto) 0.0 Abs Immat Gran (auto) 0.07 H Absolute Neuts (auto) 9.2 H Absolute Nucleated RBC 0.050 H Nucleated RBC % (auto) 0.5 H Neutrophils % (Manual) Band Neutrophils % Lymphocytes % (Manual) Monocytes % (Manual) Abs Neuts (Manual) Lymphocytes # (Manual) Monocytes # (Manual) Platelet Estimate Large Platelets Plt Morphology Comment RBC Morphology [place] Cells Schistocytes Smear Tech's Comments ESR PT INR APTT Fibrinogen VBG pH VBG pCO2 VBG pO2 VBG HCO3 VBG O2 Saturation VBG Base Excess Anion Gap Estim Creat Clear Calc Estimated GFR POC Glucose Random Glucose Calcium Phosphorus Magnesium Total Bilirubin Direct Bilirubin GGT AST ALT Alkaline Phosphatase Ammonia 73 H Total Creatine Kinase Total Protein Albumin Lipase Urine Color Urine Appearance Urine pH Ur Specific [place] Urine Protein Urine Glucose (UA) Urine Ketones Urine Blood Urine Nitrite Ur Leukocyte Esterase Urine RBC Urine WBC Ur Squamous Epith Cells Ur Renal Epithelial Cell Urine Bacteria Ur Random Sodium Respiratory Panel Hay See Note Adenovirus (Rapid PCR) Not Detected B.pert (TEM-PCR) Not Detected B.parapertussis DNA PCR Not Detected C. pneumoniae DNA (PCR) Not Detected Coronavirus OC43 (PCR) Not Detected Coronavirus HKU1 (PCR) Not Detected Coronavirus 229E (PCR) Not Detected Coronavirus NL63 (PCR) Not Detected Hepatitis A IgM Ab Hep Bs Antigen Hep Bs Antigen (2) Hep Bs Antibody Hep B Core Total Ab Hepatitis C Ab (EIA) Human Metapneumovir PCR Not Detected Influenza A (RT-PCR) Not Detected Influenza B (RT-PCR) Not Detected M. pneumoniae (PCR) Not Detected Parainfluenza 1 (PCR) Not Detected Parainfluenza 2 (PCR) Not Detected Parainfluenza 3 (PCR) Not Detected Parainfluenza 4 (PCR) Not Detected RSV (PCR) Not Detected Entero/Rhino (PCR) Not Detected SARS-CoV-2 RNA (RT-PCR) Not Detected Blood Type Antibody Screen Crossmatch 12/26/20 12/26/20 12/26/20 04:30 04:30 04:30 MCV MCH MCHC RDW Plt Count MPV Immature Gran % (Auto) Neut % (Auto) Lymph % (Auto) [place] % (Auto) Eos % (Auto) Baso % (Auto) Lymph # (Auto) [place] # (Auto) Eos # (Auto) Baso # (Auto) Abs Immat Gran (auto) Absolute Neuts (auto) Absolute Nucleated RBC Nucleated RBC % (auto) Neutrophils % (Manual) Band Neutrophils % Lymphocytes % (Manual) Monocytes % (Manual) Abs Neuts (Manual) Lymphocytes # (Manual) Monocytes # (Manual) Platelet Estimate Large Platelets Plt Morphology Comment RBC Morphology [place] Cells Schistocytes Smear Tech's Comments ESR PT 23.3 H INR 1.9 H APTT 42.6 H Fibrinogen 273 VBG pH VBG pCO2 VBG pO2 VBG HCO3 VBG O2 Saturation VBG Base Excess Anion Gap 19 Estim Creat Clear Calc 21.3 Estimated GFR 14 POC Glucose Random Glucose 361 H* Calcium 7.3 L Phosphorus 5.5 H Magnesium 2.0 Total Bilirubin Direct Bilirubin GGT AST ALT Alkaline Phosphatase Ammonia Total Creatine Kinase 108 D Total Protein Albumin Lipase Urine Color Urine Appearance Urine pH Ur Specific [place] Urine Protein Urine Glucose (UA) Urine Ketones Urine Blood Urine Nitrite Ur Leukocyte Esterase Urine RBC Urine WBC Ur Squamous Epith Cells Ur Renal Epithelial Cell Urine Bacteria Ur Random Sodium Respiratory Panel [place] Adenovirus (Rapid PCR) B.pert (TEM-PCR) B.parapertussis DNA PCR C. pneumoniae DNA (PCR) Coronavirus OC43 (PCR) Coronavirus HKU1 (PCR) Coronavirus 229E (PCR) Coronavirus NL63 (PCR) Hepatitis A IgM Ab Hep Bs Antigen Hep Bs Antigen (2) Hep Bs Antibody Hep B Core Total Ab Hepatitis C Ab (EIA) Human Metapneumovir PCR Influenza A (RT-PCR) Influenza B (RT-PCR) M. pneumoniae (PCR) Parainfluenza 1 (PCR) Parainfluenza 2 (PCR) Parainfluenza 3 (PCR) Parainfluenza 4 (PCR) RSV (PCR) Entero/Rhino (PCR) SARS-CoV-2 RNA (RT-PCR) Blood Type Antibody Screen Crossmatch 12/26/20 12/26/20 12/26/20 04:30 04:33 07:17 MCV MCH MCHC RDW Plt Count MPV Immature Gran % (Auto) Neut % (Auto) Lymph % (Auto) [place] % (Auto) Eos % (Auto) Baso % (Auto) Lymph # (Auto) [place] # (Auto) Eos # (Auto) Baso # (Auto) Abs Immat Gran (auto) Absolute Neuts (auto) Absolute Nucleated RBC Nucleated RBC % (auto) Neutrophils % (Manual) Band Neutrophils % Lymphocytes % (Manual) Monocytes % (Manual) Abs Neuts (Manual) Lymphocytes # (Manual) Monocytes # (Manual) Platelet Estimate Large Platelets Plt Morphology Comment RBC Morphology [place] Cells Schistocytes Smear Tech's Comments ESR PT INR APTT Fibrinogen VBG pH 7.35 VBG pCO2 31 VBG pO2 50 VBG HCO3 17 L VBG O2 Saturation 74.0 VBG Base Excess -6.9 Anion Gap Estim Creat Clear Calc Estimated GFR POC Glucose Random Glucose Calcium Phosphorus Magnesium Total Bilirubin 2.7 H Direct Bilirubin 1.3 H GGT 66 H AST 47 H ALT 32 Alkaline Phosphatase 177 H Ammonia Total Creatine Kinase Total Protein 5.0 L Albumin 2.1 L Lipase Urine Color YELLOW Urine Appearance CLOUDY Urine pH 6.0 Ur Specific [place] 1.010 Urine Protein NEG Urine Glucose (UA) NEG Urine Ketones NEG Urine Blood 3+ H Urine Nitrite NEG Ur Leukocyte Esterase NEG Urine RBC 50-75 H Urine WBC 0 Ur Squamous Epith Cells TRACE Ur Renal Epithelial Cell TRACE Urine Bacteria NONE Ur Random Sodium Respiratory Panel [place] Adenovirus (Rapid PCR) B.pert (TEM-PCR) B.parapertussis DNA PCR C. pneumoniae DNA (PCR) Coronavirus OC43 (PCR) Coronavirus HKU1 (PCR) Coronavirus 229E (PCR) Coronavirus NL63 (PCR) Hepatitis A IgM Ab Hep Bs Antigen Hep Bs Antigen (2) Hep Bs Antibody Hep B Core Total Ab Hepatitis C Ab (EIA) Human Metapneumovir PCR Influenza A (RT-PCR) Influenza B (RT-PCR) M. pneumoniae (PCR) Parainfluenza 1 (PCR) Parainfluenza 2 (PCR) Parainfluenza 3 (PCR) Parainfluenza 4 (PCR) RSV (PCR) Entero/Rhino (PCR) SARS-CoV-2 RNA (RT-PCR) Blood Type Antibody Screen Crossmatch 12/26/20 12/26/20 08:14 12:04 MCV MCH MCHC RDW Plt Count MPV Immature Gran % (Auto) Neut % (Auto) Lymph % (Auto) [place] % (Auto) Eos % (Auto) Baso % (Auto) Lymph # (Auto) [place] # (Auto) Eos # (Auto) Baso # (Auto) Abs Immat Gran (auto) Absolute Neuts (auto) Absolute Nucleated RBC Nucleated RBC % (auto) Neutrophils % (Manual) Band Neutrophils % Lymphocytes % (Manual) Monocytes % (Manual) Abs Neuts (Manual) Lymphocytes # (Manual) Monocytes # (Manual) Platelet Estimate Large Platelets Plt Morphology Comment RBC Morphology [place] Cells Schistocytes Smear Tech's Comments ESR PT INR APTT Fibrinogen VBG pH VBG pCO2 VBG pO2 VBG HCO3 VBG O2 Saturation VBG Base Excess Anion Gap Estim Creat Clear Calc Estimated GFR POC Glucose 317 H 342 H Random Glucose Calcium Phosphorus Magnesium Total Bilirubin Direct Bilirubin GGT AST ALT Alkaline Phosphatase Ammonia Total Creatine Kinase Total Protein Albumin Lipase Urine Color Urine Appearance Urine pH Ur Specific [place] Urine Protein Urine Glucose (UA) Urine Ketones Urine Blood Urine Nitrite Ur Leukocyte Esterase Urine RBC Urine WBC Ur Squamous Epith Cells Ur Renal Epithelial Cell Urine Bacteria Ur Random Sodium Respiratory Panel [place] Adenovirus (Rapid PCR) B.pert (TEM-PCR) B.parapertussis DNA PCR C. pneumoniae DNA (PCR) Coronavirus OC43 (PCR) Coronavirus HKU1 (PCR) Coronavirus 229E (PCR) Coronavirus NL63 (PCR) Hepatitis A IgM Ab Hep Bs Antigen Hep Bs Antigen (2) Hep Bs Antibody Hep B Core Total Ab Hepatitis C Ab (EIA) Human Metapneumovir PCR Influenza A (RT-PCR) Influenza B (RT-PCR) M. pneumoniae (PCR) Parainfluenza 1 (PCR) Parainfluenza 2 (PCR) Parainfluenza 3 (PCR) Parainfluenza 4 (PCR) RSV (PCR) Entero/Rhino (PCR) SARS-CoV-2 RNA (RT-PCR) Blood Type Antibody Screen Crossmatch Imaging Radiologist's Impressions: Impressions Elbow CT 12/25/20 08:45 IMPRESSION: 1. Very limited study due to above limitations. Limited incomplete evaluation of the structures. 2. Ossifications about the posterior aspect of the joint and the olecranon process, could be related to bony spurring. Loose bodies, fracture in this region cannot be excluded. 3. No obvious displaced acute fracture is otherwise identified. Evaluation is for subtle/undisplaced fracture is limited. Recommend elbow radiographs for evaluation. Followup/repeat CT or MRI can be obtained as clinically warranted. Chest X-Ray 12/25/20 20:48 IMPRESSION: [id number] right pleural effusion with underlying atelectasis. There is moderate mild atelectatic changes in left lung base as well. No change in right jugular central catheter and mild cardiomegaly. Chest X-Ray 12/26/20 00:00 IMPRESSION: Newly placed ET tube and NG tube as described above. 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 Agree with foam dressing, changed as needed but applied no longer than 72 hours without changing. Anticipate full healing will occur within the next week or two but can follow up at [facility] outpatient if this is not the case and medical acuity allows.
[2020-12-26 13:37] LABS: Anti Nuclear Antibody Screen NEGATIVE (NEGATIVE)
--- NOTE | 2020-12-26 14:12 | MHC.CLN ---
IF TF NEEDED; SEE CLINICAL NUTRITION ASSESSMENT
[2020-12-26 14:25] LABS: Anti Glomerular Basement Memb <1.0 AI; Antibody to SS-A Antigen <1.0 NEG AI (<1.0 NEG); Antibody to SS-B Antigen <1.0 NEG AI (<1.0 NEG); Myeloperoxidase Antibody <1.0 AI; Proteinase 3 PR3 Antibodies <1.0 AI
--- NOTE | 2020-12-26 15:22 | MHC.CM.PN ---
Pt is now on ventilatory support with no immediate plans to extubate. CM will follow for finalization of d/c plans
[2020-12-26] MEDS: propofoL 1,000 MG/100 ML VIAL 22.32 MG IVCONT (15:37)
--- NOTE | 2020-12-26 15:40 | PM.CCPN ---
Subjective Subjective Date of Service: 12/26/20 Interval History: 75-year-old male former alcoholic. Ten years ago but clearly has hepatic insufficiency as well as portal hypertension also has chronic and systemic levels of pulmonary hypertension at 100 systolic but with normal right heart function as well as normal left heart function who presented with hypothermia and bradycardia and metabolically with hypo hypo knee tree Angeli and hyperkalemia given 1 stat dose of steroid replacement and warmed and cultured completely for presumptive presentation of sepsis subsequently noted to have bilateral infiltrates on CT scan of the chest and also acute on chronic renal failure stage 4 but with evidence of some hematuria as well as proteinuria and then developed margarita large volume hemoptysis in the face of a stable chronic coagulopathy with mild PTT and PT elevations but no evidence of consumption of platelets and still has a stable borderline degree of thrombocytopenia no consumption of fibrinogen nonetheless fresh frozen plasma as well as DDAVP was given to him in the hopes of having it settle his bleeding and has a picture of diffuse alveolar hemorrhage on bronchoscopy with BAL and in addition has evidence of gastric of actually hepatic gastropathy and he had a very mild reduction of creatinine from 4.6-4.1 and that could have been the hydration or it could have been the bolus dose of methylprednisolone Specifically discussed with Renal about transfer to tertiary institution possible plasmapheresis full what could be a basement membrane vasculitic process and then finally kidney biopsy I have not heard a a return call yet Critical Care Time (minutes): 60 Physical Exam Vital Signs: Vital Signs: Last Vital Signs Temp 97.2 F 12/26/20 14:00 Pulse 80 12/26/20 15:02 Resp 20 12/26/20 14:00 BP 113/55 L 12/26/20 14:00 Pulse Ox 96 12/26/20 14:00 Body Mass Index 36.4 Const: Other: Sedated and intubated Bronchoscopy shows from all segments diffuse alveolar hemorrhage and not lavaging clear Endoscopy showed evidence of hepatic gastropathy no evidence of active bleed 1 overlying clot that could not be cleared away so we will concerned that the gastropathy was this source of the GI bleeding and for that started on antacid therapy and octreotide Cardiac exam showing CVP of about 5-7 with no gallops quiet precordium it remains warm and well perfused no skin lesions Objective Data Labs CBC & Chem 7: 12/27/20 05:06 12/27/20 05:06 Labs: Laboratory Results - last 24 hr 12/25/20 12/25/20 12/25/20 12:24 12:24 12:24 WBC RBC Hgb Hct MCV MCH MCHC RDW Plt Count MPV Immature Gran % (Auto) Neut % (Auto) Lymph % (Auto) [place] % (Auto) Eos % (Auto) Baso % (Auto) Lymph # (Auto) [place] # (Auto) Eos # (Auto) Baso # (Auto) Abs Immat Gran (auto) Absolute Neuts (auto) Absolute Nucleated RBC Nucleated RBC % (auto) Neutrophils % (Manual) Band Neutrophils % Lymphocytes % (Manual) Monocytes % (Manual) Abs Neuts (Manual) Lymphocytes # (Manual) Monocytes # (Manual) Platelet Estimate Large Platelets Plt Morphology Comment RBC Morphology [place] Cells Schistocytes Smear Tech's Comments PT INR APTT Fibrinogen VBG pH VBG pCO2 VBG pO2 VBG HCO3 VBG O2 Saturation VBG Base Excess Sodium Potassium Chloride Carbon Dioxide Anion Gap BUN Creatinine Estim Creat Clear Calc Estimated GFR POC Glucose Random Glucose Calcium Phosphorus Magnesium Total Bilirubin Direct Bilirubin GGT AST ALT Alkaline Phosphatase Ammonia Total Creatine Kinase Total Protein Albumin Lipase Urine Color Urine Appearance Urine pH Ur Specific [place] Urine Protein Urine Glucose (UA) Urine Ketones Urine Blood Urine Nitrite Ur Leukocyte Esterase Urine RBC Urine WBC Ur Squamous Epith Cells Ur Renal Epithelial Cell Urine Bacteria MADELINE Screen NEGATIVE Proteinase 3 (PR3) Ab <1.0 <1.0 Myeloperoxidase Ab <1.0 <1.0 SS-A/Ro Antibody <1.0 NEG SS-B/La Antibody <1.0 NEG Glomerular Base Memb Ab <1.0 Respiratory Panel [place] Adenovirus (Rapid PCR) B.pert (TEM-PCR) B.parapertussis DNA PCR C. pneumoniae DNA (PCR) Coronavirus OC43 (PCR) Coronavirus HKU1 (PCR) Coronavirus 229E (PCR) Coronavirus NL63 (PCR) Hepatitis A IgM Ab Hep Bs Antigen Hep Bs Antigen (2) Hep Bs Antibody Hep B Core Total Ab Hepatitis C Ab (EIA) Human Metapneumovir PCR Influenza A (RT-PCR) Influenza B (RT-PCR) M. pneumoniae (PCR) Parainfluenza 1 (PCR) Parainfluenza 2 (PCR) Parainfluenza 3 (PCR) Parainfluenza 4 (PCR) RSV (PCR) Entero/Rhino (PCR) SARS-CoV-2 RNA (RT-PCR) Blood Type Antibody Screen Crossmatch 12/25/20 12/25/20 12/25/20 12:24 12:24 16:37 WBC RBC Hgb Hct MCV MCH MCHC RDW Plt Count MPV Immature Gran % (Auto) Neut % (Auto) Lymph % (Auto) [place] % (Auto) Eos % (Auto) Baso % (Auto) Lymph # (Auto) [place] # (Auto) Eos # (Auto) Baso # (Auto) Abs Immat Gran (auto) Absolute Neuts (auto) Absolute Nucleated RBC Nucleated RBC % (auto) Neutrophils % (Manual) Band Neutrophils % Lymphocytes % (Manual) Monocytes % (Manual) Abs Neuts (Manual) Lymphocytes # (Manual) Monocytes # (Manual) Platelet Estimate Large Platelets Plt Morphology Comment RBC Morphology [place] Cells Schistocytes Smear Tech's Comments PT INR APTT Fibrinogen VBG pH VBG pCO2 VBG pO2 VBG HCO3 VBG O2 Saturation VBG Base Excess Sodium Potassium Chloride Carbon Dioxide Anion Gap BUN Creatinine Estim Creat Clear Calc Estimated GFR POC Glucose 276 H Random Glucose Calcium Phosphorus Magnesium Total Bilirubin Direct Bilirubin GGT AST ALT Alkaline Phosphatase Ammonia Total Creatine Kinase Total Protein Albumin Lipase Urine Color Urine Appearance Urine pH Ur Specific [place] Urine Protein Urine Glucose (UA) Urine Ketones Urine Blood Urine Nitrite Ur Leukocyte Esterase Urine RBC Urine WBC Ur Squamous Epith Cells Ur Renal Epithelial Cell Urine Bacteria MADELINE Screen Proteinase 3 (PR3) Ab Myeloperoxidase Ab SS-A/Ro Antibody SS-B/La Antibody Glomerular Base Memb Ab Respiratory Panel [place] Adenovirus (Rapid PCR) B.pert (TEM-PCR) B.parapertussis DNA PCR C. pneumoniae DNA (PCR) Coronavirus OC43 (PCR) Coronavirus HKU1 (PCR) Coronavirus 229E (PCR) Coronavirus NL63 (PCR) Hepatitis A IgM Ab Hep Bs Antigen Negative Hep Bs Antigen (2) Hep Bs Antibody Hep B Core Total Ab Hepatitis C Ab (EIA) Nonreactive Human Metapneumovir PCR Influenza A (RT-PCR) Influenza B (RT-PCR) M. pneumoniae (PCR) Parainfluenza 1 (PCR) Parainfluenza 2 (PCR) Parainfluenza 3 (PCR) Parainfluenza 4 (PCR) RSV (PCR) Entero/Rhino (PCR) SARS-CoV-2 RNA (RT-PCR) Blood Type Antibody Screen Crossmatch 0512/25/20 12/25/20 20:18 20:18 20:18 WBC 10.4 RBC 2.98 L D Hgb 10.0 L D Hct 28.4 L D MCV 95.3 MCH 33.6 H MCHC 35.2 RDW 18.0 H Plt Count 127 L MPV 12.6 H Immature Gran % (Auto) 0.4 Neut % (Auto) 80.6 H Lymph % (Auto) 8.2 L [place] % (Auto) 10.6 Eos % (Auto) 0.1 Baso % (Auto) 0.1 Lymph # (Auto) 0.9 L [place] # (Auto) 1.1 Eos # (Auto) 0.0 Baso # (Auto) 0.0 Abs Immat Gran (auto) 0.04 H Absolute Neuts (auto) 8.3 Absolute Nucleated RBC 0.030 H Nucleated RBC % (auto) 0.3 H Neutrophils % (Manual) 82 H Band Neutrophils % 2 L Lymphocytes % (Manual) 10 L Monocytes % (Manual) 6 Abs Neuts (Manual) 8.7 H Lymphocytes # (Manual) 1.0 Monocytes # (Manual) 0.6 Platelet Estimate SLIGHTLY DECREASED Large Platelets PRESENT Plt Morphology Comment NOTED RBC Morphology NOTED [place] Cells 1+ ( Schistocytes 1+ (0-2) Smear Tech's Comments PT INR APTT Fibrinogen VBG pH VBG pCO2 VBG pO2 VBG HCO3 VBG O2 Saturation VBG Base Excess Sodium 128 L Potassium 5.9 H Chloride 100 Carbon Dioxide 17 L Anion Gap 17 BUN 65 H Creatinine 4.30 H* Estim Creat Clear Calc 20.4 Estimated GFR 14 POC Glucose Random Glucose 312 H D Calcium 7.4 L D Phosphorus Magnesium Total Bilirubin 2.7 H Direct Bilirubin GGT AST 62 H ALT 36 Alkaline Phosphatase 220 H D Ammonia 96 H Total Creatine Kinase Total Protein 5.2 L Albumin 2.0 L Lipase 65 Urine Color Urine Appearance Urine pH Ur Specific [place] Urine Protein Urine Glucose (UA) Urine Ketones Urine Blood Urine Nitrite Ur Leukocyte Esterase Urine RBC Urine WBC Ur Squamous Epith Cells Ur Renal Epithelial Cell Urine Bacteria MAD[place]INE Screen Proteinase 3 (PR3) Ab Myeloperoxidase Ab SS-A/Ro Antibody SS-B/La Antibody Glomerular Base Memb Ab Respiratory Panel [place] Adenovirus (Rapid PCR) B.pert (TEM-PCR) B.parapertussis DNA PCR C. pneumoniae DNA (PCR) Coronavirus OC43 (PCR) Coronavirus HKU1 (PCR) Coronavirus 229E (PCR) Coronavirus NL63 (PCR) Hepatitis A IgM Ab Hep Bs Antigen Hep Bs Antigen (2) Hep Bs Antibody Hep B Core Total Ab Hepatitis C Ab (EIA) Human Metapneumovir PCR Influenza A (RT-PCR) Influenza B (RT-PCR) M. pneumoniae (PCR) Parainfluenza 1 (PCR) Parainfluenza 2 (PCR) Parainfluenza 3 (PCR) Parainfluenza 4 (PCR) RSV (PCR) Entero/Rhino (PCR) SARS-CoV-2 RNA (RT-PCR) Blood Type Antibody Screen Crossmatch 12/25/20 12/25/20 12/25/20 20:18 21:12 21:29 WBC RBC Hgb Hct MCV MCH MCHC RDW Plt Count MPV Immature Gran % (Auto) Neut % (Auto) Lymph % (Auto) [place] % (Auto) Eos % (Auto) Baso % (Auto) Lymph # (Auto) [place] # (Auto) Eos # (Auto) Baso # (Auto) Abs Immat Gran (auto) Absolute Neuts (auto) Absolute Nucleated RBC Nucleated RBC % (auto) Neutrophils % (Manual) Band Neutrophils % Lymphocytes % (Manual) Monocytes % (Manual) Abs Neuts (Manual) Lymphocytes # (Manual) Monocytes # (Manual) Platelet Estimate Large Platelets Plt Morphology Comment RBC Morphology [place] Cells Schistocytes Smear Tech's Comments PT 23.4 H D INR 2.0 H APTT 49.3 H Fibrinogen 282 VBG pH 7.34 VBG pCO2 33 VBG pO2 44 VBG HCO3 18 L VBG O2 Saturation 68.0 VBG Base Excess -6.3 Sodium Potassium Chloride Carbon Dioxide Anion Gap BUN Creatinine Estim Creat Clear Calc Estimated GFR POC Glucose 294 H Random Glucose Calcium Phosphorus Magnesium Total Bilirubin Direct Bilirubin GGT AST ALT Alkaline Phosphatase Ammonia Total Creatine Kinase Total Protein Albumin Lipase Urine Color Urine Appearance Urine pH Ur Specific [place] Urine Protein Urine Glucose (UA) Urine Ketones Urine Blood Urine Nitrite Ur Leukocyte Esterase Urine RBC Urine WBC Ur Squamous Epith Cells Ur Renal Epithelial Cell Urine Bacteria MADELINE Screen Proteinase 3 (PR3) Ab Myeloperoxidase Ab SS-A/Ro Antibody SS-B/La Antibody Glomerular Base Memb Ab Respiratory Panel [place] Adenovirus (Rapid PCR) B.pert (TEM-PCR) B.parapertussis DNA PCR C. pneumoniae DNA (PCR) Coronavirus OC43 (PCR) Coronavirus HKU1 (PCR) Coronavirus 229E (PCR) Coronavirus NL63 (PCR) Hepatitis A IgM Ab Hep Bs Antigen Hep Bs Antigen (2) Hep Bs Antibody Hep B Core Total Ab Hepatitis C Ab (EIA) Human Metapneumovir PCR Influenza A (RT-PCR) Influenza B (RT-PCR) M. pneumoniae (PCR) Parainfluenza 1 (PCR) Parainfluenza 2 (PCR) Parainfluenza 3 (PCR) Parainfluenza 4 (PCR) RSV (PCR) Entero/Rhino (PCR) SARS-CoV-2 RNA (RT-PCR) Blood Type Antibody Screen Crossmatch 12/25/20 12/26/20 12/26/20 22:37 00:00 00:31 WBC 9.2 RBC 2.99 L Hgb 10.1 L Hct 28.9 L MCV 96.7 MCH 33.8 H MCHC 34.9 RDW 18.2 H Plt Count 136 L MPV 12.6 H Immature Gran % (Auto) 0.8 H Neut % (Auto) 87.2 H Lymph % (Auto) 6.9 L [place] % (Auto) 5.1 Eos % (Auto) 0.0 Baso % (Auto) 0.0 Lymph # (Auto) 0.6 L [place] # (Auto) 0.5 Eos # (Auto) 0.0 Baso # (Auto) 0.0 Abs Immat Gran (auto) 0.07 H Absolute Neuts (auto) 8.0 Absolute Nucleated RBC 0.040 H Nucleated RBC % (auto) 0.4 H Neutrophils % (Manual) Band Neutrophils % Lymphocytes % (Manual) Monocytes % (Manual) Abs Neuts (Manual) Lymphocytes # (Manual) Monocytes # (Manual) Platelet Estimate Large Platelets Plt Morphology Comment RBC Morphology [place] Cells Schistocytes Smear Tech's Comments VERIFIED PT INR APTT Fibrinogen VBG pH 7.27 L VBG pCO2 41 VBG pO2 59 VBG HCO3 19 L VBG O2 Saturation 81.0 VBG Base Excess -6.8 Sodium Potassium Chloride Carbon Dioxide Anion Gap BUN Creatinine Estim Creat Clear Calc Estimated GFR POC Glucose Random Glucose Calcium Phosphorus Magnesium Total Bilirubin Direct Bilirubin GGT AST ALT Alkaline Phosphatase Ammonia Total Creatine Kinase Total Protein Albumin Lipase Urine Color Urine Appearance Urine pH Ur Specific [place] Urine Protein Urine Glucose (UA) Urine Ketones Urine Blood Urine Nitrite Ur Leukocyte Esterase Urine RBC Urine WBC Ur Squamous Epith Cells Ur Renal Epithelial Cell Urine Bacteria MADELINE Screen Proteinase 3 (PR3) Ab Myeloperoxidase Ab SS-A/Ro Antibody SS-B/La Antibody Glomerular Base Memb Ab Respiratory Panel [place] Adenovirus (Rapid PCR) B.pert (TEM-PCR) B.parapertussis DNA PCR C. pneumoniae DNA (PCR) Coronavirus OC43 (PCR) Coronavirus HKU1 (PCR) Coronavirus 229E (PCR) Coronavirus NL63 (PCR) Hepatitis A IgM Ab Hep Bs Antigen Hep Bs Antigen (2) Hep Bs Antibody Hep B Core Total Ab Hepatitis C Ab (EIA) Human Metapneumovir PCR Influenza A (RT-PCR) Influenza B (RT-PCR) M. pneumoniae (PCR) Parainfluenza 1 (PCR) Parainfluenza 2 (PCR) Parainfluenza 3 (PCR) Parainfluenza 4 (PCR) RSV (PCR) Entero/Rhino (PCR) SARS-CoV-2 RNA (RT-PCR) Blood Type O Positive Antibody Screen NEGATIVE Crossmatch See Detail 12/26/20 12/26/20 12/26/20 00:31 00:31 00:31 WBC RBC Hgb Hct MCV MCH MCHC RDW Plt Count MPV Immature Gran % (Auto) Neut % (Auto) Lymph % (Auto) [place] % (Auto) Eos % (Auto) Baso % (Auto) Lymph # (Auto) [place] # (Auto) Eos # (Auto) Baso # (Auto) Abs Immat Gran (auto) Absolute Neuts (auto) Absolute Nucleated RBC Nucleated RBC % (auto) Neutrophils % (Manual) Band Neutrophils % Lymphocytes % (Manual) Monocytes % (Manual) Abs Neuts (Manual) Lymphocytes # (Manual) Monocytes # (Manual) Platelet Estimate Large Platelets Plt Morphology Comment RBC Morphology [place] Cells Schistocytes Smear Tech's Comments PT 25.9 H INR 2.2 H APTT 47.4 H Fibrinogen 263 VBG pH VBG pCO2 VBG pO2 VBG HCO3 VBG O2 Saturation VBG Base Excess Sodium 129 L Potassium 6.1 H* Chloride 101 Carbon Dioxide 19 L Anion Gap 15 BUN 64 H Creatinine 4.25 H* Estim Creat Clear Calc 20.7 Estimated GFR 14 POC Glucose Random Glucose 333 H Calcium 7.1 L Phosphorus Magnesium Total Bilirubin 2.7 H Direct Bilirubin 1.3 H GGT 77 H AST 57 H ALT 35 Alkaline Phosphatase 211 H Ammonia Total Creatine Kinase Total Protein 5.3 L Albumin 2.1 L Lipase Urine Color Urine Appearance Urine pH Ur Specific [place] Urine Protein Urine Glucose (UA) Urine Ketones Urine Blood Urine Nitrite Ur Leukocyte Esterase Urine RBC Urine WBC Ur Squamous Epith Cells Ur Renal Epithelial Cell Urine Bacteria MADELINE Screen Proteinase 3 (PR3) Ab Myeloperoxidase Ab SS-A/Ro Antibody SS-B/La Antibody Glomerular Base Memb Ab Respiratory Panel [place] Adenovirus (Rapid PCR) B.pert (TEM-PCR) B.parapertussis DNA PCR C. pneumoniae DNA (PCR) Coronavirus OC43 (PCR) Coronavirus HKU1 (PCR) Coronavirus 229E (PCR) Coronavirus NL63 (PCR) Hepatitis A IgM Ab Nonreactive Hep Bs Antigen Not Reportable Hep Bs Antigen (2) NEGATIVE Hep Bs Antibody NONREACTIVE Hep B Core Total Ab Nonreactive Hepatitis C Ab (EIA) Nonreactive Human Metapneumovir PCR Influenza A (RT-PCR) Influenza B (RT-PCR) M. pneumoniae (PCR) Parainfluenza 1 (PCR) Parainfluenza 2 (PCR) Parainfluenza 3 (PCR) Parainfluenza 4 (PCR) RSV (PCR) Entero/Rhino (PCR) SARS-CoV-2 RNA (RT-PCR) Blood Type Antibody Screen Crossmatch 12/26/20 12/26/20 12/26/20 00:33 01:14 02:34 WBC RBC Hgb Hct MCV MCH MCHC RDW Plt Count MPV Immature Gran % (Auto) Neut % (Auto) Lymph % (Auto) [place] % (Auto) Eos % (Auto) Baso % (Auto) Lymph # (Auto) [place] # (Auto) Eos # (Auto) Baso # (Auto) Abs Immat Gran (auto) Absolute Neuts (auto) Absolute Nucleated RBC Nucleated RBC % (auto) Neutrophils % (Manual) Band Neutrophils % Lymphocytes % (Manual) Monocytes % (Manual) Abs Neuts (Manual) Lymphocytes # (Manual) Monocytes # (Manual) Platelet Estimate Large Platelets Plt Morphology Comment RBC Morphology [place] Cells Schistocytes Smear Tech's Comments PT INR APTT Fibrinogen VBG pH 7.30 L 7.33 7.39 VBG pCO2 38 35 29 VBG pO2 48 38 45 VBG HCO3 19 L 19 L 18 L VBG O2 Saturation 73.0 60.0 71.0 VBG Base Excess -6.7 -5.7 -5.1 Sodium Potassium Chloride Carbon Dioxide Anion Gap BUN Creatinine Estim Creat Clear Calc Estimated GFR POC Glucose Random Glucose Calcium Phosphorus Magnesium Total Bilirubin Direct Bilirubin GGT AST ALT Alkaline Phosphatase Ammonia Total Creatine Kinase Total Protein Albumin Lipase Urine Color Urine Appearance Urine pH Ur Specific [place] Urine Protein Urine Glucose (UA) Urine Ketones Urine Blood Urine Nitrite Ur Leukocyte Esterase Urine RBC Urine WBC Ur Squamous Epith Cells Ur Renal Epithelial Cell Urine Bacteria MAD[place]INE Screen Proteinase 3 (PR3) Ab Myeloperoxidase Ab SS-A/Ro Antibody SS-B/La Antibody Glomerular Base Memb Ab Respiratory Panel [place] Adenovirus (Rapid PCR) B.pert (TEM-PCR) B.parapertussis DNA PCR C. pneumoniae DNA (PCR) Coronavirus OC43 (PCR) Coronavirus HKU1 (PCR) Coronavirus 229E (PCR) Coronavirus NL63 (PCR) Hepatitis A IgM Ab Hep Bs Antigen Hep Bs Antigen (2) Hep Bs Antibody Hep B Core Total Ab Hepatitis C Ab (EIA) Human Metapneumovir PCR Influenza A (RT-PCR) Influenza B (RT-PCR) M. pneumoniae (PCR) Parainfluenza 1 (PCR) Parainfluenza 2 (PCR) Parainfluenza 3 (PCR) Parainfluenza 4 (PCR) RSV (PCR) Entero/Rhino (PCR) SARS-CoV-2 RNA (RT-PCR) Blood Type Antibody Screen Crossmatch 12/26/20 12/26/20 12/26/20 04:26 04:29 04:30 WBC 10.8 RBC 2.53 L Hgb 8.6 L Hct 24.4 L MCV 96.4 MCH 34.0 H MCHC 35.2 RDW 18.0 H Plt Count 123 L MPV 12.5 H Immature Gran % (Auto) 0.7 H Neut % (Auto) 85.6 H Lymph % (Auto) 10.0 L [place] % (Auto) 3.7 Eos % (Auto) 0.0 Baso % (Auto) 0.0 Lymph # (Auto) 1.1 L [place] # (Auto) 0.4 Eos # (Auto) 0.0 Baso # (Auto) 0.0 Abs Immat Gran (auto) 0.07 H Absolute Neuts (auto) 9.2 H Absolute Nucleated RBC 0.050 H Nucleated RBC % (auto) 0.5 H Neutrophils % (Manual) Band Neutrophils % Lymphocytes % (Manual) Monocytes % (Manual) Abs Neuts (Manual) Lymphocytes # (Manual) Monocytes # (Manual) Platelet Estimate Large Platelets Plt Morphology Comment RBC Morphology [place] Cells Schistocytes Smear Tech's Comments PT INR APTT Fibrinogen VBG pH VBG pCO2 VBG pO2 VBG HCO3 VBG O2 Saturation VBG Base Excess Sodium Potassium Chloride Carbon Dioxide Anion Gap BUN Creatinine Estim Creat Clear Calc Estimated GFR POC Glucose Random Glucose Calcium Phosphorus Magnesium Total Bilirubin Direct Bilirubin GGT AST ALT Alkaline Phosphatase Ammonia 73 H Total Creatine Kinase Total Protein Albumin Lipase Urine Color Urine Appearance Urine pH Ur Specific [place] Urine Protein Urine Glucose (UA) Urine Ketones Urine Blood Urine Nitrite Ur Leukocyte Esterase Urine RBC Urine WBC Ur Squamous Epith Cells Ur Renal Epithelial Cell Urine Bacteria MAD[place]INE Screen Proteinase 3 (PR3) Ab Myeloperoxidase Ab SS-A/Ro Antibody SS-B/La Antibody Glomerular Base Memb Ab Respiratory Panel [place] See Note Adenovirus (Rapid PCR) Not Detected B.pert (TEM-PCR) Not Detected B.parapertussis DNA PCR Not Detected C. pneumoniae DNA (PCR) Not Detected Coronavirus OC43 (PCR) Not Detected Coronavirus HKU1 (PCR) Not Detected Coronavirus 229E (PCR) Not Detected Coronavirus NL63 (PCR) Not Detected Hepatitis A IgM Ab Hep Bs Antigen Hep Bs Antigen (2) Hep Bs Antibody Hep B Core Total Ab Hepatitis C Ab (EIA) Human Metapneumovir PCR Not Detected Influenza A (RT-PCR) Not Detected Influenza B (RT-PCR) Not Detected M. pneumoniae (PCR) Not Detected Parainfluenza 1 (PCR) Not Detected Parainfluenza 2 (PCR) Not Detected Parainfluenza 3 (PCR) Not Detected Parainfluenza 4 (PCR) Not Detected RSV (PCR) Not Detected Entero/Rhino (PCR) Not Detected SARS-CoV-2 RNA (RT-PCR) Not Detected Blood Type Antibody Screen Crossmatch 12/26/20 12/26/20 12/26/20 04:30 04:30 04:30 WBC RBC Hgb Hct MCV MCH MCHC RDW Plt Count MPV Immature Gran % (Auto) Neut % (Auto) Lymph % (Auto) [place] % (Auto) Eos % (Auto) Baso % (Auto) Lymph # (Auto) [place] # (Auto) Eos # (Auto) Baso # (Auto) Abs Immat Gran (auto) Absolute Neuts (auto) Absolute Nucleated RBC Nucleated RBC % (auto) Neutrophils % (Manual) Band Neutrophils % Lymphocytes % (Manual) Monocytes % (Manual) Abs Neuts (Manual) Lymphocytes # (Manual) Monocytes # (Manual) Platelet Estimate Large Platelets Plt Morphology Comment RBC Morphology [place] Cells Schistocytes Smear Tech's Comments PT 23.3 H INR 1.9 H APTT 42.6 H Fibrinogen 273 VBG pH VBG pCO2 VBG pO2 VBG HCO3 VBG O2 Saturation VBG Base Excess Sodium 131 L Potassium 5.3 H Chloride 103 Carbon Dioxide 14 L Anion Gap 19 BUN 63 H Creatinine 4.12 H* Estim Creat Clear Calc 21.3 Estimated GFR 14 POC Glucose Random Glucose 361 H* Calcium 7.3 L Phosphorus 5.5 H Magnesium 2.0 Total Bilirubin Direct Bilirubin GGT AST ALT Alkaline Phosphatase Ammonia Total Creatine Kinase 108 D Total Protein Albumin Lipase Urine Color Urine Appearance Urine pH Ur Specific [place] Urine Protein Urine Glucose (UA) Urine Ketones Urine Blood Urine Nitrite Ur Leukocyte Esterase Urine RBC Urine WBC Ur Squamous Epith Cells Ur Renal Epithelial Cell Urine Bacteria [place]AD[place]INE Screen Proteinase 3 (PR3) Ab Myeloperoxidase Ab SS-A/Ro Antibody SS-B/La Antibody Glomerular Base Memb Ab Respiratory Panel [place] Adenovirus (Rapid PCR) B.pert (TEM-PCR) B.parapertussis DNA PCR C. pneumoniae DNA (PCR) Coronavirus OC43 (PCR) Coronavirus HKU1 (PCR) Coronavirus 229E (PCR) Coronavirus NL63 (PCR) Hepatitis A IgM Ab Hep Bs Antigen Hep Bs Antigen (2) Hep Bs Antibody Hep B Core Total Ab Hepatitis C Ab (EIA) Human Metapneumovir PCR Influenza A (RT-PCR) Influenza B (RT-PCR) M. pneumoniae (PCR) Parainfluenza 1 (PCR) Parainfluenza 2 (PCR) Parainfluenza 3 (PCR) Parainfluenza 4 (PCR) RSV (PCR) Entero/Rhino (PCR) SARS-CoV-2 RNA (RT-PCR) Blood Type Antibody Screen Crossmatch 12/26/20 12/26/20 12/26/20 04:30 04:33 07:17 WBC RBC Hgb Hct MCV MCH MCHC RDW Plt Count MPV Immature Gran % (Auto) Neut % (Auto) Lymph % (Auto) [place] % (Auto) Eos % (Auto) Baso % (Auto) Lymph # (Auto) [place] # (Auto) Eos # (Auto) Baso # (Auto) Abs Immat Gran (auto) Absolute Neuts (auto) Absolute Nucleated RBC Nucleated RBC % (auto) Neutrophils % (Manual) Band Neutrophils % Lymphocytes % (Manual) Monocytes % (Manual) Abs Neuts (Manual) Lymphocytes # (Manual) Monocytes # (Manual) Platelet Estimate Large Platelets Plt Morphology Comment RBC Morphology [place] Cells Schistocytes Smear Tech's Comments PT INR APTT Fibrinogen VBG pH 7.35 VBG pCO2 31 VBG pO2 50 VBG HCO3 17 L VBG O2 Saturation 74.0 VBG Base Excess -6.9 Sodium Potassium Chloride Carbon Dioxide Anion Gap BUN Creatinine Estim Creat Clear Calc Estimated GFR POC Glucose Random Glucose Calcium Phosphorus Magnesium Total Bilirubin 2.7 H Direct Bilirubin 1.3 H GGT 66 H AST 47 H ALT 32 Alkaline Phosphatase 177 H Ammonia Total Creatine Kinase Total Protein 5.0 L Albumin 2.1 L Lipase Urine Color YELLOW Urine Appearance CLOUDY Urine pH 6.0 Ur Specific [place] 1.010 Urine Protein NEG Urine Glucose (UA) NEG Urine Ketones NEG Urine Blood 3+ H Urine Nitrite NEG Ur Leukocyte Esterase NEG Urine RBC 50-75 H Urine WBC 0 Ur Squamous Epith Cells TRACE Ur Renal Epithelial Cell TRACE Urine Bacteria NONE MADELINE Screen Proteinase 3 (PR3) Ab Myeloperoxidase Ab SS-A/Ro Antibody SS-B/La Antibody Glomerular Base Memb Ab Respiratory Panel [place] Adenovirus (Rapid PCR) B.pert (TEM-PCR) B.parapertussis DNA PCR C. pneumoniae DNA (PCR) Coronavirus OC43 (PCR) Coronavirus HKU1 (PCR) Coronavirus 229E (PCR) Coronavirus NL63 (PCR) Hepatitis A IgM Ab Hep Bs Antigen Hep Bs Antigen (2) Hep Bs Antibody Hep B Core Total Ab Hepatitis C Ab (EIA) Human Metapneumovir PCR Influenza A (RT-PCR) Influenza B (RT-PCR) M. pneumoniae (PCR) Parainfluenza 1 (PCR) Parainfluenza 2 (PCR) Parainfluenza 3 (PCR) Parainfluenza 4 (PCR) RSV (PCR) Entero/Rhino (PCR) SARS-CoV-2 RNA (RT-PCR) Blood Type Antibody Screen Crossmatch 12/26/20 12/26/20 08:14 12:04 WBC RBC Hgb Hct MCV MCH MCHC RDW Plt Count MPV Immature Gran % (Auto) Neut % (Auto) Lymph % (Auto) [place] % (Auto) Eos % (Auto) Baso % (Auto) Lymph # (Auto) [place] # (Auto) Eos # (Auto) Baso # (Auto) Abs Immat Gran (auto) Absolute Neuts (auto) Absolute Nucleated RBC Nucleated RBC % (auto) Neutrophils % (Manual) Band Neutrophils % Lymphocytes % (Manual) Monocytes % (Manual) Abs Neuts (Manual) Lymphocytes # (Manual) Monocytes # (Manual) Platelet Estimate Large Platelets Plt Morphology Comment RBC Morphology [place] Cells Schistocytes Smear Tech's Comments PT INR APTT Fibrinogen VBG pH VBG pCO2 VBG pO2 VBG HCO3 VBG O2 Saturation VBG Base Excess Sodium Potassium Chloride Carbon Dioxide Anion Gap BUN Creatinine Estim Creat Clear Calc Estimated GFR POC Glucose 317 H 342 H Random Glucose Calcium Phosphorus Magnesium Total Bilirubin Direct Bilirubin GGT AST ALT Alkaline Phosphatase Ammonia Total Creatine Kinase Total Protein Albumin Lipase Urine Color Urine Appearance Urine pH Ur Specific [place] Urine Protein Urine Glucose (UA) Urine Ketones Urine Blood Urine Nitrite Ur Leukocyte Esterase Urine RBC Urine WBC Ur Squamous Epith Cells Ur Renal Epithelial Cell Urine Bacteria MADELINE Screen Proteinase 3 (PR3) Ab Myeloperoxidase Ab SS-A/Ro Antibody SS-B/La Antibody Glomerular Base Memb Ab Respiratory Panel Hay Adenovirus (Rapid PCR) B.pert (TEM-PCR) B.parapertussis DNA PCR C. pneumoniae DNA (PCR) Coronavirus OC43 (PCR) Coronavirus HKU1 (PCR) Coronavirus 229E (PCR) Coronavirus NL63 (PCR) Hepatitis A IgM Ab Hep Bs Antigen Hep Bs Antigen (2) Hep Bs Antibody Hep B Core Total Ab Hepatitis C Ab (EIA) Human Metapneumovir PCR Influenza A (RT-PCR) Influenza B (RT-PCR) M. pneumoniae (PCR) Parainfluenza 1 (PCR) Parainfluenza 2 (PCR) Parainfluenza 3 (PCR) Parainfluenza 4 (PCR) RSV (PCR) Entero/Rhino (PCR) SARS-CoV-2 RNA (RT-PCR) Blood Type Antibody Screen Crossmatch Microbiology Microbiology Results: Microbiology 12/26/20 10:47 Bronch, Not Specified Gram Stain - Final 12/25/20 10:30 Sputum - Suctioned Gram Stain - Final 12/25/20 10:30 Sputum - Suctioned Sputum Culture - Preliminary Normal so far. 12/25/20 10:30 Urine [place] Urine Culture - Final No growth. 12/24/20 18:55 Blood - Venous Blood Culture - Preliminary No growth after 24 hours. 12/24/20 18:41 Blood - Venous Blood Culture - Preliminary No growth after 24 hours. 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: Status: Acute (10) Diffuse pulmonary alveolar hemorrhage: Status: Acute (11) Pulmonary hypertension: Status: Acute (12) Healthcare-associated pneumonia: Status: Acute (13) Acute respiratory failure with hypoxemia: Status: Acute (14) Acute hyperkalemia: Status: Acute (15) Neuropathy: Status: Acute (16) Acute renal failure: Status: Acute (17) Hypothermia: Status: Acute (18) Acute hypotension: Status: Acute (19) Acute pancreatitis: Status: Acute (20) Acute hyponatremia: Status: Acute (21) Encephalopathy: Status: Acute Assessment and Plan: At this point following DDAVP and the 2nd g of methylprednisolone the bleeding seems to be subsiding and we are replacing with the him packed red cells and did DDAVP for platelet dysfunction due to uremia and following CVP and continuing ventilator support
[2020-12-26 16:31] LABS: VBG Base Excess -6.6 mmol/L; VBG HCO3 17 mmol/L (22-26); VBG pCO2 31 mmHg; VBG pH 7.35 (7.32-7.43); VBG pO2 49 mmHg
[2020-12-26 16:59] LABS: MANUAL DIFF FLAG NO
[2020-12-26] MEDS: Octreotide Acetate 500 MCG in 0.9 % Sodium Chloride 500 ML 25.05 MCG IVCONT (17:01)
[2020-12-26 17:05] LABS: Glucose, Whole Blood 334 mg/dL (60-115)
[2020-12-26 17:08] LABS: Basophils Percent Auto 0.1 % (0-2); Hematocrit 21.9 % (42-52); Hemoglobin 7.5 g/dl (14.0-18.0); Imm Gran Abs Auto 0.12 X10*3/uL (0.00-0.03); Imm Gran Pct Auto 1.1 % (0.0-0.4); Lymphocytes Absolute Auto 1.3 X10*3/uL (1.2-4.9); Lymphocytes Percent Auto 11.6 % (20-40); Mean Corpuscular HGB Conc 34.2 g/dl (31.0-36.0); Mean Corpuscular Volume 96.5 fL (80-98); Mean Platelet Volume 12.3 fL (9.4-12.4); Monocytes Absolute Auto 0.8 X10*3/uL (0.1-1.2); Monocytes Percent Auto 6.9 % (2-11); Neutrophils Absolute Auto 8.7 X10*3/uL (2.0-8.3); Neutrophils Percent Auto 80.3 % (45-73); Platelet Count 109 X10*3/uL (160-400); Red Blood Count 2.27 X10*6/uL (4.60-5.80); Red Cell Distribution Width 17.9 % (11.0-16.0); White Blood Count 10.9 X10*3/uL (4.8-10.8)
[2020-12-26 17:38] LABS: Ammonia 65 umol/L (13-55)
--- NOTE | 2020-12-26 17:40 | P.BOP_ITS ---
Brief Operative Note Date of Service: 12/26/20 Pre-op diagnosis: UGI Bleed Post-op diagnosis: other (portal hypertesnive gastropathy with slow mucosal oozing) Procedure: FLEXIBLE TRANSORAL UPPER GASTROINTESTINAL ENDOSCOPY Consent: Indications for the procedure and potential complications of bleeding, perforation, reaction to medications and missed diagnosis were discussed with the patient's daughter, Rubi Bowles at [phone], and informed verbal consent was obtained. Procedure was performed at the bedside in ICU Instrument: Olympus GIF H 190 mid size upper endoscope Monitoring: Vital signs and clinical assessment, continuous EKG monitoring, Pulse oximetry, Carbon Dioxide monitoring and blood pressure monitoring were done throughout the procedure. Procedure: The patient was placed in the left lateral decubitis position and pre-procedure medications were administered and a bite block was placed. The endoscope was inserted into the mouth and advanced under direct vision to the third part of duodenum. A careful inspection was made as the upper endoscope was withdrawn including a retroflexed examination of the proximal stomach; Findings and interventions are described below. Findings: Larynx: ETT tube in place. Multiple old clots in the mouth and posterior pharynx which were suctioned. Esophagus: OJ tube in place. Old clots in the esophagus - pushed into the stomach with the endoscope. GE junction at 40 cms. No esophageal varices or esophagitis noted. Stomach: Multiple old clots and partially digested food in the stomach obscuring the fundus and cardia - could not be cleared despite aggressive flushing and suctioning. Severe portal hypertensive gastropathy with slow oozing from the gastric mucosa. No ulcers or other potential source of bleeding noted in the antrum. Duodenum: A few old clots in the bulb and descending duodenum which were flushed/suctioned. Normal bulb and descending duodenum - no ulcers or mucosal lesions noted. Intervention: None - no biopsies were obtained due to underlying coagulopathy. Impression and Post Procedure Diagnosis: Endoscopy Findings: LARYNX: ETT Tube in place ESOPHAGUS: No obvious esophageal varices STOMACH: Multiple old clots and partially digested food in the stomach obscuring the fundus and cardia - could not be cleared despite aggressive flushing and suctioning. Severe portal hypertensive gastropathy with slow oozing from the gastric mucosa. No ulcers or other potential source of bleeding noted in the antrum. Unable to rule out presence of gastric varices due to clots in partially digested food obscuring the gastric fundus and cardia despite aggressive flushing and suctioning. Plan: 1. Start patient on octreotide infusion for the next 48-72 hours. Continue IV PPI. Once patient is stable, he can be started on a non selective beta-claude (Nadolol 40 mg once daily) if no contraindications to beta blockers. 2. Monitor H & H twice daily and transfuse PRN for Hb < 7. Correct coagulopathy. 3. If continued bleeding, consider a 2nd look EGD in 24 to 48 hrs (Dr Taylor is senior consultant for GI over the weekend). Transfer to [facility] [place] for a TIPPS procedure can be considered if continued bleeding despite above. Surgeon: Melanie Lion MD Anesthesia: MAC and none (Pt was intubated and sedated. Dr Villafuerte was on standby at the bed side during the entire procedure) Was an Director Of In Service Education used for this Procedure?: Yes Director Of In Service Education: Harman Suarez Estimated blood loss (mL): 0 Pathology: none sent Condition: critical Disposition: no change
[2020-12-26 17:50] LABS: Lactic Acid 2.8 mmol/L (0.5-2.0)
[2020-12-26 17:50] LABS: Anion Gap 16 (12-20); Blood Urea Nitrogen 59 mg/dL (9-16); Carbon Dioxide 16 mmol/L (22-29); Chloride 104 mmol/L (96-108); Estimated Glomerular Filt Rate 15; Glucose Random 363 mg/dL (60-115); Potassium 4.9 mmol/L (3.3-5.1); Sodium 131 mmol/L (135-145)
--- NOTE | 2020-12-26 18:08 | W.PM.OPN ---
Operative Note Operative Note Date of Service: 12/26/20 Narrative: Pre-op diagnosis: UGI Bleed Post-op diagnosis: other (portal hypertensive gastropathy with slow mucosal oozing) Procedure: FLEXIBLE TRANSORAL UPPER GASTROINTESTINAL ENDOSCOPY Consent: Indications for the procedure and potential complications of bleeding, perforation, reaction to medications and missed diagnosis were discussed with the patient's daughter, Rubi Bowles at [phone], and informed verbal consent was obtained. Procedure was performed at the bedside in ICU Instrument: Olympus GIF H 190 mid size upper endoscope Monitoring: Vital signs and clinical assessment, continuous EKG monitoring, Pulse oximetry, Carbon Dioxide monitoring and blood pressure monitoring were done throughout the procedure. Procedure: The patient was placed in the left lateral decubitis position and pre-procedure medications were administered and a bite block was placed. The endoscope was inserted into the mouth and advanced under direct vision to the third part of duodenum. A careful inspection was made as the upper endoscope was withdrawn including a retroflexed examination of the proximal stomach; Findings and interventions are described below. Findings: Larynx: ETT tube in place. Multiple old clots in the mouth and posterior pharynx which were suctioned. Esophagus: OJ tube in place. Old clots in the esophagus - pushed into the stomach with the endoscope. GE junction at 40 cms. No esophageal varices or esophagitis noted. Stomach: Multiple old clots and partially digested food in the stomach obscuring the fundus and cardia - could not be cleared despite aggressive flushing and suctioning. Severe portal hypertensive gastropathy with slow oozing from the gastric mucosa. No ulcers or other potential source of bleeding noted in the antrum. Duodenum: A few old clots in the bulb and descending duodenum which were flushed/suctioned. Normal bulb and descending duodenum - no ulcers or mucosal lesions noted. Intervention: None - no biopsies were obtained due to underlying coagulopathy. Impression and Post Procedure Diagnosis: Endoscopy Findings: LARYNX: ETT Tube in place ESOPHAGUS: No obvious esophageal varices STOMACH: Multiple old clots and partially digested food in the stomach obscuring the fundus and cardia - could not be cleared despite aggressive flushing and suctioning. Severe portal hypertensive gastropathy with slow oozing from the gastric mucosa. No ulcers or other potential source of bleeding noted in the antrum. Unable to rule out presence of gastric varices due to clots in partially digested food obscuring the gastric fundus and cardia despite aggressive flushing and suctioning. Plan: 1. Start patient on octreotide infusion for the next 48-72 hours. Continue IV PPI. Once patient is stable, he can be started on a non selective beta-claude (Nadolol 40 mg once daily) if no contraindications to beta blockers. 2. Monitor H & H twice daily and transfuse PRN for Hb < 7. Correct coagulopathy. 3. If continued bleeding, consider a 2nd look EGD in 24 to 48 hrs (Dr Taylor is vision care associate for GI over the weekend). Transfer to [facility] [place] for a TIPPS procedure can be considered if continued bleeding despite above. Surgeon: Melanie Lion MD Anesthesia: MAC and none (Pt was intubated and sedated. Dr Villafuerte was on standby at the bed side during the entire procedure) Was an Buckle Attacher used for this Procedure?: Yes Buckle Attacher: Harman Suarez Estimated blood loss (mL): 0 Pathology: none sent Condition: critical Disposition: no change
[2020-12-26 18:54] LABS: Reflex Lactate? Lactic Acid Added
[2020-12-26 19:04] LABS: Venous Blood Gas Refer to POC result
--- NOTE | 2020-12-26 19:13 | PC.NURSE ---
Afebrile, VSS on dopamine gtt per emar./ Sedated with propofol, weak cough/gag, doesnt follow commands, joy with light pain. Vent settings changed to AC rate 20, TV 600, peep 5, fio2 40%. U/o wnl, some small clots noted this morning, none rest of shift. No BM. SR on tele, OG flushed and working good. Bedside bronchoscopy and endoscopy done. Waddy statis on left padilla, wound to see- see note. dsg changed today. Family updated at bedside
[2020-12-26] MEDS: DOPamine HCL/D5W 400 MG/250 ML PLAST..BAG 32.55 MG IVCONT (20:29)
[2020-12-26 20:44] LABS: ~Lactic Acid-LAB USE ONLY 2.7 mmol/L (0.5-2.0)
[2020-12-26 21:12] LABS: Glucose, Whole Blood 293 mg/dL (60-115)
[2020-12-26 21:16] LABS: Reflex Lactate? 2 Y
[2020-12-26 23:55] LABS: Cancel Lactic Acid Canceled
[2020-12-27] VITALS (37 sets, daily range): BP systolic 98–168; BP diastolic 43–69; PULSE 77–117; RESP 18–30; TEMP 35.4–37.3; O2SAT 94–97; BMI 38.0
[2020-12-27] MEDS: Pantoprazole Sodium 80 MG in 0.9 % Sodium Chloride 80 ML 10 MG IV (00:58)
[2020-12-27] MEDS: propofoL 1,000 MG/100 ML VIAL 14.88 MG IVCONT ×4 (00:58→08:16)
[2020-12-27 01:42] LABS: MANUAL DIFF FLAG NO
[2020-12-27 01:42] LABS: VBG Base Excess -6.2 mmol/L; VBG HCO3 17 mmol/L (22-26); VBG pCO2 28 mmHg; VBG pH 7.39 (7.32-7.43); VBG pO2 70 mmHg
[2020-12-27 01:44] LABS: Venous Blood Gas Refer to POC result
[2020-12-27 01:45] LABS: Basophils Percent Auto 0.1 % (0-2); Hematocrit 22.6 % (42-52); Imm Gran Abs Auto 0.23 X10*3/uL (0.00-0.03); Imm Gran Pct Auto 1.8 % (0.0-0.4); Lymphocytes Absolute Auto 1.3 X10*3/uL (1.2-4.9); Lymphocytes Percent Auto 10.3 % (20-40); Mean Corpuscular HGB Conc 35.4 g/dl (31.0-36.0); Mean Corpuscular Hemoglobin 32.5 pg (27.0-33.0); Mean Corpuscular Volume 91.9 fL (80-98); Mean Platelet Volume 11.8 fL (9.4-12.4); Monocytes Absolute Auto 1.4 X10*3/uL (0.1-1.2); NRBC Pct Auto 0.9 /100WBC (0.0-0.2); Neutrophils Absolute Auto 9.9 X10*3/uL (2.0-8.3); Neutrophils Percent Auto 76.8 % (45-73); Red Blood Count 2.46 X10*6/uL (4.60-5.80); Red Cell Distribution Width 18.7 % (11.0-16.0); White Blood Count 12.9 X10*3/uL (4.8-10.8)
[2020-12-27 01:50] LABS: INTERNATIONAL NORM RATIO 1.8 (0.9-1.1); Prothrombin Time 20.9 SEC (10.8-13.0)
[2020-12-27 01:53] LABS: Partial Thromboplastin Time 36.3 SEC (24.1-38.0)
[2020-12-27 02:19] LABS: Platelet Count 83 X10*3/uL (160-400)
[2020-12-27 02:24] LABS: Ferritin 298 ng/mL (20-250)
[2020-12-27] MEDS: Piperacillin Sodium/Tazobactam 3.375 GM in 0.9 % Sodium Chloride 50 ML IV ×2 (03:12→10:27)
[2020-12-27 05:25] LABS: VBG Base Excess -7.1 mmol/L; VBG HCO3 17 mmol/L (22-26); VBG pCO2 30 mmHg; VBG pH 7.36 (7.32-7.43); VBG pO2 62 mmHg
[2020-12-27 05:34] LABS: Venous Blood Gas Refer to POC result
[2020-12-27 05:56] LABS: Basophils Percent Auto 0.1 % (0-2); Hematocrit 22.2 % (42-52); Hemoglobin 7.7 g/dl (14.0-18.0); Imm Gran Abs Auto 0.26 X10*3/uL (0.00-0.03); Imm Gran Pct Auto 1.9 % (0.0-0.4); Lymphocytes Absolute Auto 1.3 X10*3/uL (1.2-4.9); Lymphocytes Percent Auto 9.4 % (20-40); MANUAL DIFF FLAG SCAN; Mean Corpuscular HGB Conc 34.7 g/dl (31.0-36.0); Mean Corpuscular Volume 92.1 fL (80-98); Monocytes Absolute Auto 1.5 X10*3/uL (0.1-1.2); Monocytes Percent Auto 10.9 % (2-11); NRBC Pct Auto 0.8 /100WBC (0.0-0.2); Neutrophils Absolute Auto 10.8 X10*3/uL (2.0-8.3); Neutrophils Percent Auto 77.7 % (45-73); Red Blood Count 2.41 X10*6/uL (4.60-5.80); SCAN SMEAR FLAG 1; White Blood Count 13.9 X10*3/uL (4.8-10.8)
[2020-12-27] MEDS: Dextrose 5 % and 0.9 % NaCl 1,000 ML 100 ML IVCONT (05:59)
[2020-12-27 06:00] LABS: Platelet Count 90 X10*3/uL (160-400)
[2020-12-27 06:03] LABS: INTERNATIONAL NORM RATIO 1.8 (0.9-1.1); Prothrombin Time 20.9 SEC (10.8-13.0)
[2020-12-27 06:05] LABS: Partial Thromboplastin Time 35.6 SEC (24.1-38.0)
--- NOTE | 2020-12-27 06:07 | HO.POSTANES ---
Post Anesthesia Evaluation Post Anesthesia Evaluation Vital Signs: Vital Signs Temp Pulse Resp BP Pulse Ox 12/27/20 06:00 96.3 F L 85 18 112/43 L 96 12/27/20 05:00 96.1 F L 84 18 129/49 L 97 12/27/20 04:00 95.7 F L 82 18 134/57 L 97 12/27/20 03:00 82 18 118/55 L 96 12/27/20 02:00 82 18 120/54 L 97 12/27/20 01:00 95.9 F L 80 20 168/69 H 97 12/27/20 00:00 96.1 F L 77 20 135/53 L 97 12/26/20 23:00 96.1 F L 81 20 153/53 H 98 12/26/20 22:00 96.3 F L 82 20 161/71 H 99 12/26/20 21:56 96.3 F L 81 20 143/53 H 12/26/20 21:28 96.3 F L 82 20 151/63 H 99 12/26/20 21:00 96.3 F L 79 20 160/62 H 98 12/26/20 20:20 96.6 F L 84 20 149/61 H 12/26/20 20:14 96.6 F L 84 20 144/55 H 12/26/20 20:00 96.6 F L 84 20 144/55 H 98 12/26/20 19:35 96.6 F L 78 20 161/66 H 12/26/20 19:00 97.0 F 81 20 156/63 H 98 12/26/20 18:28 97.0 F 83 20 112/64 12/26/20 18:13 97.0 F 87 20 146/54 H Anesthesia: Monitored Mental Status: Awake Pain Control: Satisfactory Nausea/Vomiting: None Hydration: Adequate Anesthesia-Related Issues: No Anes. Related Issues
[2020-12-27 06:15] LABS: Ammonia 65 umol/L (13-55)
[2020-12-27 06:25] LABS: SLIDE REVIEW VERIFIED
[2020-12-27 06:29] LABS: Alanine Aminotransferase 30 U/L (0-40); Albumin Level 2.2 g/dL (3.5-5.0); Alkaline Phosphatase 130 U/L (39-117); Anion Gap 16 (12-20); Aspartate Amino Transferase 41 U/L (5-37); Bilirubin Direct 1.6 mg/dL (0.0-0.5); Bilirubin Total 3.2 mg/dL (0.0-1.0); Blood Urea Nitrogen 61 mg/dL (9-16); Calcium 7.4 mg/dL (8.4-10.2); Carbon Dioxide 17 mmol/L (22-29); Chloride 104 mmol/L (96-108); Creatinine Clr Calc Pharmacy 22.2; Estimated Glomerular Filt Rate 15; Gamma Glutamyl Transpeptidase 59 U/L (11-51); Glucose Random 343 mg/dL (60-115); Phosphorus 5.7 mg/dL (2.7-4.5); Potassium 4.3 mmol/L (3.3-5.1); Sodium 133 mmol/L (135-145); Total Protein 4.8 g/dL (6.5-8.0)
[2020-12-27 06:44] LABS: Ferritin 320 ng/mL (20-250)
--- NOTE | 2020-12-27 07:12 | PC.NURSE ---
pt sedated under the influences of propofol. complexion pale. venous stasis ulcer left lower extremity with foam dsg. periorbital edema is well appreciated. anasarca is well noted. transorally intubated and mechanically ventilated. only vent manager exchange night was decrease of ac rate from 20 to 18 bpm. sao2 have been 94-96%. ecg displays sr. dopamine has been weaned downward to 5mcg/kg/min. to note pt is very sensitive to brief pausing of dopamine with hypotension developing quite readily. pt was transfused with 1 unit of rbcs and 2 ux of ffp over night. pts temp has dropped into the 95 range. madison hugger warming blanket applied with return of normothermia. small amounts of margarita blood suctioned from ett tube. abdomen distended/semifirm. has had no bm. ogt clamped for tx. baca catheter patent and draining mirna urine 40-60ml/hr. spoke to daughter raymundo hcp status report given.
[2020-12-27] MEDS: DOPamine HCL/D5W 400 MG/250 ML PLAST..BAG 32.55 MG IVCONT (07:38)
[2020-12-27] MEDS: Insulin Lispro 100 UNIT/ML 3 ML VIAL SUBCUT ×4 (07:46→22:31)
[2020-12-27] MEDS: Pantoprazole Sodium 40 MG/10 ML VIAL IVPUSH (07:46)
[2020-12-27] MEDS: 0.9 % Sodium Chloride Flush 3 ML SYRINGE IVFLUSH ×2 (07:52→15:00)
[2020-12-27 07:56] LABS: Glucose, Whole Blood 324 mg/dL (60-115)
[2020-12-27] MEDS: Famotidine/PF 20 MG/2 ML VIAL IVPUSH (08:00)
[2020-12-27] MEDS: Sodium Bicarbonate 650 MG TABLET PO ×3 (08:01→16:57)
[2020-12-27] MEDS: rifAXIMin 550 MG TABLET PO ×2 (08:01→14:02)
[2020-12-27] MEDS: Lactulose 20 GM/30 ML SOLUTION 30 GM PO ×2 (08:02→14:02)
[2020-12-27] MEDS: Chlorhexidine Gluc Oral Rinse 15 ML MOUTHWASH BUCCAL ×3 (08:06→22:32)
[2020-12-27] MEDS: Albuterol/Iprat 2.5/0.5MG 3 ML AMPUL.NEB INHALE ×3 (08:14→15:44)
[2020-12-27] MEDS: propofoL 1,000 MG/100 ML VIAL 22.86 MG IVCONT ×5 (10:06→23:12)
[2020-12-27] MEDS: methylPREDNISolone Sod Succ 1,000 MG in 0.9 % Sodium Chloride 50 ML 66 MG IV (11:10)
[2020-12-27] MEDS: Octreotide Acetate 500 MCG in 0.9 % Sodium Chloride 500 ML 25.05 MCG IVCONT (11:16)
[2020-12-27 11:56] LABS: Glucose, Whole Blood 307 mg/dL (60-115)
--- NOTE | 2020-12-27 12:22 | P.PNCC_ITS ---
Subjective Subjective Date of Service: 12/27/20 Critical Care Time (minutes): 40 Comment: 75-year-old with history of alcoholic cirrhosis portal hypertension and severe pulmonary hypertension will presented with hypothermia and symptomatic bradycardia a degree of encephalopathy with elevated ammonia level and coagulopathy all due to hepatic insufficiency but also had GI bleeding due to portal hypertension and hepatic gastropathy and a diffuse alveolar hemorrhage issue along with acute on chronic stage IV renal failure with proteinuria and hematuria and raising questions therefore of poly angiitis and we started him on pulse doses of some Solu-Medrol as well as DDAVP for the bleeding with some factor replacement because of his hepatic insufficiency and the bleeding subsided but at 1 point it was a literal exsanguination and he did receive some red cell replacement and CVP is indicating that he is tolerating his volume CVP is at 7-8 and is still is on some mild pressor support for blood pressure but in addition he is being covered as a possible healthcare associated pneumonia because of nonspecific infiltrates on CT scan in his chest and the degree of hypotension and hypothermia that he presented with Urine output always in the non oliguric range and a every day slight improvement in renal function Physical Exam Vital Signs: Vital Signs: Last Vital Signs Temp 99.0 F 12/27/20 11:08 Pulse 107 H 12/27/20 12:07 Resp 18 12/27/20 11:08 BP 118/61 12/27/20 11:08 Pulse Ox 95 12/27/20 10:00 Body Mass Index 38.0 Const: Other: Sedated and intubated and quiet with low minutes ventilatory requirement and weaning FiO2 no change in chest x-ray Lungs without adventitious sounds Cardiac exam with stable CVP of 7-8 and no gallops Abdomen is benign soft good bowel sounds Objective Data Labs CBC & Chem 7: 12/27/20 05:06 12/27/20 05:06 Labs: Laboratory Results - last 24 hr 12/25/20 12/25/20 12/25/20 12:24 12:24 12:24 WBC RBC Hgb Hct MCV MCH MCHC RDW Plt Count MPV Immature Gran % (Auto) Neut % (Auto) Lymph % (Auto) [place] % (Auto) Eos % (Auto) Baso % (Auto) Lymph # (Auto) [place] # (Auto) Eos # (Auto) Baso # (Auto) Abs Immat Gran (auto) Absolute Neuts (auto) Absolute Nucleated RBC Nucleated RBC % (auto) Smear Tech's Comments PT INR APTT VBG pH VBG pCO2 VBG pO2 VBG HCO3 VBG O2 Saturation VBG Base Excess Sodium Potassium Chloride Carbon Dioxide Anion Gap BUN Creatinine Estim Creat Clear Calc Estimated GFR POC Glucose Random Glucose Lactic Acid Lactic Acid Fup @ 2Hr Calcium Phosphorus Magnesium Ferritin Total Bilirubin Direct Bilirubin GGT AST ALT Alkaline Phosphatase Ammonia Total Protein Albumin MADELINE Screen NEGATIVE Proteinase 3 (PR3) Ab <1.0 <1.0 Myeloperoxidase Ab <1.0 <1.0 SS-A/Ro Antibody <1.0 NEG SS-B/La Antibody <1.0 NEG Glomerular Base Memb Ab <1.0 Blood Type Antibody Screen Crossmatch 12/25/20 12/26/20 12/26/20 22:37 16:25 16:28 WBC 10.9 H RBC 2.27 L Hgb 7.5 L Hct 21.9 L MCV 96.5 MCH 33.0 MCHC 34.2 RDW 17.9 H Plt Count 109 L MPV 12.3 Immature Gran % (Auto) 1.1 H Neut % (Auto) 80.3 H Lymph % (Auto) 11.6 L [place] % (Auto) 6.9 Eos % (Auto) 0.0 Baso % (Auto) 0.1 Lymph # (Auto) 1.3 [place] # (Auto) 0.8 Eos # (Auto) 0.0 Baso # (Auto) 0.0 Abs Immat Gran (auto) 0.12 H Absolute Neuts (auto) 8.7 H Absolute Nucleated RBC 0.110 H Nucleated RBC % (auto) 1.0 H Smear Tech's Comments PT INR APTT VBG pH 7.35 VBG pCO2 31 VBG pO2 49 VBG HCO3 17 L VBG O2 Saturation 71.0 VBG Base Excess -6.6 Sodium Potassium Chloride Carbon Dioxide Anion Gap BUN Creatinine Estim Creat Clear Calc Estimated GFR POC Glucose Random Glucose Lactic Acid Lactic Acid Fup @ 2Hr Calcium Phosphorus Magnesium Ferritin Total Bilirubin Direct Bilirubin GGT AST ALT Alkaline Phosphatase Ammonia Total Protein Albumin MADELINE Screen Proteinase 3 (PR3) Ab Myeloperoxidase Ab SS-A/Ro Antibody SS-B/La Antibody Glomerular Base Memb Ab Blood Type O Positive Antibody Screen NEGATIVE Crossmatch See Detail 12/26/20 12/26/20 12/26/20 16:28 16:28 16:36 WBC RBC Hgb Hct MCV MCH MCHC RDW Plt Count MPV Immature Gran % (Auto) Neut % (Auto) Lymph % (Auto) [place] % (Auto) Eos % (Auto) Baso % (Auto) Lymph # (Auto) [place] # (Auto) Eos # (Auto) Baso # (Auto) Abs Immat Gran (auto) Absolute Neuts (auto) Absolute Nucleated RBC Nucleated RBC % (auto) Smear Tech's Comments PT INR APTT VBG pH VBG pCO2 VBG pO2 VBG HCO3 VBG O2 Saturation VBG Base Excess Sodium 131 L Potassium 4.9 Chloride 104 Carbon Dioxide 16 L Anion Gap 16 BUN 59 H Creatinine 3.97 H Estim Creat Clear Calc 22.0 Estimated GFR 15 POC Glucose Random Glucose 363 H* Lactic Acid 2.8 H* Lactic Acid Fup @ 2Hr Calcium 7.0 L Phosphorus Magnesium Ferritin Total Bilirubin Direct Bilirubin GGT AST ALT Alkaline Phosphatase Ammonia 65 H Total Protein Albumin MADELINE Screen Proteinase 3 (PR3) Ab Myeloperoxidase Ab SS-A/Ro Antibody SS-B/La Antibody Glomerular Base Memb Ab Blood Type Antibody Screen Crossmatch 12/26/20 12/26/20 12/26/20 16:55 19:12 21:08 WBC RBC Hgb Hct MCV MCH MCHC RDW Plt Count MPV Immature Gran % (Auto) Neut % (Auto) Lymph % (Auto) [place] % (Auto) Eos % (Auto) Baso % (Auto) Lymph # (Auto) [place] # (Auto) Eos # (Auto) Baso # (Auto) Abs Immat Gran (auto) Absolute Neuts (auto) Absolute Nucleated RBC Nucleated RBC % (auto) Smear Tech's Comments PT INR APTT VBG pH VBG pCO2 VBG pO2 VBG HCO3 VBG O2 Saturation VBG Base Excess Sodium Potassium Chloride Carbon Dioxide Anion Gap BUN Creatinine Estim Creat Clear Calc Estimated GFR POC Glucose 334 H 293 H Random Glucose Lactic Acid Lactic Acid Fup @ 2Hr 2.7 H* Calcium Phosphorus Magnesium Ferritin Total Bilirubin Direct Bilirubin GGT AST ALT Alkaline Phosphatase Ammonia Total Protein Albumin MADELINE Screen Proteinase 3 (PR3) Ab Myeloperoxidase Ab SS-A/Ro Antibody SS-B/La Antibody Glomerular Base Memb Ab Blood Type Antibody Screen Crossmatch 12/27/20 12/27/20 12/27/20 01:35 01:36 01:36 WBC 12.9 H RBC 2.46 L Hgb 8.0 L Hct 22.6 L MCV 91.9 MCH 32.5 MCHC 35.4 RDW 18.7 H Plt Count 83 L MPV 11.8 Immature Gran % (Auto) 1.8 H Neut % (Auto) 76.8 H Lymph % (Auto) 10.3 L [place] % (Auto) 11.0 Eos % (Auto) 0.0 Baso % (Auto) 0.1 Lymph # (Auto) 1.3 [place] # (Auto) 1.4 H Eos # (Auto) 0.0 Baso # (Auto) 0.0 Abs Immat Gran (auto) 0.23 H Absolute Neuts (auto) 9.9 H Absolute Nucleated RBC 0.110 H Nucleated RBC % (auto) 0.9 H Smear Tech's Comments PT 20.9 H INR 1.8 H APTT 36.3 VBG pH 7.39 VBG pCO2 28 VBG pO2 70 VBG HCO3 17 L VBG O2 Saturation 89.0 VBG Base Excess -6.2 Sodium Potassium Chloride Carbon Dioxide Anion Gap BUN Creatinine Estim Creat Clear Calc Estimated GFR POC Glucose Random Glucose Lactic Acid Lactic Acid Fup @ 2Hr Calcium Phosphorus Magnesium Ferritin Total Bilirubin Direct Bilirubin GGT AST ALT Alkaline Phosphatase Ammonia Total Protein Albumin MADELINE Screen Proteinase 3 (PR3) Ab Myeloperoxidase Ab SS-A/Ro Antibody SS-B/La Antibody Glomerular Base Memb Ab Blood Type Antibody Screen Crossmatch 12/27/20 12/27/20 12/27/20 01:36 05:00 05:06 WBC 13.9 H RBC 2.41 L Hgb 7.7 L Hct 22.2 L MCV 92.1 MCH 32.0 MCHC 34.7 RDW 19.0 H Plt Count 90 L MPV 13.0 H Immature Gran % (Auto) 1.9 H Neut % (Auto) 77.7 H Lymph % (Auto) 9.4 L [place] % (Auto) 10.9 Eos % (Auto) 0.0 Baso % (Auto) 0.1 Lymph # (Auto) 1.3 [place] # (Auto) 1.5 H Eos # (Auto) 0.0 Baso # (Auto) 0.0 Abs Immat Gran (auto) 0.26 H Absolute Neuts (auto) 10.8 H Absolute Nucleated RBC 0.110 H Nucleated RBC % (auto) 0.8 H Smear Tech's Comments VERIFIED PT INR APTT VBG pH VBG pCO2 VBG pO2 VBG HCO3 VBG O2 Saturation VBG Base Excess Sodium Potassium Chloride Carbon Dioxide Anion Gap BUN Creatinine Estim Creat Clear Calc Estimated GFR POC Glucose Random Glucose Lactic Acid Lactic Acid Fup @ 2Hr Calcium Phosphorus Magnesium Ferritin 298 H Total Bilirubin Direct Bilirubin GGT AST ALT Alkaline Phosphatase Ammonia 65 H Total Protein Albumin MADELINE Screen Proteinase 3 (PR3) Ab Myeloperoxidase Ab SS-A/Ro Antibody SS-B/La Antibody Glomerular Base Memb Ab Blood Type Antibody Screen Crossmatch 12/27/20 12/27/20 12/27/20 05:06 05:06 05:20 WBC RBC Hgb Hct MCV MCH MCHC RDW Plt Count MPV Immature Gran % (Auto) Neut % (Auto) Lymph % (Auto) [place] % (Auto) Eos % (Auto) Baso % (Auto) Lymph # (Auto) [place] # (Auto) Eos # (Auto) Baso # (Auto) Abs Immat Gran (auto) Absolute Neuts (auto) Absolute Nucleated RBC Nucleated RBC % (auto) Smear Tech's Comments PT 20.9 H INR 1.8 H APTT 35.6 VBG pH 7.36 VBG pCO2 30 VBG pO2 62 VBG HCO3 17 L VBG O2 Saturation 87.0 VBG Base Excess -7.1 Sodium 133 L Potassium 4.3 Chloride 104 Carbon Dioxide 17 L Anion Gap 16 BUN 61 H Creatinine 3.92 H Estim Creat Clear Calc 22.2 Estimated GFR 15 POC Glucose Random Glucose 343 H Lactic Acid Lactic Acid Fup @ 2Hr Calcium 7.4 L Phosphorus 5.7 H Magnesium 2.0 Ferritin 320 H Total Bilirubin 3.2 H Direct Bilirubin 1.6 H GGT 59 H AST 41 H ALT 30 Alkaline Phosphatase 130 H D Ammonia Total Protein 4.8 L Albumin 2.2 L MADELINE Screen Proteinase 3 (PR3) Ab Myeloperoxidase Ab SS-A/Ro Antibody SS-B/La Antibody Glomerular Base Memb Ab Blood Type Antibody Screen Crossmatch 12/27/20 12/27/20 07:33 11:41 WBC RBC Hgb Hct MCV MCH MCHC RDW Plt Count MPV Immature Gran % (Auto) Neut % (Auto) Lymph % (Auto) [place] % (Auto) Eos % (Auto) Baso % (Auto) Lymph # (Auto) [place] # (Auto) Eos # (Auto) Baso # (Auto) Abs Immat Gran (auto) Absolute Neuts (auto) Absolute Nucleated RBC Nucleated RBC % (auto) Smear Tech's Comments PT INR APTT VBG pH VBG pCO2 VBG pO2 VBG HCO3 VBG O2 Saturation VBG Base Excess Sodium Potassium Chloride Carbon Dioxide Anion Gap BUN Creatinine Estim Creat Clear Calc Estimated GFR POC Glucose 324 H 307 H Random Glucose Lactic Acid Lactic Acid Fup @ 2Hr Calcium Phosphorus Magnesium Ferritin Total Bilirubin Direct Bilirubin GGT AST ALT Alkaline Phosphatase Ammonia Total Protein Albumin MADELINE Screen Proteinase 3 (PR3) Ab Myeloperoxidase Ab SS-A/Ro Antibody SS-B/La Antibody Glomerular Base Memb Ab Blood Type Antibody Screen Crossmatch Microbiology Microbiology Results: Microbiology 12/26/20 10:47 Bronch, Not Specified Gram Stain - Final 12/26/20 10:47 Bronch, Not Specified Routine Culture - Preliminary Culture in progress. 12/25/20 10:30 Sputum - Suctioned Gram Stain - Final 12/25/20 10:30 Sputum - Suctioned Sputum Culture - Final 12/24/20 18:55 Blood - Venous Blood Culture - Preliminary No growth after 48 hours. 12/24/20 18:41 Blood - Venous Blood Culture - Preliminary No growth after 48 hours. 12/25/20 10:30 Urine [place] Urine Culture - Final No growth. 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: Status: Acute (10) Diffuse pulmonary alveolar hemorrhage: Status: Acute (11) Pulmonary hypertension: Status: Acute (12) Healthcare-associated pneumonia: Status: Acute (13) Acute respiratory failure with hypoxemia: Status: Acute (14) Acute hyperkalemia: Status: Acute (15) Neuropathy: Status: Acute (16) Acute renal failure: Status: Acute (17) Hypothermia: Status: Acute (18) Acute hypotension: Status: Acute (19) Acute pancreatitis: Status: Acute (20) Acute hyponatremia: Status: Acute (21) Encephalopathy: Status: Acute Assessment and Plan: So he presents with a questionably septic picture but with acute hypoxic respiratory failure and acute on chronic renal failure at a stage IV level with proteinuria and hematuria and diffuse alveolar hemorrhage syndrome and we contributed to reversing coagulopathy and in part due to his alcoholic cirrhosis with portal hypertension as well as hepatic failure but currently stabilized and did receive 1 unit of transfusion today and I am going to begin a diet keep his mucosa protected and continue the octreotide
--- NOTE | 2020-12-27 13:36 | PM.PNNEP ---
Subjective Subjective Date of Service: 12/27/20 Interval history: 75-year-old male in the ICU Intubated Making urine Creat is around 3.5 to 4.0 Physical Exam Vital Signs: Vital Signs: Last Vital Signs Temp 98.8 F 12/27/20 13:00 Pulse 106 H 12/27/20 13:00 Resp 25 H 12/27/20 13:00 BP 134/60 12/27/20 13:00 Pulse Ox 95 12/27/20 13:00 Body Mass Index 38.0 Const: General: no acute distress Neck: Neck: Yes supple Resp: Auscultation: diminished lung sounds Cardio: Rate: regular rate GI: Palpation (GI): Soft to palpation Neuro: Other: Sedated Objective Data Labs CBC & Chem 7: 12/27/20 05:06 12/27/20 05:06 Labs: Laboratory Results - last 24 hr 12/25/20 12/25/20 12/25/20 12:24 12:24 12:24 WBC RBC Hgb Hct MCV MCH MCHC RDW Plt Count MPV Immature Gran % (Auto) Neut % (Auto) Lymph % (Auto) [place] % (Auto) Eos % (Auto) Baso % (Auto) Lymph # (Auto) [place] # (Auto) Eos # (Auto) Baso # (Auto) Abs Immat Gran (auto) Absolute Neuts (auto) Absolute Nucleated RBC Nucleated RBC % (auto) Smear Tech's Comments PT INR APTT VBG pH VBG pCO2 VBG pO2 VBG HCO3 VBG O2 Saturation VBG Base Excess Sodium Potassium Chloride Carbon Dioxide Anion Gap BUN Creatinine Estim Creat Clear Calc Estimated GFR POC Glucose Random Glucose Lactic Acid Lactic Acid Fup @ 2Hr Calcium Phosphorus Magnesium Ferritin Total Bilirubin Direct Bilirubin GGT AST ALT Alkaline Phosphatase Ammonia Total Protein Albumin [place] Screen NEGATIVE Proteinase 3 (PR3) Ab <1.0 <1.0 Myeloperoxidase Ab <1.0 <1.0 SS-A/Ro Antibody <1.0 NEG SS-B/La Antibody <1.0 NEG Glomerular Base Memb Ab <1.0 Blood Type Antibody Screen Crossmatch 12/25/20 12/26/20 12/26/20 22:37 16:25 16:28 WBC 10.9 H RBC 2.27 L Hgb 7.5 L Hct 21.9 L MCV 96.5 MCH 33.0 MCHC 34.2 RDW 17.9 H Plt Count 109 L MPV 12.3 Immature Gran % (Auto) 1.1 H Neut % (Auto) 80.3 H Lymph % (Auto) 11.6 L [place] % (Auto) 6.9 Eos % (Auto) 0.0 Baso % (Auto) 0.1 Lymph # (Auto) 1.3 [place] # (Auto) 0.8 Eos # (Auto) 0.0 Baso # (Auto) 0.0 Abs Immat Gran (auto) 0.12 H Absolute Neuts (auto) 8.7 H Absolute Nucleated RBC 0.110 H Nucleated RBC % (auto) 1.0 H Smear Tech's Comments PT INR APTT VBG pH 7.35 VBG pCO2 31 VBG pO2 49 VBG HCO3 17 L VBG O2 Saturation 71.0 VBG Base Excess -6.6 Sodium Potassium Chloride Carbon Dioxide Anion Gap BUN Creatinine Estim Creat Clear Calc Estimated GFR POC Glucose Random Glucose Lactic Acid Lactic Acid Fup @ 2Hr Calcium Phosphorus Magnesium Ferritin Total Bilirubin Direct Bilirubin GGT AST ALT Alkaline Phosphatase Ammonia Total Protein Albumin MADELINE Screen Proteinase 3 (PR3) Ab Myeloperoxidase Ab SS-A/Ro Antibody SS-B/La Antibody Glomerular Base Memb Ab Blood Type O Positive Antibody Screen NEGATIVE Crossmatch See Detail 12/26/20 12/26/20 12/26/20 16:28 16:28 16:36 WBC RBC Hgb Hct MCV MCH MCHC RDW Plt Count MPV Immature Gran % (Auto) Neut % (Auto) Lymph % (Auto) [place] % (Auto) Eos % (Auto) Baso % (Auto) Lymph # (Auto) [place] # (Auto) Eos # (Auto) Baso # (Auto) Abs Immat Gran (auto) Absolute Neuts (auto) Absolute Nucleated RBC Nucleated RBC % (auto) Smear Tech's Comments PT INR APTT VBG pH VBG pCO2 VBG pO2 VBG HCO3 VBG O2 Saturation VBG Base Excess Sodium 131 L Potassium 4.9 Chloride 104 Carbon Dioxide 16 L Anion Gap 16 BUN 59 H Creatinine 3.97 H Estim Creat Clear Calc 22.0 Estimated GFR 15 POC Glucose Random Glucose 363 H* Lactic Acid 2.8 H* Lactic Acid Fup @ 2Hr Calcium 7.0 L Phosphorus Magnesium Ferritin Total Bilirubin Direct Bilirubin GGT AST ALT Alkaline Phosphatase Ammonia 65 H Total Protein Albumin MADELINE Screen Proteinase 3 (PR3) Ab Myeloperoxidase Ab SS-A/Ro Antibody SS-B/La Antibody Glomerular Base Memb Ab Blood Type Antibody Screen Crossmatch 12/26/20 12/26/20 12/26/20 16:55 19:12 21:08 WBC RBC Hgb Hct MCV MCH MCHC RDW Plt Count MPV Immature Gran % (Auto) Neut % (Auto) Lymph % (Auto) [place] % (Auto) Eos % (Auto) Baso % (Auto) Lymph # (Auto) [place] # (Auto) Eos # (Auto) Baso # (Auto) Abs Immat Gran (auto) Absolute Neuts (auto) Absolute Nucleated RBC Nucleated RBC % (auto) Smear Tech's Comments PT INR APTT VBG pH VBG pCO2 VBG pO2 VBG HCO3 VBG O2 Saturation VBG Base Excess Sodium Potassium Chloride Carbon Dioxide Anion Gap BUN Creatinine Estim Creat Clear Calc Estimated GFR POC Glucose 334 H 293 H Random Glucose Lactic Acid Lactic Acid Fup @ 2Hr 2.7 H* Calcium Phosphorus Magnesium Ferritin Total Bilirubin Direct Bilirubin GGT AST ALT Alkaline Phosphatase Ammonia Total Protein Albumin MADELINE Screen Proteinase 3 (PR3) Ab Myeloperoxidase Ab SS-A/Ro Antibody SS-B/La Antibody Glomerular Base Memb Ab Blood Type Antibody Screen Crossmatch 12/27/20 12/27/20 12/27/20 01:35 01:36 01:36 WBC 12.9 H RBC 2.46 L Hgb 8.0 L Hct 22.6 L MCV 91.9 MCH 32.5 MCHC 35.4 RDW 18.7 H Plt Count 83 L MPV 11.8 Immature Gran % (Auto) 1.8 H Neut % (Auto) 76.8 H Lymph % (Auto) 10.3 L [place] % (Auto) 11.0 Eos % (Auto) 0.0 Baso % (Auto) 0.1 Lymph # (Auto) 1.3 [place] # (Auto) 1.4 H Eos # (Auto) 0.0 Baso # (Auto) 0.0 Abs Immat Gran (auto) 0.23 H Absolute Neuts (auto) 9.9 H Absolute Nucleated RBC 0.110 H Nucleated RBC % (auto) 0.9 H Smear Tech's Comments PT 20.9 H INR 1.8 H APTT 36.3 VBG pH 7.39 VBG pCO2 28 VBG pO2 70 VBG HCO3 17 L VBG O2 Saturation 89.0 VBG Base Excess -6.2 Sodium Potassium Chloride Carbon Dioxide Anion Gap BUN Creatinine Estim Creat Clear Calc Estimated GFR POC Glucose Random Glucose Lactic Acid Lactic Acid Fup @ 2Hr Calcium Phosphorus Magnesium Ferritin Total Bilirubin Direct Bilirubin GGT AST ALT Alkaline Phosphatase Ammonia Total Protein Albumin M[place]INE Screen Proteinase 3 (PR3) Ab Myeloperoxidase Ab SS-A/Ro Antibody SS-B/La Antibody Glomerular Base Memb Ab Blood Type Antibody Screen Crossmatch 12/27/20 12/27/20 12/27/20 01:36 05:00 05:06 WBC 13.9 H RBC 2.41 L Hgb 7.7 L Hct 22.2 L MCV 92.1 MCH 32.0 MCHC 34.7 RDW 19.0 H Plt Count 90 L MPV 13.0 H Immature Gran % (Auto) 1.9 H Neut % (Auto) 77.7 H Lymph % (Auto) 9.4 L [place] % (Auto) 10.9 Eos % (Auto) 0.0 Baso % (Auto) 0.1 Lymph # (Auto) 1.3 [place] # (Auto) 1.5 H Eos # (Auto) 0.0 Baso # (Auto) 0.0 Abs Immat Gran (auto) 0.26 H Absolute Neuts (auto) 10.8 H Absolute Nucleated RBC 0.110 H Nucleated RBC % (auto) 0.8 H Smear Tech's Comments VERIFIED PT INR APTT VBG pH VBG pCO2 VBG pO2 VBG HCO3 VBG O2 Saturation VBG Base Excess Sodium Potassium Chloride Carbon Dioxide Anion Gap BUN Creatinine Estim Creat Clear Calc Estimated GFR POC Glucose Random Glucose Lactic Acid Lactic Acid Fup @ 2Hr Calcium Phosphorus Magnesium Ferritin 298 H Total Bilirubin Direct Bilirubin GGT AST ALT Alkaline Phosphatase Ammonia 65 H Total Protein Albumin MADELINE Screen Proteinase 3 (PR3) Ab Myeloperoxidase Ab SS-A/Ro Antibody SS-B/La Antibody Glomerular Base Memb Ab Blood Type Antibody Screen Crossmatch 12/27/20 12/27/20 12/27/20 05:06 05:06 05:20 WBC RBC Hgb Hct MCV MCH MCHC RDW Plt Count MPV Immature Gran % (Auto) Neut % (Auto) Lymph % (Auto) [place] % (Auto) Eos % (Auto) Baso % (Auto) Lymph # (Auto) [place] # (Auto) Eos # (Auto) Baso # (Auto) Abs Immat Gran (auto) Absolute Neuts (auto) Absolute Nucleated RBC Nucleated RBC % (auto) Smear Tech's Comments PT 20.9 H INR 1.8 H APTT 35.6 VBG pH 7.36 VBG pCO2 30 VBG pO2 62 VBG HCO3 17 L VBG O2 Saturation 87.0 VBG Base Excess -7.1 Sodium 133 L Potassium 4.3 Chloride 104 Carbon Dioxide 17 L Anion Gap 16 BUN 61 H Creatinine 3.92 H Estim Creat Clear Calc 22.2 Estimated GFR 15 POC Glucose Random Glucose 343 H Lactic Acid Lactic Acid Fup @ 2Hr Calcium 7.4 L Phosphorus 5.7 H Magnesium 2.0 Ferritin 320 H Total Bilirubin 3.2 H Direct Bilirubin 1.6 H GGT 59 H AST 41 H ALT 30 Alkaline Phosphatase 130 H D Ammonia Total Protein 4.8 L Albumin 2.2 L MADELINE Screen Proteinase 3 (PR3) Ab Myeloperoxidase Ab SS-A/Ro Antibody SS-B/La Antibody Glomerular Base Memb Ab Blood Type Antibody Screen Crossmatch 12/27/20 12/27/20 07:33 11:41 WBC RBC Hgb Hct MCV MCH MCHC RDW Plt Count MPV Immature Gran % (Auto) Neut % (Auto) Lymph % (Auto) [place] % (Auto) Eos % (Auto) Baso % (Auto) Lymph # (Auto) [place] # (Auto) Eos # (Auto) Baso # (Auto) Abs Immat Gran (auto) Absolute Neuts (auto) Absolute Nucleated RBC Nucleated RBC % (auto) Smear Tech's Comments PT INR APTT VBG pH VBG pCO2 VBG pO2 VBG HCO3 VBG O2 Saturation VBG Base Excess Sodium Potassium Chloride Carbon Dioxide Anion Gap BUN Creatinine Estim Creat Clear Calc Estimated GFR POC Glucose 324 H 307 H Random Glucose Lactic Acid Lactic Acid Fup @ 2Hr Calcium Phosphorus Magnesium Ferritin Total Bilirubin Direct Bilirubin GGT AST ALT Alkaline Phosphatase Ammonia Total Protein Albumin MADELINE Screen Proteinase 3 (PR3) Ab Myeloperoxidase Ab SS-A/Ro Antibody SS-B/La Antibody Glomerular Base Memb Ab Blood Type Antibody Screen Crossmatch Microbiology Microbiology Results: Microbiology 12/26/20 10:47 Bronch, Not Specified Gram Stain - Final 12/26/20 10:47 Bronch, Not Specified Routine Culture - Preliminary Culture in progress. 12/25/20 10:30 Sputum - Suctioned Gram Stain - Final 12/25/20 10:30 Sputum - Suctioned Sputum Culture - Final 12/24/20 18:55 Blood - Venous Blood Culture - Preliminary No growth after 48 hours. 12/24/20 18:41 Blood - Venous Blood Culture - Preliminary No growth after 48 hours. 12/25/20 10:30 Urine [place] Urine Culture - Final No growth. Assessment & Plan Assessment and plan (1) Diffuse pulmonary alveolar hemorrhage: Status: Acute Assessment and Plan: Hyponatremia Hyperkalemia Acute Kidney Injury likely due to tubular injury Metabolic Acidosis Concern for pulmonary renal syndrome Urine output good; Low K diet Unlikely GN; Work up sent On Prednsione; WIll benefit from renal biopsy when more stable Continue current supportive care No indication for any renal replacement Labs AM. 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: Status: Acute (10) Pulmonary hypertension: Status: Acute (11) Healthcare-associated pneumonia: Status: Acute (12) Acute respiratory failure with hypoxemia: Status: Acute (13) Acute hyperkalemia: Status: Acute (14) Neuropathy: Status: Acute (15) Acute renal failure: Status: Acute (16) Hypothermia: Status: Acute (17) Acute hypotension: Status: Acute (18) Acute pancreatitis: Status: Acute (19) Acute hyponatremia: Status: Acute (20) Encephalopathy: Status: Acute Time Spent With Patient Time: Total time spent is greater than 50% in coordination of care (as documented) at patient's floor/unit and/or counseling patient: Procedures Date of Service Date of Service: 12/27/20
[2020-12-27] MEDS: DOPamine HCL/D5W 400 MG/250 ML PLAST..BAG 23.25 MG IVCONT (14:55)
[2020-12-27 16:55] LABS: Glucose, Whole Blood 259 mg/dL (60-115)
[2020-12-27 17:34] LABS: Lactic Acid 5.3 mmol/L (0.5-2.0)
[2020-12-27 18:27] LABS: VBG HCO3 13 mmol/L (22-26); VBG pCO2 24 mmHg; VBG pH 7.35 (7.32-7.43); VBG pO2 74 mmHg
[2020-12-27 19:03] LABS: Reflex Lactate? Lactic Acid Added
[2020-12-27 19:17] LABS: Basophils Percent Auto 0.2 % (0-2); Eosinophils Percent Auto 0.1 % (0-4); Hematocrit 28.4 % (42-52); Hemoglobin 9.9 g/dl (14.0-18.0); Imm Gran Abs Auto 0.78 X10*3/uL (0.00-0.03); Imm Gran Pct Auto 4.4 % (0.0-0.4); Lymphocytes Absolute Auto 1.5 X10*3/uL (1.2-4.9); Lymphocytes Percent Auto 8.4 % (20-40); MANUAL DIFF FLAG SCAN; Mean Corpuscular HGB Conc 34.9 g/dl (31.0-36.0); Mean Corpuscular Hemoglobin 31.5 pg (27.0-33.0); Mean Corpuscular Volume 90.4 fL (80-98); Mean Platelet Volume 12.8 fL (9.4-12.4); Monocytes Percent Auto 16.7 % (2-11); Neutrophils Absolute Auto 12.5 X10*3/uL (2.0-8.3); Neutrophils Percent Auto 70.2 % (45-73); Platelet Count 104 X10*3/uL (160-400); Red Blood Count 3.14 X10*6/uL (4.60-5.80); Red Cell Distribution Width 20.3 % (11.0-16.0); SCAN SMEAR FLAG 1; White Blood Count 17.8 X10*3/uL (4.8-10.8)
[2020-12-27 19:18] LABS: NRBC Pct Auto 4.6 /100WBC (0.0-0.2)
[2020-12-27 19:46] LABS: SLIDE REVIEW VERIFIED
[2020-12-27 19:48] LABS: Blood Urea Nitrogen 64 mg/dL (9-16); Calcium 7.6 mg/dL (8.4-10.2); Creatinine Clr Calc Pharmacy 21.5; Estimated Glomerular Filt Rate 14; Glucose Random 275 mg/dL (60-115)
[2020-12-27 19:58] LABS: Anion Gap 23 (12-20); Carbon Dioxide 12 mmol/L (22-29); Chloride 104 mmol/L (96-108); Potassium 4.6 mmol/L (3.3-5.1); Sodium 134 mmol/L (135-145)
[2020-12-27 20:07] LABS: ~Lactic Acid-LAB USE ONLY 6.4 mmol/L (0.5-2.0)
[2020-12-27 20:32] LABS: Cancel Lactic Acid Canceled
[2020-12-27] MEDS: Doxycycline Hyclate 100 MG in 0.9 % Sodium Chloride 250 ML 166.67 MG IV (20:40)
[2020-12-27] MEDS: 0.9 % Sodium Chloride 1,000 ML 100 ML IVCONT (20:53)
[2020-12-27 20:56] LABS: Venous Blood Gas Refer to POC result
[2020-12-27 22:20] LABS: Glucose, Whole Blood 237 mg/dL (60-115)
[2020-12-27] MEDS: Piperacillin Sodium/Tazobactam 2.25 GM in 0.9 % Sodium Chloride 50 ML IV (22:32)
--- NOTE | 2020-12-27 22:46 | PM.CNGS ---
History of Present Illness Consult details Consult date: 12/27/20 Narrative: 75-year-old male with multiple medical problems including liver cirrhosis, portal hypertension and CHF sent to the ER by the care home last December 24, 2020 because of hypotension. He was admitted to the intensive care unit. He did not being intubated. He was note to be hypertensive and hypothermic at that time as well. His creatinine was worsening as well. He also was noted to have him episodes of hemoptysis and had BMs. He underwent a bronchoscopy yesterday 28 which showed pulmonary alveolar hemorrhage. Furthermore, he had an EGD which showed tell portal gastropathy with no active bleeding. He apparently had worsening lactic acidosis today with a lactate level of 6. He was sent for a CT scan tonight which showed pneumatosis colon. I was therefore consulted. The patient remains on the ventilator. He is on dopamine for pressor support. He actually had been recently admitted to the hospital for respiratory failure as well. He has had multiple says the ER and seems to have had a steady decline in his overall health as per the daughter Rubi. Review of Systems Review of Systems: Yes Unobtainable due to mental status and Other (Patient currently intubated and on the ventilator) [facility] Past Medical History Medical History (Updated 12/28/20 @ 14:01 by Coy Serra MD) Alcoholic cirrhosis Coagulopathy COPD (chronic obstructive pulmonary disease) Diabetes HTN (hypertension) Hyperlipidemia Pneumatosis intestinalis of large intestine Portal venous hypertension Pulmonary hypertension Pulmonary hypertension Social History Social History Household Members: None Housing: Jail Do you presently have visiting nurse or other home services: No Unable to assess alcohol history related to: Unknown Alcohol intake: never Patient Tobacco Use Status: Never used Tobacco Advance Directives Date on File: 12/09/20 service: No Current occupational status: retired Meds Allergies Allergy/AdvReac Type Severity Reaction Status Date / Time No Known Allergies Allergy Verified 11/28/20 10:42 Active Medications: Current Medications Generic Name Dose Route Start Last Admin Trade Name Freq PRN Reason Stop Dose Admin Albuterol/Ipratropium 3 ml 12/25/20 12:00 12/27/20 19:44 Albuterol/Iprat 2.5/0.5mg 3 Ml Ampul.Neb INHALE Not Given RQ4H WHILE AWAKE [facility] Chlorhexidine Gluconate 15 ml 12/25/20 23:45 12/27/20 22:32 Chlorhexidine Gluc Oral Rinse 15 Ml Mouthwash BUCCAL 15 ml TID KIMMIE Administration Famotidine 20 mg 12/27/20 09:00 12/27/20 08:00 Famotidine/Pf 20 Mg/2 Ml Vial IVPUSH 20 mg DAILY KIMMIE Administration Dopamine HCl/Dextrose 400 mg in 250 mls @ 0 mls/hr 12/24/20 22:45 12/27/20 18:29 IVCONT 4 mcg/kg/min .Q0M KIMMIE 18.6 mls/hr Titration Protocol Per Protocol Methylprednisolone Sodium 66 mls @ 66 mls/hr 12/27/20 11:00 12/27/20 12:13 Succinate 1,000 mg/ Sodium IV Infused Chloride Q24H KIMMIE Infusion Octreotide Acetate 500 mcg/ 501 mls @ 25.05 mls/hr 12/26/20 15:45 12/27/20 11:16 Sodium Chloride IVCONT 25 mcg/hr .Q20H KIMMIE 25.05 mls/hr Administration 25 MCG/HR Propofol 1,000 mg in 100 mls @ 0 mls/hr 12/27/20 09:00 12/27/20 18:34 Diprivan IVCONT 30 mcg/kg/min .Q0M KIMMIE 22.86 mls/hr Administration Protocol Per Protocol Doxycycline Hyclate 100 mg/ 250 mls @ 166.67 mls/hr 12/27/20 21:00 12/27/20 20:40 Sodium Chloride IV 166.67 mls/hr Q12H KIMMIE Administration Piperacillin Sod/Tazobactam 50 mls @ 100 mls/hr 12/27/20 21:00 12/27/20 22:32 Sod 2.25 gm/ Sodium Chloride IV 100 mls/hr Q8H KIMMIE Administration Sodium Chloride 1,000 mls @ 100 mls/hr 12/27/20 20:30 12/27/20 20:53 Ns IVCONT 100 mls/hr .Q10H KIMMIE Administration Vancomycin HCl 750 mg/ Sodium 265 mls @ 265 mls/hr 12/27/20 22:00 Chloride IV Q24H [facility] Insulin Human Lispro 0 unit 12/25/20 16:30 12/27/20 22:31 Insulin Lispro 100 Unit/Ml 3 Ml Vial SUBCUT 4 unit QIDACHS [facility] Administration Protocol Lactulose 30 gm 12/25/20 23:45 12/27/20 22:26 Lactulose 20 Gm/30 Ml Solution PO Not Given TID [facility] Pantoprazole Sodium 40 mg 12/27/20 07:00 12/27/20 07:46 Pantoprazole Sodium 40 Mg/10 Ml Vial IVPUSH 40 mg DAILY@0630 [facility] Administration Rifaximin 550 mg 12/25/20 23:45 12/27/20 22:25 Rifaximin 550 Mg Tablet PO Not Given TID [facility] Sodium Bicarbonate 650 mg 12/25/20 13:00 12/27/20 22:26 Sodium Bicarbonate 650 Mg Tablet PO Not Given QID [facility] Sodium Chloride 3 ml 12/25/20 16:00 12/27/20 15:00 0.9 % Sodium Chloride Flush 3 Ml Syringe IVFLUSH 3 ml QSHIFT [facility] Administration Home Medications Medication Instructions Recorded Confirmed Last Taken Type omeprazole 20 mg capsule,delayed 20 mg PO DAILY@0630 05/23/20 12/25/20 11/27/20 History release rifaximin 550 mg tablet 550 mg PO TID 05/23/20 12/25/20 11/27/20 History Incruse Ellipta 1 inh INHALATION DAILY 11/28/20 12/25/20 11/27/20 History Lantus Solostar U-100 Insulin 62 unit SUBCUT BEDTIME 11/28/20 12/25/20 11/27/20 History aspirin 81 mg PO DAILY 11/28/20 12/25/20 11/27/20 History atorvastatin 40 mg PO DAILY 11/28/20 12/25/20 11/27/20 History insulin aspart U-100 [Novolog 22 unit SUBCUT DAILY@0730 11/28/20 12/25/20 Unknown History Flexpen U-100 Insulin] insulin aspart U-100 [Novolog 24 unit SUBCUT QPM 11/28/20 12/25/20 Unknown History Flexpen U-100 Insulin] propranolol 10 mg PO BID 11/28/20 12/25/20 11/27/20 History spironolactone 50 mg PO DAILY 11/28/20 12/25/20 11/27/20 History potassium chloride 10 meq PO 12/25/20 Unknown History Physical Exam Vital Signs: Vital Signs: Last Vital Signs Temp 97.5 F 12/27/20 22:00 Pulse 107 H 12/27/20 22:00 Resp 27 H 12/27/20 22:00 BP 124/58 L 12/27/20 22:00 Pulse Ox 96 12/27/20 22:00 Body Mass Index 38.0 Const: Other: Intubated, on the ventilator, not communicative Resp: Other: Vent dependent Cardio: Rate: tachycardic GI: Other: Distended, no obvious guarding or rebound Extrem: General: Yes edema Results Labs Result diagrams: 12/28/20 05:13 12/28/20 05:13 Labs: Abnormal lab results 12/25/20 12/27/20 12/27/20 Range/Units 22:37 01:35 01:36 WBC 12.9 H (4.8-10.8) X10*3/uL RBC 2.46 L (4.60-5.80) X10*6/uL Hgb 8.0 L (14.0-18.0) g/dl Hct 22.6 L (42-52) % RDW 18.7 H (11.0-16.0) % Plt Count 83 L (160-400) X10*3/uL MPV (9.4-12.4) fL Immature Gran % (Auto) 1.8 H (0.0-0.4) % Neut % (Auto) 76.8 H (45-73) % Lymph % (Auto) 10.3 L (20-40) % Floyd % (Auto) (2-11) % Floyd # (Auto) 1.4 H (0.1-1.2) X10*3/uL Abs Immat Gran (auto) 0.23 H (0.00-0.03) X10*3/uL Absolute Neuts (auto) 9.9 H (2.0-8.3) X10*3/uL Absolute Nucleated RBC 0.110 H (0.0-0.012) X10*3/uL Nucleated RBC % (auto) 0.9 H (0.0-0.2) /100WBC PT (10.8-13.0) SEC INR (0.9-1.1) VBG HCO3 17 L (22-26) mmol/L Sodium (135-145) mmol/L Carbon Dioxide (22-29) mmol/L Anion Gap (12-20) BUN (9-16) mg/dL Creatinine (0.5-1.4) mg/dL POC Glucose (60-115) mg/dL Random Glucose (60-115) mg/dL Lactic Acid (0.5-2.0) mmol/L Lactic Acid Fup @ 2Hr (0.5-2.0) mmol/L Calcium (8.4-10.2) mg/dL Phosphorus (2.7-4.5) mg/dL Ferritin (20-250) ng/mL Total Bilirubin (0.0-1.0) mg/dL Direct Bilirubin (0.0-0.5) mg/dL GGT (11-51) U/L AST (5-37) U/L Alkaline Phosphatase (39-117) U/L Ammonia (13-55) umol/L Total Protein (6.5-8.0) g/dL Albumin (3.5-5.0) g/dL Crossmatch See Detail 12/27/20 12/27/20 12/27/20 Range/Units 01:36 01:36 05:00 WBC (4.8-10.8) X10*3/uL RBC (4.60-5.80) X10*6/uL Hgb (14.0-18.0) g/dl Hct (42-52) % RDW (11.0-16.0) % Plt Count (160-400) X10*3/uL MPV (9.4-12.4) fL Immature Gran % (Auto) (0.0-0.4) % Neut % (Auto) (45-73) % Lymph % (Auto) (20-40) % Floyd % (Auto) (2-11) % Floyd # (Auto) (0.1-1.2) X10*3/uL Abs Immat Gran (auto) (0.00-0.03) X10*3/uL Absolute Neuts (auto) (2.0-8.3) X10*3/uL Absolute Nucleated RBC (0.0-0.012) X10*3/uL Nucleated RBC % (auto) (0.0-0.2) /100WBC PT 20.9 H (10.8-13.0) SEC INR 1.8 H (0.9-1.1) VBG HCO3 (22-26) mmol/L Sodium (135-145) mmol/L Carbon Dioxide (22-29) mmol/L Anion Gap (12-20) BUN (9-16) mg/dL Creatinine (0.5-1.4) mg/dL POC Glucose (60-115) mg/dL Random Glucose (60-115) mg/dL Lactic Acid (0.5-2.0) mmol/L Lactic Acid Fup @ 2Hr (0.5-2.0) mmol/L Calcium (8.4-10.2) mg/dL Phosphorus (2.7-4.5) mg/dL Ferritin 298 H (20-250) ng/mL Total Bilirubin (0.0-1.0) mg/dL Direct Bilirubin (0.0-0.5) mg/dL GGT (11-51) U/L AST (5-37) U/L Alkaline Phosphatase (39-117) U/L Ammonia 65 H (13-55) umol/L Total Protein (6.5-8.0) g/dL Albumin (3.5-5.0) g/dL Crossmatch 12/27/20 12/27/20 12/27/20 Range/Units 05:06 05:06 05:06 WBC 13.9 H (4.8-10.8) X10*3/uL RBC 2.41 L (4.60-5.80) X10*6/uL Hgb 7.7 L (14.0-18.0) g/dl Hct 22.2 L (42-52) % RDW 19.0 H (11.0-16.0) % Plt Count 90 L (160-400) X10*3/uL MPV 13.0 H (9.4-12.4) fL Immature Gran % (Auto) 1.9 H (0.0-0.4) % Neut % (Auto) 77.7 H (45-73) % Lymph % (Auto) 9.4 L (20-40) % Floyd % (Auto) (2-11) % Floyd # (Auto) 1.5 H (0.1-1.2) X10*3/uL Abs Immat Gran (auto) 0.26 H (0.00-0.03) X10*3/uL Absolute Neuts (auto) 10.8 H (2.0-8.3) X10*3/uL Absolute Nucleated RBC 0.110 H (0.0-0.012) X10*3/uL Nucleated RBC % (auto) 0.8 H (0.0-0.2) /100WBC PT 20.9 H (10.8-13.0) SEC INR 1.8 H (0.9-1.1) VBG HCO3 (22-26) mmol/L Sodium 133 L (135-145) mmol/L Carbon Dioxide 17 L (22-29) mmol/L Anion Gap (12-20) BUN 61 H (9-16) mg/dL Creatinine 3.92 H (0.5-1.4) mg/dL POC Glucose (60-115) mg/dL Random Glucose 343 H (60-115) mg/dL Lactic Acid (0.5-2.0) mmol/L Lactic Acid Fup @ 2Hr (0.5-2.0) mmol/L Calcium 7.4 L (8.4-10.2) mg/dL Phosphorus 5.7 H (2.7-4.5) mg/dL Ferritin 320 H (20-250) ng/mL Total Bilirubin 3.2 H (0.0-1.0) mg/dL Direct Bilirubin 1.6 H (0.0-0.5) mg/dL GGT 59 H (11-51) U/L AST 41 H (5-37) U/L Alkaline Phosphatase 130 H D (39-117) U/L Ammonia (13-55) umol/L Total Protein 4.8 L (6.5-8.0) g/dL Albumin 2.2 L (3.5-5.0) g/dL Crossmatch 12/27/20 12/27/20 12/27/20 Range/Units 05:20 07:33 11:41 WBC (4.8-10.8) X10*3/uL RBC (4.60-5.80) X10*6/uL Hgb (14.0-18.0) g/dl Hct (42-52) % RDW (11.0-16.0) % Plt Count (160-400) X10*3/uL MPV (9.4-12.4) fL Immature Gran % (Auto) (0.0-0.4) % Neut % (Auto) (45-73) % Lymph % (Auto) (20-40) % Floyd % (Auto) (2-11) % Floyd # (Auto) (0.1-1.2) X10*3/uL Abs Immat Gran (auto) (0.00-0.03) X10*3/uL Absolute Neuts (auto) (2.0-8.3) X10*3/uL Absolute Nucleated RBC (0.0-0.012) X10*3/uL Nucleated RBC % (auto) (0.0-0.2) /100WBC PT (10.8-13.0) SEC INR (0.9-1.1) VBG HCO3 17 L (22-26) mmol/L Sodium (135-145) mmol/L Carbon Dioxide (22-29) mmol/L Anion Gap (12-20) BUN (9-16) mg/dL Creatinine (0.5-1.4) mg/dL POC Glucose 324 H 307 H (60-115) mg/dL Random Glucose (60-115) mg/dL Lactic Acid (0.5-2.0) mmol/L Lactic Acid Fup @ 2Hr (0.5-2.0) mmol/L Calcium (8.4-10.2) mg/dL Phosphorus (2.7-4.5) mg/dL Ferritin (20-250) ng/mL Total Bilirubin (0.0-1.0) mg/dL Direct Bilirubin (0.0-0.5) mg/dL GGT (11-51) U/L AST (5-37) U/L Alkaline Phosphatase (39-117) U/L Ammonia (13-55) umol/L Total Protein (6.5-8.0) g/dL Albumin (3.5-5.0) g/dL Crossmatch 12/27/20 12/27/20 12/27/20 Range/Units 16:31 16:49 18:20 WBC (4.8-10.8) X10*3/uL RBC (4.60-5.80) X10*6/uL Hgb (14.0-18.0) g/dl Hct (42-52) % RDW (11.0-16.0) % Plt Count (160-400) X10*3/uL MPV (9.4-12.4) fL Immature Gran % (Auto) (0.0-0.4) % Neut % (Auto) (45-73) % Lymph % (Auto) (20-40) % Floyd % (Auto) (2-11) % Floyd # (Auto) (0.1-1.2) X10*3/uL Abs Immat Gran (auto) (0.00-0.03) X10*3/uL Absolute Neuts (auto) (2.0-8.3) X10*3/uL Absolute Nucleated RBC (0.0-0.012) X10*3/uL Nucleated RBC % (auto) (0.0-0.2) /100WBC PT (10.8-13.0) SEC INR (0.9-1.1) VBG HCO3 13 L (22-26) mmol/L Sodium (135-145) mmol/L Carbon Dioxide (22-29) mmol/L Anion Gap (12-20) BUN (9-16) mg/dL Creatinine (0.5-1.4) mg/dL POC Glucose 259 H (60-115) mg/dL Random Glucose (60-115) mg/dL Lactic Acid 5.3 H* (0.5-2.0) mmol/L Lactic Acid Fup @ 2Hr (0.5-2.0) mmol/L Calcium (8.4-10.2) mg/dL Phosphorus (2.7-4.5) mg/dL Ferritin (20-250) ng/mL Total Bilirubin (0.0-1.0) mg/dL Direct Bilirubin (0.0-0.5) mg/dL GGT (11-51) U/L AST (5-37) U/L Alkaline Phosphatase (39-117) U/L Ammonia (13-55) umol/L Total Protein (6.5-8.0) g/dL Albumin (3.5-5.0) g/dL Crossmatch 12/27/20 12/27/20 12/27/20 Range/Units 18:23 18:23 19:23 WBC 17.8 H (4.8-10.8) X10*3/uL RBC 3.14 L D (4.60-5.80) X10*6/uL Hgb 9.9 L D (14.0-18.0) g/dl Hct 28.4 L D (42-52) % RDW 20.3 H (11.0-16.0) % Plt Count 104 L (160-400) X10*3/uL MPV 12.8 H (9.4-12.4) fL Immature Gran % (Auto) 4.4 H (0.0-0.4) % Neut % (Auto) (45-73) % Lymph % (Auto) 8.4 L (20-40) % Floyd % (Auto) 16.7 H (2-11) % Floyd # (Auto) 3.0 H (0.1-1.2) X10*3/uL Abs Immat Gran (auto) 0.78 H (0.00-0.03) X10*3/uL Absolute Neuts (auto) 12.5 H (2.0-8.3) X10*3/uL Absolute Nucleated RBC 0.810 H (0.0-0.012) X10*3/uL Nucleated RBC % (auto) 4.6 H (0.0-0.2) /100WBC PT (10.8-13.0) SEC INR (0.9-1.1) VBG HCO3 (22-26) mmol/L Sodium 134 L (135-145) mmol/L Carbon Dioxide 12 L (22-29) mmol/L Anion Gap 23 H (12-20) BUN 64 H (9-16) mg/dL Creatinine 4.15 H* (0.5-1.4) mg/dL POC Glucose (60-115) mg/dL Random Glucose 275 H (60-115) mg/dL Lactic Acid (0.5-2.0) mmol/L Lactic Acid Fup @ 2Hr 6.4 H* (0.5-2.0) mmol/L Calcium 7.6 L (8.4-10.2) mg/dL Phosphorus (2.7-4.5) mg/dL Ferritin (20-250) ng/mL Total Bilirubin (0.0-1.0) mg/dL Direct Bilirubin (0.0-0.5) mg/dL GGT (11-51) U/L AST (5-37) U/L Alkaline Phosphatase (39-117) U/L Ammonia (13-55) umol/L Total Protein (6.5-8.0) g/dL Albumin (3.5-5.0) g/dL Crossmatch 12/27/20 Range/Units 22:15 WBC (4.8-10.8) X10*3/uL RBC (4.60-5.80) X10*6/uL Hgb (14.0-18.0) g/dl Hct (42-52) % RDW (11.0-16.0) % Plt Count (160-400) X10*3/uL MPV (9.4-12.4) fL Immature Gran % (Auto) (0.0-0.4) % Neut % (Auto) (45-73) % Lymph % (Auto) (20-40) % Floyd % (Auto) (2-11) % Floyd # (Auto) (0.1-1.2) X10*3/uL Abs Immat Gran (auto) (0.00-0.03) X10*3/uL Absolute Neuts (auto) (2.0-8.3) X10*3/uL Absolute Nucleated RBC (0.0-0.012) X10*3/uL Nucleated RBC % (auto) (0.0-0.2) /100WBC PT (10.8-13.0) SEC INR (0.9-1.1) VBG HCO3 (22-26) mmol/L Sodium (135-145) mmol/L Carbon Dioxide (22-29) mmol/L Anion Gap (12-20) BUN (9-16) mg/dL Creatinine (0.5-1.4) mg/dL POC Glucose 237 H (60-115) mg/dL Random Glucose (60-115) mg/dL Lactic Acid (0.5-2.0) mmol/L Lactic Acid Fup @ 2Hr (0.5-2.0) mmol/L Calcium (8.4-10.2) mg/dL Phosphorus (2.7-4.5) mg/dL Ferritin (20-250) ng/mL Total Bilirubin (0.0-1.0) mg/dL Direct Bilirubin (0.0-0.5) mg/dL GGT (11-51) U/L AST (5-37) U/L Alkaline Phosphatase (39-117) U/L Ammonia (13-55) umol/L Total Protein (6.5-8.0) g/dL Albumin (3.5-5.0) g/dL Crossmatch Short CBC 12/27/20 12/27/20 12/27/20 Range/Units 01:36 05:06 18:23 WBC 12.9 H 13.9 H 17.8 H (4.8-10.8) X10*3/uL Hgb 8.0 L 7.7 L 9.9 L D (14.0-18.0) g/dl Hct 22.6 L 22.2 L 28.4 L D (42-52) % Plt Count 83 L 90 L 104 L (160-400) X10*3/uL BMP 12/27/20 12/27/20 05:06 18:23 Sodium 133 L 134 L Potassium 4.3 4.6 Chloride 104 104 Carbon Dioxide 17 L 12 L BUN 61 H 64 H Creatinine 3.92 H 4.15 H* Calcium 7.4 L 7.6 L Liver Function 12/27/20 Range/Units 05:06 Total Bilirubin 3.2 H (0.0-1.0) mg/dL Direct Bilirubin 1.6 H (0.0-0.5) mg/dL GGT 59 H (11-51) U/L AST 41 H (5-37) U/L ALT 30 (0-40) U/L Alkaline Phosphatase 130 H D (39-117) U/L Albumin 2.2 L (3.5-5.0) g/dL Urine 12/24/20 12/26/20 Range/Units 22:41 07:17 Urine Color YELLOW YELLOW Urine Appearance CLEAR CLOUDY Urine pH 5.5 6.0 (5.0-8.0) Ur Specific [place] 1.015 1.010 (1.005-1.025) Urine Protein 1+ H NEG (NEG-TRACE) MG/DL Urine Glucose (UA) NEG NEG (NEG) MG/DL All other labs normal. Imaging Abdomen CT scan report/results: report reviewed and image reviewed CT scan - chest: report reviewed and image reviewed CT scan - pelvis: report reviewed and image reviewed Assessment and Plan (1) Pneumatosis intestinalis of large intestine: Status: Acute 75-year-old male with multiple medical problems including liver cirrhosis, portal hypertension, CHF, admitted for hypotension last December 24. He has had worsening lactic acidosis today. A CT scan was the done tonight. I have reviewed this and examined the images. There was note of ptosis of the cecum and the right colon along with some portal venous air near the splenic vein. These were not seen on his CT scan from December 24. Findings are consistent with new pneumatosis of the right colon likely due to ischemia. This is most probably due to his low flow state. Unfortunately, he does have multiple medical problems. I stated earlier, he has chronic liver disease with cirrhosis, portal gastropathy, heart failure and acute renal failure as well. He also has portal hypertension. I had a long discussion with his daughter Rubi Bowles at [phone]. I explained to her that unfortunately, laparotomy with resection of the ischemic bowel would be required as treatment. However, he is not a surgical candidate at this time in view of the above stated comorbidities. He is also coagulopathic with an INR of 1.8. He is unlikely to tolerate general anesthesia and much less, a major medical procedure. Rubi had also stated explicitly that she does not want any surgery for her father. She understands the grim prognosis overall and stated that she does not want any further aggressive intervention. She had stated that at this time, she just wants her father to be comfortable. Again, regardless of options, the patient's long-term prognosis is grim. It is reasonable to commence end of life care for him as implied by his daughter. I have discussed the above with the ICU staff. Procedures Date of Service Date of Service: 12/27/20
[2020-12-27] MEDS: vancomycin HCL 750 MG in 0.9 % Sodium Chloride 250 ML 265 MG IV (22:53)
--- NOTE | 2020-12-27 22:58 | PM.CCN ---
Critical Care Event Note Summary Date of Service: 12/27/20 Code activated: No Narrative: This case had a high probability of a clinically significant, sudden, or life threatening deterioration of this patient's condition which required my full and direct attention, intervention and personal management. Lactic acid 6.4, bicarb 12, BUN 64 creatinine 4.15, all worsening. Ordered CT scan of the abdomen and chest which revealed pneumatosis of the ascending colon. Consult to Dr. Diehl, he advised patient is not a good surgical candidate and spoke with the patient's healthcare proxy who he said did not want to go forward with surgery. I did make attempts to call [facility] and [facility], both institutions are closed to transfers. I then spoke with the healthcare proxy, Rubi Wilbur, explained that we could try [facility] and [facility] to see if they would be willing to accept him as a pt and do surgery although they may decline as well for the same reasons. Rubi wanted me to speak with her brother, Kenn Vu, he decided it was best to keep his father in [place], not to pursue surgery. Prognosis is very grave. Rubi opted to make her father a DNR, with a plan to make him comfort measures in the morning after she comes to say goodbye to him. Will change code status to DNR. Critical Care Time (minutes): 60
[2020-12-28] VITALS (16 sets, daily range): BP systolic 92–122; BP diastolic 33–53; PULSE 98–104; RESP 22–26; TEMP 35.9–36.1; O2SAT 95–97; BMI 38.9
--- NOTE | 2020-12-28 00:02 | PC.NURSE ---
pts lab work showing multiorgan system failure- lactate has climbed to 5.3-6.4. creatinine worsening at 4.15. pt is sedated under the influences of propofol. gross anasarca is present. mechanically ventilated of interest is that the pts minute volumes have increased to 17-19 lpm. end tidal co2 19-22. dopamine 4mcg/kg/min for b/p management. ecg displays st. apical 110-120bpm. abdomen is distended/firm and silent. u/o 20-30 ml/hr. plan 1. abx zosyn decreased dose to 2.25 gm/vancomycin 750 mg ivss/doxycycline 100 mg iv/ct scan of abdomen and chest. will implement iv fluids of ns at 100 ml/hr unfortunately ct scan has shown ischemic bowel which is thought to be incompatible with life. dr arhtur consulted and arrived to evaluate pt. daughter raymundo notified of grave condition of her father. at this time, pt will be a dnr and comfort care measures may be carried out in the am.
[2020-12-28] MEDS: 0.9 % Sodium Chloride Flush 3 ML SYRINGE IVFLUSH ×2 (03:23→07:57)
[2020-12-28] MEDS: DOPamine HCL/D5W 400 MG/250 ML PLAST..BAG 18.6 MG IVCONT (03:24)
[2020-12-28] MEDS: propofoL 1,000 MG/100 ML VIAL 22.86 MG IVCONT ×3 (03:24→12:09)
[2020-12-28 05:29] LABS: VBG Base Excess -15.5 mmol/L; VBG HCO3 10 mmol/L (22-26); VBG pCO2 22 mmHg; VBG pH 7.23 (7.32-7.43); VBG pO2 63 mmHg
[2020-12-28 05:31] LABS: Venous Blood Gas Refer to POC result
[2020-12-28] MEDS: 0.9 % Sodium Chloride 1,000 ML 100 ML IVCONT (05:40)
[2020-12-28] MEDS: Pantoprazole Sodium 40 MG/10 ML VIAL IVPUSH (05:42)
[2020-12-28] MEDS: Piperacillin Sodium/Tazobactam 2.25 GM in 0.9 % Sodium Chloride 50 ML IV (05:42)
[2020-12-28 06:02] LABS: Ammonia 119 umol/L (13-55)
[2020-12-28 06:06] LABS: Lactic Acid 9.6 mmol/L (0.5-2.0)
[2020-12-28 06:11] LABS: Hematocrit 28.3 % (42-52); Hemoglobin 9.3 g/dl (14.0-18.0); Mean Corpuscular HGB Conc 32.9 g/dl (31.0-36.0); Mean Corpuscular Hemoglobin 30.9 pg (27.0-33.0); Mean Platelet Volume 12.3 fL (9.4-12.4); Red Blood Count 3.01 X10*6/uL (4.60-5.80); Red Cell Distribution Width 20.6 % (11.0-16.0); White Blood Count 22.3 X10*3/uL (4.8-10.8)
[2020-12-28 06:22] LABS: Alanine Aminotransferase 39 U/L (0-40); Albumin Level 2.1 g/dL (3.5-5.0); Alkaline Phosphatase 121 U/L (39-117); Anion Gap 23 (12-20); Aspartate Amino Transferase 56 U/L (5-37); Bilirubin Total 3.7 mg/dL (0.0-1.0); Blood Urea Nitrogen 70 mg/dL (9-16); Calcium 7.3 mg/dL (8.4-10.2); Carbon Dioxide 11 mmol/L (22-29); Chloride 105 mmol/L (96-108); Creatinine Clr Calc Pharmacy 21.3; Estimated Glomerular Filt Rate 14; Glucose Random 258 mg/dL (60-115); Sodium 134 mmol/L (135-145)
[2020-12-28 06:28] LABS: NRBC Pct Auto 8.1 /100WBC (0.0-0.2); Platelet Count 96 X10*3/uL (160-400)
[2020-12-28 06:52] LABS: Atypical Lymphs Percent Manual 0 % (0-6); Band Neutrophils Percent 19 % (3-5); Lymphocytes Absolute Manual 1.6 X10*3/uL (0.6-4.8); Lymphocytes Percent Manual 7 % (20-40); Metamyelocytes Absolute 0.4 X10*3/uL; Metamyelocytes Percent 2 %; Monocytes Absolute Manual 2.2 X10*3/uL (0.0-1.2); Monocytes Percent Manual 10 % (2-11); Myelocytes Absolute 0.9 X10*/uL; Myelocytes Percent 4 %; Neutrophils Absolute Manual 17.2 X10*3/uL (2.2-7.9); Neutrophils Percent Manual 58 % (45-73); Nucleated Red Blood Cells 9 /100WBC (0-0); RBC Morphology NOTED
[2020-12-28 06:54] LABS: Acanthocytes 1+ (0-2) /OIF; Macrocytosis 1+ (5-14) /OIF; Microcytosis 1+ (5-14) /OIF; Ovalocytes 1+ (5-14) /OIF; Polychromasia 1+ (0-2) /OIF; Tear Drop Cells 1+ (0-2) /OIF
[2020-12-28 06:57] LABS: Smudge Cells PRESENT
[2020-12-28 06:58] LABS: Toxic Vacuolation PRESENT
[2020-12-28 06:59] LABS: Large Platelet PRESENT; Platelet Estimate DECREASED (NORMAL); Platelet Morphology Comment NORMAL
[2020-12-28 07:03] LABS: Fibrinogen 235 MG/DL (259-690); INTERNATIONAL NORM RATIO 2.2 (0.9-1.1); Prothrombin Time 26.6 SEC (10.8-13.0)
[2020-12-28 07:09] LABS: Partial Thromboplastin Time 38.4 SEC (24.1-38.0)
[2020-12-28 07:17] LABS: Glucose, Whole Blood 223 mg/dL (60-115)
[2020-12-28 07:39] LABS: Reflex Lactate? Lactic Acid Added
[2020-12-28] MEDS: Insulin Lispro 100 UNIT/ML 3 ML VIAL SUBCUT (07:55)
[2020-12-28] MEDS: Chlorhexidine Gluc Oral Rinse 15 ML MOUTHWASH BUCCAL (07:57)
[2020-12-28] MEDS: Octreotide Acetate 500 MCG in 0.9 % Sodium Chloride 500 ML 25.05 MCG IVCONT (08:05)
[2020-12-28] MEDS: Morphine Sulfate/NS 100 MG/100 ML PLAST..BAG IVCONT (13:10)
--- NOTE | 2020-12-28 13:56 | PM.DS ---
DS: Providers Provider Date of Service: 12/28/20 Date of admission: 12/25/20 00:57 Primary care physician: [facility] Consults: 12/25/20 07:24 Consult to Nephrology Routine Consulting Provider: Joss Keen Reason for consultation: acute renal failure/hyperkalemia Has provider been notified: Yes 12/25/20 11:32 Consult to Pulmonology Routine Consulting Provider: Coy Serra Reason for consultation: HCAP/Atelectasis Has provider been notified: Yes 12/25/20 17:21 Consult to Pulmonology Stat Consulting Provider: Avinash Camacho Reason for consultation: hemoptysis Has provider been notified: Yes 12/25/20 17:24 Consult to Gastroenterology Stat Consulting Provider: Alan Taylor Reason for consultation: hematemesis Has provider been notified: Yes 12/26/20 08:04 Consult to Wound Care Routine Consulting Provider[place] [facility] Reason for consultation: ? DIABETIC ULCER TO LEFT LOWER LEG/BONE, TREATMENT ADVISEMENT Has provider been notified: Yes 12/27/20 23:09 Consult to General Surgery Stat Consulting Provider: Justin Diehl Reason for consultation: pneumatosis Has provider been notified: Yes DS: Diagnosis Discharge Diagnosis (1) Pneumatosis intestinalis of large intestine: Status: Acute Problem details: Clinical features of presentation initially manifested by altered mental status with hypotension and hypothermia and bradycardia with CT scan evidence of bilateral nodular infiltrates and consolidations initially appear to be septic but changed with presentation of combined pulmonary renal failure with proteinuria and hematuria and diffuse alveolar hemorrhage and took on the complexion of an acute vasculitis (2) Diffuse pulmonary alveolar hemorrhage: Status: Acute (3) Portal venous hypertension: Status: Acute (4) Coagulopathy: Status: Acute Problem details: Initially presented with a bleeding diathesis and when hemodynamics changed along with white count with increasing lactic acid we noted the pneumatosis of his large bowel probably representing a hypercoagulable state with bowel infarction (5) Thrombocytopenia: Status: Acute (6) Anemia: Status: Acute (7) Cirrhosis of liver without ascites: Status: Acute (8) Portal hypertensive gastropathy: Status: Acute (9) Upper GI bleeding: Status: Acute (10) 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: Status: Acute (11) Diffuse pulmonary alveolar hemorrhage: Status: Acute (12) Pulmonary hypertension: Status: Acute (13) Healthcare-associated pneumonia: Status: Acute (14) Acute respiratory failure with hypoxemia: Status: Acute (15) Acute hyperkalemia: Status: Acute (16) Neuropathy: Status: Acute (17) Acute renal failure: Status: Acute (18) Hypothermia: Status: Acute (19) Acute hypotension: Status: Acute (20) Acute pancreatitis: Status: Acute (21) Acute hyponatremia: Status: Acute (22) Encephalopathy: Status: Acute DS: Medications Discharge Medications Home Medications: Home Medications Medication Instructions Recorded Confirmed omeprazole 20 mg capsule,delayed 20 mg PO DAILY@0630 05/23/20 12/25/20 release rifaximin 550 mg tablet 550 mg PO TID 05/23/20 12/25/20 Incruse Ellipta 1 inh INHALATION DAILY 11/28/20 12/25/20 Lantus Solostar U-100 Insulin 62 unit SUBCUT BEDTIME 11/28/20 12/25/20 aspirin 81 mg PO DAILY 11/28/20 12/25/20 atorvastatin 40 mg PO DAILY 11/28/20 12/25/20 insulin aspart U-100 [Novolog 22 unit SUBCUT DAILY@0730 11/28/20 12/25/20 Flexpen U-100 Insulin] insulin aspart U-100 [Novolog 24 unit SUBCUT QPM 11/28/20 12/25/20 Flexpen U-100 Insulin] propranolol 10 mg PO BID 11/28/20 12/25/20 spironolactone 50 mg PO DAILY 11/28/20 12/25/20 potassium chloride 10 meq PO 12/25/20 Previous Rx's Medication Instructions Recorded gabapentin 300 mg capsule 300 mg PO BEDTIME 30 Days #30 cap 09/29/20 furosemide 40 mg PO BID@0900,1800 30 Days #60 12/08/20 tab lactulose 30 g PO BID 30 Days #2700 ml 12/08/20 metolazone 5 mg PO MOWEFR 30 Days #13 tab 12/08/20 DS: Summary Time Spent with Patient Time attestation: Total time spent providing and/or coordinating discharge services: 35 minutes spent today including family discussion and pronunciation of and provision of comfort measures 75-year-old male with background history of alcoholic cirrhosis portal hypertension and hepatic insufficiency with a an underlying chronic degree of coagulopathy manifested by elevated PT and PTT presented with hypothermia and hypotension and bradycardia with some alteration of mental status but progressive hypoxic respiratory failure requiring intubation and then diffuse alveolar hemorrhage in sued which we had to treat with factor replacement and then ultimately DD [employer] based on his acute on chronic stage IV renal failure This combined pulmonary renal failure appear to be vasculitic serologies were sent off which were negative but we were still concerned about poly angiitis and we initially wanted a renal biopsy performed and possible plasmapheresis on the basis of this presumptive diagnosis but we never got to the point of transferring to a tertiary institution when he altered his hemodynamics and apparently developed pneumatosis of his cecum and ascending colon indicating probable hypercoagulability and large bowel infarction with climbing lactic acid ultimately establishing a grave prognosis especially since he was deemed inoperable following surgical consult it was explained the such to the family who then elected for comfort measures and he was terminally extubated and placed on morphine for comfort and became asystolic and was pronounced at 1:30 p.m. Discharge coordination time: Greater than 30 minutes Quality: Stroke Does the patient have a stroke diagnosis?: No Physical Exam Vital Signs: Vital Signs: Last Vital Signs Temp 97.0 F 12/28/20 12:00 Pulse 98 12/28/20 12:00 Resp 24 H 12/28/20 12:00 BP 93/33 L 12/28/20 12:00 Pulse Ox 97 12/28/20 12:00 Body Mass Index 38.9 Asystolic no palpable pulses no response no respiratory effort DS: Data Data Completed and Pending Labs on day of discharge: Laboratory Results - last 24 hr 12/25/20 12/27/20 12/27/20 12:24 16:31 16:49 WBC RBC Hgb Hct MCV MCH MCHC RDW Plt Count MPV Immature Gran % (Auto) Neut % (Auto) Lymph % (Auto) [place] % (Auto) Eos % (Auto) Baso % (Auto) Lymph # (Auto) [place] # (Auto) Eos # (Auto) Baso # (Auto) Abs Immat Gran (auto) Absolute Neuts (auto) Absolute Nucleated RBC Nucleated RBC % (auto) Neutrophils % (Manual) Band Neutrophils % Lymphocytes % (Manual) Atypical Lymphs % (Man) Monocytes % (Manual) Metamyelocytes % Myelocytes % Abs Neuts (Manual) Lymphocytes # (Manual) Monocytes # (Manual) Metamyelocytes # Myelocytes # Nucleated RBCs Smudge Cells Toxic Vacuolation Platelet Estimate Large Platelets Plt Morphology Comment RBC Morphology Polychromasia Microcytosis Macrocytosis Tear Drop Cells Ovalocytes Acanthocytes (Spur) Smear Tech's Comments PT INR APTT Fibrinogen VBG pH VBG pCO2 VBG pO2 VBG HCO3 VBG O2 Saturation VBG Base Excess Sodium Potassium Chloride Carbon Dioxide Anion Gap BUN Creatinine Estim Creat Clear Calc Estimated GFR POC Glucose 259 H Random Glucose Lactic Acid 5.3 H* Lactic Acid Fup @ 2Hr Calcium Total Bilirubin AST ALT Alkaline Phosphatase Ammonia Total Protein Albumin MADELINE Titer TNP MADELINE Titer 2 TNP MADELINE Titer 3 TNP MADELINE Pattern TNP MADELINE Pattern 2 TNP MADELINE Pattern 3 TNP 12/27/20 12/27/20 12/27/20 18:20 18:23 18:23 WBC 17.8 H RBC 3.14 L D Hgb 9.9 L D Hct 28.4 L D MCV 90.4 MCH 31.5 MCHC 34.9 RDW 20.3 H Plt Count 104 L MPV 12.8 H Immature Gran % (Auto) 4.4 H Neut % (Auto) 70.2 Lymph % (Auto) 8.4 L [place] % (Auto) 16.7 H Eos % (Auto) 0.1 Baso % (Auto) 0.2 Lymph # (Auto) 1.5 [place] # (Auto) 3.0 H Eos # (Auto) 0.0 Baso # (Auto) 0.0 Abs Immat Gran (auto) 0.78 H Absolute Neuts (auto) 12.5 H Absolute Nucleated RBC 0.810 H Nucleated RBC % (auto) 4.6 H Neutrophils % (Manual) Band Neutrophils % Lymphocytes % (Manual) Atypical Lymphs % (Man) Monocytes % (Manual) Metamyelocytes % Myelocytes % Abs Neuts (Manual) Lymphocytes # (Manual) Monocytes # (Manual) Metamyelocytes # Myelocytes # Nucleated RBCs Smudge Cells Toxic Vacuolation Platelet Estimate Large Platelets Plt Morphology Comment RBC Morphology Polychromasia Microcytosis Macrocytosis Tear Drop Cells Ovalocytes Acanthocytes (Spur) Smear Tech's Comments VERIFIED PT INR APTT Fibrinogen VBG pH 7.35 VBG pCO2 24 VBG pO2 74 VBG HCO3 13 L VBG O2 Saturation 90.0 VBG Base Excess -10.0 Sodium 134 L Potassium 4.6 Chloride 104 Carbon Dioxide 12 L Anion Gap 23 H BUN 64 H Creatinine 4.15 H* Estim Creat Clear Calc 21.5 Estimated GFR 14 POC Glucose Random Glucose 275 H Lactic Acid Lactic Acid Fup @ 2Hr Calcium 7.6 L Total Bilirubin AST ALT Alkaline Phosphatase Ammonia Total Protein Albumin MADELINE Titer MADELINE Titer 2 MADELINE Titer 3 MADELINE Pattern MADELINE Pattern 2 MADELINE Pattern 3 12/27/20 12/27/20 12/28/20 19:23 22:15 05:13 WBC 22.3 H RBC 3.01 L Hgb 9.3 L Hct 28.3 L MCV 94.0 MCH 30.9 MCHC 32.9 RDW 20.6 H Plt Count 96 L MPV 12.3 Immature Gran % (Auto) Cancelled Neut % (Auto) Cancelled Lymph % (Auto) Cancelled [place] % (Auto) Cancelled Eos % (Auto) Cancelled Baso % (Auto) Cancelled Lymph # (Auto) Cancelled [place] # (Auto) Cancelled Eos # (Auto) Cancelled Baso # (Auto) Cancelled Abs Immat Gran (auto) Cancelled Absolute Neuts (auto) Cancelled Absolute Nucleated RBC 1.800 H Nucleated RBC % (auto) 8.1 H Neutrophils % (Manual) 58 Band Neutrophils % 19 H Lymphocytes % (Manual) 7 L Atypical Lymphs % (Man) 0 Monocytes % (Manual) 10 Metamyelocytes % 2 Myelocytes % 4 Abs Neuts (Manual) 17.2 H Lymphocytes # (Manual) 1.6 Monocytes # (Manual) 2.2 H Metamyelocytes # 0.4 Myelocytes # 0.9 Nucleated RBCs 9 H Smudge Cells PRESENT Toxic Vacuolation PRESENT Platelet Estimate DECREASED Large Platelets PRESENT Plt Morphology Comment NORMAL RBC Morphology NOTED Polychromasia 1+ (0-2) Microcytosis 1+ (5-14) Macrocytosis 1+ (5-14) Tear Drop Cells 1+ (0-2) Ovalocytes 1+ (5-14) Acanthocytes (Spur) 1+ (0-2) Smear Tech's Comments PT INR APTT Fibrinogen VBG pH VBG pCO2 VBG pO2 VBG HCO3 VBG O2 Saturation VBG Base Excess Sodium Potassium Chloride Carbon Dioxide Anion Gap BUN Creatinine Estim Creat Clear Calc Estimated GFR POC Glucose 237 H Random Glucose Lactic Acid Lactic Acid Fup @ 2Hr 6.4 H* Calcium Total Bilirubin AST ALT Alkaline Phosphatase Ammonia Total Protein Albumin MADELINE Titer MADELINE Titer 2 MADELINE Titer 3 MADELINE Pattern MADELINE Pattern 2 MADELINE Pattern 3 12/28/20 12/28/20 12/28/20 05:13 05:13 05:13 WBC RBC Hgb Hct MCV MCH MCHC RDW Plt Count MPV Immature Gran % (Auto) Neut % (Auto) Lymph % (Auto) [place] % (Auto) Eos % (Auto) Baso % (Auto) Lymph # (Auto) [place] # (Auto) Eos # (Auto) Baso # (Auto) Abs Immat Gran (auto) Absolute Neuts (auto) Absolute Nucleated RBC Nucleated RBC % (auto) Neutrophils % (Manual) Band Neutrophils % Lymphocytes % (Manual) Atypical Lymphs % (Man) Monocytes % (Manual) Metamyelocytes % Myelocytes % Abs Neuts (Manual) Lymphocytes # (Manual) Monocytes # (Manual) Metamyelocytes # Myelocytes # Nucleated RBCs Smudge Cells Toxic Vacuolation Platelet Estimate Large Platelets Plt Morphology Comment RBC Morphology Polychromasia Microcytosis Macrocytosis Tear Drop Cells Ovalocytes Acanthocytes (Spur) Smear Tech's Comments PT 26.6 H D INR 2.2 H APTT 38.4 H Fibrinogen 235 L VBG pH VBG pCO2 VBG pO2 VBG HCO3 VBG O2 Saturation VBG Base Excess Sodium 134 L Potassium 5.0 Chloride 105 Carbon Dioxide 11 L Anion Gap 23 H BUN 70 H Creatinine 4.23 H* Estim Creat Clear Calc 21.3 Estimated GFR 14 POC Glucose Random Glucose 258 H Lactic Acid Lactic Acid Fup @ 2Hr Calcium 7.3 L Total Bilirubin 3.7 H AST 56 H ALT 39 Alkaline Phosphatase 121 H Ammonia 119 H Total Protein 5.0 L Albumin 2.1 L MADELINE Titer MADELINE Titer 2 MADELINE Titer 3 MADELINE Pattern MADELINE Pattern 2 MADELINE Pattern 3 12/28/20 12/28/20 12/28/20 05:13 05:23 07:11 WBC RBC Hgb Hct MCV MCH MCHC RDW Plt Count MPV Immature Gran % (Auto) Neut % (Auto) Lymph % (Auto) [place] % (Auto) Eos % (Auto) Baso % (Auto) Lymph # (Auto) [place] # (Auto) Eos # (Auto) Baso # (Auto) Abs Immat Gran (auto) Absolute Neuts (auto) Absolute Nucleated RBC Nucleated RBC % (auto) Neutrophils % (Manual) Band Neutrophils % Lymphocytes % (Manual) Atypical Lymphs % (Man) Monocytes % (Manual) Metamyelocytes % Myelocytes % Abs Neuts (Manual) Lymphocytes # (Manual) Monocytes # (Manual) Metamyelocytes # Myelocytes # Nucleated RBCs Smudge Cells Toxic Vacuolation Platelet Estimate Large Platelets Plt Morphology Comment RBC Morphology Polychromasia Microcytosis Macrocytosis Tear Drop Cells Ovalocytes Acanthocytes (Spur) Smear Tech's Comments PT INR APTT Fibrinogen VBG pH 7.23 L VBG pCO2 22 VBG pO2 63 VBG HCO3 10 L VBG O2 Saturation 84.0 VBG Base Excess -15.5 Sodium Potassium Chloride Carbon Dioxide Anion Gap BUN Creatinine Estim Creat Clear Calc Estimated GFR POC Glucose 223 H Random Glucose Lactic Acid 9.6 H* Lactic Acid Fup @ 2Hr Calcium Total Bilirubin AST ALT Alkaline Phosphatase Ammonia Total Protein Albumin MADELINE Titer MADELINE Titer 2 MADELINE Titer 3 MADELINE Pattern MADELINE Pattern 2 MADELINE Pattern 3 12/28/20 07:39 WBC RBC Hgb Hct MCV MCH MCHC RDW Plt Count MPV Immature Gran % (Auto) Neut % (Auto) Lymph % (Auto) [place] % (Auto) Eos % (Auto) Baso % (Auto) Lymph # (Auto) [place] # (Auto) Eos # (Auto) Baso # (Auto) Abs Immat Gran (auto) Absolute Neuts (auto) Absolute Nucleated RBC Nucleated RBC % (auto) Neutrophils % (Manual) Band Neutrophils % Lymphocytes % (Manual) Atypical Lymphs % (Man) Monocytes % (Manual) Metamyelocytes % Myelocytes % Abs Neuts (Manual) Lymphocytes # (Manual) Monocytes # (Manual) Metamyelocytes # Myelocytes # Nucleated RBCs Smudge Cells Toxic Vacuolation Platelet Estimate Large Platelets Plt Morphology Comment RBC Morphology Polychromasia Microcytosis Macrocytosis Tear Drop Cells Ovalocytes Acanthocytes (Spur) Smear Tech's Comments PT INR APTT Fibrinogen VBG pH VBG pCO2 VBG pO2 VBG HCO3 VBG O2 Saturation VBG Base Excess Sodium Potassium Chloride Carbon Dioxide Anion Gap BUN Creatinine Estim Creat Clear Calc Estimated GFR POC Glucose Random Glucose Lactic Acid Lactic Acid Fup @ 2Hr TNP Calcium Total Bilirubin AST ALT Alkaline Phosphatase Ammonia Total Protein Albumin MADELINE Titer MADELINE Titer 2 MADELINE Titer 3 MADELINE Pattern MADELINE Pattern 2 MADELINE Pattern 3 Preliminary micro results at discharge 12/24/20 18:55 Blood Culture - Preliminary Blood - Venous No growth after 48 hours. 12/24/20 18:41 Blood Culture - Preliminary Blood - Venous No growth after 48 hours. Discharge Plan Discharge Anticipated Discharge Date/Time: 12/28/20 14:05 Patient Disposition: Referrals: [facility] [Primary Care Provider] - 1 Week Discharge Medications: No Action gabapentin 300 mg capsule 300 mg PO BEDTIME 30 Days Qty: 30 RF: 2 Lantus Solostar U-100 Insulin 100 unit/mL (3 mL) Insulin Pen 62 unit SUBCUT BEDTIME RF: 0 Incruse Ellipta 62.5 mcg/actuation Blister With Device 1 inh INHALATION DAILY RF: 0 atorvastatin 40 mg Tablet 40 mg PO DAILY RF: 0 propranolol 10 mg Tablet 10 mg PO BID RF: 0 spironolactone 50 mg Tablet 50 mg PO DAILY RF: 0 aspirin 81 mg Tablet,Delayed Release (Dr/Ec) 81 mg PO DAILY RF: 0 insulin aspart U-100 [Novolog Flexpen U-100 Insulin] 100 unit/mL (3 mL) Insulin Pen 22 unit SUBCUT DAILY@0730 RF: 0 insulin aspart U-100 [Novolog Flexpen U-100 Insulin] 100 unit/mL (3 mL) Insulin Pen 24 unit SUBCUT QPM RF: 0 metolazone 5 mg Tablet 5 mg PO MOWEFR 30 Days Qty: 13 RF: 0 lactulose 20 gram/30 mL Solution 30 g PO BID 30 Days Qty: 2700 RF: 0 furosemide 40 mg Tablet 40 mg PO BID@0900,1800 30 Days Qty: 60 RF: 0 potassium chloride 10 mEq capsule, extended release 10 meq PO RF: 0 omeprazole 20 mg capsule,delayed release(DR/EC) 20 mg PO DAILY@0630 RF: 0 Xifaxan 550 mg tablet 550 mg PO TID RF: 0 Discharge Orders: Discharge Order (Routine); Ordered 12/28/20 Ordered By: Coy Serra
--- NOTE | 2020-12-28 15:54 | PC.NURSE ---
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 FAMILY WAS PRESENT AND RT AND RN AT BEDSIDE FOR EXTUBATION. MORPHINE GTT WAS STARTED AND UPTITRATED TO COMFORT. TIME OF WAS 1330, PRONOUNCED BY .
[2020-12-30 14:46] LABS: Pneumocystis jir Ql PCR NOT DETECTED; Pneumocystis jir source BRONCH WASH
[2020-12-30 14:46] LABS: DRVVT Confirmation NEGATIVE (NEGATIVE); Hexagonal Phase Neutralization NEGATIVE (NEGATIVE); PTT (LAC) Screen 60 sec (< OR = 40)
--- NOTE | 2021-01-01 02:18 | PC.NURSE ---
Late note - clarified w/ primary RN, Jeremi Henning - full unit of FFP (unit #[id number]) infused within hour - edited TAR I&O.
[2021-01-01 11:22] LABS: Smooth Muscle Antibody 23 U (<20)
[2021-01-02 14:32] LABS: Mitochondrial Antibodies NEGATIVE (NEGATIVE)
[2021-01-02 16:57] LABS: Cortisol, Free >100.00 mcg/dL
== END 2020-12-28 14:00 | disposition expired | DRG 441 ==
LOC: HO.ED 12-25 00:58 → HO.ICU 12-25 01:11
PROVIDERS: Hospitalist; Internal Medicine Cardiovascular Disease; Internal Medicine Gastroenterology; Internal Medicine Nephrology; Admitting Provider Physician Assistant; Emergency Provider Internal Medicine; Visit Provider Physician Assistant
PROC: 0DJ08ZZ Inspection of Upper Intestinal Tract, Via Natural or Artificial Opening Endoscopic (ICD-10-PCS; CPT 43235; principal; 2020-12-26 13:40)
DX: K72.90 Hepatic failure, unspecified without coma (principal); K85.80 Other acute pancreatitis without necrosis or infection; N17.0 Acute kidney failure with tubular necrosis; J96.01 Acute respiratory failure with hypoxia; E87.1 Hypo-osmolality and hyponatremia; R04.89 Hemorrhage from other sites in respiratory passages; I87.312 Chronic venous hypertension (idiopathic) with ulcer of left lower extremity; L97.829 Non-pressure chronic ulcer of other part of left lower leg with unspecified severity; I13.0 Hypertensive heart and chronic kidney disease with heart failure and stage 1 through stage 4 chronic kidney disease, or unspecified chronic kidney disease; K76.6 Portal hypertension; D68.9 Coagulation defect, unspecified; K70.30 Alcoholic cirrhosis of liver without ascites; I95.9 Hypotension, unspecified; E11.42 Type 2 diabetes mellitus with diabetic polyneuropathy; J44.9 Chronic obstructive pulmonary disease, unspecified; E11.51 Type 2 diabetes mellitus with diabetic peripheral angiopathy without gangrene; E11.22 Type 2 diabetes mellitus with diabetic chronic kidney disease; N18.9 Chronic kidney disease, unspecified; F10.21 Alcohol dependence, in remission; E03.9 Hypothyroidism, unspecified; K63.89 Other specified diseases of intestine; I27.20 Pulmonary hypertension, unspecified; E87.6 Hypokalemia; I50.9 Heart failure, unspecified; R68.0 Hypothermia, not associated with low environmental temperature; D69.6 Thrombocytopenia, unspecified; K31.89 Other diseases of stomach and duodenum; Z20.822 Contact with and (suspected) exposure to COVID-19; Z79.82 Long term (current) use of aspirin; Z79.4 Long term (current) use of insulin; Z79.899 Other long term (current) drug therapy; Z66 Do not resuscitate; Z51.5 Encounter for palliative care
CPT/HCPCS: 36415; 70450; 71045; 71250; 73200; 74176; 80048; 80053; 80076; 81001; 82140; 82530; 82550; 82728; 82947; 82977; 83520; 83605; 83690; 83735; 83880; 84100; 84300; 84439; 84443; 84484; 85007; 85025; 85027; 85384; 85597; 85610; 85613; 85652; 85730; 86021; 86038; 86039; 86235; 86255; 86256; 86704; 86706; 86709; 86803; 86850; 86900; 86901; 86923; 87040; 87070; 87071; 87086; 87116; 87205; 87340; 87633; 87635; 87651; 87798; 93005; 94002; 94003; 94640; 94644; 94799; 99284; C1758; J0610; J1170; J1265; J1940; J1956; J2270; J2354; J2543; J2597; J2930; J3370; J7131; P9012; P9016; P9017; P9047